=== PATIENT | female | born 1995 | race Caucasian/White ===

== ENCOUNTER 2018-12-18 06:25 | Emergency (ER) | payer MEDICAID, SELFPAY ==
[2018-12-18 06:27] VITALS: BP 118/65; PULSE 109; RESP 20; TEMP 39.2; O2SAT 97; BMI 31.0
[2018-12-18 07:28] LABS: Anion Gap 9 (5-15); BUN 7 mg/dL (7-18); BUN/Creat Ratio 7.8 RATIO (10-20); Calcium,Total 8.3 mg/dL (8.5-10.1); Chloride 104 mmol/L (98-107); Creatinine, Serum 0.89 mg/dL (0.55-1.02); EST Glomerular Filtration Rate 83 mL/min (>60); Est Glom Filt Rate - Afr Amer 100 mL/min (>60); Estimated Creatinine Clearance 84.89 ml/min; Glucose 99 mg/dL (74-106); Potassium 3.4 mmol/L (3.5-5.1); Sodium Level 137 mmol/L (136-145)
[2018-12-18] MEDS: 0.9% Normal Saline 1,000 ML 1000 ML IV (07:29)
[2018-12-18] MEDS: Acetaminophen 325 MG Tablet 650 MG PO (07:29)
[2018-12-18] MEDS: Ondansetron 4 MG/2 ML Vial IV (07:31)
[2018-12-18 07:33] LABS: Lactic Acid 0.9 mmol/L (0.4-2.0)
--- NOTE | 2018-12-18 07:39 | ED.DCSUM_ITS ---
- ER Visit Summary Date of Service: 12/18/18 Chief Complaint: Fever, chills, achy, cough and nausea and vomiting History of Present Illness: The patient is a 23 F who reports onset of illness was 3 weeks ago. At that time she had cough, congestion with fever and chills. She states after several days she got better. She states approximately 4 5 days ago she developed fever, chills with occasional sweats. She does report headache, discomfort with IV movement. Denies photophobia, neck pain or neck stiffness. Denies nasal congestion, rhinorrhea or postnasal drainage. She does report mild sore throat. Cough is productive. She is a smoker. She denies shortness of breath or dyspnea on exertion. She does report dry mouth, thirst, orthostatic symptoms and decreased urine output. She denies dysuria, frequency, urgency or hematuria. She has vomited several times. She denies hematemesis. Emesis is green yellow in color. She denies change in color or consistency of stool. She denies rash. She denies vertigo, anesthesia, paresthesia or motor weakness. She denies problems with bruising. She denies rash. She did not receive a flu shot. 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 Physical Examination: Vital signs noted and remarkable for heart rate of 109, temperature 102.6. She is not hypoxic. Head is atraumatic normocephalic. Pupils are equal round reactive. Extraocular muscles are intact. There is no photophobia. TMs are pearly white with landmarks noted. Nares patent with no drainage. Posterior pharynx without erythema or exudate. Uvula is midline. Tongue and buccal mucosa are dry. There is no dysphonia or dysphasia. Trachea is midline. There is no stridor with auscultation of the neck. Heart is rapid and regular without murmur, gallop or rub. S1 and S2 are normal. Lungs are clear to auscultation with good movement of air bilaterally. Abdomen is soft nontender. No palpable pulsatile mass. No abdominal bruit. There is no hepatosplenomegaly. Negative Johnston sign. There is no CVA tenderness. Patient appears pale. Patient is alert and oriented ?3. Motor is 5 over 5. Sensory is intact. DTRs are symmetric with no clonus or Babinski sign. Cranial 2 through 12 are intact. Cerebellar testing is normal. Test Results: Monitor reveals sinus tachycardia rate of 125. Patient appears ill. Two-view chest x-ray read by me as infiltrate left lower lobe. Contacted radiology since there is no official read. Dr. Cline agrees with my assessment/interpretation. Emergency Department Course and Treatment: Clinically patient appears dehydrated. She received 1 L of normal saline. Because she complains of myalgias arthralgias cough fever headache will obtain rapid influenza screen. Because patient's illness started 3 weeks ago has productive cough chest x-ray was obtained as well. Based on amount of vomiting reported basic metabolic panel was obtained to assess renal function and electrolytes. IV was established. She was treated with IV Zofran. She will be reevaluated. Treatment Plan: Patient received a dose of Tamiflu and doxycycline department. Patient informed me she cannot afford the retail cost of the medication. Case management was consulted. Case management was able to facilitate purchase of Tamiflu and doxycycline. Therefore, patient was discharged with Tamiflu and doxycycline. Disposition: Discharge to home with significant other in stable improved condition. Patient level 1 port severity therefore outpatient treatment is appropriate. Impression: 1. Left lower lobe pneumonia, community-acquired 2. Influenza A 3. Moderate dehydration 4. Sinus tachycardia documented on monitor This note was generated with [employer] dictation software. It may contain incorrect words, spelling, and punctuation that were not noted in review of the chart prior to signing ED Disposition - Plan for ED Patient: Disposition: Home or Assisted Living Instructions: ED Flu, ED Pneumonia Adult Prescriptions: Doxycycline Hyclate 100 mg PO BID #14 cap Oseltamivir Phosphate [Tamiflu] 75 mg PO BID #10 cap Referrals: Owen Rogers MD [Primary Care Provider] - 2 Days
[2018-12-18 07:44] VITALS: BP 107/67; PULSE 91; RESP 19
[2018-12-18 07:44] LABS: Absolute Neutrophil Count 2.1 X10^3/uL (2.0-7.7); Hematocrit 43.2 % (37-47); Hemoglobin 14.3 g/dl (12.0-15.0); Lymphocyte % 19.4 % (19-41); Mean Corp Hgb Conc 33.1 g/gl (32-36); Mean Corpuscular Volume 93.7 fL (81-99); Mean Platelet Vol. 9.2 fl (6.2-12.0); Monocyte# 0.43 X10^3/uL; Monocyte% 13.9 % (0-10); Neutrophil # 2.07 X10^3/uL (2.7-7.7); Neutrophil % 66.7 % (47-70); Platelet Count 193 K/mm3 (150-450); RBC Distribution Width CV 12.9 % (11.6-14.6); RBC Distribution Width SD 43.1 fl (35.1-43.9); Red Blood Count 4.61 M/mm3 (4.2-5.4); White Blood Count 3.1 K/mm3 (4.4-11.0)
[2018-12-18 07:45] LABS: Differential Indicated SCAN CRITERIA MET; POSITIVE COUNT NO; POSITIVE DIFFERENTIAL YES; POSITIVE MORPHOLOGY NO
--- NOTE | 2018-12-18 08:14 | ED.RN ---
LAB RESULTED POSITIVE FLU A, PHYSICIAN NOTIFIED
--- NOTE | 2018-12-18 08:15 | RAD_ITS ---
STUDY: X-RAY CHEST REASON FOR EXAM: Female, 23 years old. History of flu. TECHNIQUE: PA and lateral views of the chest. COMPARISON: None. FINDINGS: Mild increased markings in the posterior segment of the left lower lobe suggestive of early infiltrate. There is no demonstrated pleural abnormality. Normal size heart. Normal mediastinum and sammy. Normal visualized pulmonary arteries. Normal visualized aortic arch and descending thoracic aorta. Normal visualized thoracic spine. Normal visualized ribs, clavicles, and shoulders. There is no demonstrated abnormality of the visualized soft tissue structures of the upper abdomen. RAD/Chest PA and Lateral IMPRESSION: Focal infiltrate in the posterior medial segment of the left lower lobe. Electronically Signed: Ray Mena MD at 8:45 EST , Service support ,
[2018-12-18 08:40] VITALS: BP 97/68; PULSE 92; RESP 12; TEMP 37; O2SAT 96
[2018-12-18] MEDS: Oseltamivir Phosphate 75 MG Capsule PO (08:55)
[2018-12-18] MEDS: Doxycycline 100 MG CAPSULE PO (08:55)
[2018-12-18 08:57] VITALS: BP 114/74; PULSE 91; RESP 15; O2SAT 95
--- NOTE | 2018-12-18 09:20 | CM.ED ---
SOCIAL WORK NOTE THIS WORKER REQUESTED TO FOLLOW UP WITH PATIENT REGARDING SELF PAY STATUS AND PRESCRIPTION NEEDS. PATIENT WITH POSITIVE FLU A AND PNEUMONIA. MET WITH PATIENT AND PATIENT'S SIG OTHER, DOC REID [phone] AT BEDSIDE. PATIENT STATES LOST [place] MEDICAID INSURANCE ON 11/10/18 SHE NO LONGER QUALIFIED SHE IS OVER INCOME. PATIENT AND SIG OTHER PROVIDED WITH CONTACT INFORMATION FOR MEDICAID SHARED SERVICES, [employer] AND [employer] FOR ASSISTANCE WITH PRESCRIPTIONS. SIG OTHER TO ASSIST PATIENT IN MAKING PHONE CALLS. THIS WORKER TO FOLLOW UP. ESTRADA VEGA, CUSTOMER CARE TEAM COACH, SOUND CUTTER.
--- NOTE | 2018-12-18 10:25 | CM.ED ---
SOCIAL WORK NOTE MET WITH PATIENT AND SIG OTHER IN ROOM. PATIENT STATES HAS SPOKEN WITH ADOPTIVE MOTHER, RANDOLPH WHO RESIDES IN [place] AND SHE IS ABLE TO PAY FOR PRESCRIPTIONS OVER THE PHONE. CALL TO DINH IN THE [facility]. PER DINH, ABLE TO ACCEPT PAYMENT OVER THE PHONE. CALL TO PT'S MOTHER, RANDOLPH PER REQUEST. RANDOLPH IN AGREEMENT TO PAY FOR PRESCRIPTIONS OVER THE PHONE WITH CREDIT CARD. UPDATED DR. FREEMAN AND NURSING. PLAN: HOME WITH SIG OTHER WITH PRESCRIPTION ASSISTANCE THROUGH PT'S ADOPTIVE MOTHER. ESTRADA VEGA, CORPORATE RELATIONS DIRECTOR, TESTER ROCKET ENGINE.
[2018-12-18 11:07] VITALS: BP 110/74; PULSE 95; RESP 14; O2SAT 98
== END 2018-12-18 11:12 | disposition home or self-care (01) ==
PROVIDERS: Emergency Provider Emergency Medicine; Family Provider Family Medicine; PCP Family Medicine
DX: J10.00 Influenza due to other identified influenza virus with unspecified type of pneumonia (principal); E86.0 Dehydration; R00.0 Tachycardia, unspecified; E66.9 Obesity, unspecified; F17.200 Nicotine dependence, unspecified, uncomplicated
CPT/HCPCS: 71046; 80048; 83605; 85025; 87804; 96361; 96374; 99285; J7030; J2405

== ENCOUNTER 2019-05-09 13:26 | Emergency (ER) | payer SELFPAY ==
[2019-05-09 13:27] VITALS: BP 123/68; PULSE 118; RESP 16; TEMP 37; O2SAT 96; BMI 29.0
--- NOTE | 2019-05-09 14:42 | ED.VIS.FEGU ---
History of Present Illness Chief Complaint: Female C/O Informant: Patient Pain: - - Painful lesion clitoral gonzalez Onset: Today Context: Sudden Onset Timing: Continuous Quality: Burning Location: - - Clitoral gonzalez Current Severity: Mild Maximum Severity: Severe Worsened by: - - Touch Relieved by: - - Nothing Issue: Negative for: Vaginal bleeding, Passing clots, Passing tissue Context: Sudden Onset - Vaginal Discharge Quality: White Associated Symptoms: Dysuria. Negative for: Frequency, Urgency, Hematuria, Missed Period Test: - - Patient is a lesbian Sexually: Active, Multiple Partners, - - Patient practices oral sex and is a lesbian Control: No control Narrative: Patient is a 24-year-old female who states she broke up with her present girlfriend. They were apart for a month. She was with another person. She recently started seeing her old girlfriend. They recently had oral sex. She presents because of painful lesion that is located above the clitoris. No other lesions were noted by patient. Prior similar symptoms: No Recent Illness/Hospitalization: No - Past Medical History (1) No significant past medical history Status: Acute Past Medical History - Allergies and Home Meds Allergies/Adverse Reactions: Allergies lorazepam Allergy (Verified 05/09/19 13:27) Rash Primary Care Physician: Juan Ervin [Primary Care Provider] - Prior records reviewed: Yes Past Medical History: None Surgical History: no surgical history Lives: Spouse/ Significant Other Smoking Status: Unknown if ever smoked Drugs: None Review of Systems General: Denies: Chills, Fever, Malaise, Subjective, Sweats Eyes: Denies: Visual changes - bilaterally, Blurred Vision - bilaterally ENT: Denies: Bilateral ear pain, Rhinorrhea, Sore throat Cardiovascular: Denies: Chest pain, Palpitations, Heart racing Respiratory: Denies: Dyspnea, Cough, Dyspnea on exertion Gastrointestinal: Denies: Abdominal pain, Nausea, Vomiting Musculoskeletal: Denies: Myalgias, Arthralgias, Neck pain, Back pain, Swelling, Extremity Pain Skin: Reports: Rash Physical Exam Vital Signs/Narrative: Vital Signs Temp Pulse Resp BP Pulse Ox 05/09/19 13:27 98.6 F 118 H 16 123/68 H 96 Inital Vital Signs reviewed: Yes General: Well nourished, Well developed, Obese Head: Normocephalic, Atraumatic Eyes: Perrl, EOMI. Negative for: Pale conjunctiva, Scleral icterus ENT: Moist mucous membranes, No rhinorrhea Neck: Supple, Nontender, No lymphadenopathy, No JVD Cardiovascular: Regular rate, Regular rhythm, No murmurs, Normal S1, Normal S2 Respiratory: No distress, CTA bilaterally, Chest nontender Abdomen: Soft, Nontender, Nondistended, Normal bowel sounds : Speculum exam: No vaginal discharge. Negative for: Normal external genitalia, No vaginal lesions, Mild active bleeding, Moderate active bleeding, Severe active bleeding, Small clots, Large clots, Vaginal tissue present Back: Nontender, Normal Inspection Extremities: Nontender, No edema Skin: Normal color, Rash Neurological: Alert, Oriented x3, Cranial nerves II-XII grossly intact, Normal Strength, Normal Sensation Psychological: Tearful Diagnostic/Tx/Re-eval - Medical Decision/Diagnostic Studies Urine for GC and chlamydia were sent. Culture for HSV was obtained. There is a painful ulcerative lesion involving the clitoral gonzalez. This may represent primary genital herpes. She is unaware if her significant other recently had cold sores. I was informed the results will not be available until the middle of next week. Treatment needs to occur within 24 to 48 hours; therefore, will write for prescription for Famvir ED Disposition - Plan for ED Patient: Disposition: Home or Assisted Living Diagnosis: HSV (herpes simplex virus) dendritic keratitis Instructions: Herpes Genitalis, Hsv: Type Ii Prescriptions: Famciclovir 500 mg PO TID #21 tab Transmission Status: Pending to [employer] #30 Referrals: Juan Ervin [Primary Care Provider] - 1 Week if not improving Additional Instructions: Your prescription was electronically transmitted to [facility]
== END 2019-05-09 15:30 | disposition home or self-care (01) ==
PROVIDERS: Emergency Provider Emergency Medicine; Family Provider Family Medicine
DX: B00.52 Herpesviral keratitis (principal)
CPT/HCPCS: 87529; 99282

== ENCOUNTER 2019-06-13 13:37 | Emergency (ER) | payer SELFPAY ==
[2019-06-13 13:38] VITALS: BP 115/58; PULSE 97; RESP 16; TEMP 37.3; O2SAT 98; BMI 26.5
--- NOTE | 2019-06-13 14:12 | ED.VIS.GEN ---
History of Present Illness <Martell Arnold - Last Filed: 06/13/19 16:43> Informant: Patient Onset: Month(s) Current Severity: Moderate Maximum Severity: Moderate Narrative: Myke is a 24-year-old female who 4 months has had total body numbness, swelling, abdominal pain and nausea and vomiting. She is missed several days of work because of this. She cannot remember when her last menstrual cycle was but she states is always regular. She been under a lot of stress lately and she thinks she has an ulcer or MS. she complains of weight loss and anorexia. Denies fever chills or dysuria. She complains of decreased urine output and difficulty with voiding. She was seen at urgent care several months ago and she was told to go to the emergency department for further evaluation and that she might have organ failure. Prior similar symptoms: No Recent Illness/Hospitalization: No <FlortomasBev vazquez - Last Filed: 06/13/19 17:41> Chief Complaint: General Illness Past Medical History <Martell Arnold - Last Filed: 06/13/19 16:43> Surgical History: no surgical history Smoking Status: Unknown if ever smoked <Bev العراقي - Last Filed: 06/13/19 17:41> - Allergies and Home Meds Allergies/Adverse Reactions: Allergies lorazepam Allergy (Verified 06/13/19 14:35) Rash Primary Care Physician: Juan Ervin [Primary Care Provider] - Review of Systems General: Reports: Malaise. Denies: Chills, Fever Eyes: Denies: Visual changes - left, Blurred vision - left Cardiovascular: Denies: Chest pain, Palpitations Respiratory: Denies: Dyspnea, Cough Gastrointestinal: Reports: Abdominal pain, Nausea, Vomiting. Denies: Melena Genitourinary: Reports: - - Complains of low output. Denies: Dysuria, Hematuria, Frequency Musculoskeletal: Denies: Myalgias, Arthralgias, Neck pain, Back pain Neurological: Denies: Headache, Weakness, Parasthesia Psych: Reports: - - States she is under a lot of stress. Denies: Suicidal thoughts, Suicidal ideations <MalcomBev - Last Filed: 06/13/19 17:41> Physical Exam Vital Signs/Narrative: Vital Signs Temp Pulse Resp BP Pulse Ox 06/13/19 15:30 70 17 107/58 L 100 06/13/19 13:38 99.1 F 97 16 115/58 L 98 <ArnoldMartell - Last Filed: 06/13/19 16:43> Vital Signs/Narrative: Vital Signs Temp Pulse Resp BP Pulse Ox 06/13/19 13:38 99.1 F 97 16 115/58 L 98 Inital Vital Signs reviewed: Yes General: Well nourished, Well developed Eyes: Perrl, EOMI. Negative for: Pale conjunctiva ENT: Moist mucous membranes, No rhinorrhea Neck: Supple, Nontender, No lymphadenopathy Cardiovascular: Regular rate, Regular rhythm, No murmurs Respiratory: No distress, CTA bilaterally, Chest nontender Abdomen: Soft, Nontender, Nondistended Rectal: Deferred Back: Nontender, Normal Inspection Extremities: Nontender, No edema. Negative for: Tenderness, Edema, Calf Tenderness Skin: Normal color, No rash. Negative for: Pallor Neurological: Alert, Oriented x3 Psychological: Normal affect <Bev العراقي - Last Filed: 06/13/19 17:41> Diagnostic/Tx/Re-eval - Medical Decision Making Patient with multiple somatic complaints. Patient being seen and treated with our TOOL ROOM GEAR MACHINE OPERATOR His exam vital signs are stable and afebrile. No acute distress. Exam normal. HEENT exam normal. Neck nontender. Lungs clear to auscultation. Heart regular rhythm no murmur. Abdomen soft nontender. Patient is moving all 4 extremities. Neurovascular intact. Neurologically she is awake alert. Abdominal pain of uncertain etiology. <ClaytonMartell - Last Filed: 06/13/19 16:43> - Medical Decision Making She complains of right upper quadrant pain and laboratory test to evaluate her pancreas liver and gallbladder were unremarkable. White count was normal. She is not . She describes intermittent constipation or diarrhea. She may have irritable bowel syndrome. Her abdomen remains soft and nontender nondistended. She was instructed to follow-up with her PCP for further evaluation of her symptoms. She remained hemodynamically stable and nontoxic in appearance. She was discharged with a prescription for Bentyl and Zofran in stable condition. Impression NOS abdominal pain Possible IBS <Bev العراقي - Last Filed: 06/13/19 17:41> ED Disposition <Martell Arnold - Last Filed: 06/13/19 16:43> <MalcomBev - Last Filed: 06/13/19 17:41> - Plan for ED Patient: Disposition: Home or Assisted Living Diagnosis: IBS (irritable bowel syndrome) Prescriptions: Dicyclomine HCl [Bentyl] 20 mg PO TIDAC #20 cap Prescription Printed Referrals: Juan Ervin [Primary Care Provider] - Additional Instructions: Monitor your diet and avoid foods that aggravate your pain. He may require further evaluation of her symptoms. Follow with your primary care provider.
[2019-06-13 14:29] LABS: Absolute Lymphocyte Count 1.95 X10^3/uL (0.83-4.51); Absolute Neutrophil Count 3.6 X10^3/uL (2.0-7.7); Basophil# 0.05 X10^3/uL; Basophil% 0.8 % (0-1); Eosinophil# 0.05 X10^3/uL; Eosinophils% 0.8 % (0-5); Hematocrit 39.9 % (37-47); Hemoglobin 13.8 g/dL (12.0-15.0); Lymphocyte # 1.95 X10^3/ul (4.0); Lymphocyte % 32.3 % (19-41); Mean Corp Hgb Conc 34.6 g/dL (32-36); Mean Corpuscular Hgb 32.4 pg (27.0-32.0); Mean Corpuscular Volume 93.7 fL (81-99); Mean Platelet Vol. 8.6 fl (6.2-12.0); Monocyte# 0.39 X10^3/uL; Monocyte% 6.5 % (0-10); NRBC Flagged by Analyzer 0 % (0-5); Neutrophil # 3.58 X10^3/uL (2.7-7.7); Neutrophil % 59.3 % (47-70); Platelet Count 208 K/mm3 (150-450); RBC Distribution Width CV 12.3 % (11.6-14.6); RBC Distribution Width SD 42.5 fl (35.1-43.9); Red Blood Count 4.26 M/mm3 (4.2-5.4)
[2019-06-13 14:32] LABS: Internal QC Validated? YES +Cl - CLEAR BKGD; Pregnancy, Serum, hCG Quali. NEGATIVE Negative
[2019-06-13] MEDS: Ondansetron 4 MG/2 ML Vial IV (14:33)
[2019-06-13] MEDS: 0.9% Normal Saline 1,000 ML 1000 ML IV (14:33)
[2019-06-13 14:43] LABS: ALB/GLOB Ratio 1.2 RATIO (0.9-2.4); AST(SGOT) 10 U/L (15-37); Alanine Aminotransfer ALT/SGPT 15 U/L (13-56); Albumin, Serum 3.6 g/dL (3.2-5.0); Alkaline Phosphatase 48 U/L (45-117); Anion Gap 6 (5-15); BUN 12 mg/dL (7-18); BUN/Creat Ratio 13.1 RATIO (10-20); Calcium,Total 8.2 mg/dL (8.5-10.1); Chloride 111 mmol/L (98-107); Creatinine, Serum 0.91 mg/dL (0.55-1.02); EST Glomerular Filtration Rate 80 mL/min (>60); Est Glom Filt Rate - Afr Amer 97 mL/min (>60); Estimated Creatinine Clearance 82.32 ml/min; Globulin 3.1 g/dL (2.2-4.2); Glucose 76 mg/dL (74-106); Lipase 83 U/L (73-393); Potassium 3.8 mmol/L (3.5-5.1); Protein, Total 6.7 g/dL (6.4-8.2); Sodium Level 143 mmol/L (136-145)
[2019-06-13 15:30] VITALS: BP 107/58; PULSE 70; RESP 17; O2SAT 100
[2019-06-13 15:32] LABS: Mucous, Urine 0 SEEN /hpf (<or=2+); Red Blood Cells-Urine 0 SEEN /hpf (0-5); White Blood Cells 0 SEEN /hpf (0-5)
[2019-06-13 15:34] LABS: Color, Urine Yellow (Yellow); Glucose, Dipstick Normal (Normal); Ketone-Dipstick Negative (Negative); Leukocyte Esterase-Dipstick Negative /ul (Negative); Nitrite-Dipstick Negative (Negative); Occult Blood-Urine Negative /ul (Negative); Protein-Dipstick Negative (Negative); Urine Bilirubin Dipstick Negative (Negative); Urine Clarity Sl. Cloudy (Clear); Urine Urobilinogen Normal (Normal)
[2019-06-13 15:41] LABS: Bacteria RARE /hpf (None Seen); Squamous Epithelial Cells - UA 0-5 SEEN /hpf (5-10)
[2019-06-13 16:54] VITALS: PULSE 67; RESP 18; O2SAT 97
== END 2019-06-13 16:55 | disposition home or self-care (01) ==
PROVIDERS: Nurse Practitioner; Emergency Provider Emergency Medicine; Family Provider Family Medicine
DX: R10.11 Right upper quadrant pain (principal); R11.2 Nausea with vomiting, unspecified; R20.0 Anesthesia of skin
CPT/HCPCS: 80053; 81001; 83690; 84703; 85025; 96361; 96374; 99283; J7030; J2405

== ENCOUNTER 2019-10-12 12:20 | Emergency (ER) | payer SELFPAY ==
[2019-10-12] VITALS (10 sets, daily range): BP systolic 101–119; BP diastolic 73–76; PULSE 80–112; RESP 12–17; TEMP 36.2–37.1; O2SAT 94–100; BMI 25.0
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
--- NOTE | 2019-10-12 13:09 | CT_ITS ---
STUDY: CT BRAIN WITHOUT CONTRAST REASON FOR EXAM: Female, 24 years old. Mental health evaluation. Hallucinations. RADIATION DOSAGE (If Supplied By Facility): CTDIvol = ( 44.99 ) mGy, DLP = ( 661.13 ) mGycm TECHNIQUE: Transaxial CT imaging of the brain was performed without administration of intravenous contrast material. Individualized dose optimization techniques were used for this CT. COMPARISON: No relevant priors. FINDINGS: Normal soft tissue structures. Normal calvarium. Normal size ventricles and extra-axial spaces for the patient's age. Normal white matter tracts of the cerebral hemispheres. Normal basal ganglia and thalami. Normal brainstem. Normal cerebellum. There is no intracranial hemorrhage. There are no findings of an acute ischemic infarction. Normal visualized paranasal sinuses. Prominent soft tissues within the nasopharynx. CT/Brain/Head without Contrast IMPRESSION: Normal unenhanced CT scan of the brain. Electronically Signed: Ray Mena, at 13:38 EST , Service support ,
[2019-10-12 13:28] LABS: Absolute Lymphocyte Count 1.91 X10^3/uL (0.83-4.51); Absolute Neutrophil Count 8.4 X10^3/uL (2.0-7.7); Basophil# 0.04 X10^3/uL; Basophil% 0.4 % (0-1); Eosinophil# 0.04 X10^3/uL; Eosinophils% 0.4 % (0-5); Hematocrit 42.7 % (37-47); Hemoglobin 14.9 g/dL (12.0-15.0); Lymphocyte # 1.91 X10^3/ul (4.0); Lymphocyte % 17.4 % (19-41); Mean Corp Hgb Conc 34.9 g/dL (32-36); Mean Corpuscular Hgb 31.8 pg (27.0-32.0); Mean Corpuscular Volume 91.2 fL (81-99); Mean Platelet Vol. 8.8 fl (6.2-12.0); Monocyte# 0.62 X10^3/uL; Monocyte% 5.6 % (0-10); NRBC Flagged by Analyzer 0 % (0-5); Neutrophil # 8.35 X10^3/uL (2.7-7.7); Neutrophil % 75.9 % (47-70); Platelet Count 262 K/mm3 (150-450); RBC Distribution Width CV 12.2 % (11.6-14.6); RBC Distribution Width SD 40.5 fl (35.1-43.9); Red Blood Count 4.68 M/mm3 (4.2-5.4)
[2019-10-12 13:34] LABS: Internal QC Validated? YES +Cl - CLEAR BKGD; Pregnancy, Serum, hCG Quali. NEGATIVE Negative
[2019-10-12 13:41] LABS: Anion Gap 7 (5-15); BUN 11 mg/dL (7-18); BUN/Creat Ratio 11.3 RATIO (10-20); Calcium,Total 9.4 mg/dL (8.5-10.1); Chloride 108 mmol/L (98-107); Creatinine, Serum 0.97 mg/dL (0.55-1.02); EST Glomerular Filtration Rate 74 mL/min (>60); Est Glom Filt Rate - Afr Amer 90 mL/min (>60); Estimated Creatinine Clearance 80.47 ml/min; Glucose 110 mg/dL (74-106); Potassium 3.3 mmol/L (3.5-5.1); Sodium Level 139 mmol/L (136-145)
[2019-10-12 14:21] LABS: Amphetamine Urine VISTA POSITIVE (<1000 ng/mL); Barbiturate Urine VISTA NEGATIVE (< 200 ng/mL); Benzodiazepine Urine VISTA NEGATIVE (< 200 ng/mL); Cocaine Urine VISTA NEGATIVE (< 300 ng/mL); Ecstacy Urine VISTA NEGATIVE (< 500 ng/mL); Methadone Urine VISTA NEGATIVE (< 300 ng/mL); PCP Urine VISTA NEGATIVE (< 25 ng/mL); THC Urine VISTA POSITIVE (< 50 ng/mL); Vista UDS pH Range 6
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
--- NOTE | 2019-10-12 16:09 | EKG12_ITS ---
Test Reason : MENTALHEALTH Blood Pressure : / mmHG Vent. Rate : 091 BPM Atrial Rate : 091 BPM P-R Int : 164 ms QRS Dur : 086 ms QT Int : 364 ms P-R-T Axes : 074 066 055 degrees QTc Int : 447 ms Normal sinus rhythm with sinus arrhythmia Normal ECG Confirmed by SHARRI MALCOLM ([id number]), proposal editor MONICA SNOW ([id number]) on 10/18/2019 9:07:45 AM Referred By: MIGUEL Confirmed By:SHARRI MALCOLM
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
[2019-10-12 16:45] LABS: AST(SGOT) 13 U/L (15-37); Alanine Aminotransfer ALT/SGPT 11 U/L (13-56); Albumin, Serum 4.4 g/dL (3.2-5.0); Alkaline Phosphatase 57 U/L (45-117); Bilirubin, Direct 0.17 mg/dL (0.00-0.30); Globulin 3.3 g/dL (2.2-4.2); Protein, Total 7.7 g/dL (6.4-8.2)
--- NOTE | 2019-10-12 18:45 | ED.RN ---
PER KALYN FROM CRISIS, PT HAS BEEN REFERRED TO [facility] AND [facility]. BOTH FACILITIES ARE FULL AND CANNOT ACCEPT ANY PTS A THIS TIME. PT INFORMED. WILL CONTINUE TO MONITOR. SITTER REMAINS AT BEDSIDE.
[2019-10-12 20:06] LABS: CPK Total, Creatine Kinase 186 U/L (26-192)
[2019-10-12] MEDS: hydrOXYzine PAM 25 MG Capsule 50 MG PO (22:49)
[2019-10-13] VITALS (18 sets, daily range): BP systolic 101–128; BP diastolic 72–78; PULSE 68–113; RESP 14–16; TEMP 37; O2SAT 97–99
[2019-10-13] MEDS: Ziprasidone IM 20 MG/ML VIAL 10 MG IM (00:44)
--- NOTE | 2019-10-13 15:49 | NURSING ---
KALYN, CRISIS, CALLED. PATIENT IS ACCEPTED AND GETS THE NEXT BED.
--- NOTE | 2019-10-13 19:54 | ED.RN ---
[facility] TO RETURN CALL TO THIS RN TO GIVE NURSE TO NURSE REPORT.
== END 2019-10-13 20:25 ==
LOC: ED 13:16
PROVIDERS: Emergency Provider Emergency Medicine; Family Provider Family Medicine
DX: R45.851 Suicidal ideations (principal); F43.10 Post-traumatic stress disorder, unspecified; Z59.0 Homelessness
CPT/HCPCS: 70450; 80048; 80076; 80307; 80320; 82550; 84703; 85025; 93005; 96372; 99284; G0480; J3486

== ENCOUNTER 2020-02-15 10:01 | Emergency (ER) | payer SELFPAY ==
[2019-10-12 12:21] VITALS: BMI 25.0
[2020-02-15 10:02] VITALS: BP 140/71; PULSE 121; RESP 16; TEMP 36.2; O2SAT 99; BMI 26.6
--- NOTE | 2020-02-15 10:12 | ED.VISSUMM ---
- ER Visit Summary Date of Service: 02/15/20 Chief Complaint: Abdominal pain/cramping History of Present Illness: The patient is a 25 F who has abdominal pain and cramping. It started 2 days ago. She states that she has missed her period the last 2 months. She did have some spotting but did not have a full period like she expected. She is concerned about . She had a negative test at home. She has cramping in the lower part of her abdomen. It does not radiate. Nothing makes it better or worse. She does have nausea without vomiting. No diarrhea or constipation. She denies fevers. No history of abdominal surgeries. She took nothing for this at home. Physical Examination: Vital signs reviewed. HEENT exam unremarkable. Heart is regular rate and rhythm without murmurs. Lungs are clear to auscultation. Abdomen is soft and nontender. exam is deferred. Extremities reveal no edema. Skin exam normal. Neurologic exam normal. Test Results: Labs are unremarkable except for potassium of 3.4. hCG is negative Emergency Department Course and Treatment: Patient's is negative. This was her main concern regarding the cramping. I will give her some Bentyl to see if this will help with her cramping. She will need to call her doctor for follow-up Treatment Plan: [] Disposition: Discharge Impression: Abdominal cramping This note was generated with [employer] dictation software. It may contain incorrect words, spelling, and punctuation that were not noted in review of the chart prior to signing ED Disposition - Plan for ED Patient: Disposition: Home or Assisted Living Instructions: ED Abdominal Pain Unkn Cause Fem Prescriptions: Dicyclomine HCl [Bentyl] 20 mg PO TIDAC #20 cap Transmission Status: Pending to [facility] #30 Referrals: Juan Ervin [Primary Care Provider] -
[2020-02-15 10:23] LABS: Absolute Lymphocyte Count 2.61 X10^3/uL (0.83-4.51); Absolute Neutrophil Count 6.2 X10^3/uL (2.0-7.7); Basophil# 0.08 X10^3/uL; Basophil% 0.8 % (0-1); Eosinophil# 0.26 X10^3/uL; Eosinophils% 2.6 % (0-5); Hemoglobin 15.4 g/dL (12.0-15.0); Lymphocyte # 2.61 X10^3/ul (4.0); Lymphocyte % 26.4 % (19-41); Mean Corp Hgb Conc 33.5 g/dL (32-36); Mean Corpuscular Hgb 30.6 pg (27.0-32.0); Mean Corpuscular Volume 91.5 fL (81-99); Mean Platelet Vol. 8.6 fl (6.2-12.0); Monocyte# 0.64 X10^3/uL; Monocyte% 6.5 % (0-10); NRBC Flagged by Analyzer 0 % (0-5); Neutrophil # 6.22 X10^3/uL (2.7-7.7); Neutrophil % 63.1 % (47-70); Platelet Count 235 K/mm3 (150-450); RBC Distribution Width SD 43.5 fl (35.1-43.9); Red Blood Count 5.03 M/mm3 (4.2-5.4); White Blood Count 9.9 K/mm3 (4.4-11.0)
[2020-02-15 10:33] LABS: Mucous, Urine 0 SEEN /hpf (<or=2+); White Blood Cells 0 SEEN /hpf (0-5)
[2020-02-15 10:38] LABS: ALB/GLOB Ratio 1.2 RATIO (0.9-2.4); AST(SGOT) 13 U/L (15-37); Alanine Aminotransfer ALT/SGPT 13 U/L (13-56); Albumin, Serum 4.2 g/dL (3.2-5.0); Alkaline Phosphatase 65 U/L (45-117); Anion Gap 4 (5-15); BUN 9 mg/dL (7-18); BUN/Creat Ratio 9.9 RATIO (10-20); Chloride 107 mmol/L (98-107); Creatinine, Serum 0.91 mg/dL (0.55-1.02); EST Glomerular Filtration Rate 80 mL/min (>60); Est Glom Filt Rate - Afr Amer 97 mL/min (>60); Estimated Creatinine Clearance 81.61 ml/min; Globulin 3.5 g/dL (2.2-4.2); Glucose 103 mg/dL (74-106); Potassium 3.4 mmol/L (3.5-5.1); Protein, Total 7.7 g/dL (6.4-8.2); Sodium Level 139 mmol/L (136-145)
[2020-02-15 10:39] LABS: hCG Titer Quant., Serum < 1 mIU/mL (1-3)
[2020-02-15 10:39] LABS: Color, Urine Straw (Yellow); Glucose, Dipstick Normal (Normal); Ketone-Dipstick Negative (Negative); Leukocyte Esterase-Dipstick Negative /ul (Negative); Nitrite-Dipstick Negative (Negative); Occult Blood-Urine 25 /ul (Negative); Protein-Dipstick Negative (Negative); Urine Bilirubin Dipstick Negative (Negative); Urine Clarity Clear (Clear); Urine Urobilinogen Normal (Normal); Urine pH 6.5 (5.0 - 8.0)
[2020-02-15 10:49] LABS: Bacteria RARE /hpf (None Seen); Red Blood Cells-Urine 0-5 SEEN /hpf (0-5); Squamous Epithelial Cells - UA 0-5 SEEN /hpf (5-10)
== END 2020-02-15 11:14 | disposition home or self-care (01) ==
PROVIDERS: Emergency Provider Emergency Medicine
DX: R10.30 Lower abdominal pain, unspecified (principal); Z72.0 Tobacco use
CPT/HCPCS: 80053; 81001; 84702; 85025; 99283; A4216

== ENCOUNTER 2021-01-16 21:19 | Emergency (ER) | payer SELFPAY ==
[2021-01-16 21:20] VITALS: BP 107/82; PULSE 96; RESP 36; TEMP 36.3; O2SAT 100; BMI 27.2
--- NOTE | 2021-01-16 21:22 | ED.DCSUM_ITS ---
History of Present Illness Chief Complaint: Palpitations Informant: Patient Narrative: 25-year-old female presenting with pink slip from [employer]. An employee of the [employer] stated that she was hitting signs, making suicidal comments and acting crazy all day. She also tried to get someone to hit her. Another witness at the [employer] stated that she made suicidal comments as well today. She locked herself in the bathroom with razor blades. It was reported by [employer] AUGUSTINE that she also wanted to kill people and burn down the [employer]. She does express confusion and the need for help. She does not know any medical problems or her history. She does not know what medication she supposed to be on. Past Medical History - Allergies and Home Meds Allergies/Adverse Reactions: Allergies lorazepam Allergy (Verified 01/16/21 21:20) Rash Primary Care Physician: Juan Ervin [Primary Care Provider] - Past Medical History: - - PTSD, anxiety Surgical History: no surgical history Smoking Status: Current every day smoker Review of Systems General: Denies: Chills, Fever, Sweats Eyes: Denies: Visual changes - bilaterally, Diplopia ENT: Denies: Rhinorrhea, Sore throat Cardiovascular: Reports: Palpitations. Denies: Chest pain, Heart racing Respiratory: Denies: Dyspnea, Cough, Dyspnea on exertion Gastrointestinal: Denies: Abdominal pain, Nausea, Vomiting, Diarrhea, Melena, Hematochezia Musculoskeletal: Denies: Back pain, Extremity Pain Skin: Denies: Rash, Wounds Neurological: Denies: Headache, Weakness, Numbness Psych: Reports: Suicidal thoughts, Suicidal ideations, - Physical Exam Inital Vital Signs reviewed: Yes General: Well nourished, No Acute Distress Head: Normocephalic, Atraumatic Eyes: Perrl, EOMI ENT: Moist mucous membranes, Sinus tenderness Cardiovascular: Regular rate, Regular rhythm Respiratory: No distress, CTA bilaterally Abdomen: Soft, Nontender, Nondistended Back: Nontender, Normal Inspection Extremities: Nontender, No edema Skin: Normal color, No rash. Negative for: Cyanosis, Diaphoresis Neurological: Alert, Oriented x3, Cranial nerves II-XII grossly intact Psychological: Depressed. Negative for: Agitated Diagnostic/Tx/Re-eval Clinical Impression(s) from Imaging Studies Chest X-Ray 01/16/21 21:42 IMPRESSION: Normal. at 2154 Reported and signed by: Rodolfo Barton MD Electronically Signed: Rodolfo Barton MD at 21:52 EST Tel , Service support , Laboratory Data 01/16/21 01/16/21 01/16/21 21:25 21:25 21:25 WBC 10.3 RBC 4.89 Hgb 15.5 H Hct 44.6 MCV 91.2 MCH 31.7 MCHC 34.8 RDW Std Deviation 40.3 RDW Coeff of [place] 12.1 Plt Count 301 MPV 8.8 Immature Gran % (Auto) 0.400 Neut % (Auto) 62.6 Lymph % (Auto) 29.3 [place] % (Auto) 6.7 Eos % (Auto) 0.3 Baso % (Auto) 0.7 Absolute Neuts (auto) 6.5 Absolute Lymphs (auto) 3.02 Nucleated RBC % 0 Sodium 141 Potassium 3.4 L Chloride 108 H Carbon Dioxide 26.0 Anion Gap 7 BUN 7 Creatinine 0.80 Estim Creat Clear Calc 96.73 Est GFR (MDRD) Af Amer 111 Est GFR (MDRD) Non-Af 92 BUN/Creatinine Ratio 8.7 L Glucose 87 Calcium 9.2 Magnesium 1.9 Troponin I < 0.015 Serum , Qual NEGATIVE Urine Color Urine Clarity Urine pH Ur Specific [place] Urine Protein Urine Glucose (UA) Urine Ketones Urine Occult Blood Urine Nitrite Urine Bilirubin Urine Urobilinogen Ur Leukocyte Esterase Urine RBC Urine WBC Ur Squamous Epith Cells Urine Bacteria Urine Mucus Urine Opiates Screen Urine Methadone Screen Ur Barbiturates Screen Ur Phencyclidine Scrn Ur Amphetamines Screen U Methamphetamin-MDMA U Benzodiazepines Scrn Urine Cocaine Screen U Cannabinoids Screen Ur Drug Screen Comment Ethyl Alcohol 01/16/21 01/16/21 01/16/21 21:25 22:00 22:00 WBC RBC Hgb Hct MCV MCH MCHC RDW Std Deviation RDW Coeff of [place] Plt Count MPV Immature Gran % (Auto) Neut % (Auto) Lymph % (Auto) [place] % (Auto) Eos % (Auto) Baso % (Auto) Absolute Neuts (auto) Absolute Lymphs (auto) Nucleated RBC % Sodium Potassium Chloride Carbon Dioxide Anion Gap BUN Creatinine Estim Creat Clear Calc Est GFR (MDRD) Af Amer Est GFR (MDRD) Non-Af BUN/Creatinine Ratio Glucose Calcium Magnesium Troponin I Serum , Qual Urine Color Yellow Urine Clarity Clear Urine pH 6.0 Ur Specific [place] 1.015 Urine Protein 30 H Urine Glucose (UA) Normal Urine Ketones 50 H Urine Occult Blood 50 H Urine Nitrite Negative Urine Bilirubin Negative Urine Urobilinogen Normal Ur Leukocyte Esterase Negative Urine RBC 0-5 SEEN Urine WBC 0 SEEN Ur Squamous Epith Cells 0-5 SEEN Urine Bacteria RARE Urine Mucus 0 SEEN Urine Opiates Screen NEGATIVE Urine Methadone Screen NEGATIVE Ur Barbiturates Screen NEGATIVE Ur Phencyclidine Scrn NEGATIVE Ur Amphetamines Screen NEGATIVE U Methamphetamin-MDMA NEGATIVE U Benzodiazepines Scrn NEGATIVE Urine Cocaine Screen NEGATIVE U Cannabinoids Screen NEGATIVE Ur Drug Screen Comment Ethyl Alcohol < 3.0 - Medical Decision Making 25-year-old female presenting for suicidal and homicidal ideation reported by his employees of the [employer] as well as [employer] A[employer]. Patient does admit to needing help and states that she is having trouble concentrating. Her lab work-up is unremarkable with exception of a potassium of 3.4 which was replaced. Drug screen negative. EtOH negative. Chest x-ray shows no acute cardiopulmona ry process as interpreted by myself and radiologist agree. EKG is normal sinus rhythm without signs of ischemic changes or dysrhythmia as interpreted by myself. Patient is medically cleared for crisis at this time. Patient is currently talking to the crisis counselor. Patient will be signed out to incoming ED physician for follow-up. I feel it is likely the patient will need inpatient treatment given her suicidal ideation and violent threats. Impression: 1. Suicidal ideation 2. Homicidal ideation ED Disposition - Plan for ED Patient: Disposition: Psychiatric Hospital or Unit Referrals: Juan Ervin [Primary Care Provider] -
--- NOTE | 2021-01-16 21:22 | EKG12_ITS ---
Test Reason : PALPITATIONS Blood Pressure : / mmHG Vent. Rate : 084 BPM Atrial Rate : 084 BPM P-R Int : 176 ms QRS Dur : 088 ms QT Int : 366 ms P-R-T Axes : 069 046 041 degrees QTc Int : 432 ms Normal sinus rhythm Possible Left atrial enlargement Borderline ECG Confirmed by SMITH MURDOCK, SUSY ([id number]), video effects editor ASHA LIZARRAGA ([id number]) on 01/18/2021 11:19:11 AM Referred By: YUSRA Confirmed By:SUSY MTZ MD
--- NOTE | 2021-01-16 21:42 | RAD_ITS ---
HISTORY: chest pain EXAM: XR Chest 1 View: COMPARISON: December 18, 2018 FINDINGS: # of images incl. paperwork: 1 Lungs are clear. Heart is not enlarged. No acute osseous pathology perceived. Pulmonary vascularity is distinct. No effusions. RAD/Chest 1 View (Portable) IMPRESSION: Normal. at 2154 Reported and signed by: Rodolfo Barton MD Electronically Signed: Rodolfo Barton MD at 21:52 EST Tel , Service support ,
[2021-01-16 21:48] LABS: Absolute Lymphocyte Count 3.02 X10^3/uL (0.83-4.51); Absolute Neutrophil Count 6.5 X10^3/uL (2.0-7.7); Basophil# 0.07 X10^3/uL; Basophil% 0.7 % (0-1); Eosinophil# 0.03 X10^3/uL; Eosinophils% 0.3 % (0-5); Hematocrit 44.6 % (37-47); Hemoglobin 15.5 g/dL (12.0-15.0); Lymphocyte # 3.02 X10^3/ul (4.0); Lymphocyte % 29.3 % (19-41); Mean Corp Hgb Conc 34.8 g/dL (32-36); Mean Corpuscular Hgb 31.7 pg (27.0-32.0); Mean Corpuscular Volume 91.2 fL (81-99); Mean Platelet Vol. 8.8 fl (6.2-12.0); Monocyte# 0.69 X10^3/uL; Monocyte% 6.7 % (0-10); NRBC Flagged by Analyzer 0 % (0-5); Neutrophil # 6.45 X10^3/uL (2.7-7.7); Neutrophil % 62.6 % (47-70); Platelet Count 301 K/mm3 (150-450); RBC Distribution Width CV 12.1 % (11.6-14.6); RBC Distribution Width SD 40.3 fl (35.1-43.9); Red Blood Count 4.89 M/mm3 (4.2-5.4); White Blood Count 10.3 K/mm3 (4.4-11.0)
[2021-01-16 22:00] LABS: Alcohol, Blood (Medical)-Serum < 3.0 mg/dL
[2021-01-16 22:02] LABS: Internal QC Validated? YES +Cl - CLEAR BKGD; Pregnancy, Serum, hCG Quali. NEGATIVE Negative
[2021-01-16 22:04] LABS: Mucous, Urine 0 SEEN /hpf (<or=2+); White Blood Cells 0 SEEN /hpf (0-5)
[2021-01-16 22:07] LABS: Anion Gap 7 (5-15); BUN 7 mg/dL (7-18); BUN/Creat Ratio 8.7 RATIO (10-20); Calcium,Total 9.2 mg/dL (8.5-10.1); Chloride 108 mmol/L (98-107); EST Glomerular Filtration Rate 92 mL/min (>60); Est Glom Filt Rate - Afr Amer 111 mL/min (>60); Estimated Creatinine Clearance 96.73 ml/min; Glucose 87 mg/dL (74-106); Magnesium 1.9 mg/dL (1.6-2.6); Potassium 3.4 mmol/L (3.5-5.1); Sodium Level 141 mmol/L (136-145)
[2021-01-16 22:10] LABS: Color, Urine Yellow (Yellow); Glucose, Dipstick Normal (Normal); Ketone-Dipstick 50 mg/dl (Negative); Leukocyte Esterase-Dipstick Negative /ul (Negative); Nitrite-Dipstick Negative (Negative); Occult Blood-Urine 50 /ul (Negative); Protein-Dipstick 30 mg/dl (Negative); Specific Gravity, Urine 1.015 (1.002-1.030); Urine Bilirubin Dipstick Negative (Negative); Urine Clarity Clear (Clear); Urine Urobilinogen Normal (Normal)
[2021-01-16 22:17] LABS: Bacteria RARE /hpf (None Seen); Red Blood Cells-Urine 0-5 SEEN /hpf (0-5); Squamous Epithelial Cells - UA 0-5 SEEN /hpf (5-10)
[2021-01-16 22:20] LABS: Amphetamine Urine VISTA NEGATIVE (<1000 ng/mL); Barbiturate Urine VISTA NEGATIVE (< 200 ng/mL); Benzodiazepine Urine VISTA NEGATIVE (< 200 ng/mL); Cocaine Urine VISTA NEGATIVE (< 300 ng/mL); Ecstacy Urine VISTA NEGATIVE (< 500 ng/mL); Methadone Urine VISTA NEGATIVE (< 300 ng/mL); PCP Urine VISTA NEGATIVE (< 25 ng/mL); THC Urine VISTA NEGATIVE (< 50 ng/mL); Vista UDS pH Range 6
[2021-01-16] MEDS: Potassium Chloride Oral Soln 20 MEQ/15 ML UDC PO (22:42)
[2021-01-16 22:43] VITALS: PULSE 86; RESP 16
--- NOTE | 2021-01-16 23:08 | ED.RN ---
CALLED CRISIS TO ADVISE THIS PT IS ABLE TO BE SEEN
--- NOTE | 2021-01-16 23:26 | ED.RN ---
CRISIS ON PHONE WITH PT
[2021-01-16 23:29] VITALS: PULSE 91; RESP 18; O2SAT 96
[2021-01-17] VITALS (13 sets, daily range): BP systolic 100–150; BP diastolic 58–98; PULSE 15–89; RESP 14–18; TEMP 37.2; O2SAT 96–99
--- NOTE | 2021-01-17 00:46 | ED.RN ---
crisis talked with patient that are suggesting placement at this time. patient has no insurance there for will be referred to [facility]. They will call back with an update
[2021-01-17] MEDS: Ketorolac 30 MG/ML Syringe IV (00:53)
[2021-01-17 01:07] LABS: AST(SGOT) 8 U/L (15-37); Alanine Aminotransfer ALT/SGPT 13 U/L (13-56); Albumin, Serum 4.2 g/dL (3.2-5.0); Alkaline Phosphatase 55 U/L (45-117); Bilirubin, Direct 0.22 mg/dL (0.00-0.30); Globulin 3.5 g/dL (2.2-4.2); Protein, Total 7.7 g/dL (6.4-8.2)
--- NOTE | 2021-01-17 13:51 | NURSING ---
ACCEPTED AT [facility], NO BED YET
[2021-01-17] MEDS: Acetaminophen 500 MG Tablet 1000 MG PO (16:28)
--- NOTE | 2021-01-17 18:03 | NURSING ---
ACCEPTED AT [facility] DR SANTOS NURSE TO NURSE [phone] EXT [phone]
--- NOTE | 2021-01-17 18:15 | NURSING ---
CRISIS TO CALL FOR TRANSPORT
--- NOTE | 2021-01-17 18:22 | NURSING ---
CRISIS CALLED [facility], ETA IS 30 TO 45 MIN
== END 2021-01-17 18:48 ==
PROVIDERS: Emergency Medicine; Emergency Provider Student in an Organized Health Care Education/Training Program
DX: R45.851 Suicidal ideations (principal); R45.850 Homicidal ideations; F17.200 Nicotine dependence, unspecified, uncomplicated
CPT/HCPCS: 71045; 80048; 80076; 80307; 81001; 82077; 83735; 84484; 84703; 85025; 87426; 93005; 96374; 99285; A4216

== ENCOUNTER 2021-02-03 17:43 | Emergency (ER) | payer SELFPAY ==
[2021-02-03 17:44] VITALS: BP 147/89; PULSE 128; RESP 18; TEMP 36.1; O2SAT 98; BMI 27.4
--- NOTE | 2021-02-03 18:52 | CT_ITS ---
EXAMINATION : Head CT w/out contrast HISTORY : Altered mental status COMPARISON : None. TECHNIQUE : Multiple contiguous axial images were obtained from the skull base to the vertex without intravenous contrast. A radiation dose optimization technique was used for this scan. FINDINGS : The ventricles and sulci are normal in size. There is no evidence for acute intracranial hemorrhage, mass effect, or midline shift. There is no extra-axial fluid collection. There is normal galaviz-white differentiation, without CT evidence of acute ischemia or infarct. The skull base and calvarium are unremarkable. The orbits are unremarkable. The paranasal sinuses are clear. The mastoid air cells are well-aerated. The soft tissues are unremarkable. CT/Brain/Head without Contrast IMPRESSION: No acute intracranial abnormality. Electronically Signed: Tra Johnson MD at 19:25 EDT Tel , Service support ,
--- NOTE | 2021-02-03 18:52 | EKG12_ITS ---
Test Reason : SYNCOPE Blood Pressure : / mmHG Vent. Rate : 108 BPM Atrial Rate : 108 BPM P-R Int : 158 ms QRS Dur : 082 ms QT Int : 330 ms P-R-T Axes : 062 055 057 degrees QTc Int : 442 ms Sinus tachycardia Otherwise normal ECG Confirmed by ALYSON MURDOCK, JIMMY ([id number]), art editor ASHA LIZARRAGA ([id number]) on 02/06/2021 1:50:08 PM Referred By: THUY Confirmed By:JIMMY SHIELDS MD
[2021-02-03 19:00] VITALS: RESP 18
[2021-02-03 19:15] LABS: Bacteria 0 SEEN /hpf (None Seen); Mucous, Urine 0 SEEN /hpf (<or=2+); Red Blood Cells-Urine 0 SEEN /hpf (0-5); White Blood Cells 0 SEEN /hpf (0-5)
[2021-02-03 19:16] LABS: Absolute Lymphocyte Count 2.28 X10^3/uL (0.83-4.51); Absolute Neutrophil Count 6.2 X10^3/uL (2.0-7.7); Basophil# 0.06 X10^3/uL; Basophil% 0.7 % (0-1); Eosinophil# 0.05 X10^3/uL; Eosinophils% 0.5 % (0-5); Lymphocyte # 2.28 X10^3/ul (4.0); Lymphocyte % 24.7 % (19-41); Mean Corp Hgb Conc 33.3 g/dL (32-36); Mean Corpuscular Hgb 31.3 pg (27.0-32.0); Mean Corpuscular Volume 93.8 fL (81-99); Mean Platelet Vol. 8.7 fl (6.2-12.0); Monocyte% 6.5 % (0-10); NRBC Flagged by Analyzer 0 % (0-5); Neutrophil # 6.22 X10^3/uL (2.7-7.7); Neutrophil % 67.4 % (47-70); Platelet Count 295 K/mm3 (150-450); RBC Distribution Width CV 12.1 % (11.6-14.6); RBC Distribution Width SD 42.4 fl (35.1-43.9); White Blood Count 9.2 K/mm3 (4.4-11.0)
[2021-02-03 19:17] LABS: Color, Urine Straw (Yellow); Glucose, Dipstick Normal (Normal); Ketone-Dipstick Negative (Negative); Leukocyte Esterase-Dipstick Negative /ul (Negative); Nitrite-Dipstick Negative (Negative); Occult Blood-Urine 10 /ul (Negative); Protein-Dipstick Negative (Negative); Specific Gravity, Urine 1.005 (1.002-1.030); Urine Bilirubin Dipstick Negative (Negative); Urine Clarity Clear (Clear); Urine Urobilinogen Normal (Normal)
[2021-02-03 19:33] LABS: Amphetamine Urine VISTA NEGATIVE (<1000 ng/mL); Barbiturate Urine VISTA NEGATIVE (< 200 ng/mL); Benzodiazepine Urine VISTA NEGATIVE (< 200 ng/mL); Cocaine Urine VISTA NEGATIVE (< 300 ng/mL); Ecstacy Urine VISTA NEGATIVE (< 500 ng/mL); Methadone Urine VISTA NEGATIVE (< 300 ng/mL); PCP Urine VISTA NEGATIVE (< 25 ng/mL); THC Urine VISTA NEGATIVE (< 50 ng/mL); Vista UDS pH Range 6
[2021-02-03 19:35] LABS: ALB/GLOB Ratio 1.1 RATIO (0.9-2.4); AST(SGOT) 10 U/L (15-37); Alanine Aminotransfer ALT/SGPT 15 U/L (13-56); Alkaline Phosphatase 69 U/L (45-117); Anion Gap 7 (5-15); BUN 9 mg/dL (7-18); BUN/Creat Ratio 9.5 RATIO (10-20); Calcium,Total 8.8 mg/dL (8.5-10.1); Chloride 108 mmol/L (98-107); Creatinine, Serum 0.95 mg/dL (0.55-1.02); EST Glomerular Filtration Rate 76 mL/min (>60); Est Glom Filt Rate - Afr Amer 92 mL/min (>60); Estimated Creatinine Clearance 81.46 ml/min; Globulin 3.6 g/dL (2.2-4.2); Glucose 97 mg/dL (74-106); Potassium 3.9 mmol/L (3.5-5.1); Protein, Total 7.6 g/dL (6.4-8.2); Sodium Level 141 mmol/L (136-145)
[2021-02-03 19:49] LABS: Squamous Epithelial Cells - UA 0-5 SEEN /hpf (5-10)
[2021-02-03 20:00] VITALS: RESP 18
[2021-02-03 20:13] LABS: Internal QC Validated? YES +Cl - CLEAR BKGD; Pregnancy, Serum, hCG Quali. NEGATIVE Negative
--- NOTE | 2021-02-03 20:25 | ED.DCSUM_ITS ---
- ER Visit Summary Date of Service: 02/03/21 Chief Complaint: I do not feel right History of Present Illness: The patient is a 25 F who presents with feeling unwell that began today. Patient states she has been having some pain in her chest, neck, and back that began today. Patient describes the pain as dull and cramping. Patient states it is over the left lower rib and back area. Patient states nothing makes it worse. Patient states nothing makes it better. Patient states she feels like her energy is being drained out of her. Patient admits to subjective chills but denies any fevers. Patient admits to some nausea and vomiting. Patient denies any dysuria or hematuria. Patient also admits to headache and generalized weakness. Patient states she feels anxious because she does not know what is wrong with her. Patient denies any suicidal or homicidal ideations. Physical Examination: Vital signs are stable except for tachycardia of 128. Patient is afebrile. Patient is in no acute distress. Oral mucosa is pink and moist. Neck is supple. Trachea is midline. There is no JVD noted. Heart was regular rate and rhythm. Lungs are clear and equal bilaterally. Abdomen is soft. Bowel sounds are normal. There is no tenderness. There is no rebound or guarding noted. Skin is warm dry. Cranial nerves II through XII are intact. There are no focal motor or sensory deficits noted. Extremities are intact. There is no calf tenderness or edema. Patient does have a flat affect. Patient does have poor eye contact. Test Results: EKG was obtained. On my interpretation, it showed sinus tachycardia with a rate of 108. There are no acute ST or T wave changes. CBC and comprehensive metabolic profile were obtained and were within normal limits. Urinalysis was normal. Serum hCG was negative. Urine tox screen was negative. Serum alcohol level was negative. CT scan of the brain was obtained. There is no acute intracranial abnormality. This was interpreted by the radiologist and reviewed by myself. Emergency Department Course and Treatment: Patient was advised of her findings. Patient was instructed to follow-up with her primary care physician in 5 to 7 days. Patient was instructed drink plenty of fluids. Patient understood and was agreeable with the plan. All questions were answered. Disposition: Discharge home Impression: 1. Fatigue This note was generated with [employer] software. It may contain incorrect words, spelling, and punctuation that were not noted in review of the chart prior to signing ED Disposition - Plan for ED Patient: Disposition: Home or Assisted Living Diagnosis: Fatigue Instructions: ED Weakness (Uncertain Cause) Referrals: NOT,DEFINED [NON-STAFF] - 3-5 Days
[2021-02-03 21:00] VITALS: BP 128/87; PULSE 81; RESP 18; O2SAT 99
== END 2021-02-03 21:14 | disposition home or self-care (01) ==
PROVIDERS: Emergency Provider Emergency Medicine
DX: R53.83 Other fatigue (principal); R07.9 Chest pain, unspecified
CPT/HCPCS: 70450; 80053; 80307; 81001; 82077; 84703; 85025; 93005; 99282

== ENCOUNTER 2021-03-01 15:17 | Emergency (ER) | payer SELFPAY ==
[2021-03-01] VITALS (9 sets, daily range): BP systolic 112–115; BP diastolic 56–104; PULSE 91–98; RESP 14–16; TEMP 36.8; O2SAT 93–99; BMI 26.6
--- NOTE | 2021-03-01 15:28 | CT_ITS ---
STUDY: CT BRAIN WITHOUT CONTRAST REASON FOR EXAM: Female, 26 years old. Change in Mental Status RADIATION DOSAGE (If Supplied By Facility): CTDIvol = ( 44.99 ) mGy, DLP = ( 731.43 ) mGycm TECHNIQUE: Transaxial CT imaging of the brain was performed without administration of intravenous contrast material. Individualized dose optimization techniques were used for this CT. COMPARISON: 02/03/2021. FINDINGS: Normal soft tissue structures. Normal calvarium. Normal size ventricles and extra-axial spaces for the patient''s age. Normal white matter tracts of the cerebral hemispheres. Normal basal ganglia and thalami. Normal brainstem. Normal cerebellum. There is no intracranial hemorrhage. There are no findings of an acute ischemic infarction. Normal visualized paranasal sinuses. No significant change since prior exam CT/Brain/Head without Contrast IMPRESSION: Normal unenhanced CT scan of the brain. Electronically Signed: Glen Olea MD at 18:04 EDT , Service support ,
--- NOTE | 2021-03-01 16:12 | ED.RN ---
PT DENIES SI TO THIS RN. PT STATES THAT HER HEAD JUST ISNT RIGHT, PT STATES THAT SHE IS NOT SURE WHEN SHE LAST SLEPT. PT NOT COOPERATIVE AT THIS TIME WITH BLOOD DRAW.
--- NOTE | 2021-03-01 16:45 | CM.ED ---
Social Work Consult: Mental Health Referral source: Dr. Parker Chief Complaint: I am not well. Marital/Social history: Single Living Situation: Per chart review, history of being homeless. Patient list patient mother's address as mailing address. Patient did not answer questions this social sciences chair asked in regards to living situation. Support/Resources: Unclear, patient with nonsensical language when asked about active resources/supports. History: None. Education/Employment History: Unable to assess. Mental Health Treatment/History: Unable to assess. Triggers/Stressors: Unable to assess. Abuse Issues: Unable to assess. Substance Abuse History/use: States meth, too and does not appear as if patient is speaking to this social sciences chair. Risk to Self/Others: no never. Unable to assess risk to self further due to patient having difficulty participating in assessment. Patient shacks head no when asked about harm to self or others. Mental Status Exam: A&Ox3 Appearance/General Behavior: Disheveled. Unkept. Mood/Affect: Flat affect. Bizarre. Communication Pattern: Rambling. Incoherent speech at times. Thought Process: Auditory hallucinations. Flight of ideas. Judgement: Poor. Assessment: Met with patient in room. Introduced self and social sciences chair role. Difficult to complete assessment with patient as patient did not responds to majority of direct questions. Patient with nonsensical statements at times and would randomly states God and have you ever been brain washed. Patient states that bad people as controlling my mind. Patient states to not be doing well. This social sciences chair inquired if anything would help patient, patient states my sister beside me. Patient then states she was a very new born baby. Patient later states probably 20-21 now when this social sciences chair inquired as to how old patient sister is. Patient states I wish I could see her when this social sciences chair inquired how often patient gets to see sister. Patient denies suicidal thoughts or ever doing anything. Active support provided. Updated Dr. Parker. Patient noted to now have insurance. Recommending inpatient psychiatric placement for stabilization. This social sciences chair unable to complete/facilitate transfer as patient does not have insurance. Referral to crisis to be made ones patient is medically cleared for placement. Telephone call to crisis, Cindy. This social sciences chair updated Cindy on above information. Medical team updated on plan to contact crisis when patient is medically cleared. Gucci LEE, AUGUSTO
[2021-03-01 16:58] LABS: Absolute Lymphocyte Count 2.47 X10^3/uL (0.83-4.51); Basophil# 0.07 X10^3/uL; Basophil% 0.7 % (0-1); Hematocrit 46.2 % (37-47); Hemoglobin 15.7 g/dL (12.0-15.0); Lymphocyte # 2.47 X10^3/ul (0.83-4.51); Lymphocyte % 25.8 % (19-41); Mean Corpuscular Hgb 30.8 pg (27.0-32.0); Mean Corpuscular Volume 90.8 fL (81-99); Mean Platelet Vol. 8.9 fl (6.2-12.0); Monocyte# 0.85 X10^3/uL; Monocyte% 8.9 % (0-10); NRBC Flagged by Analyzer 0 % (0-5); Neutrophil # 6.04 X10^3/uL (2.7-7.7); Neutrophil % 63.3 % (47-70); Platelet Count 330 K/mm3 (150-450); RBC Distribution Width SD 39.8 fl (35.1-43.9); Red Blood Count 5.09 M/mm3 (4.2-5.4); White Blood Count 9.6 K/mm3 (4.4-11.0)
[2021-03-01 17:17] LABS: Alcohol, Blood (Medical)-Serum < 3.0 mg/dL
[2021-03-01 17:18] LABS: BUN 17 mg/dL (7-18); Creatinine, Serum 0.94 mg/dL (0.55-1.02); EST Glomerular Filtration Rate 76 mL/min (>60); Glucose 73 mg/dL (74-106)
[2021-03-01 17:19] LABS: Anion Gap 4 (5-15); Calcium,Total 9.4 mg/dL (8.5-10.1); Chloride 104 mmol/L (98-107); Est Glom Filt Rate - Afr Amer 92 mL/min (>60); Potassium 4.3 mmol/L (3.5-5.1); Sodium Level 138 mmol/L (136-145)
[2021-03-01] MEDS: Ziprasidone HCl 20 MG Capsule PO (17:20)
[2021-03-01 17:28] LABS: Internal QC Validated? YES +Cl - CLEAR BKGD; Pregnancy, Serum, hCG Quali. NEGATIVE Negative
--- NOTE | 2021-03-01 18:42 | ED.DCSUM_ITS ---
History of Present Illness Chief Complaint: Mental Health Informant: Patient Narrative: 26-year-old female presenting with confusion. She states she is blacking out. She does not remember much. She is difficult to get a history from because she keeps staring off. She denies any injuries recently. She did tell one of the nurse that she was off of her medication for schizophrenia. She denies suicidal or homicidal ideation. She states she has not been sleeping. She denies hallucinating. Past Medical History - Allergies and Home Meds Allergies/Adverse Reactions: Allergies lorazepam Allergy (Verified 03/01/21 15:22) Rash risperidone Allergy (Verified 03/01/21 15:22) Other Primary Care Physician: Care Physician,No Primary [Primary Care Provider] - Prior records reviewed: Yes Past Medical History: - - Unknown Surgical History: no surgical history Lives: - - Homeless Smoking Status: Former smoker Alcohol: None Drugs: None Review of Systems General: Denies: Chills, Fever, Sweats Eyes: Denies: Visual changes - bilaterally, Diplopia ENT: Denies: Rhinorrhea, Sore throat Cardiovascular: Denies: Chest pain, Palpitations Respiratory: Denies: Dyspnea, Cough, Dyspnea on exertion Gastrointestinal: Denies: Abdominal pain, Nausea, Vomiting, Diarrhea, Melena, Hematochezia Genitourinary: Denies: Dysuria, Hematuria, Frequency Musculoskeletal: Denies: Back pain, Extremity Pain Skin: Denies: Rash, Wounds Neurological: Denies: Headache, Weakness, Numbness Psych: Reports: Depression, Anxiety. Denies: Suicidal thoughts, Suicidal ideations Physical Exam Vital Signs/Narrative: Vital Signs Temp Pulse Resp BP Pulse Ox 03/01/21 17:00 14 03/01/21 16:17 16 03/01/21 15:19 98.3 F 98 14 115/104 H 99 Inital Vital Signs reviewed: Yes General: Well nourished, Well developed, No Acute Distress Head: Normocephalic, Atraumatic Eyes: Perrl, EOMI ENT: Moist mucous membranes, No rhinorrhea Neck: Supple, Nontender Cardiovascular: Regular rate, Regular rhythm, No murmurs Respiratory: No distress, CTA bilaterally, Chest nontender Abdomen: Soft, Nontender, Nondistended, Normal bowel sounds Extremities: Nontender, No edema Skin: Normal color, No rash Neurological: Alert, Cranial nerves II-XII grossly intact Psychological: Tearful, Agitated Diagnostic/Tx/Re-eval Clinical Impression(s) from Imaging Studies Brain CT 03/01/21 15:28 IMPRESSION: Normal unenhanced CT scan of the brain. Electronically Signed: Glen Olea MD at 18:04 EDT , Service support , Laboratory Data 03/01/21 03/01/21 03/01/21 16:45 16:45 16:45 WBC 9.6 RBC 5.09 Hgb 15.7 H Hct 46.2 MCV 90.8 MCH 30.8 MCHC 34.0 RDW Std Deviation 39.8 RDW Coeff of [place] 12.0 Plt Count 330 MPV 8.9 Immature Gran % (Auto) 0.300 Neut % (Auto) 63.3 Lymph % (Auto) 25.8 [place] % (Auto) 8.9 Eos % (Auto) 1.0 Baso % (Auto) 0.7 Absolute Neuts (auto) 6.0 Absolute Lymphs (auto) 2.47 Nucleated RBC % 0 Sodium 138 Potassium 4.3 Chloride 104 Carbon Dioxide 30.0 Anion Gap 4 L BUN 17 Creatinine 0.94 Estim Creat Clear Calc 84.90 Est GFR (MDRD) Af Amer 92 Est GFR (MDRD) Non-Af 76 BUN/Creatinine Ratio 18.0 Glucose 73 L Calcium 9.4 Serum , Qual Ethyl Alcohol < 3.0 03/01/21 16:45 WBC RBC Hgb Hct MCV MCH MCHC RDW Std Deviation RDW Coeff of [place] Plt Count MPV Immature Gran % (Auto) Neut % (Auto) Lymph % (Auto) [place] % (Auto) Eos % (Auto) Baso % (Auto) Absolute Neuts (auto) Absolute Lymphs (auto) Nucleated RBC % Sodium Potassium Chloride Carbon Dioxide Anion Gap BUN Creatinine Estim Creat Clear Calc Est GFR (MDRD) Af Amer Est GFR (MDRD) Non-Af BUN/Creatinine Ratio Glucose Calcium Serum , Qual NEGATIVE Ethyl Alcohol - Medical Decision Making 26-year-old female with altered mental status and questionable history of schizophrenia and is not on medication. She states she has been having blackouts in her memories. She denies suicidal homicidal ideation but does appear to be confused. She also states that she is not sleeping very much. It is difficult to get a history out of her because she does not speak very much. Patient was discussed with the outreach and education social worker who recommended that she would likely need to come to inpatient psychiatry patient will need crisis given that she has no insurance. Patient's lab work thus far is unremarkable. I am awaiting urine drug screen and UA. hCG is negative. Patient was getting agitated and I gave her a dose of Geodon and she has been resting comfortably. Impression: 1. Acute psychosis ED Disposition - Plan for ED Patient: Disposition: Psychiatric Hospital or Unit Referrals: Care Physician,No Primary [Primary Care Provider] -
--- NOTE | 2021-03-01 23:59 | ED.RN ---
Multiple attempts to get pt to urinate. Pt shaking head no repeatedly Refusing to talk to nurse.
[2021-03-02] VITALS (15 sets, daily range): BP systolic 91–127; BP diastolic 48–70; PULSE 66–87; RESP 14–16; TEMP 36.7; O2SAT 98–100
[2021-03-02 05:16] LABS: Mucous, Urine 0 SEEN /hpf (<or=2+)
[2021-03-02 05:19] LABS: Color, Urine Yellow (Yellow); Glucose, Dipstick Normal (Normal); Ketone-Dipstick 15 mg/dl (Negative); Leukocyte Esterase-Dipstick 500 /ul (Negative); Nitrite-Dipstick Negative (Negative); Occult Blood-Urine 25 /ul (Negative); Protein-Dipstick 15 mg/dl (Negative); Specific Gravity, Urine 1.025 (1.002-1.030); Urine Bilirubin Dipstick Negative (Negative); Urine Clarity Sl. Cloudy (Clear); Urine Urobilinogen 1 mg/dl (Normal)
[2021-03-02 05:26] LABS: Squamous Epithelial Cells - UA 5-10 SEEN /hpf (5-10); White Blood Cells 25-50 SEEN /hpf (0-5)
[2021-03-02 05:27] LABS: Red Blood Cells-Urine 0-5 SEEN /hpf (0-5); Transitional Epithelial - Ur 0-5 SEEN /hpf (0-5)
[2021-03-02 05:29] LABS: Amorphous Sediment 1+; Bacteria 3+ /hpf (None Seen)
[2021-03-02 05:31] LABS: Amphetamine Urine VISTA POSITIVE (<1000 ng/mL); Barbiturate Urine VISTA NEGATIVE (< 200 ng/mL); Benzodiazepine Urine VISTA NEGATIVE (< 200 ng/mL); Cocaine Urine VISTA NEGATIVE (< 300 ng/mL); Ecstacy Urine VISTA POSITIVE (< 500 ng/mL); Methadone Urine VISTA NEGATIVE (< 300 ng/mL); PCP Urine VISTA NEGATIVE (< 25 ng/mL); THC Urine VISTA NEGATIVE (< 50 ng/mL); Vista UDS pH Range 5
[2021-03-02] MEDS: Cephalexin 250 MG Capsule 500 MG PO (06:52)
--- NOTE | 2021-03-02 10:45 | CM.ED ---
SOCIAL WORK Per Jyoti with Crisis, patient pending at [facility] for single case agreement as patient is self-pay. Dory Thompson, CORPORATE BUYER, TRACK BROOM OPERATOR
--- NOTE | 2021-03-02 10:51 | ED.RN ---
Pt has been sleeping. Pt will wake up when talked to. PT denies needs at this time
--- NOTE | 2021-03-02 11:00 | CM.ED ---
SOCIAL WORK Copy of [place], updated vitals and nurse note faxed to Crisis per request for Nicolas Roe. Dory Thompson, CAVITY PUMP OPERATOR, DISPATCH CLERK
--- NOTE | 2021-03-02 11:42 | CM.ED ---
SOCIAL WORK Call from [place] with Crisis. Patient accepted at [facility] by Dr. Mckinney to the [facility] Unit. Nurse to call report to option 1. Crisis to set up transport and call this worker back with ETA. Dory Thompson, SOFTWARE TEST MANAGER, FLOODPLAIN MANAGER
--- NOTE | 2021-03-02 11:49 | NURSING ---
ACCEPTED AT [facility]
--- NOTE | 2021-03-02 12:25 | ED.RN ---
[facility] called for transport. ETA 60 minute. [place] dispatcher aware that [facility] going to cover payment for transport.
--- NOTE | 2021-03-02 13:40 | NURSING ---
1322 PHYSICANS CALLED. ISIDRA. SQUAD WILL BE COMING BACK FROM A RUN. THEY WILL FUEL . SHOULD BE HERE ABOUT 1400
== END 2021-03-02 14:35 ==
PROVIDERS: Emergency Provider Student in an Organized Health Care Education/Training Program
DX: R45.1 Restlessness and agitation (principal); F23 Brief psychotic disorder; N39.0 Urinary tract infection, site not specified; Z87.891 Personal history of nicotine dependence
CPT/HCPCS: 70450; 80048; 80307; 81001; 82077; 84703; 85025; 87426; 99281; 99285; A4216

== ENCOUNTER 2021-03-24 22:19 | Emergency (ER) | payer SELFPAY ==
[2021-03-01 15:19] VITALS: BMI 26.6
[2021-03-24 22:20] VITALS: BP 92/57; PULSE 83; RESP 15; TEMP 35.8; O2SAT 99; BMI 26.7
--- NOTE | 2021-03-24 23:34 | EX.ED.DYSGE1 ---
HPI History of Present Illness Chief Complaint: General Illness Informant: patient Onset/Context/Timing Onset: Days (3-4) Context: Gradual Onset Timing: Continuous Narrative Narrative: Patient states that she does not feel well, she feels like she is going to , and refuses to give any specific information, getting very frustrated when asked specific questions however she is able to answer review of systems. She has been feeling very fatigued, having myalgias, tingling all over, headache that is bifrontal and feels like a jolt, she has had a cough, occasional nausea, occasional sore throat. No dyspnea, denies abdominal pain, nausea, vomiting, diarrhea. Patient states she has no medical history and takes no prescriptions, then states that she cannot work because of all my problems however she then cannot tell me anything about any of them. She says that she is feeling confused and disoriented, and to stop asking her questions that she cannot answer. [facility] Medical History Irregular heart beat Home Medications metoclopramide HCl 10 mg PO Q6H PRN #20 tab 03/25/21 [Rx Last Taken Unknown] Allergy/AdvReac Type Severity Reaction Status Date / Time lorazepam Allergy Rash Verified 03/24/21 23:14 risperidone Allergy Other Verified 03/24/21 23:14 Social History Smoking Status: Current every day smoker ROS [facility] ED Constitutional Constitutional ED: Reports chills, malaise, weakness and other Details: In and out of consciousness ; Denies fever(s) Eyes Eyes: Reports change in vision bilateral (Blurry at times when headache has been); Denies diplopia ENT ENT ED: Reports sore throat; Denies rhinorrhea or sinus pain Cardiovascular Cardiovascular: Denies chest pain or palpitations Respiratory/Chest Respiratory/Chest: Reports cough; Denies chest tightness, dyspnea or sputum Gastrointestinal Gastrointestinal: Reports other Details: Blood in stool in small amounts, intermittently, for months or years ; Denies abdominal pain, diarrhea, nausea or vomiting Genitourinary Genitourinary ED: Denies dysuria or hematuria Musculoskeletal Musculoskeletal: Reports myalgias; Denies back pain or neck pain Integumentary Denies abscess or rash Neurologic Neurologic: Reports confusion and headache(s); Denies disequilibrium, lack of coordination, paresthesias or weakness Psychiatric Psychiatric: Denies anxiety or suicidal thoughts EXAM Physical Exam Const Vital Signs: 03/24/21 22:20 03/24/21 22:42 Temperature 96.4 F L Temperature Source Temporal Oral Pulse Rate 83 Respiratory Rate 15 Blood Pressure 92/57 L Blood Pressure Mean 68 Pulse Ox 99 Oxygen Delivery Method Room Air Positive well nourished and well developed General Appearance ED: well developed and NAD HEENT Reports TM's clear, moist mucous membranes, nasal mucous membranes and turbinates normal and oropharynx normal normocephalic and atraumatic Tympanic Membrane ED: Yes TM's clear Eyes PERRL and EOMs intact bilaterally Neck full ROM, no lymphadenopathy and supple General: Negative for tenderness Resp normal respiratory effort and clear to auscultation bilaterally Cardio regular rate, regular rhythm and no murmurs Rate: Negative for tachycardic GI non-distended GI Narrative: With very gentle palpation in the patient's suprapubic area to begin with, she immediately guards and grabs the examiner's hands away from her, and refuses to allow further examination saying that she is having pain there although she denied having any pain on ROS. Auscultation: normoactive bowel sounds Palpation: soft, tender and guarding Back/Spine no CVA tenderness General Back: other FROM Extremity normal to inspection General Extremety ED: Negative for edema, pulses abnormal or tenderness General Extremity: Negative for edema or pulses abnormal Neuro CN's II-XII intact bilaterally and no sensory deficits noted Neuro Narrative: Limited evaluation of orientation, patient refuses to answer questions and becomes frustrated Sensorium / Orientation: awake and alert Motor Exam: strength 5/5 throughout Skin no rashes or lesions noted and no wounds MDM MDM MDM Narrative Medical decision making narrative: As below work-up is negative, including influenza and Covid rapid swabs. She was treated with Toradol and Reglan. This really helped her feel better, but she was here around 1-2 in the morning and she slept the majority of the visit after receiving these medications. My suspicion is that she has a viral syndrome that gave her a migraine. Her vital signs have been stable and normal. She is reassured and discharged home, however we performed a Covid PCR send out prior to discharging her, given the possibility of a false negative rapid antigen test, and she is advised to quarantine/isolate until this test returns. Lab Data Labs: Laboratory Results - last 24 hr 03/24/21 03/24/21 03/24/21 23:55 23:55 23:55 WBC 6.4 RBC 4.47 Hgb 14.0 Hct 40.8 MCV 91.3 MCH 31.3 MCHC 34.3 RDW Std Deviation 40.0 RDW Coeff of [place] 11.9 Plt Count 268 MPV 9.0 Immature Gran % (Auto) 0.300 Neut % (Auto) 34.1 L Lymph % (Auto) 54.8 H [place] % (Auto) 8.3 Eos % (Auto) 1.9 Baso % (Auto) 0.6 Absolute Neuts (auto) 2.2 Absolute Lymphs (auto) 3.49 Nucleated RBC % 0 Sodium 141 Potassium 3.4 L Chloride 107 Carbon Dioxide 32.0 Anion Gap 2 L BUN 15 Creatinine 0.87 Estim Creat Clear Calc 88.18 Est GFR (MDRD) Af Amer 101 Est GFR (MDRD) Non-Af 83 BUN/Creatinine Ratio 17.2 Glucose 100 Calcium 8.7 Serum , Qual NEGATIVE Radiography Chest X-Ray - ED: 1 View, Read by ED Physician, No Acute Disease and No Infiltrates Diagnostic Testing: Radiology Impression Chest X-Ray 03/24/21 23:42 IMPRESSION: Normal x-ray examination of the chest. Electronically Signed: Sarmad Milan DO at 0:04 EDT Tel , Service support , Brain CT 03/25/21 23:31 IMPRESSION: Normal unenhanced CT scan of the brain. Electronically Signed: Sarmad Milan DO at 1:18 EDT Tel , Service support , Discharge Plan Triage Chief Complaint: General Illness ED Provider: Leonardo Lopes Dx/Rx/DC Orders Clinical Impression: Acute viral syndrome, Headache, migraine Instructions: Pending Outpatient COVID Test, ED, Migraine (Classical), ED Viral Syndrome (Adult) Prescriptions: New metoclopramide HCl [metoclopramide HCl] 10 MG tablet 10 mg PO Q6H PRN (Reason: nausea or headache) Qty: 20 RF: 0 Primary Care Provider: Care Physician,No Primary Referrals: Doctor,Your [STAFF PHYSICIAN] - 1 Week if not improving Disposition Disposition: Home, self care
--- NOTE | 2021-03-24 23:42 | RAD_ITS ---
STUDY: X-RAY CHEST REASON FOR EXAM: Female, 26 years old. cough TECHNIQUE: Single AP portable view of the chest. COMPARISON: 01/16/2021 FINDINGS: The lungs are clear and expanded. There is no demonstrated pleural abnormality. Normal size heart. Normal mediastinum and sammy. Normal visualized pulmonary arteries. Normal visualized aortic arch and descending thoracic aorta. Normal visualized thoracic spine. Normal visualized ribs, clavicles, and shoulders. There is no demonstrated abnormality of the visualized soft tissue structures of the upper abdomen. RAD/Chest 1 View (Portable) IMPRESSION: Normal x-ray examination of the chest. Electronically Signed: Sarmad Milan DO at 0:04 EDT Tel , Service support ,
[2021-03-24] MEDS: Ketorolac 30 MG/ML Syringe IV (23:56)
[2021-03-24] MEDS: Metoclopramide 10 MG/2 ML Vial 5 MG IV (23:56)
[2021-03-25] MEDS: 0.9% Normal Saline 1,000 ML 1000 ML IV
[2021-03-25 00:07] LABS: Absolute Lymphocyte Count 3.49 X10^3/uL (0.83-4.51); Absolute Neutrophil Count 2.2 X10^3/uL (2.0-7.7); Basophil# 0.04 X10^3/uL; Basophil% 0.6 % (0-1); Eosinophil# 0.12 X10^3/uL; Eosinophils% 1.9 % (0-5); Hematocrit 40.8 % (37-47); Lymphocyte # 3.49 X10^3/ul (0.83-4.51); Lymphocyte % 54.8 % (19-41); Mean Corp Hgb Conc 34.3 g/dL (32-36); Mean Corpuscular Hgb 31.3 pg (27.0-32.0); Mean Corpuscular Volume 91.3 fL (81-99); Monocyte# 0.53 X10^3/uL; Monocyte% 8.3 % (0-10); NRBC Flagged by Analyzer 0 % (0-5); Neutrophil # 2.17 X10^3/uL (2.7-7.7); Neutrophil % 34.1 % (47-70); Platelet Count 268 K/mm3 (150-450); RBC Distribution Width CV 11.9 % (11.6-14.6); Red Blood Count 4.47 M/mm3 (4.2-5.4); White Blood Count 6.4 K/mm3 (4.4-11.0)
[2021-03-25 00:23] LABS: Anion Gap 2 (5-15); BUN 15 mg/dL (7-18); BUN/Creat Ratio 17.2 RATIO (10-20); Calcium,Total 8.7 mg/dL (8.5-10.1); Chloride 107 mmol/L (98-107); Creatinine, Serum 0.87 mg/dL (0.55-1.02); EST Glomerular Filtration Rate 83 mL/min (>60); Est Glom Filt Rate - Afr Amer 101 mL/min (>60); Estimated Creatinine Clearance 88.18 ml/min; Glucose 100 mg/dL (74-106); Internal QC Validated? YES +Cl - CLEAR BKGD; Potassium 3.4 mmol/L (3.5-5.1); Pregnancy, Serum, hCG Quali. NEGATIVE Negative; Sodium Level 141 mmol/L (136-145)
[2021-03-25 02:42] VITALS: BP 92/49
--- NOTE | 2021-03-25 23:31 | CT_ITS ---
STUDY: CT BRAIN WITHOUT CONTRAST REASON FOR EXAM: Female, 26 years old. headache, altered mental status RADIATION DOSAGE (If Supplied By Facility): CTDIvol = ( 44.99 ) mGy, DLP = ( 745.49 ) mGycm TECHNIQUE: Transaxial CT imaging of the brain was performed without administration of intravenous contrast material. Individualized dose optimization techniques were used for this CT. COMPARISON: 03/01/2021 FINDINGS: Normal soft tissue structures. Normal calvarium. Normal size ventricles and extra-axial spaces for the patient''s age. Normal white matter tracts of the cerebral hemispheres. Normal basal ganglia and thalami. Normal brainstem. Normal cerebellum. There is no intracranial hemorrhage. There are no findings of an acute ischemic infarction. Normal visualized paranasal sinuses. CT/Brain/Head without Contrast IMPRESSION: Normal unenhanced CT scan of the brain. Electronically Signed: Sarmad Milan DO at 1:18 EDT Tel , Service support ,
== END 2021-03-25 03:07 | disposition home or self-care (01) ==
PROVIDERS: Emergency Provider Emergency Medicine
DX: B34.9 Viral infection, unspecified (principal); G43.909 Migraine, unspecified, not intractable, without status migrainosus; F17.200 Nicotine dependence, unspecified, uncomplicated
CPT/HCPCS: 70450; 71045; 80048; 84703; 85025; 87426; 87635; 87804; 96361; 96374; 96375; 99283; J7030; A4216; U0002; U0003

== ENCOUNTER 2021-05-20 22:20 | Emergency (ER) | payer SELFPAY ==
[2021-05-20 22:21] VITALS: BP 129/95; PULSE 103; RESP 16; TEMP 36.6; O2SAT 98; BMI 28.8
--- NOTE | 2021-05-20 22:34 | EDS_ITS ---
HPI History of Present Illness Chief Complaint: General Illness Narrative Narrative: Patient presents with cough, congestion, head pressure and sore throat for 2 to 3 days. No fever or chills no difficulty breathing. She has had intermittent epigastric pain but has no pain right now. She has no urinary symptoms she has no back pain. She has no chest pain. [facility] Medical History Irregular heart beat Home Medications guaifenesin [Mucinex] 600 mg PO BID #10 tab 05/20/21 [Rx Last Taken Unknown] naproxen 500 mg PO BID #14 tab 05/20/21 [Rx Last Taken Unknown] Allergy/AdvReac Type Severity Reaction Status Date / Time lorazepam Allergy Rash Verified 05/20/21 22:24 risperidone Allergy Other Verified 05/20/21 22:24 Social History Smoking Status: Current every day smoker tobacco type: cigarettes ROS ROS ED ROS Narrative Past medical history: Reviewed, primarily psychiatric disease Medications: Reviewed Social history: She is homeless Review of systems: All systems negative except as indicated General: No fever Eyes: No visual changes ENT: Upper airway congestion. Neck: No neck pain Cardiovascular: No chest pain Respiratory: No shortness of breath or cough Gastrointestinal: No nausea or vomiting. Some epigastric pain which is now resolved Genitourinary: No dysuria Musculoskeletal: Denies myalgias no difficulty with ambulation Skin: No rash Neurological: No memory loss, confusion or any focal weakness Psych: No recent behavioral changes EXAM Physical Exam Narrative Exam Narrative: Physical exam General: Well nourished, Well developed, No Acute Distress Head: Normocephalic, Atraumatic Eyes: Conjunctiva not pale ENT: Moist mucous membranes. There is upper airway congestion, rhinorrhea, bulging of both TMs, there is postnasal drip with a normal soft palate. Neck: Supple, Nontender, No lymphadenopathy Cardiovascular: Regular rate, Regular rhythm Respiratory: No distress, CTA bilaterally Abdomen: Soft, currently on palpating in the epigastrium and lateral abdomen and she has no abdominal pain. Back: Nontender, Normal Inspection. Negative for: CVA tenderness Extremities: Nontender, No edema Skin: Normal color, No rash Neurological: Alert, Normal Strength, Normal Sensation Psychological: Somewhat odd affect otherwise she is interacting normally. Const Vital Signs: 05/20/21 22:21 05/20/21 22:27 Temperature 97.8 F Temperature Source Temporal Pulse Rate 103 H Respiratory Rate 16 Respiratory Effort Normal Non-Labored Respiratory Pattern Normal Blood Pressure 129/95 H Blood Pressure Mean 106 Pulse Ox 98 Oxygen Delivery Method Room Air MDM MDM MDM Narrative Medical decision making narrative: Patient has upper airway congestion, she has sinusitis however its only been 3 days she does not meet criteria for antibiotics, she does not have a fever. She appears well. I will treat her symptomatically since this is likely viral. Discharge Plan Triage Chief Complaint: General Illness ED Provider: Emiliano Hayward Dx/Rx/DC Orders Clinical Impression: Acute viral syndrome Instructions: ED Viral Syndrome (Adult) Prescriptions: New guaifenesin [Mucinex] 600 mg tablet extended release 12hr 600 mg PO BID Qty: 10 RF: 0 naproxen 500 mg tablet 500 mg PO BID Qty: 14 RF: 0 Primary Care Provider: Care Physician,No Primary Referrals: Care Physician,No Primary [Primary Care Provider] - Disposition Disposition: Home, Self Care
[2021-05-20] MEDS: guaiFENesin 600 MG Tablet PO (22:54)
[2021-05-20] MEDS: Naproxen 500 MG Tablet PO (22:54)
[2021-05-20 23:04] VITALS: BP 129/95; PULSE 103; RESP 15; TEMP 36.6; O2SAT 98
== END 2021-05-20 23:05 | disposition home or self-care (01) ==
LOC: ED 22:53
PROVIDERS: Emergency Provider Emergency Medicine
DX: B34.9 Viral infection, unspecified (principal); F17.210 Nicotine dependence, cigarettes, uncomplicated; Z59.0 Homelessness
CPT/HCPCS: 99285

== ENCOUNTER 2021-05-21 14:07 | Emergency (ER) | payer SELFPAY ==
[2021-05-20 22:21] VITALS: BMI 28.8
[2021-05-21] VITALS (9 sets, daily range): BP systolic 100–132; BP diastolic 64–102; PULSE 71–104; RESP 14–18; TEMP 36.5–36.9; O2SAT 98–100; BMI 28.6
--- NOTE | 2021-05-21 14:38 | EDS_ITS ---
HPI <Dr. 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 Patient states that the government voices in her head that were telling her to hurt her self. Patient states she has had thoughts of overdosing on medications. Patient states she also sees things in addition to hearing the voices. Patient denies any fevers or chills. Patient denies any sore throat or rhinorrhea. Patient denies any chest pain or shortness of breath. Patient denies any other symptoms. PFSH <Dr. Ever Gabriel DO - Last Filed: 05/21/21 16:19> [facility] Medical History Irregular heart beat Home Medications NK 05/21/21 [History Last Taken Unknown] Allergy/AdvReac Type Severity Reaction Status Date / Time lorazepam Allergy Rash Verified 05/21/21 14:12 risperidone Allergy Other Verified 05/21/21 14:12 Social History Smoking Status: Current every day smoker tobacco type: cigarettes ROS <Dr. Ever Gabriel DO - Last Filed: 05/21/21 16:19> ROS ED Constitutional Constitutional ED: Denies chills or fever(s) Eyes Eyes: Denies blurry vision or change in vision ENT ENT ED: Denies rhinorrhea or sore throat Cardiovascular Cardiovascular: Denies chest pain or palpitations Respiratory/Chest Respiratory/Chest: Denies cough or dyspnea Gastrointestinal Gastrointestinal: Denies nausea or vomiting Genitourinary Genitourinary ED: Denies dysuria or hematuria Musculoskeletal Musculoskeletal: Denies back pain or neck pain Integumentary Denies abscess or rash Neurologic Neurologic: Denies headache(s) or weakness Psychiatric Psychiatric: Reports depression, suicidal ideation and suicidal thoughts Allergic/Immunologic Allergic/Immunologic ED: Denies mouth swelling or urticaria EXAM <Dr. Ever Gabriel, DO - Last Filed: 05/21/21 16:19> Physical Exam Const Vital Signs: 05/21/21 14:08 05/21/21 15:33 05/21/21 17:11 Temperature 97.7 F L 98.4 F Temperature Source Temporal Temporal Pulse Rate 104 H 100 Respiratory Rate 16 16 18 Blood Pressure 123/84 H 132/102 H Blood Pressure Mean 97 112 Pulse Ox 98 100 Oxygen Delivery Method Room Air Room Air 05/21/21 18:00 05/21/21 19:52 05/21/21 20:10 Temperature Temperature Source Pulse Rate 97 Respiratory Rate 16 14 16 Blood Pressure 114/73 Blood Pressure Mean 86 Pulse Ox 99 Oxygen Delivery Method Room Air 05/21/21 21:48 05/21/21 22:38 05/21/21 23:50 Temperature Temperature Source Pulse Rate 92 71 Respiratory Rate 16 18 18 Blood Pressure 118/79 100/64 Blood Pressure Mean 92 76 Pulse Ox 99 98 Oxygen Delivery Method Room Air Room Air 05/22/21 01:00 05/22/21 02:00 05/22/21 02:49 Temperature Temperature Source Pulse Rate Respiratory Rate 16 16 16 Blood Pressure Blood Pressure Mean Pulse Ox 96 Oxygen Delivery Method Room Air Positive well nourished and well developed General Appearance ED: well developed HEENT normocephalic and atraumatic Neck supple and no JVD Resp normal respiratory effort and clear to auscultation bilaterally Cardio no murmurs Rate: regular rate Rhythm: regular rhythm GI non-tender and non-distended Auscultation: normoactive bowel sounds Palpation: soft Extremity normal to inspection General Extremety ED: Negative for edema or tenderness General Extremity: Negative for edema Neuro oriented x3, CN's II-XII intact bilaterally and no sensory deficits noted Sensorium / Orientation: alert Motor Exam: strength 5/5 throughout Psych mental status grossly normal Appearance: grossly normal Attitude: paranoid Activity / Motor Behavior: fidgetting and disorganized Speech: minimal and soft Mood & Affect: depressed and flat affect Thought Process: illogical and loose associations Thought Content: suicidality and hallucination(s) Positive for auditory and visual Skin Rashes: no rashes <Dr. Darci Parker, DO - Last Filed: 05/22/21 00:19> Physical Exam Const Vital Signs: 05/21/21 14:08 05/21/21 15:33 05/21/21 17:11 Temperature 97.7 F L 98.4 F Temperature Source Temporal Temporal Pulse Rate 104 H 100 Respiratory Rate 16 16 18 Blood Pressure 123/84 H 132/102 H Blood Pressure Mean 97 112 Pulse Ox 98 100 Oxygen Delivery Method Room Air Room Air 05/21/21 18:00 05/21/21 19:52 05/21/21 20:10 Temperature Temperature Source Pulse Rate 97 Respiratory Rate 16 14 16 Blood Pressure 114/73 Blood Pressure Mean 86 Pulse Ox 99 Oxygen Delivery Method Room Air 05/21/21 21:48 05/21/21 22:38 05/21/21 23:50 Temperature Temperature Source Pulse Rate 92 71 Respiratory Rate 16 18 18 Blood Pressure 118/79 100/64 Blood Pressure Mean 92 76 Pulse Ox 99 98 Oxygen Delivery Method Room Air Room Air 05/22/21 01:00 05/22/21 02:00 05/22/21 02:49 Temperature Temperature Source Pulse Rate Respiratory Rate 16 16 16 Blood Pressure Blood Pressure Mean Pulse Ox 96 Oxygen Delivery Method Room Air <Dr. Kimo Anthony, DO - Last Filed: 05/22/21 07:17> Physical Exam Const Vital Signs: 05/21/21 14:08 05/21/21 15:33 05/21/21 17:11 Temperature 97.7 F L 98.4 F Temperature Source Temporal Temporal Pulse Rate 104 H 100 Respiratory Rate 16 16 18 Blood Pressure 123/84 H 132/102 H Blood Pressure Mean 97 112 Pulse Ox 98 100 Oxygen Delivery Method Room Air Room Air 05/21/21 18:00 05/21/21 19:52 05/21/21 20:10 Temperature Temperature Source Pulse Rate 97 Respiratory Rate 16 14 16 Blood Pressure 114/73 Blood Pressure Mean 86 Pulse Ox 99 Oxygen Delivery Method Room Air 05/21/21 21:48 05/21/21 22:38 05/21/21 23:50 Temperature Temperature Source Pulse Rate 92 71 Respiratory Rate 16 18 18 Blood Pressure 118/79 100/64 Blood Pressure Mean 92 76 Pulse Ox 99 98 Oxygen Delivery Method Room Air Room Air 05/22/21 01:00 05/22/21 02:00 05/22/21 02:49 Temperature Temperature Source Pulse Rate Respiratory Rate 16 16 16 Blood Pressure Blood Pressure Mean Pulse Ox 96 Oxygen Delivery Method Room Air MDM <Dr. Ever Gabriel, DO - Last Filed: 05/21/21 16:19> MDM MDM Narrative Medical decision making narrative: Police filled out a pink slip on the patient. CBC and comprehensive metabolic profile were obtained and were essentially within normal limits. Serum alcohol level was less than 3.0. Serum hCG was negative. Urine tox screen is negative. Patient will likely need to be placed in a psychiatric facility. Patient is medically cleared for crisis evaluation. Care of the patient was turned over to the oncoming physician. Lab Data Attestation: I reviewed the patient's lab results. Labs: Laboratory Results - last 24 hr 05/21/21 05/21/21 05/21/21 14:33 14:33 14:33 WBC 9.0 RBC 4.56 Hgb 14.2 Hct 41.1 MCV 90.1 MCH 31.1 MCHC 34.5 RDW Std Deviation 39.7 RDW Coeff of [place] 12.0 Plt Count 286 MPV 8.6 Immature Gran % (Auto) 0.400 Neut % (Auto) 69.7 Lymph % (Auto) 20.8 [place] % (Auto) 8.0 Eos % (Auto) 0.3 Baso % (Auto) 0.8 Absolute Neuts (auto) 6.3 Absolute Lymphs (auto) 1.88 Nucleated RBC % 0 Sodium 140 Potassium 3.4 L Chloride 107 Carbon Dioxide 25.0 Anion Gap 8 BUN 6 L Creatinine 0.86 Estim Creat Clear Calc 89.20 Est GFR (MDRD) Af Amer 102 Est GFR (MDRD) Non-Af 85 BUN/Creatinine Ratio 7.0 L Glucose 87 Calcium 8.9 Total Bilirubin 0.40 AST 12 L ALT 12 L Alkaline Phosphatase 68 Total Protein 7.5 Albumin 4.1 Globulin 3.4 Albumin/Globulin Ratio 1.2 Serum , Qual Urine Opiates Screen Urine Methadone Screen Ur Barbiturates Screen Ur Phencyclidine Scrn Ur Amphetamines Screen U Methamphetamin-MDMA U Benzodiazepines Scrn Urine Cocaine Screen U Cannabinoids Screen Ur Drug Screen Comment Ethyl Alcohol < 3.0 05/21/21 05/21/21 14:33 15:25 WBC RBC Hgb Hct MCV MCH MCHC RDW Std Deviation RDW Coeff of [place] Plt Count MPV Immature Gran % (Auto) Neut % (Auto) Lymph % (Auto) [place] % (Auto) Eos % (Auto) Baso % (Auto) Absolute Neuts (auto) Absolute Lymphs (auto) Nucleated RBC % Sodium Potassium Chloride Carbon Dioxide Anion Gap BUN Creatinine Estim Creat Clear Calc Est GFR (MDRD) Af Amer Est GFR (MDRD) Non-Af BUN/Creatinine Ratio Glucose Calcium Total Bilirubin AST ALT Alkaline Phosphatase Total Protein Albumin Globulin Albumin/Globulin Ratio Serum , Qual NEGATIVE Urine Opiates Screen NEGATIVE Urine Methadone Screen NEGATIVE Ur Barbiturates Screen NEGATIVE Ur Phencyclidine Scrn NEGATIVE Ur Amphetamines Screen NEGATIVE U Methamphetamin-MDMA NEGATIVE U Benzodiazepines Scrn NEGATIVE Urine Cocaine Screen NEGATIVE U Cannabinoids Screen NEGATIVE Ur Drug Screen Comment Ethyl Alcohol <Dr. Darci Parker, DO - Last Filed: 05/22/21 00:19> MDM MDM Narrative Medical decision making narrative: Patient has been evaluated by crisis. She has been medically stable. While here. He did request Tylenol. And ibuprofen at separate times for back pain and headache. This was provided. Patient will be signed out to incoming ED physician for ultimate follow-up and placement. Lab Data Attestation: I reviewed the patient's lab results. Labs: Laboratory Results - last 24 hr 05/21/21 05/21/21 05/21/21 14:33 14:33 14:33 WBC 9.0 RBC 4.56 Hgb 14.2 Hct 41.1 MCV 90.1 MCH 31.1 MCHC 34.5 RDW Std Deviation 39.7 RDW Coeff of [place] 12.0 Plt Count 286 MPV 8.6 Immature Gran % (Auto) 0.400 Neut % (Auto) 69.7 Lymph % (Auto) 20.8 [place] % (Auto) 8.0 Eos % (Auto) 0.3 Baso % (Auto) 0.8 Absolute Neuts (auto) 6.3 Absolute Lymphs (auto) 1.88 Nucleated RBC % 0 Sodium 140 Potassium 3.4 L Chloride 107 Carbon Dioxide 25.0 Anion Gap 8 BUN 6 L Creatinine 0.86 Estim Creat Clear Calc 89.20 Est GFR (MDRD) Af Amer 102 Est GFR (MDRD) Non-Af 85 BUN/Creatinine Ratio 7.0 L Glucose 87 Calcium 8.9 Total Bilirubin 0.40 AST 12 L ALT 12 L Alkaline Phosphatase 68 Total Protein 7.5 Albumin 4.1 Globulin 3.4 Albumin/Globulin Ratio 1.2 Serum , Qual Urine Opiates Screen Urine Methadone Screen Ur Barbiturates Screen Ur Phencyclidine Scrn Ur Amphetamines Screen U Methamphetamin-MDMA U Benzodiazepines Scrn Urine Cocaine Screen U Cannabinoids Screen Ur Drug Screen Comment Ethyl Alcohol < 3.0 05/21/21 05/21/21 14:33 15:25 WBC RBC Hgb Hct MCV MCH MCHC RDW Std Deviation RDW Coeff of [place] Plt Count MPV Immature Gran % (Auto) Neut % (Auto) Lymph % (Auto) [place] % (Auto) Eos % (Auto) Baso % (Auto) Absolute Neuts (auto) Absolute Lymphs (auto) Nucleated RBC % Sodium Potassium Chloride Carbon Dioxide Anion Gap BUN Creatinine Estim Creat Clear Calc Est GFR (MDRD) Af Amer Est GFR (MDRD) Non-Af BUN/Creatinine Ratio Glucose Calcium Total Bilirubin AST ALT Alkaline Phosphatase Total Protein Albumin Globulin Albumin/Globulin Ratio Serum , Qual NEGATIVE Urine Opiates Screen NEGATIVE Urine Methadone Screen NEGATIVE Ur Barbiturates Screen NEGATIVE Ur Phencyclidine Scrn NEGATIVE Ur Amphetamines Screen NEGATIVE U Methamphetamin-MDMA NEGATIVE U Benzodiazepines Scrn NEGATIVE Urine Cocaine Screen NEGATIVE U Cannabinoids Screen NEGATIVE Ur Drug Screen Comment Ethyl Alcohol <Dr. Kimo Anthony, DO - Last Filed: 05/22/21 07:17> [facility] Lab Data Labs: Laboratory Results - last 24 hr 05/21/21 05/21/21 05/21/21 14:33 14:33 14:33 WBC 9.0 RBC 4.56 Hgb 14.2 Hct 41.1 MCV 90.1 MCH 31.1 MCHC 34.5 RDW Std Deviation 39.7 RDW Coeff of [place] 12.0 Plt Count 286 MPV 8.6 Immature Gran % (Auto) 0.400 Neut % (Auto) 69.7 Lymph % (Auto) 20.8 [place] % (Auto) 8.0 Eos % (Auto) 0.3 Baso % (Auto) 0.8 Absolute Neuts (auto) 6.3 Absolute Lymphs (auto) 1.88 Nucleated RBC % 0 Sodium 140 Potassium 3.4 L Chloride 107 Carbon Dioxide 25.0 Anion Gap 8 BUN 6 L Creatinine 0.86 Estim Creat Clear Calc 89.20 Est GFR (MDRD) Af Amer 102 Est GFR (MDRD) Non-Af 85 BUN/Creatinine Ratio 7.0 L Glucose 87 Calcium 8.9 Total Bilirubin 0.40 AST 12 L ALT 12 L Alkaline Phosphatase 68 Total Protein 7.5 Albumin 4.1 Globulin 3.4 Albumin/Globulin Ratio 1.2 Serum , Qual Urine Opiates Screen Urine Methadone Screen Ur Barbiturates Screen Ur Phencyclidine Scrn Ur Amphetamines Screen U Methamphetamin-MDMA U Benzodiazepines Scrn Urine Cocaine Screen U Cannabinoids Screen Ur Drug Screen Comment Ethyl Alcohol < 3.0 05/21/21 05/21/21 14:33 15:25 WBC RBC Hgb Hct MCV MCH MCHC RDW Std Deviation RDW Coeff of [place] Plt Count MPV Immature Gran % (Auto) Neut % (Auto) Lymph % (Auto) [place] % (Auto) Eos % (Auto) Baso % (Auto) Absolute Neuts (auto) Absolute Lymphs (auto) Nucleated RBC % Sodium Potassium Chloride Carbon Dioxide Anion Gap BUN Creatinine Estim Creat Clear Calc Est GFR (MDRD) Af Amer Est GFR (MDRD) Non-Af BUN/Creatinine Ratio Glucose Calcium Total Bilirubin AST ALT Alkaline Phosphatase Total Protein Albumin Globulin Albumin/Globulin Ratio Serum , Qual NEGATIVE Urine Opiates Screen NEGATIVE Urine Methadone Screen NEGATIVE Ur Barbiturates Screen NEGATIVE Ur Phencyclidine Scrn NEGATIVE Ur Amphetamines Screen NEGATIVE U Methamphetamin-MDMA NEGATIVE U Benzodiazepines Scrn NEGATIVE Urine Cocaine Screen NEGATIVE U Cannabinoids Screen NEGATIVE Ur Drug Screen Comment Ethyl Alcohol Discharge Plan Triage Chief Complaint: Suicidal ED Provider: Kimo Anthony Dx/Rx/DC Orders Prescriptions: No Action NK RF: 0 Primary Care Provider: Care Physician,No Primary
[2021-05-21 14:43] LABS: Absolute Lymphocyte Count 1.88 X10^3/uL (0.83-4.51); Absolute Neutrophil Count 6.3 X10^3/uL (2.0-7.7); Basophil# 0.07 X10^3/uL; Basophil% 0.8 % (0-1); Eosinophil# 0.03 X10^3/uL; Eosinophils% 0.3 % (0-5); Hematocrit 41.1 % (37-47); Hemoglobin 14.2 g/dL (12.0-15.0); Lymphocyte # 1.88 X10^3/ul (0.83-4.51); Lymphocyte % 20.8 % (19-41); Mean Corp Hgb Conc 34.5 g/dL (32-36); Mean Corpuscular Hgb 31.1 pg (27.0-32.0); Mean Corpuscular Volume 90.1 fL (81-99); Mean Platelet Vol. 8.6 fl (6.2-12.0); Monocyte# 0.72 X10^3/uL; NRBC Flagged by Analyzer 0 % (0-5); Neutrophil # 6.29 X10^3/uL (2.7-7.7); Neutrophil % 69.7 % (47-70); Platelet Count 286 K/mm3 (150-450); RBC Distribution Width SD 39.7 fl (35.1-43.9); Red Blood Count 4.56 M/mm3 (4.2-5.4)
[2021-05-21 14:57] LABS: ALB/GLOB Ratio 1.2 RATIO (0.9-2.4); AST(SGOT) 12 U/L (15-37); Alanine Aminotransfer ALT/SGPT 12 U/L (13-56); Albumin, Serum 4.1 g/dL (3.2-5.0); Alkaline Phosphatase 68 U/L (45-117); Anion Gap 8 (5-15); BUN 6 mg/dL (7-18); Calcium,Total 8.9 mg/dL (8.5-10.1); Chloride 107 mmol/L (98-107); Creatinine, Serum 0.86 mg/dL (0.55-1.02); EST Glomerular Filtration Rate 85 mL/min (>60); Est Glom Filt Rate - Afr Amer 102 mL/min (>60); Globulin 3.4 g/dL (2.2-4.2); Glucose 87 mg/dL (74-106); Potassium 3.4 mmol/L (3.5-5.1); Protein, Total 7.5 g/dL (6.4-8.2); Sodium Level 140 mmol/L (136-145)
--- NOTE | 2021-05-21 15:02 | ED.RN ---
PT ASKING TO SPEAK TO AN OFFICER ABOUT DAD
[2021-05-21 15:22] LABS: Internal QC Validated? YES +Cl - CLEAR BKGD; Pregnancy, Serum, hCG Quali. NEGATIVE Negative
[2021-05-21 15:24] LABS: Alcohol, Blood (Medical)-Serum < 3.0 mg/dL
[2021-05-21 16:13] LABS: Amphetamine Urine VISTA NEGATIVE (<1000 ng/mL); Barbiturate Urine VISTA NEGATIVE (< 200 ng/mL); Benzodiazepine Urine VISTA NEGATIVE (< 200 ng/mL); Cocaine Urine VISTA NEGATIVE (< 300 ng/mL); Ecstacy Urine VISTA NEGATIVE (< 500 ng/mL); Methadone Urine VISTA NEGATIVE (< 300 ng/mL); PCP Urine VISTA NEGATIVE (< 25 ng/mL); THC Urine VISTA NEGATIVE (< 50 ng/mL); Vista UDS pH Range 6
[2021-05-21] MEDS: Acetaminophen 500 MG Tablet 1000 MG PO (17:15)
[2021-05-21] MEDS: Ibuprofen 600 MG Tablet PO (20:39)
--- NOTE | 2021-05-21 21:29 | ED.RN ---
APPROX 2100, PT PUSHED CHAIR OUT OF THE WAY IN ROOM, AND SMASHED HER PHONE ONTO THE FLOOR. PT PHONE SCREEN CRACKED. PT RESTING IN BED WITH HER EYES CLOSED. PT ASKS THIS RN TO STOMP ON HER PHONE. THIS RN INFORMED THE PT THAT SHE WOULD NOT STEP ON PHONE, BUT THAT THE PT HAD CRACKED HER PHONE SCREEN AND BENT HER PHONE, PHONE WAS PLACED INTO PT BELONGINGS BAG. PT RETURNS TO RESTING IN BED WITH EYES CLOSED.
[2021-05-22 01:00] VITALS: RESP 16; O2SAT 96
--- NOTE | 2021-05-22 01:47 | ED.RN ---
[facility]
[2021-05-22 02:00] VITALS: RESP 16
[2021-05-22 02:49] VITALS: RESP 16
[2021-05-22 08:28] VITALS: BP 95/67; PULSE 64; RESP 16; TEMP 36.9; O2SAT 100
== END 2021-05-22 11:23 ==
PROVIDERS: Emergency Medicine; Emergency Provider Emergency Medicine
DX: R45.851 Suicidal ideations (principal); F17.210 Nicotine dependence, cigarettes, uncomplicated
CPT/HCPCS: 36415; 80053; 80307; 82077; 84703; 85025; 87426; 99285

== ENCOUNTER 2021-06-13 00:19 | Emergency (ER) | payer SELFPAY ==
[2021-05-21 14:08] VITALS: BMI 28.6
[2021-06-13] VITALS (10 sets, daily range): BP systolic 89–109; BP diastolic 35–74; PULSE 57–81; RESP 15–20; TEMP 36.7; O2SAT 96–100; BMI 25.2
--- NOTE | 2021-06-13 01:05 | EX.ED.DYSGE1 ---
HPI History of Present Illness Chief Complaint: Mental Health Informant: patient and EMS Narrative Narrative: Patient is a 26-year-old female that was brought in by EMS as she was found laying in the street. Patient refusing to answer any questions for EMS or staff. She does fall asleep but wakes back up immediately upon stimulation. She does not tell me why she is here in the emergency department. She does get angry whenever I wake her up to ask more questions. Reviewing her past medical history she was in the emergency department last month for suicidal ideation. She has told staff that she has a history of schizophrenia before in the past. At one point she did tell me she needs to listen to [place]. PFSH PFS Medical History Irregular heart beat Home Medications NK 05/21/21 [History Last Taken Unknown] Allergy/AdvReac Type Severity Reaction Status Date / Time lorazepam Allergy Rash Verified 06/13/21 01:36 risperidone Allergy Other Verified 06/13/21 01:36 Social History Smoking Status: Current every day smoker tobacco type: cigarettes ROS ROS ED Review of Systems ROS Unobtainable: other Details: Refusing to speak and answer questions EXAM Physical Exam Const Vital Signs: 06/13/21 00:21 06/13/21 04:03 06/13/21 06:01 Temperature 98.1 F Temperature Source Temporal Pulse Rate 79 60 Respiratory Rate 20 H 16 18 Blood Pressure 106/35 L Blood Pressure Mean 58 Pulse Ox 96 100 Oxygen Delivery Method Room Air Room Air 06/13/21 07:00 06/13/21 08:00 06/13/21 11:21 Temperature Temperature Source Pulse Rate 76 Respiratory Rate 15 16 16 Blood Pressure 101/60 Blood Pressure Mean 73 Pulse Ox 97 Oxygen Delivery Method Room Air 06/13/21 13:45 06/13/21 14:55 06/13/21 19:29 Temperature Temperature Source Pulse Rate 57 L 81 Respiratory Rate 16 16 16 Blood Pressure 89/48 L 109/71 Blood Pressure Mean 61 83 Pulse Ox 100 99 Oxygen Delivery Method Room Air Room Air 06/13/21 19:31 Temperature Temperature Source Pulse Rate 81 Respiratory Rate 16 Blood Pressure 109/74 Blood Pressure Mean 85 Pulse Ox 99 Oxygen Delivery Method Positive well nourished and well developed Constitutional Narrative: Patient wake up and get angry whenever she is stimulated. She states that I cannot touch her. She does answer some simple questions but immediately closes her eyes and not answer any other questions. General Appearance ED: well developed and NAD HEENT Negative for trauma Eyes PERRL and EOMs intact bilaterally Neck supple Resp normal respiratory effort Cardio regular rate and regular rhythm GI non-distended Extremity Extremity Narrative: Moves all 4 extremities equally. Neuro Sensorium / Orientation: alert Motor Exam: strength 5/5 throughout Skin no rashes or lesions noted MDM MDM MDM Narrative Medical decision making narrative: Patient presents the ED after being found in the street. Upon arrival her vital signs show her to be borderline hypotensive. She is not tachycardic with this. She is in no acute distress. She is alert and will answer questions but then closes her eyes and refused to answer questions. She does have a history of psychiatric disorders including suicidal ideations. Will check basic lab work at this time. Per EMS report patient is homeless. Patient being verbally abusive to staff. She is cursing at people. She did call the nurses Tom and kaila they kept asking her questions. Because patient did not have any complaints at this time I did put her up for discharge. [facility]. Whenever the nurses brought in her discharge paperwork she is now stating she is suicidal and wants to hurt herself. We did have crisis evaluate the patient. They state that she was recently admitted to a psychiatric facility 2 weeks ago. Patient could potentially just be malingering but with her history of they are being cautious as she could hurt herself out of spite. Crisis did evaluate the patient and now they are planning on acute psychiatric hospital stay for her. She has remained stable throughout ED stay. Talk screen was positive for amphetamines and cannabinoids Lab Data Labs: Laboratory Results - last 24 hr 06/13/21 06/13/21 06/13/21 01:20 01:20 01:20 WBC 7.9 RBC 4.24 Hgb 13.2 Hct 40.6 MCV 95.8 MCH 31.1 MCHC 32.5 RDW Std Deviation 43.3 RDW Coeff of [place] 12.4 Plt Count 180 MPV 9.6 Immature Gran % (Auto) 0.300 Neut % (Auto) 50.1 Lymph % (Auto) 39.5 [place] % (Auto) 8.2 Eos % (Auto) 1.3 Baso % (Auto) 0.6 Absolute Neuts (auto) 4.0 Absolute Lymphs (auto) 3.12 Nucleated RBC % 0 Sodium 138 Potassium 3.5 Chloride 110 H Carbon Dioxide 21.0 Anion Gap 7 BUN 10 Creatinine 0.76 Estim Creat Clear Calc 113.16 Est GFR (MDRD) Af Amer 118 Est GFR (MDRD) Non-Af 98 BUN/Creatinine Ratio 13.2 Glucose 78 Calcium 8.7 Serum , Qual Urine Color Urine Clarity Urine pH Ur Specific [place] Urine Protein Urine Glucose (UA) Urine Ketones Urine Occult Blood Urine Nitrite Urine Bilirubin Urine Urobilinogen Ur Leukocyte Esterase Urine RBC Urine WBC Ur Squamous Epith Cells Amorphous Sediment Urine Bacteria Urine Mucus Urine Opiates Screen Urine Methadone Screen Ur Barbiturates Screen Ur Phencyclidine Scrn Ur Amphetamines Screen U Methamphetamin-MDMA U Benzodiazepines Scrn Urine Cocaine Screen U Cannabinoids Screen Ur Drug Screen Comment Ethyl Alcohol < 3.0 06/13/21 06/13/21 06/13/21 01:20 16:20 16:20 WBC RBC Hgb Hct MCV MCH MCHC RDW Std Deviation RDW Coeff of [place] Plt Count MPV Immature Gran % (Auto) Neut % (Auto) Lymph % (Auto) [place] % (Auto) Eos % (Auto) Baso % (Auto) Absolute Neuts (auto) Absolute Lymphs (auto) Nucleated RBC % Sodium Potassium Chloride Carbon Dioxide Anion Gap BUN Creatinine Estim Creat Clear Calc Est GFR (MDRD) Af Amer Est GFR (MDRD) Non-Af BUN/Creatinine Ratio Glucose Calcium Serum , Qual NEGATIVE Urine Color Yellow Urine Clarity Sl. Cloudy Urine pH 6.0 Ur Specific [place] 1.025 Urine Protein 15 H Urine Glucose (UA) Normal Urine Ketones 50 H Urine Occult Blood 10 H Urine Nitrite Negative Urine Bilirubin Negative Urine Urobilinogen Normal Ur Leukocyte Esterase 100 H Urine RBC 0-5 SEEN Urine WBC 5-10 SEEN Ur Squamous Epith Cells 50-100 SEEN Amorphous Sediment 3+ URATE Urine Bacteria 0 SEEN Urine Mucus 0 SEEN Urine Opiates Screen NEGATIVE Urine Methadone Screen NEGATIVE Ur Barbiturates Screen NEGATIVE Ur Phencyclidine Scrn NEGATIVE Ur Amphetamines Screen POSITIVE H U Methamphetamin-MDMA NEGATIVE U Benzodiazepines Scrn NEGATIVE Urine Cocaine Screen NEGATIVE U Cannabinoids Screen POSITIVE H Ur Drug Screen Comment Ethyl Alcohol Discharge Plan Triage Chief Complaint: Mental Health Other Complaint: Abd Pain ED Provider: Js Zaidi Dx/Rx/DC Orders Clinical Impression: Homeless, Suicidal risk Prescriptions: No Action NK RF: 0 Primary Care Provider: Care Physician,No Primary Referrals: Care Physician,No Primary [Primary Care Provider] - Disposition Disposition: Psychiatric Hospital or Unit Discharge Location: [facility] Discharge Date/Time: 06/13/21 19:40
[2021-06-13 01:31] LABS: Absolute Lymphocyte Count 3.12 X10^3/uL (0.83-4.51); Basophil# 0.05 X10^3/uL; Basophil% 0.6 % (0-1); Eosinophils% 1.3 % (0-5); Hematocrit 40.6 % (37-47); Hemoglobin 13.2 g/dL (12.0-15.0); Lymphocyte # 3.12 X10^3/ul (0.83-4.51); Lymphocyte % 39.5 % (19-41); Mean Corp Hgb Conc 32.5 g/dL (32-36); Mean Corpuscular Hgb 31.1 pg (27.0-32.0); Mean Corpuscular Volume 95.8 fL (81-99); Mean Platelet Vol. 9.6 fl (6.2-12.0); Monocyte# 0.65 X10^3/uL; Monocyte% 8.2 % (0-10); NRBC Flagged by Analyzer 0 % (0-5); Neutrophil # 3.95 X10^3/uL (2.7-7.7); Neutrophil % 50.1 % (47-70); POSITIVE COUNT YES; Platelet Count 180 K/mm3 (150-450); RBC Distribution Width CV 12.4 % (11.6-14.6); RBC Distribution Width SD 43.3 fl (35.1-43.9); Red Blood Count 4.24 M/mm3 (4.2-5.4); White Blood Count 7.9 K/mm3 (4.4-11.0)
--- NOTE | 2021-06-13 01:32 | ED.RN ---
made md aware that the pt does not want to be bothered and is restistant to care. pt wants to sleep and saids,quit it,im fine,leave me alone.' made him aware that this nurse was only able to get a limited amount of blood specimen.aware unable to get urine. okay with this.
[2021-06-13 01:33] LABS: Differential Indicated SCAN CRITERIA MET
[2021-06-13 01:41] LABS: Alcohol, Blood (Medical)-Serum < 3.0 mg/dL
[2021-06-13 01:42] LABS: Anion Gap 7 (5-15); BUN 10 mg/dL (7-18); BUN/Creat Ratio 13.2 RATIO (10-20); Calcium,Total 8.7 mg/dL (8.5-10.1); Chloride 110 mmol/L (98-107); Creatinine, Serum 0.76 mg/dL (0.55-1.02); EST Glomerular Filtration Rate 98 mL/min (>60); Est Glom Filt Rate - Afr Amer 118 mL/min (>60); Estimated Creatinine Clearance 113.16 ml/min; Glucose 78 mg/dL (74-106); Potassium 3.5 mmol/L (3.5-5.1); Sodium Level 138 mmol/L (136-145)
[2021-06-13 01:44] LABS: Internal QC Validated? YES +Cl - CLEAR BKGD; Pregnancy, Serum, hCG Quali. NEGATIVE Negative
--- NOTE | 2021-06-13 02:32 | ED.RN ---
pt was yelling and screaming at staff when asked to leave because pt was discharged. pt then stated I'm suicidal pt was asked to get a urine specimen and then remove all clothing and apply gown, pt just continued to yell & scream and cuss at the staff.
--- NOTE | 2021-06-13 02:41 | ED.RN ---
patient had to awoken by smelling salts. Patient refusing to answer questions for nursing staff. Patient awoke to smelling salts would only answer certain questions when she wanted to. Patient claims she was sent up by the [employer] for a place to sleep. Patient could give the doctor or nursing staff a answer on anything that was wrong with her. Patient was discharged at this time since patient could not give a medical reason to be here and was being argumentative towards the nursing staff.Patient was given discharge paper and advised she has been discharged and could go home. After 10 minutes nursing staff went back into room and patient remains in the same position and refusing to leave at this time. Charge nurse went in to speak with patient at this time and advised her that she has been discharged and she needs to leave. At this time patient claims she needs a mental health hospital. when asked why she needs a mental health hospital she states she has mental issues. Patient asked if she was SI. She claims yes. Asked about a plan and she states any way you want me to be. Patient can not give a direct plan. Patient states she has been trying to tell this the whole time. Patient very argumentative with staff and not wanting to follow directions. Dr. Zaidi made aware at this time. Mental health order set started and patient removed of all clothing and belongings at this time. Patient pending urine sample for mental health eval.
--- NOTE | 2021-06-13 03:08 | ED.RN ---
PAGED CRISIS TO SEE THIS PT DIRECTED BY PIOTR WALLACE IS PUBLIC HEALTH STAFF NURSE
--- NOTE | 2021-06-13 03:15 | ED.RN ---
crisis made aware of patient. they will be in to see patient
--- NOTE | 2021-06-13 09:18 | NURSING ---
CALLED CRISIS, TALKED TO [facility]. THEY ARE WORKING ON PATIENT TRANSFER.
[2021-06-13] MEDS: Ibuprofen 600 MG Tablet PO (13:50)
[2021-06-13 16:44] LABS: Amphetamine Urine VISTA POSITIVE (<1000 ng/mL); Barbiturate Urine VISTA NEGATIVE (< 200 ng/mL); Benzodiazepine Urine VISTA NEGATIVE (< 200 ng/mL); Cocaine Urine VISTA NEGATIVE (< 300 ng/mL); Ecstacy Urine VISTA NEGATIVE (< 500 ng/mL); Methadone Urine VISTA NEGATIVE (< 300 ng/mL); PCP Urine VISTA NEGATIVE (< 25 ng/mL); THC Urine VISTA POSITIVE (< 50 ng/mL); Vista UDS pH Range 6
[2021-06-13 18:17] LABS: Bacteria 0 SEEN /hpf (None Seen); Mucous, Urine 0 SEEN /hpf (<or=2+)
[2021-06-13 18:19] LABS: Color, Urine Yellow (Yellow); Glucose, Dipstick Normal (Normal); Ketone-Dipstick 50 mg/dl (Negative); Leukocyte Esterase-Dipstick 100 /ul (Negative); Nitrite-Dipstick Negative (Negative); Occult Blood-Urine 10 /ul (Negative); Protein-Dipstick 15 mg/dl (Negative); Specific Gravity, Urine 1.025 (1.002-1.030); Urine Bilirubin Dipstick Negative (Negative); Urine Clarity Sl. Cloudy (Clear); Urine Urobilinogen Normal (Normal)
[2021-06-13 18:35] LABS: Amorphous Sediment 3+ URATE; Red Blood Cells-Urine 0-5 SEEN /hpf (0-5); Squamous Epithelial Cells - UA 50-100 SEEN /hpf (5-10); White Blood Cells 5-10 SEEN /hpf (0-5)
--- NOTE | 2021-06-13 19:10 | CM.ED ---
JANICE Note RN advised that patient wanted to speak to her. SW met with patient. Patient said that she wanted to know what was occurring. JANICE advised that counseling center is looking for placement. Patient said like a mental hospital and SW indicated that it would be inpatient psych. Patient asked where she was going and this law writer explained that at this time it was not confirmed yet. Patient asked when she was going and this law writer again stated that was unknown at this time. JANICE called [facility] and advised this law writer was sending tox screen to [facility] for patient. JANICE faxed tox screen result to [facility]. Atul, ED desk, advised that patient was accepted at [facility] per [facility]. Accepting Dr. was Dr. Chu and patient was accepted in the [place] unit. Phone RN to RN [phone]. Atul will arrange transport. Plan: [facility] Jamzin LIANG
--- NOTE | 2021-06-13 19:39 | ED.RN ---
PT REQUESTED SOMETHING FOR PAIN. PT OFFERED TORADOL. PT NOW REFUSING.
== END 2021-06-13 19:40 ==
PROVIDERS: Student in an Organized Health Care Education/Training Program; Emergency Provider Emergency Medicine
DX: R45.851 Suicidal ideations (principal); Z59.0 Homelessness; F17.210 Nicotine dependence, cigarettes, uncomplicated
CPT/HCPCS: 80048; 80307; 81001; 82077; 84703; 85025; 99285; A4216

== ENCOUNTER 2022-03-16 09:38 | Outpatient (REF) | payer SELFPAY ==
[2022-03-16 09:44] VITALS: BP 134/89; PULSE 114; RESP 16; TEMP 36.8; O2SAT 97; BMI 28.0
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
== END 2022-03-16 11:20 | disposition home or self-care (01) ==
LOC: ED 09:38
PROVIDERS: Visit Provider Student in an Organized Health Care Education/Training Program
DX: F60.3 Borderline personality disorder (principal); F11.99 Opioid use, unspecified with unspecified opioid-induced disorder; F41.9 Anxiety disorder, unspecified; F17.210 Nicotine dependence, cigarettes, uncomplicated; Z79.899 Other long term (current) drug therapy

== ENCOUNTER 2022-09-30 12:33 | Outpatient (REF) | payer SELFPAY ==
[2022-09-30 12:35] VITALS: BP 112/70; PULSE 101; RESP 16; TEMP 36.8; O2SAT 98; BMI 25.4
--- NOTE | 2022-09-30 12:56 | EDS_ITS ---
HPI History of Present Illness Chief Complaint: Unresponsive Informant: patient and EMS Narrative Narrative: Brought in by EMS from intermediate for concerning overdose. Patient inmate for 2 days. Reported obtain substance for which she thinks she snorted. She does not recall anything. She is status post 3 doses of Narcan. Currently states she does not feel well. Denies nausea or vomiting. Denies abdominal pain. She denies any history of substance use. Prior similar symptoms: No PFSH PFSH Medical History Depression Irregular heart beat Home Medications buspirone 10 mg tablet 10 mg PO BID 03/16/22 [History Last Taken Unknown] fluoxetine 20 mg capsule 20 mg PO DAILY 03/16/22 [History Last Taken Unknown] Allergy/AdvReac Type Severity Reaction Status Date / Time lorazepam Allergy Rash Verified 09/30/22 12:38 risperidone Allergy Other Verified 09/30/22 12:38 Social History Smoking Status: Current every day smoker tobacco type: cigarettes ROS ROS ED Constitutional Constitutional ED: Denies chills, fever(s) or sweats Eyes Eyes: Denies change in vision ENT ENT ED: Denies dysphagia or sore throat Cardiovascular Cardiovascular: Denies chest pain, leg edema, palpitations or racing heartbeat Respiratory/Chest Respiratory/Chest: Denies cough, dyspnea or dyspnea on exertion Gastrointestinal Gastrointestinal: Denies abdominal pain, diarrhea, nausea or vomiting Genitourinary Genitourinary ED: Denies dysuria, hematuria or urinary frequency Musculoskeletal Musculoskeletal: Denies back pain, extremity pain or neck pain Integumentary Denies rash or wounds Neurologic Neurologic: Denies headache(s), paresthesias or weakness EXAM Physical Exam Const Vital Signs: 09/30/22 12:35 09/30/22 14:17 Temperature 98.3 F Temperature Source Temporal Pulse Rate 101 H 82 Respiratory Rate 16 16 Blood Pressure 112/70 106/72 Blood Pressure Mean 84 83 Pulse Ox 98 97 Oxygen Delivery Method Room Air Room Air Positive well nourished and well developed General Appearance ED: well developed and NAD HEENT Reports moist mucous membranes normocephalic and atraumatic Eyes PERRL, EOMs intact bilaterally and conjunctivae normal Eyes Narrative: No current pinpoint pupils. General Eye ED: Yes normal appearance of both eyes Neck no lymphadenopathy and supple General: Negative for tenderness Chest Wall Chest: Negative for tenderness Resp normal respiratory effort and normal air movement Effort and Inspection: symmetric chest movement; Negative for respiratory distress Cardio regular rate, regular rhythm and no murmurs Peripheral Pulses: pulses 2+ throughout GI normal to inspection, nondistended, normoactive bowel sounds and non-tender Palpation: Negative for guarding or rebound tenderness present Back/Spine no CVA tenderness and no thoracic nor lumbar tenderness Extremity normal to inspection General Extremety ED: Negative for edema or tenderness General Extremity: Negative for edema Neuro oriented x3, CN's II-XII intact bilaterally and no sensory deficits noted Sensorium / Orientation: awake and alert Skin no rashes or lesions noted and no wounds MDM MDM MDM Narrative Medical decision making narrative: Patient with overdose likely opioid secondary to response to Narcan. In addition other inmates are being evaluated and 1 has confirmed likely fentanyl. She has no focal deficits. She will be observed. Patient observed remained stable. 1 emesis in the ED. She given Zofran. She tolerated oral intake. Discharged in police custody. Discharge Plan Admission Attending Provider: Addy Blake Primary Care Provider: Care Physician,Latia Primary Instructions Patient Instructions: ED Overdose, Opiate Discharge Orders/Prescriptions Prescriptions: No Action buspirone 10 mg Tablet 10 mg PO BID fluoxetine 20 mg Capsule 20 mg PO DAILY Referrals / Follow Up: Care Physician,Latia Primary [Primary Care Provider] - Disposition Disposition (needs filled in before D/C Order can be placed): Home, Self Care
[2022-09-30] MEDS: Ondansetron ODT 4 MG Tablet PO (14:12)
[2022-09-30 14:17] VITALS: BP 106/72; PULSE 82; RESP 16; O2SAT 97
== END 2022-09-30 14:44 ==
LOC: ED 12:33
PROVIDERS: Visit Provider Emergency Medicine
DX: T40.601A Poisoning by unspecified narcotics, accidental (unintentional), initial encounter (principal); F17.210 Nicotine dependence, cigarettes, uncomplicated

== ENCOUNTER 2022-12-27 12:51 | Outpatient (REF) | payer SELFPAY ==
[2022-12-27 12:52] VITALS: BP 99/65; PULSE 90; RESP 16; TEMP 36.6; O2SAT 97; BMI 28.3
[2022-12-27 13:40] LABS: Anion Gap 6 (5-15); BUN 9 mg/dL (7-18); BUN/Creat Ratio 10.7 RATIO (10-20); Calcium,Total 8.7 mg/dL (8.5-10.1); Chloride 109 mmol/L (98-107); Creatinine, Serum 0.84 mg/dL (0.55-1.02); EST Glomerular Filtration Rate 86 mL/min (>60); Est Glom Filt Rate - Afr Amer 104 mL/min (>60); Estimated Creatinine Clearance 90.52 ml/min; Glucose 134 mg/dL (74-106); Potassium 3.6 mmol/L (3.5-5.1); Sodium Level 141 mmol/L (136-145)
[2022-12-27 13:42] LABS: Internal QC Validated? YES +Cl - CLEAR BKGD
[2022-12-27 13:43] LABS: Alcohol, Blood (Medical)-Serum < 3.0 mg/dL; Pregnancy, Serum, hCG Quali. NEGATIVE Negative
[2022-12-27 13:48] LABS: Amphetamine Urine NEGATIVE (<1000 ng/mL); Barbiturate Urine NEGATIVE (< 200 ng/mL); Benzodiazepine Urine NEGATIVE (< 200 ng/mL); Cocaine Urine NEGATIVE (< 300 ng/mL); Ecstacy Urine NEGATIVE (< 500 ng/mL); Methadone Urine NEGATIVE (< 300 ng/mL); Opiates Urine NEGATIVE (< 300 ng/mL); PCP Urine NEGATIVE (< 25 ng/mL); THC Urine NEGATIVE (< 50 ng/mL); Vista UDS pH Range 6
[2022-12-27 14:05] LABS: Absolute Lymphocyte Count 2.21 X10^3/uL (0.83-4.51); Absolute Neutrophil Count 3.5 X10^3/uL (2.0-7.7); Basophil# 0.06 X10^3/uL; Eosinophil# 0.05 X10^3/uL; Eosinophils% 0.8 % (0-5); Hematocrit 40.6 % (37-47); Hemoglobin 13.8 g/dL (12.0-15.0); Lymphocyte # 2.21 X10^3/ul (0.83-4.51); Lymphocyte % 35.3 % (19-41); Mean Corpuscular Hgb 31.7 pg (27.0-32.0); Mean Corpuscular Volume 93.3 fL (81-99); Mean Platelet Vol. 9.6 fl (6.2-12.0); Monocyte# 0.41 X10^3/uL; Monocyte% 6.5 % (0-10); NRBC Flagged by Analyzer 0 % (0-5); Neutrophil # 3.52 X10^3/uL (2.7-7.7); Neutrophil % 56.2 % (47-70); Platelet Count 247 K/mm3 (150-450); RBC Distribution Width CV 12.3 % (11.6-14.6); RBC Distribution Width SD 42.7 fl (35.1-43.9); Red Blood Count 4.35 M/mm3 (4.2-5.4); White Blood Count 6.3 K/mm3 (4.4-11.0)
--- NOTE | 2022-12-27 14:08 | EDS_ITS ---
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 Currently she is being held at the [facility]. She was brought up by the Maintenance Trainer's department to be medically cleared. She has already been evaluated by crisis and is awaiting psychiatric hospital transfer. Patient denies being suicidal. Prior similar symptoms: Yes Recent Illness/Hospitalization: No PFSH PFSH Medical History Depression Irregular heart beat Home Medications buspirone 10 mg tablet 10 mg PO BID 03/16/22 [History Last Taken Unknown] fluoxetine 20 mg capsule 20 mg PO DAILY 03/16/22 [History Last Taken Unknown] Allergy/AdvReac Type Severity Reaction Status Date / Time lorazepam Allergy Rash Verified 12/27/22 12:54 risperidone Allergy Other Verified 12/27/22 12:54 Social History Smoking Status: Current every day smoker tobacco type: cigarettes ROS ROS ED ROS Narrative Denies recent illness. Review of Systems ROS Unobtainable: Denies due to encephalopathy Constitutional Constitutional ED: Denies fever(s) Eyes Eyes: Denies blurry vision ENT ENT ED: Denies ear pain Cardiovascular Cardiovascular: Denies chest pain Gastrointestinal Gastrointestinal: Denies abdominal pain Musculoskeletal Musculoskeletal: Denies arthralgias Integumentary Denies abscess Neurologic Neurologic: Denies paresthesias Psychiatric Psychiatric: Denies anxiety, suicidal ideation or suicidal thoughts Endocrine Endocrinology: Denies polydipsia Hematologic/Lymphatic Hematologic/Lymphatic: Denies easy bleeding Allergic/Immunologic Allergic/Immunologic ED: Denies mouth swelling or tongue swelling EXAM Physical Exam Narrative Exam Narrative: Well-appearing 27-year-old female. Vital signs are stable and afebrile. She does not look septic or toxic. No smell of alcohol any signs of toxidrome. She is accompanied by Maintenance Trainer's department. I am evaluating her in triage room 2. HEENT exam unremarkable. Neck nontender. No signs of trauma. No lymphadenopathy. Lungs clear to auscultation bilaterally. Heart regular rhythm no murmur. Abdomen soft nontender. Moving all 4 extremities. She is handcu ffed. Neurologically she is awake and alert with no focal motor deficits. Back nontender. Benign exam. Const Vital Signs: 12/27/22 12:52 Temperature 98 F Temperature Source Temporal Pulse Rate 90 Respiratory Rate 16 Blood Pressure 99/65 Blood Pressure Mean 76 Pulse Ox 97 Oxygen Delivery Method Room Air Positive well nourished and well developed; Negative for obese, cachectic, contractures or unkempt General Appearance ED: well developed and NAD; Negative for unkempt, cachectic, contractures or pallor Nutritional Appearance: Negative for cachectic or obese HEENT Reports moist mucous membranes normocephalic and atraumatic; Negative for trauma or tenderness Eyes PERRL and EOMs intact bilaterally General Eye ED: Negative for pale conjunctiva, scleral icterus or other Neck no lymphadenopathy, supple and no JVD General: Negative for tenderness Resp normal respiratory effort and clear to auscultation bilaterally Effort and Inspection: Negative for retractions Auscultation: Negative for rales, rhonchi or wheezes Cardio S1 normal heart sound, S2 normal heart sound and no murmurs Palpation: Negative for other Rate: regular rate Rhythm: regular rhythm GI non-tender, non-distended and no masses Inspection: Negative for abdominal distention Auscultation: normoactive bowel sounds Palpation: soft; Negative for tender, guarding or hepatomegaly Bladder / Kidney Exam: No other Back/Spine no CVA tenderness General Back: Negative for CVA tenderness Cervical Spine: Negative for cervical spine tenderness Thoracic Spine / Upper Back: Negative for thoracic spinal tenderness Lumbar Spine / Lower Back: Negative for lumbar spinal tenderness Coccyx: Negative for other Extremity normal to inspection General Extremety ED: Negative for edema or tenderness General Extremity: Negative for edema Neuro oriented x3 and CN's II-XII intact bilaterally Sensorium / Orientation: alert, oriented to person, oriented to place and oriented to time; Negative for orientation impaired, confused, lethargic or stuporous Motor Exam: strength 5/5 throughout Psych mental status grossly normal, thought process normal, cooperative, affect normal, speech normal, activity/motor behavior normal and denies suicidal ideation Appearance: grossly normal; Negative for unkempt Attitude: calm, engaged, No paranoid, No withdrawn, No bizarre, No uncooperative, No evasive, No guarded, No belligerent, No agitated and No aggressive Activity / Motor Behavior: appropriate eye contact Speech: normal speech Mood & Affect: euthymic mood Thought Process: normal thought process Thought Content: normal thought content Attention / Concentration: attention grossly intact Memory / Cognition: memory grossly intact Insight: insight good Judgement: judgement good Skin General Skin Exam: Negative for jaundice or pallor Lesions: no lesions Rashes: no rashes Trauma: Negative for abrasion Wounds: Negative for amputation MDM MDM MDM Narrative Medical decision making narrative: Patient with underlying psychiatric illness[place] [facility] Going to be placed. She is medically cleared. She has already been evaluated by crisis. Lab Data Attestation: I reviewed the patient's lab results. Lab results narrative: Chemistries unremarkable. Serum test negative. Alcohol negative. Tox screen negative. CBC pending. Labs: Laboratory Results - last 24 hr 12/27/22 12/27/22 12/27/22 13:10 13:10 13:10 WBC Cancelled Corrected WBC Cancelled RBC Cancelled Hgb Cancelled Hct Cancelled MCV Cancelled MCH Cancelled MCHC Cancelled RDW Std Deviation Cancelled RDW Coeff of Charlotte Cancelled Plt Count Cancelled MPV Cancelled Immature Gran % (Auto) Cancelled Neut % (Auto) Cancelled Lymph % (Auto) Cancelled Clayton % (Auto) Cancelled Eos % (Auto) Cancelled Baso % (Auto) Cancelled Absolute Neuts (auto) Cancelled Absolute Lymphs (auto) Cancelled Total Counted Cancelled Neutrophils % (Manual) Cancelled Band Neutrophils % Cancelled Lymphocytes % (Manual) Cancelled Monocytes % (Manual) Cancelled Eosinophils % (Manual) Cancelled Basophils % (Manual) Cancelled Metamyelocytes % Cancelled Myelocytes % Cancelled Promyelocytes % Cancelled Blast Cells % Cancelled Plasma Cell % (Manual) Cancelled Other Cells % Cancelled Nucleated RBC % Cancelled Nucleated RBCs/100 WBC Cancelled Differential Comment Cancelled Diff Path Review Cancelled Hypersegmented Neuts Cancelled Atypical Lymphocytes Cancelled Reactive Lymphocytes Cancelled Smudge Cells Cancelled Toxic Granulation Cancelled Toxic Vacuolation Cancelled Dohle Bodies Cancelled Carlos Rods Cancelled Platelet Estimate Cancelled Plt Morphology Comment Cancelled RBC Morphology Cancelled Polychromasia Cancelled Hypochromasia Cancelled Poikilocytosis Cancelled Basophilic Stippling Cancelled Anisocytosis Cancelled Microcytosis Cancelled Macrocytosis Cancelled Spherocytes Cancelled Sickle Cells Cancelled Target Cells Cancelled Tear Drop Cells Cancelled Ovalocytes Cancelled Stomatocytes Cancelled [place] Bodies Cancelled Kristie Cells Cancelled Bite Cells Cancelled Crenated Cell Cancelled Acanthocytes (Spur) Cancelled Rouleaux Cancelled Schistocytes Cancelled Sodium 141 Potassium 3.6 Chloride 109 H Carbon Dioxide 26.0 Anion Gap 6 BUN 9 Creatinine 0.84 Estim Creat Clear Calc 90.52 Est GFR (MDRD) Af Amer 104 Est GFR (MDRD) Non-Af 86 BUN/Creatinine Ratio 10.7 Glucose 134 H Calcium 8.7 Serum , Qual Urine Opiates Screen Urine Methadone Screen Ur Barbiturates Screen Ur Phencyclidine Scrn Ur Amphetamines Screen MDMA (Ecstasy) Screen U Benzodiazepines Scrn Urine Cocaine Screen U Cannabinoids Screen Ur Drug Screen Comment Ethyl Alcohol < 3.0 12/27/22 12/27/22 12/27/22 13:10 13:20 14:00 WBC 6.3 Corrected WBC RBC 4.35 Hgb 13.8 Hct 40.6 MCV 93.3 MCH 31.7 MCHC 34.0 RDW Std Deviation 42.7 RDW Coeff of [place] 12.3 Plt Count 247 MPV 9.6 Immature Gran % (Auto) 0.200 Neut % (Auto) 56.2 Lymph % (Auto) 35.3 Clayton % (Auto) 6.5 Eos % (Auto) 0.8 Baso % (Auto) 1.0 Absolute Neuts (auto) 3.5 Absolute Lymphs (auto) 2.21 Total Counted Neutrophils % (Manual) Band Neutrophils % Lymphocytes % (Manual) Monocytes % (Manual) Eosinophils % (Manual) Basophils % (Manual) Metamyelocytes % Myelocytes % Promyelocytes % Blast Cells % Plasma Cell % (Manual) Other Cells % Nucleated RBC % 0 Nucleated RBCs/100 WBC Differential Comment Diff Path Review Hypersegmented Neuts Atypical Lymphocytes Reactive Lymphocytes Smudge Cells Toxic Granulation Toxic Vacuolation Dohle Bodies Carlos Rods Platelet Estimate Plt Morphology Comment RBC Morphology Polychromasia Hypochromasia Poikilocytosis Basophilic Stippling Anisocytosis Microcytosis Macrocytosis Spherocytes Sickle Cells Target Cells Tear Drop Cells Ovalocytes Stomatocytes [place] Bodies Kristie Cells Bite Cells Crenated Cell Acanthocytes (Spur) Rouleaux Schistocytes Sodium Potassium Chloride Carbon Dioxide Anion Gap BUN Creatinine Estim Creat Clear Calc Est GFR (MDRD) Af Amer Est GFR (MDRD) Non-Af BUN/Creatinine Ratio Glucose Calcium Serum , Qual NEGATIVE Urine Opiates Screen NEGATIVE Urine Methadone Screen NEGATIVE Ur Barbiturates Screen NEGATIVE Ur Phencyclidine Scrn NEGATIVE Ur Amphetamines Screen NEGATIVE MDMA (Ecstasy) Screen NEGATIVE U Benzodiazepines Scrn NEGATIVE Urine Cocaine Screen NEGATIVE U Cannabinoids Screen NEGATIVE Ur Drug Screen Comment Ethyl Alcohol Discharge Plan Triage Chief Complaint: Mental Health ED Provider: Martell Arnold Dx/Rx/DC Orders Clinical Impression: Psychiatric illness, Medical clearance for psychiatric admission Prescriptions: No Action buspirone 10 mg Tablet 10 mg PO BID fluoxetine 20 mg Capsule 20 mg PO DAILY Primary Care Provider: Care Physician,No Primary Referrals: Care Physician,No Primary [Primary Care Provider] - Disposition Disposition: Home, Self Care
== END 2022-12-27 15:56 | disposition home or self-care (01) ==
LOC: ED 12:51
PROVIDERS: Visit Provider Emergency Medicine
DX: F17.210 Nicotine dependence, cigarettes, uncomplicated (principal); Z04.6 Encounter for general psychiatric examination, requested by authority
CPT/HCPCS: 36415; 80048; 80307; 82077; 84703; 85025; 87811; 93005; 99285

== ENCOUNTER 2023-09-22 17:28 | Outpatient (REF) | payer SELFPAY ==
[2023-09-22 17:29] VITALS: BP 110/80; PULSE 131; RESP 16; TEMP 37; O2SAT 99; BMI 23.3
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
--- NOTE | 2023-09-22 18:00 | RAD_ITS ---
INDICATION: glass foreign body EXAMINATION/TECHNIQUE: X-RAY - RIGHT XR Foot 3 VIEWS COMPARISON: FINDINGS: SOFT TISSUES: No soft tissue swelling or gas. No radiopaque foreign body. BONES/JOINTS: No acute fracture or subluxation.. Normal alignment. Preservation of the joint space.. No sclerotic or destructive changes observed. RAD/Foot min 3 Views IMPRESSION: Negative. Electronically Signed: Amos Nichols DO at 18:22 EST ,
== END 2023-09-22 18:39 | disposition home or self-care (01) ==
LOC: ED 17:28
PROVIDERS: Visit Provider Emergency Medicine
DX: S90.811A Abrasion, right foot, initial encounter (principal); W18.02XA Striking against glass with subsequent fall, initial encounter; Y92.148 Other place in prison as the place of occurrence of the external cause; F32.A Depression, unspecified; Z79.899 Other long term (current) drug therapy; F17.210 Nicotine dependence, cigarettes, uncomplicated
CPT/HCPCS: 73630; 99284

== ENCOUNTER 2024-06-12 17:59 | Emergency (ER) | payer MEDICAID, SELFPAY ==
[2024-06-12 17:59] VITALS: BP 121/74; PULSE 108; RESP 18; TEMP 36.6; O2SAT 98; BMI 26.9
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
--- NOTE | 2024-06-12 18:18 | ED.RN ---
I WENT INTO THE PATIENT ROOM TO COMPLETE MY INITIAL ASSESSMENT. THE PATIENT WAS VERY HESITANT TO PROVIDE INFORMATION DESPITE BEING ASKED QUESTIONS LISTED IN THE GI ASSESSMENT. TO GATHER MORE INFORMATION, I ASKED THE PATIENT IF THEY COULD PROVIDE ME WITH CHANGES THAT THEY HAD NOTICED. AT THE POINT, THE PATIENT RESPONDED W/ I AM JUST BLEEDING FROM MY RECTUM.. I INFORMED THE PATIENT THAT I UNDERSTAND THE QUESTIONS ARE PERSONAL, BUT IT IS TO PROVIDE THE BEST AND MOST APPROPRIATE CARE POSSIBLE. DOCTOR RITCHIE KNOCKED ON THE PATIENT DOOR AND ENTERED THE ROOM AT THIS TIME WHILE INTRODUCING HIMSELF. HE BEGAN HIS ASSESSMENT. THE PATIENT PROVIDED NO ADDITIONAL INFORMATION AND STATED I THINK I AM JUST GOING TO LEAVE. HE INFORMED THE PATIENT OF RISKS RELATED TO LEAVING AND THAT THE PATIENT MAY RETURN AT ANY POINT. AT THIS TIME THE PATIENT JUMPED OUT OF THE BED AND REMOVED HER HOSPITAL GOWN. THE PATIENT WAS NO LONGER TALKING TO STAFF MEMBERS. WE LEFT THE ROOM AND PROVIDED PRIVACY FOR THE PATIENT. WHEN THE PATIENT EXITED THE ROOM THEY DID NOT TALK W/ STAFF DESPITE MEMBERS TRYING TO IDENTIFY BARRIERS TO TREATMENT.
== END 2024-06-12 18:18 | disposition left against medical advice (07) ==
LOC: ED 18:36
PROVIDERS: Emergency Provider Emergency Medicine; Visit Provider Emergency Medicine
DX: K92.2 Gastrointestinal hemorrhage, unspecified (principal); F60.3 Borderline personality disorder; F17.210 Nicotine dependence, cigarettes, uncomplicated; F32.9 Major depressive disorder, single episode, unspecified
CPT/HCPCS: 99282

== ENCOUNTER 2024-06-13 15:00 | Emergency (ER) | payer MEDICAID, SELFPAY ==
[2024-06-13 15:00] VITALS: BP 99/79; PULSE 110; RESP 20; TEMP 36.4; O2SAT 98; BMI 26.6
[2024-06-13 16:00] VITALS: BP 113/69; PULSE 91; RESP 16; O2SAT 98
--- NOTE | 2024-06-13 16:32 | EX.ED.DYSGE1 ---
HPI History of Present Illness Chief Complaint: GI Bleed Informant: patient and family Narrative Narrative: Patient is a 29-year-old female with depression. She states over the last few days she has been having difficulty having a bowel movement and when she does so she notices that there is brown stool but there is mixed in bright red blood in the toilet water and on the toilet paper. She denies any history of bleeding disorder or blood thinner use but secondary to the blood has concerned and therefore comes in for evaluation [facility] Medical History Depression Irregular heart beat Home Medications ?Medication ?Instructions ?Recorded ?Last Taken ?Type buspirone 10 mg tablet 10 mg PO BID 03/16/22 Unknown History fluoxetine 20 mg capsule 20 mg PO DAILY 03/16/22 Unknown History docusate sodium 100 mg capsule 100 mg PO BID #60 caps 06/13/24 Unknown Rx (Colace) polyethylene glycol 3350 17 17 g PO DAILY #510 grams 06/13/24 Unknown Rx gram/dose oral powder (Miralax) Allergy/AdvReac Type Severity Reaction Status Date / Time lorazepam Allergy Rash Verified 06/12/24 18:00 risperidone Allergy Other Verified 06/12/24 18:00 Social History Smoking Status: Current every day smoker tobacco type: cigarettes ROS ROS ED Constitutional Constitutional ED: Denies chills or fever(s) ENT ENT ED: Denies sore throat Cardiovascular Cardiovascular: Denies chest pain Respiratory/Chest Respiratory/Chest: Denies cough or dyspnea Gastrointestinal Gastrointestinal: Reports constipation and other Details: Positive rectal bleeding ; Denies abdominal pain, diarrhea, nausea or vomiting Genitourinary Genitourinary ED: Denies dysuria or hematuria Musculoskeletal Musculoskeletal: Denies myalgias Integumentary Denies rash Neurologic Neurologic: Denies headache(s) Hematologic/Lymphatic Hematologic/Lymphatic: Denies easy bleeding or easy bruising EXAM Physical Exam Const Vital Signs: 06/13/24 15:00 Temperature 97.5 F L Temperature Source Temporal Pulse Rate 110 H Respiratory Rate 20 H Blood Pressure 99/79 Blood Pressure Mean 85 Pulse Ox 98 Oxygen Delivery Method Room Air Positive well nourished and well developed General Appearance ED: well developed; Negative for pallor HEENT Reports moist mucous membranes Eyes PERRL and EOMs intact bilaterally General Eye ED: Negative for pale conjunctiva or scleral icterus Neck supple Resp normal respiratory effort and clear to auscultation bilaterally Cardio regular rate and regular rhythm GI non-tender and non-distended GI Narrative: Abdomen is soft nontender nondistended with hypoactive bowel sounds no voluntary guarding or rigidity or pulsatile mass Auscultation: hypoactive bowel sounds Palpation: soft Narrative: Rectal exam shows a small anal fissure at the 6 o'clock position without active bleeding. No external hemorrhoids are noted. Rectal tone is normal stool is brown in color. No internal masses palpated Extremity normal to inspection Neuro oriented x3, CN's II-XII intact bilaterally and no sensory deficits noted Sensorium / Orientation: alert Motor Exam: strength 5/5 throughout Psych Psych Narrative: Patient has a nervous/anxious affect Skin no rashes or lesions noted and no wounds General Skin Exam: Negative for jaundice or pallor MDM MDM MDM Narrative Medical decision making narrative: Patient arrived to the ER with stable vitals and a soft nonsurgical abdomen. She reported constipation and bright red blood mixed in with normal colored stool. Differential diagnosis is for external hemorrhoid versus internal hemorrhoid versus diverticular bleeding versus anal fissure. The exam showed a anal fissure which does correlate with her history of constipation and straining to have a bowel movement. As her vitals are stable her abdomen soft and nonsurgical and stool nonmelanotic I do not feel there is need for a workup as her physical exam does not suggest any type of infection or acute blood loss anemia. Patient will be given symptomatic care for the anal fissure and can follow-up on an outpatient basis by this time there is no need for laboratory studies or CT scan and she is otherwise safe for discharge History & Record Review Discussion w/independent historian: Patient Discharge Plan Triage Chief Complaint: GI Bleed ED Provider: Josafat Porras Dx/Rx/DC Orders Clinical Impression: Acute anal fissure, Depression Instructions: ED Understanding Anal Fissures Prescriptions: New polyethylene glycol 3350 [Miralax] 17 gram/dose powder 17 g PO DAILY Qty: 510 2RF docusate sodium [Colace] 100 mg capsule 100 mg PO BID Qty: 60 1RF No Action buspirone 10 mg Tablet 10 mg PO BID fluoxetine 20 mg Capsule 20 mg PO DAILY Primary Care Provider: Juan Ervin Referrals: Juan Ervin MD [Primary Care Provider] - Activity Restrictions/Additional Instructions: Your workup today shows a small anal fissure. Take the MiraLAX and Colace as directed to prevent constipation and straining and this will allow the anal fissure to heal on its own over the next few weeks. If you have any further concerns or worsening symptoms please return to the hospital for repeat evaluation Print Language: Montserratian Disposition Disposition: Home, Self Care Discharge Date/Time: 06/13/24 17:05
[2024-06-13 17:00] VITALS: BP 113/69; PULSE 91; RESP 16; TEMP 36.6; O2SAT 98
== END 2024-06-13 17:05 | disposition home or self-care (01) ==
PROVIDERS: Emergency Provider Emergency Medicine; PCP Family Medicine; Visit Provider Emergency Medicine
DX: K60.0 Acute anal fissure (principal); K59.00 Constipation, unspecified; F32.A Depression, unspecified; F17.210 Nicotine dependence, cigarettes, uncomplicated; Z79.899 Other long term (current) drug therapy
CPT/HCPCS: 99282

== ENCOUNTER 2024-06-29 13:02 | Emergency (ER) | payer MEDICAID, SELFPAY ==
[2024-06-29 13:03] VITALS: BP 116/84; PULSE 109; RESP 16; TEMP 36.2; TEMP 37.2; O2SAT 98; BMI 25.8
[2024-06-29 14:02] VITALS: BP 106/64; PULSE 94; RESP 16; O2SAT 98
--- NOTE | 2024-06-29 14:30 | EX.ED.VIS.PS ---
HPI HPI - Psych History of Present Illness Chief Complaint: Suicidal Detail of Chief Complaint: Depressed and suicidal Informant: patient Onset/Context/Timing Onset: Days Context: Gradual Onset Timing: Continuous Current Severity: Mild Maximum Severity: Mild Relieved by: Not forthcoming with any specific plan Associated Symptoms Associated Symptoms - Psych: Positive for Depressed and Suicidal Thoughts Specific plan (suicidal thought): Not forthcoming with any specific plan. Narrative Narrative: 29-year-old female history of mental illness. She has had admissions this year. Believes that she is an implanted chip. It is making her depressed and making her have suicidal thoughts. She has no specific plan. She has had issues like this before. She is not very forthcoming with information at this time. Prior similar symptoms: Yes Recent Illness/Hospitalization: Yes [facility] Medical History Depression Irregular heart beat Home Medications ?Medication ?Instructions ?Recorded ?Last Taken ?Type buspirone 10 mg tablet 10 mg PO BID 03/16/22 Unknown History fluoxetine 20 mg capsule 20 mg PO DAILY 03/16/22 Unknown History docusate sodium 100 mg capsule 100 mg PO BID #60 caps 06/13/24 Unknown Rx (Colace) polyethylene glycol 3350 17 17 g PO DAILY #510 grams 06/13/24 Unknown Rx gram/dose oral powder (Miralax) Allergy/AdvReac Type Severity Reaction Status Date / Time lorazepam Allergy Rash Verified 06/29/24 13:09 risperidone Allergy Other Verified 06/29/24 13:09 Social History Smoking Status: Current every day smoker tobacco type: cigarettes ROS ROS ED ROS Narrative Denies recent illness. Constitutional Constitutional ED: Denies chills or fever(s) Eyes Eyes: Denies blurry vision ENT ENT ED: Denies ear pain Cardiovascular Cardiovascular: Denies chest pain Respiratory/Chest Respiratory/Chest: Denies cough Gastrointestinal Gastrointestinal: Denies abdominal pain Genitourinary Genitourinary ED: Denies dysuria Musculoskeletal Musculoskeletal: Denies arthralgias Integumentary Denies abscess Neurologic Neurologic: Denies headache(s) Psychiatric Psychiatric: Reports anxiety and depression Endocrine Endocrinology: Denies polydipsia Hematologic/Lymphatic Hematologic/Lymphatic: Denies easy bleeding Allergic/Immunologic Allergic/Immunologic ED: Denies mouth swelling EXAM Physical Exam Narrative Exam Narrative: 20-year-old female vital signs are stable afebrile. She does not look septic toxic no distress. HEENT exam pupils round react light extra motions are intact. She does have a black eye with bruising around her left eye. Dentition intact. Scalp nontender. Neck nontender. Lungs clear. Heart regular rhythm. Abdomen soft nontender. Moving all 4 extremities. Nontender no deformity. No track meng. Neurologically she is awake alert. Answering questions and following commands. Again she is not very forthcoming with information. I asked her how she got the black eye and she did not want to talk about it. Const Vital Signs: 06/29/24 13:03 06/29/24 13:03 06/29/24 14:02 Temperature 98.9 F 97.2 F L Temperature Source Temporal Temporal Pulse Rate 109 H 109 H 94 Respiratory Rate 16 16 16 Blood Pressure 116/84 H 116/84 H 106/64 Blood Pressure Mean 94 94 78 Pulse Ox 98 98 98 Oxygen Delivery Method Room Air Room Air Room Air 06/29/24 15:00 Temperature Temperature Source Pulse Rate 72 Respiratory Rate 16 Blood Pressure 108/70 Blood Pressure Mean 82 Pulse Ox Oxygen Delivery Method Positive well nourished and well developed; Negative for obese, cachectic, contractures or unkempt General Appearance ED: well developed and NAD; Negative for unkempt, cachectic, contractures or pallor Nutritional Appearance: Negative for cachectic or obese HEENT Reports moist mucous membranes HEENT Narrative: Left inferior bruising. normocephalic and trauma Eyes PERRL and EOMs intact bilaterally General Eye ED: Negative for pale conjunctiva or scleral icterus Neck no lymphadenopathy, supple and no JVD General: Negative for tenderness Resp normal respiratory effort and clear to auscultation bilaterally Effort and Inspection: Negative for retractions Auscultation: Negative for rales, rhonchi or wheezes Cardio S1 normal heart sound, S2 normal heart sound and no murmurs Palpation: Negative for other Rate: regular rate Rhythm: regular rhythm GI non-tender, non-distended and no masses Inspection: Negative for abdominal distention Auscultation: normoactive bowel sounds Palpation: soft; Negative for tender or guarding Back/Spine no CVA tenderness General Back: Negative for CVA tenderness Cervical Spine: Negative for cervical spine tenderness Thoracic Spine / Upper Back: Negative for thoracic spinal tenderness Lumbar Spine / Lower Back: Negative for lumbar spinal tenderness Coccyx: Negative for other Extremity normal to inspection General Extremety ED: Negative for edema, tenderness or other findings General Extremity: Negative for edema or other findings Neuro oriented x3 and CN's II-XII intact bilaterally Sensorium / Orientation: alert, oriented to person, oriented to place and oriented to time; Negative for orientation impaired or confused Motor Exam: strength 5/5 throughout Psych mental status grossly normal, thought process normal, cooperative, speech normal, activity/motor behavior normal, denies hallucinations and denies homicidal ideation; Negative for affect normal or denies suicidal ideation Psych Narrative: Depressed. Limited eye contact. Not forthcoming with information. Appearance: grossly normal; Negative for unkempt Attitude: calm, withdrawn, No belligerent, No agitated and No aggressive Activity / Motor Behavior: avoids eye contact; Negative for appropriate eye contact Speech: normal speech Mood & Affect: depressed Thought Process: normal thought process Thought Content: suicidality Attention / Concentration: attention grossly intact Memory / Cognition: memory grossly intact Skin General Skin Exam: Negative for jaundice or pallor Lesions: no lesions Rashes: no rashes Trauma: Negative for abrasion MDM MDM MDM Narrative Medical decision making narrative: 29-year-old female history of mental health issues with admissions reportedly this year. Is depressed and suicidal. She is not forthcoming with information. To be a crisis evaluation. Medically she is cleared. Exam is benign. Repeat exam unchanged patient resting calmly at 4:10 PM awaiting crisis Evaluation. Lab Data Attestation: I reviewed the patient's lab results. Lab results narrative: CBC normal. White count of 9. H&H 14 and 43. Platelets 254. Electrolytes show gap 7. Normal BUN and creatinine. Glucose 86. Serum test negative. UA was contaminated. There were white cells but also 5-10 epithelial cells. 3+ bacteria no nitrates that will not be treated. Urine tox screen was positive for cannabis otherwise negative. Alcohol was negative. Labs: Laboratory Results - last 24 hr 06/29/24 06/29/24 14:14 14:34 WBC 9.3 RBC 4.77 Hgb 14.9 Hct 43.9 MCV 92.0 MCH 31.2 MCHC 33.9 RDW Std Deviation 41.1 RDW Coeff of [place] 12.1 Plt Count 254 MPV 9.1 Immature Gran % (Auto) 0.200 Neut % (Auto) 66.7 Lymph % (Auto) 27.5 [place] % (Auto) 4.9 Eos % (Auto) 0.2 Baso % (Auto) 0.5 Absolute Neuts (auto) 6.2 Absolute Lymphs (auto) 2.56 Nucleated RBC % 0 Sodium 138 Potassium 3.5 Chloride 106 Carbon Dioxide 25.0 Anion Gap 7 BUN 12 Creatinine 0.90 Estim Creat Clear Calc 94.07 Est GFR (MDRD) Af Amer 95 Est GFR (MDRD) Non-Af 78 BUN/Creatinine Ratio 13.3 Glucose 86 Calcium 9.0 Serum , Qual NEGATIVE Urine Color Yellow Urine Clarity Clear Urine pH 6.0 Ur Specific [place] 1.025 Urine Protein 15 H Urine Glucose (UA) Normal Urine Ketones 150 A* Urine Occult Blood 25 H Urine Nitrite Negative Urine Bilirubin 1 H Urine Urobilinogen Normal Ur Leukocyte Esterase 25 H Urine RBC 10-25 SEEN Urine WBC 25-50 SEEN Ur Squamous Epith Cells 5-10 SEEN Urine Bacteria 3+ Urine Mucus 4+ Urine Opiates Screen NEGATIVE Urine Methadone Screen NEGATIVE Ur Barbiturates Screen NEGATIVE Ur Phencyclidine Scrn NEGATIVE Ur Amphetamines Screen NEGATIVE MDMA (Ecstasy) Screen NEGATIVE U Benzodiazepines Scrn NEGATIVE Urine Cocaine Screen NEGATIVE U Cannabinoids Screen POSITIVE H Ur Drug Screen Comment Ethyl Alcohol < 3.0 Discharge Plan Triage Chief Complaint: Suicidal ED Provider: Martell Arnold Dx/Rx/DC Orders Clinical Impression: Depression, Suicidal ideation Prescriptions: No Action buspirone 10 mg Tablet 10 mg PO BID fluoxetine 20 mg Capsule 20 mg PO DAILY polyethylene glycol 3350 [Miralax] 17 gram/dose powder 17 g PO DAILY Qty: 510 2RF docusate sodium [Colace] 100 mg capsule 100 mg PO BID Qty: 60 1RF Primary Care Provider: Juan Ervin Referrals: Juan Ervin MD [Primary Care Provider] - Print Language: Uzbek
[2024-06-29 14:42] LABS: Absolute Lymphocyte Count 2.56 X10^3/uL (0.83-4.51); Absolute Neutrophil Count 6.2 X10^3/uL (2.0-7.7); Basophil# 0.05 X10^3/uL; Basophil% 0.5 % (0-1); Eosinophil# 0.02 X10^3/uL; Eosinophils% 0.2 % (0-5); Hematocrit 43.9 % (37-47); Hemoglobin 14.9 g/dL (12.0-15.0); Lymphocyte # 2.56 X10^3/ul (0.83-4.51); Lymphocyte % 27.5 % (19-41); Mean Corp Hgb Conc 33.9 g/dL (32-36); Mean Corpuscular Hgb 31.2 pg (27.0-32.0); Mean Platelet Vol. 9.1 fl (6.2-12.0); Monocyte# 0.46 X10^3/uL; Monocyte% 4.9 % (0-10); NRBC Flagged by Analyzer 0 % (0-5); Neutrophil # 6.21 X10^3/uL (2.7-7.7); Neutrophil % 66.7 % (47-70); Platelet Count 254 K/mm3 (150-450); RBC Distribution Width CV 12.1 % (11.6-14.6); RBC Distribution Width SD 41.1 fl (35.1-43.9); Red Blood Count 4.77 M/mm3 (4.2-5.4); White Blood Count 9.3 K/mm3 (4.4-11.0)
[2024-06-29 14:47] LABS: Color, Urine Yellow (Yellow); Glucose, Dipstick Normal (Normal); Leukocyte Esterase-Dipstick 25 /ul (Negative); Nitrite-Dipstick Negative (Negative); Occult Blood-Urine 25 /ul (Negative); Protein-Dipstick 15 mg/dl (Negative); Specific Gravity, Urine 1.025 (1.002-1.030); Urine Clarity Clear (Clear); Urine Urobilinogen Normal (Normal)
[2024-06-29 14:49] LABS: Urine Bilirubin Dipstick 1 mg/dL (Negative)
[2024-06-29 14:50] LABS: Ketone-Dipstick 150 mg/dl (Negative)
[2024-06-29 14:53] LABS: Amphetamine Urine VISTA NEGATIVE (<1000 ng/mL); Barbiturate Urine VISTA NEGATIVE (< 200 ng/mL); Benzodiazepine Urine VISTA NEGATIVE (< 200 ng/mL); Cocaine Urine VISTA NEGATIVE (< 300 ng/mL); Ecstacy Urine VISTA NEGATIVE (< 500 ng/mL); Methadone Urine VISTA NEGATIVE (< 300 ng/mL); PCP Urine VISTA NEGATIVE (< 25 ng/mL); THC Urine VISTA POSITIVE (< 50 ng/mL); Vista UDS pH Range 5
[2024-06-29 14:56] LABS: Mucous, Urine 4+ /hpf (<or=2+)
[2024-06-29 14:57] LABS: Alcohol, Blood (Medical)-Serum < 3.0 mg/dL; Internal QC Validated? YES +Cl - CLEAR BKGD; Pregnancy, Serum, hCG Quali. NEGATIVE Negative
[2024-06-29 14:57] LABS: Bacteria 3+ /hpf (None Seen); Red Blood Cells-Urine 10-25 SEEN /hpf (0-5); Squamous Epithelial Cells - UA 5-10 SEEN /hpf (5-10); White Blood Cells 25-50 SEEN /hpf (0-5)
[2024-06-29 14:58] LABS: Anion Gap 7 (5-15); BUN 12 mg/dL (7-18); BUN/Creat Ratio 13.3 RATIO (10-20); Chloride 106 mmol/L (98-107); EST Glomerular Filtration Rate 78 mL/min (>60); Est Glom Filt Rate - Afr Amer 95 mL/min (>60); Estimated Creatinine Clearance 94.07 ml/min; Glucose 86 mg/dL (74-106); Potassium 3.5 mmol/L (3.5-5.1); Sodium Level 138 mmol/L (136-145)
[2024-06-29 15:00] VITALS: BP 108/70; PULSE 72; RESP 16
--- NOTE | 2024-06-29 19:53 | ED.RN ---
This RN attempted to call report to [facility], no answer. Will attempt later on.
[2024-06-29 20:19] VITALS: BP 93/70; PULSE 74; RESP 18; O2SAT 99
--- NOTE | 2024-06-29 20:23 | NURSING ---
This RN attempted to call report, person who answered the phone stated the nurse was in the middle of passing meds, that they would call back at a later time. ED phone number given for call back.
--- NOTE | 2024-06-29 21:26 | ED.RN ---
Report given to CATRACHO Chaves at [facility]
[2024-06-30] VITALS: BP 96/65; PULSE 91; RESP 16; O2SAT 97
[2024-06-30 04:00] VITALS: BP 104/50; PULSE 68; RESP 18; TEMP 36.7; O2SAT 100
== END 2024-06-30 08:49 ==
PROVIDERS: Emergency Provider Emergency Medicine; PCP Family Medicine; Visit Provider Emergency Medicine
DX: R45.851 Suicidal ideations (principal); F32.A Depression, unspecified; F17.210 Nicotine dependence, cigarettes, uncomplicated; Z79.899 Other long term (current) drug therapy
CPT/HCPCS: 80048; 80307; 81001; 82077; 84703; 85025; 99284; A4216

== ENCOUNTER 2024-09-09 21:03 | Inpatient (IN) | payer MEDICAID, SELFPAY ==
[2024-09-09 21:05] VITALS: BP 114/80; PULSE 114; RESP 18; TEMP 36.5; O2SAT 98; BMI 23.6
[2024-09-09 22:03] VITALS: PULSE 89; RESP 16; O2SAT 96
--- NOTE | 2024-09-09 22:09 | EKG12_ITS ---
Test Reason : Blood Pressure : */* mmHG Vent. Rate : 103 BPM Atrial Rate : 103 BPM P-R Int : 152 ms QRS Dur : 80 ms QT Int : 346 ms P-R-T Axes : 64 39 38 degrees QTcB Int : 453 ms Sinus tachycardia Low voltage QRS Borderline ECG Confirmed by ALYSON MURDOCK, JIMMY ([id number]), digital editor ASHA LIZARRAGA ([id number]) on 09/11/2024 8:19:32 AM Referred By: LAURIE Confirmed By: JIMMY SHIELDS MD
--- NOTE | 2024-09-09 22:09 | ED.RN ---
This RN attempted to complete required allen and mental health assessment, however, the patient states you're a fucking cunt, you don't know how to do your fucking job, you're in middle school or some shit, I want a new nurse, it's illegal to be asking me all this stupid shit. This RN calmly explained the situation and the process to the patient and the patient got agitated and refused to answer any questions. This RN bagged up her clothes and went to leave the room and the patient states, Yeah go smell my underwear you fucking bitch ass, it's fucking illegal to make me wear these uncomfortable gowns. Assessment done to the best of my ability. notified.
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
[2024-09-09 23:03] VITALS: BP 102/66; PULSE 89; RESP 16; O2SAT 96
--- NOTE | 2024-09-09 23:07 | ED.RN ---
This RN attempted to draw blood work on the patient, the patient stated you're needles are dirty, I don't understand why you are trying to poke me with dirty needles when you aren't even cleaning my hands up when they need to be cleaned. This RN explained the reasoning behind why we needed blood work and labs before trying to clean up her hands and this RN explained that the needle was brand new and this RN opened the package right in front of the patient so that she could see that it was clean. The patient requested for CATRACHO Dillon to draw her blood stating you're too young, I don't want you putting your dirty needles in me.
[2024-09-09 23:16] LABS: Absolute Lymphocyte Count 2.65 X10^3/uL (0.83-4.51); Absolute Neutrophil Count 4.6 X10^3/uL (2.0-7.7); Basophil# 0.05 X10^3/uL; Basophil% 0.6 % (0-1); Eosinophil# 0.17 X10^3/uL; Eosinophils% 2.1 % (0-5); Hematocrit 35.8 % (37-47); Hemoglobin 12.6 g/dL (12.0-15.0); Lymphocyte # 2.65 X10^3/ul (0.83-4.51); Lymphocyte % 32.5 % (19-41); Mean Corp Hgb Conc 35.2 g/dL (32-36); Mean Corpuscular Hgb 31.7 pg (27.0-32.0); Mean Corpuscular Volume 90.2 fL (81-99); Mean Platelet Vol. 9.6 fl (6.2-12.0); Monocyte# 0.66 X10^3/uL; Monocyte% 8.1 % (0-10); NRBC Flagged by Analyzer 0 % (0-5); Neutrophil # 4.61 X10^3/uL (2.7-7.7); Neutrophil % 56.5 % (47-70); Platelet Count 206 K/mm3 (150-450); RBC Distribution Width SD 39.7 fl (35.1-43.9); Red Blood Count 3.97 M/mm3 (4.2-5.4); White Blood Count 8.2 K/mm3 (4.4-11.0)
[2024-09-09 23:25] LABS: Internal QC Validated? YES +Cl - CLEAR BKGD; Pregnancy, Serum, hCG Quali. NEGATIVE Negative
[2024-09-09 23:27] LABS: Alcohol, Blood (Medical)-Serum < 3.0 mg/dL
[2024-09-09 23:52] LABS: Anion Gap 5 (5-15); BUN 11 mg/dL (7-18); BUN/Creat Ratio 12.2 RATIO (10-20); CPK Total, Creatine Kinase 5768 U/L (26-192); Calcium,Total 8.8 mg/dL (8.5-10.1); Chloride 110 mmol/L (98-107); EST Glomerular Filtration Rate 78 mL/min (>60); Est Glom Filt Rate - Afr Amer 95 mL/min (>60); Estimated Creatinine Clearance 86.34 ml/min; Glucose 100 mg/dL (74-106); Potassium 3.6 mmol/L (3.5-5.1); Sodium Level 142 mmol/L (136-145)
[2024-09-10] VITALS (17 sets, daily range): BP systolic 84–136; BP diastolic 45–83; PULSE 62–103; RESP 14–20; TEMP 36.6–37.2; O2SAT 93–100; BMI 24.5
--- NOTE | 2024-09-10 00:03 | ED.RN ---
This RN attempted to clean the patient's hands with a chlorhexidine soak per MD orders, but the patient refused stating that the water won't do anything because it's dirty and I don't know how you expect it to be clean if the water is dirty. This RN explained to the patient that the importance of cleaning her hands and how this would help her pain. The patient denied the soak and denied tylenol, stating your tylenol won't do anything for this. MD notified.
[2024-09-10 00:11] LABS: Amphetamine Urine VISTA NEGATIVE (<1000 ng/mL); Barbiturate Urine VISTA NEGATIVE (< 200 ng/mL); Benzodiazepine Urine VISTA NEGATIVE (< 200 ng/mL); Cocaine Urine VISTA NEGATIVE (< 300 ng/mL); Ecstacy Urine VISTA NEGATIVE (< 500 ng/mL); Methadone Urine VISTA NEGATIVE (< 300 ng/mL); PCP Urine VISTA NEGATIVE (< 25 ng/mL); THC Urine VISTA POSITIVE (< 50 ng/mL); Vista UDS pH Range 5
[2024-09-10] MEDS: 0.9% Normal Saline (1000mL) 1,000 ML 999 ML IV ×4 (00:51→06:21)
[2024-09-10 02:38] LABS: CPK Total, Creatine Kinase 4615 U/L (26-192)
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
[2024-09-10] MEDS: Ketamine HCl 500 MG/5 ML Vial 30 MG IV (03:43)
[2024-09-10] MEDS: Ziprasidone IM 20 MG/ML VIAL IM (04:01)
[2024-09-10] MEDS: DiphenhydrAMINE 50 MG/ML Syringe IV (04:48)
[2024-09-10] MEDS: Haloperidol Lactate 5 MG/ML Vial IV (04:48)
[2024-09-10 06:07] LABS: CPK Total, Creatine Kinase 4605 U/L (26-192)
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
--- NOTE | 2024-09-10 07:34 | NURSING ---
DR LARON VILLAFUERTE
--- NOTE | 2024-09-10 07:35 | NURSING ---
MED SURG KITTOE RHABDOMYLYSIS, PSYCHOSIS
--- NOTE | 2024-09-10 09:53 | ED.RN ---
CLARIFIED WITH DR. MAZARIEGOS, CPK SERIES ENTERED FLOOR ORDERS, NO NEED TO DRAW CPK LEVEL AT THIS TIME.
[2024-09-10] MEDS: 0.9% Normal Saline (1000mL) 1,000 ML 150 ML IV ×2 (12:57→19:17)
--- NOTE | 2024-09-10 15:19 | NURSING ---
Pt was screaming for help that her Rt hand was painful but would not alborate. Pt was able to calm down. Pt assisted to bathroom b/c I have to pee. Back in bed and pt asking for food and drinks. No diet order so Dr. Varela texted and aware, diet ordered.
[2024-09-11] MEDS: 0.9% Normal Saline (1000mL) 1,000 ML 150 ML IV ×3 (01:12→15:16)
--- NOTE | 2024-09-11 01:18 | NURSING ---
pt refused both her physical assessment and vitals at this time. we have been making sure she is getting her IV fluids and performing safety checks hourly.
[2024-09-11 03:50] VITALS: BP 97/66; PULSE 80; RESP 16; TEMP 37.1; O2SAT 98
[2024-09-11] MEDS: 0.9% Saline Lock 10 ML Syringe IV (04:23)
[2024-09-11 06:56] LABS: Anion Gap 5 (5-15); BUN 7 mg/dL (7-18); BUN/Creat Ratio 10.9 RATIO (10-20); CPK Total, Creatine Kinase 2087 U/L (26-192); Calcium,Total 8.2 mg/dL (8.5-10.1); Chloride 114 mmol/L (98-107); Creatinine, Serum 0.64 mg/dL (0.55-1.02); EST Glomerular Filtration Rate 116 mL/min (>60); Est Glom Filt Rate - Afr Amer 141 mL/min (>60); Estimated Creatinine Clearance 121.42 ml/min; Glucose 99 mg/dL (74-106); Potassium 3.8 mmol/L (3.5-5.1); Sodium Level 141 mmol/L (136-145)
--- NOTE | 2024-09-11 07:20 | PCM.PN.HOSP ---
Reason for Visit Reason for Visit: Diagnoses Rhabdomyolysis (09/10/24) Subjective Subjective Patient CPK levels down to 2086. Patient much more coherent this a.m. Objective Data Objective Data Vital Signs: Vital Signs Temp Pulse Resp BP Pulse Ox O2 Del Method 98.7 F 80 16 97/66 98 Room Air 09/11/24 03:50 09/11/24 03:50 09/11/24 03:50 09/11/24 03:50 09/11/24 03:50 09/11/24 03:56 Oxygen Delivery Method Room Air Weight: 68.946 kg Body Mass Index (BMI) 24.5 Intake & Output: Intake and Output for Last 24 Hours 09/09/24 09/10/24 09/11/24 23:59 23:59 23:59 Intake Total 4616.3 / 4616.3 1237.5 / 1237.5 Balance 4616.3 / 4616.3 1237.5 / 1237.5 Lab / Micro Data 09/09/24 23:07 09/11/24 05:15 Labs: Laboratory Results - last 24 hr 09/11/24 05:15: Sodium 141, Potassium 3.8, Chloride 114 H, Carbon Dioxide 22.0, Anion Gap 5, BUN 7, Creatinine 0.64, Estim Creat Clear Calc 121.42, Est GFR (MDRD) Af Amer 141, Est GFR (MDRD) Non-Af 116, BUN/Creatinine Ratio 10.9, Glucose 99, Calcium 8.2 L, Total Creatine Kinase 2087 H Rhythm Strip Rhythm Strip: Sinus Tach Rate: 103 Ectopy: None Physical Exam Narrative GENERAL: Cooperative HEENT: Atraumatic; normocephalic EYES; Anicteric, Normal Conjunctiva NECK; supple, normal thyroid, RESPIRATORY: Diminished to auscultation CARDIOVASCULAR: Regular S1 S2, GI: soft, normoactive bowel sounds, : No Renal angle tenderness; EXTREMITIES: No edema, no clubbing, MUSCULOSKELETAL: no muscle wasting NEURO: Awake; no lateralizing signs. SKIN: Bruises on upper and lower extremities PSYCH; avoids eye contact Assessment & Plan Assessment/Plan (1) Rhabdomyolysis: PLAN: Plan 29-year-old female admitted for evaluation of hallucinations found to have elevated CPK levels consistent with acute rhabdo admitted to regular nursing floor for further management 1. Acute psychosis ? Patient to be evaluated for placement in a psych facility pending medical stabilization ? 09/11/2024; patient is medically stabilized to be evaluated for possible placement in a psych facility 2. Acute rhabdomyolysis ? Patient started on hydration with subsequent monitoring with serial CPK levels ordered -09/11/2024; CPK levels down to 2086 3. DVT prophylaxis ? Low risk no indication for chemoprophylaxis Time spent in the patient's overall evaluation,decision-making process, review of diagnostic data, adjustment of management, discussion with other providers, nursing nursing and ancillary staff involved in patient's care documentation, 35 Minutes Charges/Coding Visit Charges Inpatient E&M: 64575 Subs Hosp L2
--- NOTE | 2024-09-11 08:46 | CASEMGMT ---
Social Work- SW received notification from physician that pt is medically stable. SW faxed documentation to crisis. SW updated charge nurse. JANICE called [facility] to confirm receipt of fax. FUENTES Manning
[2024-09-11 10:22] VITALS: BP 105/66; PULSE 72; RESP 16; TEMP 37.2; O2SAT 100
--- NOTE | 2024-09-11 14:40 | PCM.DC.SUM ---
Providers Date of Admission: 09/10/24 Date of Discharge: 09/11/24 Primary Care Physician: Latia Primary Care Phys Reason For Visit: ACUTE RHABDOMYOLYSIS Diagnosis Discharge Diagnosis (1) Rhabdomyolysis: Status: Acute Code(s): M62.82 - Rhabdomyolysis Plan 29-year-old female admitted for evaluation of hallucinations found to have elevated CPK levels consistent with acute rhabdo admitted to regular nursing floor for further management 1. Acute psychosis ? Patient to be evaluated for placement in a psych facility pending medical stabilization ? 09/11/2024; patient is medically stabilized to be evaluated for possible placement in a psych facility. Patient was accepted for transfer at [facility] for psychological evaluation 2. Acute rhabdomyolysis ? Patient started on hydration with subsequent monitoring with serial CPK levels ordered -09/11/2024; CPK levels down to 2086 3. DVT prophylaxis ? Low risk no indication for chemoprophylaxis Time spent in the patient's overall evaluation,decision-making process, review of diagnostic data, adjustment of management, discussion with other providers, nursing nursing and ancillary staff involved in patient's care documentation, 35 Minutes Medications at Discharge Home Medications buspirone 10 mg tablet 10 mg PO BID 03/16/22 fluoxetine 20 mg capsule 20 mg PO DAILY 03/16/22 docusate sodium 100 mg capsule (Colace) 100 mg PO BID #60 caps 06/13/24 polyethylene glycol 3350 17 gram/dose oral powder (Miralax) 17 g PO DAILY #510 grams 06/13/24 Physical Exam Narrative GENERAL: Cooperative HEENT: Atraumatic; normocephalic EYES; Anicteric, Normal Conjunctiva NECK; supple, normal thyroid, RESPIRATORY: Diminished to auscultation CARDIOVASCULAR: Regular S1 S2, GI: soft, normoactive bowel sounds, : No Renal angle tenderness; EXTREMITIES: No edema, no clubbing, MUSCULOSKELETAL: no muscle wasting NEURO: Awake; no lateralizing signs. SKIN: Bruises on upper and lower extremities PSYCH; avoids eye contact Weight / BMI Weight Weight: 68.946 kg Body Mass Index (BMI) 24.5 ABG / Lab / Microbiology Data 09/09/24 23:07 09/11/24 05:15 Laboratory: Laboratory Results - last 24 hr 09/11/24 05:15: Sodium 141, Potassium 3.8, Chloride 114 H, Carbon Dioxide 22.0, Anion Gap 5, BUN 7, Creatinine 0.64, Estim Creat Clear Calc 121.42, Est GFR (MDRD) Af Amer 141, Est GFR (MDRD) Non-Af 116, BUN/Creatinine Ratio 10.9, Glucose 99, Calcium 8.2 L, Total Creatine Kinase 2087 H D/C Instructions Discharge Diet: No restrictions Discharge Activity: Return to Normal Activity Call your doctor if you observe: Fever of 101 or Higher, Shortness of breath, Fainting spells and Chest pain Meaningful Use Info Meaningful Use Meaningful Use Diagnoses (Choose all that apply): None applicable Ischemic Stroke Statin Dosing Therapy Reference: STATIN DOSE THERAPY REFERENCE: * Patients > 75 years receive moderate or high dose statin therapy. * Patients 75 years or YOUNGER should receive HIGH intensity statin dose unless contraindicated. You will be required to document reason for non-treatment if statin daily dose does not meet guidelines. HIGH DOSE STATIN THERAPY DAILY Atorvastatin > than or = to 40 mg Rosuvastatin > than or = to 20 mg Amlodipine + Atorvastatin > than or = to 2.5/40 mg Ezetimibe + Simvastatin 10/80 mg Simvastatin 80mg Discharge Plan Admission Admit Date/Time: 09/10/24 07:20 Attending Provider: Liam Varela Primary Care Provider: Care Physician,Latia Primary Discharge Orders/Prescriptions Prescriptions: Continued buspirone 10 mg Tablet 10 mg PO BID fluoxetine 20 mg Capsule 20 mg PO DAILY polyethylene glycol 3350 [Miralax] 17 gram/dose powder 17 g PO DAILY Qty: 510 2RF docusate sodium [Colace] 100 mg capsule 100 mg PO BID Qty: 60 1RF Referrals / Follow Up: Care Physician,No Primary [Primary Care Provider] - Disposition Disposition (needs filled in before D/C Order can be placed): Psychiatric Hospital or Unit Charges/Coding Visit Charges Inpatient E&M: 80022 Disch Hosp >30min
--- NOTE | 2024-09-11 14:58 | PCA ---
patient accepted to [facility] for [facility], ITU 1, accepting physician Dr. Gant, physicians ambulance called and arranged pick out hand ETA 8pm. pink sheet faxed to [phone]
[2024-09-11 15:17] VITALS: BP 91/59; PULSE 101; RESP 16; TEMP 37.2; O2SAT 98
--- NOTE | 2024-09-11 15:44 | CASEMGMT ---
Social Work- Pt has accepting facility and will d/c to [facility]. FUENTES Manning
--- NOTE | 2024-09-11 18:30 | NURSING ---
Pt did not want her IV to run anymore. Can I take a break from my IV for a bit. Pt is to be picked up at [address] [place] [address] to go to [facility] but did not remind pt of this. This pt took her vital signs and asked her if she was dizzy or lightheaded pt stated, I am not answering that question. Pt wanted to eat her dinner but was afraid that someone messed with it pt told that no one messed with it and pt then started to eat. This RN asked after she started to eat if she was hearing things or seeing things and pt refused to answer.
[2024-09-11 18:38] VITALS: BP 107/68; PULSE 76; RESP 17; O2SAT 98
--- NOTE | 2024-09-11 18:39 | NURSING ---
When this RN took last set of vital signs, pt allowed this RN to take Spo2 and BP but would not allow her temp to be taken.
[2024-09-11 21:49] VITALS: RESP 16
--- NOTE | 2024-09-11 22:23 | NURSING ---
[facility] unable to [facility] pt until 7am, nursing supv aware, attempted to call [facility] but no answer
--- NOTE | 2024-09-11 23:52 | NURSING ---
counseling center called and are aware of transport time change
--- NOTE | 2024-09-11 23:54 | NURSING ---
dedra @ [facility] aware of new transport time of 7am
--- NOTE | 2024-09-12 05:30 | NURSING ---
lab reports pt refused am draw
[2024-09-12 10:45] VITALS: BP 91/50; PULSE 80; RESP 16; TEMP 37.1; O2SAT 96
--- NOTE | 2024-09-12 10:49 | NURSING ---
Pt continues to refuse all care at this time. Set up for shower and took several. Transport here and pt is assisted to cot and belongings given. Updated report called to [facility] and pt has left facility.
== END 2024-09-12 10:44 | DRG 750 ==
LOC: ED 09-10 07:26 → MS3 09-10 12:20
PROVIDERS: Emergency Medicine; Admitting Provider Internal Medicine; Emergency Provider Emergency Medicine; Visit Provider Internal Medicine
DX: F23 Brief psychotic disorder (principal); M62.82 Rhabdomyolysis; F17.210 Nicotine dependence, cigarettes, uncomplicated
CPT/HCPCS: 36415; 80048; 80307; 82077; 82550; 84703; 85025; 93005; 97802; 99284; J7030; A4216

== ENCOUNTER 2024-12-09 07:24 | Emergency (ER) | payer MEDICAID, SELFPAY ==
[2024-12-09] VITALS (13 sets, daily range): BP systolic 88–120; BP diastolic 58–84; PULSE 71–140; RESP 13–23; TEMP 36.3–36.4; O2SAT 94–100; BMI 23.6
--- NOTE | 2024-12-09 07:37 | EKG12_ITS ---
Test Reason : Blood Pressure : */* mmHG Vent. Rate : 128 BPM Atrial Rate : 128 BPM P-R Int : 160 ms QRS Dur : 76 ms QT Int : 288 ms P-R-T Axes : 69 69 40 degrees QTcB Int : 420 ms Sinus tachycardia Otherwise normal ECG Confirmed by JAYY MURDOCK, RUSSELL ([id number]), business editor ISAAC BLSA ([id number]) on 12/10/2024 1:21:09 PM Referred By: Confirmed By: RUSSELL HOPE MD
--- NOTE | 2024-12-09 07:55 | EX.ED.VIS.PS ---
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 Onset/Context/Timing Onset: - (Unknown) Context: Since age of 18 per patient Conflict: - (Nothing that she admits to) Timing: Continuous (Hallucinations predominantly auditory) Current Severity: Moderate Maximum Severity: Severe Relieved by: Nothing Associated Symptoms Associated Symptoms - Psych: Positive for Change in Eating, Change in sleeping, Increased activity, Agitated, Paranoia and Auditory Hallucinations; Negative for Depressed, Decreased Interest, Guilt, Decreased Concentration, Hopelessness, Suicidal Thoughts, Easily distracted, Grandiosity, Flight of Ideas, Pressured Speech, Angry, Hostile, Threatening or Confusion Specific plan (suicidal thought): Not applicable Narrative Narrative: Patient is a 29-year-old woman with history of schizophrenia. She does not believe she has schizophrenia. She has not been compliant with her medication. She presently is homeless. [facility] has been involved with her for several hours prior to presentation. Patient was pink slipped to [facility] because of her paranoia, concerned for ability to care for herself and made the statement I just want to . She states she does not believe she has schizophrenia. She believes her something else going on. Prior similar symptoms: Yes Recent Illness/Hospitalization: Yes [facility] Medical History Rhabdomyolysis Depression Irregular heart beat Home Medications ?Medication ?Instructions ?Recorded ?Last Taken ?Type buspirone 10 mg tablet 10 mg PO BID 03/16/22 Unknown History fluoxetine 20 mg capsule 20 mg PO DAILY 03/16/22 Unknown History docusate sodium 100 mg capsule 100 mg PO BID #60 caps 06/13/24 Unknown Rx (Colace) polyethylene glycol 3350 17 17 g PO DAILY #510 grams 06/13/24 Unknown Rx gram/dose oral powder (Miralax) Allergy/AdvReac Type Severity Reaction Status Date / Time lorazepam Allergy Rash Verified 09/09/24 21:04 risperidone Allergy Other Verified 09/09/24 21:04 Social History Smoking Status: Current every day smoker tobacco type: cigarettes Homelessness:: Unsheltered ROS ROS ED Review of Systems ROS Unobtainable: due to mental condition Constitutional Constitutional ED: Denies chills, fever(s), subjective, sweats or weight loss Eyes Eyes: Denies blurry vision or change in vision ENT ENT ED: Denies ear pain, rhinorrhea or sore throat Cardiovascular Cardiovascular: Denies chest pain or palpitations Respiratory/Chest Respiratory/Chest: Denies cough, dyspnea, dyspnea on exertion or sputum Gastrointestinal Gastrointestinal: Denies abdominal pain, diarrhea, nausea or vomiting Genitourinary Genitourinary ED: Denies dysuria, hematuria or urinary frequency Musculoskeletal Musculoskeletal: Denies arthralgias or myalgias Integumentary Denies rash Neurologic Neurologic: Denies headache(s) or paresthesias Psychiatric Psychiatric: Reports anxiety and other Details: Per HPI narrative ; Denies suicidal ideation or suicidal thoughts Hematologic/Lymphatic Hematologic/Lymphatic: Denies easy bleeding or easy bruising EXAM Physical Exam Const Vital Signs: 12/09/24 07:24 12/09/24 08:47 12/09/24 09:12 Temperature 97.5 F L 97.5 F L Temperature Source Temporal Oral Pulse Rate 140 H 116 H 104 H Respiratory Rate 22 H 20 H 16 Blood Pressure 120/84 H 112/78 105/70 Blood Pressure Mean 96 89 81 Pulse Ox 100 98 98 Oxygen Delivery Method Room Air Room Air Room Air 12/09/24 10:17 12/09/24 11:30 12/09/24 12:00 Temperature 97.4 F L Temperature Source Oral Pulse Rate 103 H 97 Respiratory Rate 16 17 Blood Pressure 97/65 94/61 93/61 Blood Pressure Mean 75 72 71 Pulse Ox 98 98 Oxygen Delivery Method Room Air Room Air 12/09/24 13:00 Temperature Temperature Source Pulse Rate 97 Respiratory Rate 23 H Blood Pressure 88/60 L Blood Pressure Mean 70 Pulse Ox 94 Oxygen Delivery Method Positive well developed and unkempt; Negative for obese General Appearance ED: unkempt and well developed; Negative for NAD Nutritional Appearance: Negative for obese HEENT Reports moist mucous membranes normocephalic Eyes PERRL and EOMs intact bilaterally General Eye ED: Negative for pale conjunctiva or scleral icterus Neck no lymphadenopathy, supple and no JVD Resp normal respiratory effort and clear to auscultation bilaterally Cardio S1 normal heart sound, S2 normal heart sound and no murmurs Rate: regular rate Rhythm: regular rhythm GI non-tender and non-distended Auscultation: normoactive bowel sounds Palpation: soft Back/Spine no CVA tenderness Extremity Negative for normal to inspection Extremity Narrative: Patient has evidence of loss Knipp digits. Neuro CN's II-XII intact bilaterally, no sensory deficits noted and deep tendon reflexes 2+ bilaterally Jason Coma Scale: document GCS findings Spontaneous Obeys Commands Oriented 15 Sensorium / Orientation: alert Psych denies homicidal ideation and denies suicidal ideation; Negative for mental status grossly normal, thought process normal, cooperative, affect normal, speech normal, activity/motor behavior normal or denies hallucinations Psych Narrative: Patient is paranoid. She believes this is not due to schizophrenia. She does not believe the diagnosis of schizophrenia. She does admit she is homeless. Appearance: unkempt, disheveled and bizarre; Negative for grossly normal, appropriate or well kempt Attitude: No engaged, paranoid, bizarre, evasive, guarded, No belligerent, No agitated, No aggressive and No hostile Activity / Motor Behavior: psychomotor agitation, fidgetting, disorganized and restless Speech: No normal speech, minimal and pressured Mood & Affect: apathetic and constricted affect Thought Process: disorganized and illogical Thought Content: No suicidality, No homicidality, No phobia(s) and No delusion(s) Insight: poor Judgement: poor Skin Skin Narrative: P.o. nipple fingers with discoloration MDM MDM MDM Narrative Medical decision making narrative: Patient presents with exacerbation of her paranoid schizophrenia. This is worse to the fact that she is not compliant with her meds because she does not not believe she has schizophrenia. She is presently homeless. 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 After they were able to talk with her and determined that she needs help she was pink slipped and brought to the emergency department. Presently patient is in denial. History & Record Review Additional record(s) reviewed:: Prior outpatient record, Prior ED visit and Prior labs Lab Data Attestation: I reviewed the patient's lab results. Lab results narrative: CBC is unremarkable. There is slight increase in neutrophil count which is nonspecific. Basic metabolic panel is normal. test is negative. Alcohol is not detected. CPK is normal. This was obtained because of prior history of rhabdomyolysis. Labs: Laboratory Results - last 24 hr 12/09/24 08:47 WBC 9.7 RBC 4.46 Hgb 14.1 Hct 40.7 MCV 91.3 MCH 31.6 MCHC 34.6 RDW Std Deviation 41.8 RDW Coeff of [place] 12.7 Plt Count 253 MPV 9.1 Immature Gran % (Auto) 0.400 Neut % (Auto) 79.6 H Lymph % (Auto) 16.0 L [place] % (Auto) 3.6 Eos % (Auto) 0.0 Baso % (Auto) 0.4 Absolute Neuts (auto) 7.7 Absolute Lymphs (auto) 1.55 Nucleated RBC % 0 Sodium 139 Potassium 4.2 Chloride 110 H Carbon Dioxide 21.0 Anion Gap 8 BUN 16 Creatinine 0.95 Estim Creat Clear Calc 81.80 Est GFR (MDRD) Af Amer 89 Est GFR (MDRD) Non-Af 73 BUN/Creatinine Ratio 16.8 Glucose 96 Calcium 9.3 Total Creatine Kinase 60 Serum , Qual NEGATIVE Ethyl Alcohol < 3.0 EKG Initial EKG: Attestation: I personally reviewed and interpreted this EKG as follows: Interpretation: Sinus Tachycardia (Rate of 128 otherwise normal. MO interval is 160 ms. History 76 ms per QT duration 498 ms. [place] is normal.) Management Discussion w/another healthcare provider: [facility] and Behavioral health Treatment and Re-Evaluation Narrative: Mental health was made aware of patient and is presently seeing her. ([id number].) Patient was accepted by Dr. Meraz at [facility]. Discharge Plan Triage Chief Complaint: Mental Health ED Provider: Miguelangel Kwong Dx/Rx/DC Orders Clinical Impression: Paranoid type schizophrenia, chronic state with acute exacerbation, Medical clearance for psychiatric admission, Homeless, Noncompliance with medication regimen, [place] Prescriptions: No Action buspirone 10 mg Tablet 10 mg PO BID fluoxetine 20 mg Capsule 20 mg PO DAILY polyethylene glycol 3350 [Miralax] 17 gram/dose powder 17 g PO DAILY Qty: 510 2RF docusate sodium [Colace] 100 mg capsule 100 mg PO BID Qty: 60 1RF Primary Care Provider: Care Physician,No Primary Referrals: Care Physician,No Primary [Primary Care Provider] - Print Language: Qatari Disposition Disposition: Psychiatric Hospital or Unit Discharge Location: [facility]
[2024-12-09 09:11] LABS: Alcohol, Blood (Medical)-Serum < 3.0 mg/dL; Internal QC Validated? YES +Cl - CLEAR BKGD; Pregnancy, Serum, hCG Quali. NEGATIVE Negative
[2024-12-09 09:12] LABS: Absolute Lymphocyte Count 1.55 X10^3/uL (0.83-4.51); Absolute Neutrophil Count 7.7 X10^3/uL (2.0-7.7); Basophil# 0.04 X10^3/uL; Basophil% 0.4 % (0-1); Hematocrit 40.7 % (37-47); Hemoglobin 14.1 g/dL (12.0-15.0); Lymphocyte # 1.55 X10^3/ul (0.83-4.51); Mean Corp Hgb Conc 34.6 g/dL (32-36); Mean Corpuscular Hgb 31.6 pg (27.0-32.0); Mean Corpuscular Volume 91.3 fL (81-99); Mean Platelet Vol. 9.1 fl (6.2-12.0); Monocyte# 0.35 X10^3/uL; Monocyte% 3.6 % (0-10); NRBC Flagged by Analyzer 0 % (0-5); Neutrophil # 7.73 X10^3/uL (2.7-7.7); Neutrophil % 79.6 % (47-70); Platelet Count 253 K/mm3 (150-450); RBC Distribution Width CV 12.7 % (11.6-14.6); RBC Distribution Width SD 41.8 fl (35.1-43.9); Red Blood Count 4.46 M/mm3 (4.2-5.4); White Blood Count 9.7 K/mm3 (4.4-11.0)
[2024-12-09 09:33] LABS: Anion Gap 8 (5-15); BUN 16 mg/dL (7-18); BUN/Creat Ratio 16.8 RATIO (10-20); CPK Total, Creatine Kinase 60 U/L (26-192); Calcium,Total 9.3 mg/dL (8.5-10.1); Chloride 110 mmol/L (98-107); Creatinine, Serum 0.95 mg/dL (0.55-1.02); EST Glomerular Filtration Rate 73 mL/min (>60); Est Glom Filt Rate - Afr Amer 89 mL/min (>60); Glucose 96 mg/dL (74-106); Potassium 4.2 mmol/L (3.5-5.1); Sodium Level 139 mmol/L (136-145)
--- NOTE | 2024-12-09 09:47 | NURSING ---
CRISIS WAS CALLED FOR MHC EVAL AND MEDICAL CLEARANCE FAXED OVER
--- NOTE | 2024-12-09 09:58 | CM.ED ---
Addendum entered and electronically signed by Mili Jessica 12/09/24 19:33: Social Work Spoke with [facility] and learned that patient active with AOT program until the beginning of December and will be sending an order to detain patient for inpatient psychiatric treatment. For continuity of care of patient, updated the court that patient is going to [facility]. Order to detain patient for inpatient hospitalization received from the court. Provided copy of court order to JESUS Franklin, who will place on patient's chart and update [facility]. -KARLENE Escalante Original Note: Social Work Collaboration with Cindy, Director of Crisis at [facility] regarding completion of crisis evaluation. Confirmed with Cindy that patient is discharged from the [facility] program through the [facility], so hospital social work is able to assess. For continuity of care fo patient, Crisis does request notice of discharge disposition, so that TCC can follow patient at next destination and attempt to engage in discharge planning/posth hospitalization needs. Patient has historically been difficult to engage in treatment, or to find patient in the community. TCC is looking at guardianship for patient, though this is not yet established. Patient is assigned to Dr. Matthews, and last case management has been with Herberth Farrar via [facility]. Plan: Hospital SW to assess for need for inpatient mental health services. -GARTH Escalante
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
--- NOTE | 2024-12-09 11:48 | CM.ED ---
Social Work SW confirmed that [facility] has female beds available. Referral sent. Plan: Inpatient psychiatric hospitalization pending acceptance. Angela Hernadez MSW, STRATEGIC PLANNING SPECIALIST
--- NOTE | 2024-12-09 13:38 | CM.ED ---
Social Work [facility] accepted patient. Will be going to [address] Meraz, N2N is [phone] Option 3. TCC called, spoke with Bonnie, to inform patient was accepted. No further needs identified at this time. Plan: Inpatient hospitalization at [facility]. Angela Hernadez, JESUS, ELECTROFORMER
--- NOTE | 2024-12-09 19:44 | CM.ED ---
Social Work SW received a judgement entry from Psychiatric Probate court. A copy of entry was placed in patients medical record and a copy was sent with patients information to [facility]. [facility] was called and intake was notified of judgement entry. Bonnie, from [facility], was notified of patients acceptance at [facility]. Angela Hernadez, PHYSICIAN'S AIDE, CARRY ALL DRIVER
[2024-12-09 20:02] LABS: Amphetamine Urine NEGATIVE (<1000 ng/mL); Barbiturate Urine VISTA NEGATIVE (< 200 ng/mL); Benzodiazepine Urine VISTA NEGATIVE (< 200 ng/mL); Cocaine Urine VISTA NEGATIVE (< 300 ng/mL); Ecstacy Urine VISTA NEGATIVE (< 500 ng/mL); Methadone Urine VISTA NEGATIVE (< 300 ng/mL); PCP Urine VISTA NEGATIVE (< 25 ng/mL); THC Urine VISTA POSITIVE (< 50 ng/mL); Vista UDS pH Range 4
== END 2024-12-09 23:29 ==
PROVIDERS: Emergency Provider Emergency Medicine; Visit Provider Emergency Medicine
DX: F20.0 Paranoid schizophrenia (principal); F17.210 Nicotine dependence, cigarettes, uncomplicated; Z91.148 Patient's other noncompliance with medication regimen for other reason; Z59.00 Homelessness unspecified
CPT/HCPCS: 80048; 80307; 82077; 82550; 84703; 85025; 93005; 99283; A4216

== ENCOUNTER → 2025-01-26 | Outpatient (CLI) | payer MEDICAID, SELFPAY ==
[2025-01-26 13:07] LABS: Absolute Lymphocyte Count 3.08 X10^3/uL (0.83-4.51); Absolute Neutrophil Count 5.5 X10^3/uL (2.0-7.7); Basophil# 0.04 X10^3/uL; Basophil% 0.4 % (0-1); Eosinophil# 0.05 X10^3/uL; Eosinophils% 0.5 % (0-5); Hematocrit 42.9 % (37-47); Hemoglobin 14.6 g/dL (12.0-15.0); Lymphocyte # 3.08 X10^3/ul (0.83-4.51); Lymphocyte % 32.8 % (19-41); Mean Corpuscular Hgb 31.5 pg (27.0-32.0); Mean Corpuscular Volume 92.5 fL (81-99); Mean Platelet Vol. 8.6 fl (6.2-12.0); Monocyte% 7.5 % (0-10); NRBC Flagged by Analyzer 0 % (0-5); Neutrophil # 5.47 X10^3/uL (2.7-7.7); Neutrophil % 58.4 % (47-70); Platelet Count 361 K/mm3 (150-450); RBC Distribution Width SD 44.2 fl (35.1-43.9); Red Blood Count 4.64 M/mm3 (4.2-5.4); White Blood Count 9.4 K/mm3 (4.4-11.0)
[2025-01-26 13:34] LABS: ALB/GLOB Ratio 1.4 RATIO (0.9-2.4); AST(SGOT) 18 U/L (<=31); Alanine Aminotransfer ALT/SGPT 6 U/L (<=34); Albumin, Serum 4.4 g/dL (3.5-5.0); Alkaline Phosphatase 56 U/L (35-104); Amphetamine Urine PRESUMTIVE POSITIVE (<1000 ng/mL); Anion Gap 12 (5-15); BUN 9 mg/dL (4-19); BUN/Creat Ratio 9.4 RATIO (10-20); Barbiturate Urine NEGATIVE (< 200 ng/mL); Benzodiazepine Urine NEGATIVE (< 200 ng/mL); Buprenorphine Urine NEGATIVE (< 200 ng/mL); Calcium,Total 9.3 mg/dL (7.6-11.0); Carbon Dioxide 22.2 mmol/L (21.0-32.0); Chloride 103 mmol/L (98-108); Cocaine Urine NEGATIVE (< 300 ng/mL); EST Glomerular Filtration Rate 78 (>60); Fentanyl, Urine NEGATIVE; Globulin 3.1 g/dL (2.2-4.2); Glucose 108 mg/dL (70-99); Methadone Urine NEGATIVE (< 300 ng/mL); Opiates Urine NEGATIVE (< 300 ng/mL); Oxycodone, Urine NEGATIVE (< 100 ng/mL); PCP Urine NEGATIVE (< 25 ng/mL); Potassium 3.2 mmol/L (3.3-5.1); Protein, Total 7.6 g/dL (5.9-8.4); Sodium Level 137 mmol/L (133-145); THC Urine PREUMTIVE POSITIVE (< 50 ng/mL)
== END | disposition home or self-care (01) ==
LOC: VSLAB 12:37
PROVIDERS: PCP Family Medicine
DX: R82.5 Elevated urine levels of drugs, medicaments and biological substances (principal); Z13.6 Encounter for screening for cardiovascular disorders; Z76.89 Persons encountering health services in other specified circumstances
CPT/HCPCS: 36415; 80053; 80307; 84443; 85025

== ENCOUNTER 2025-02-07 20:32 | Emergency (ER) | payer MEDICAID, SELFPAY ==
[2025-02-07 20:33] VITALS: BP 107/71; PULSE 100; RESP 16; TEMP 35.7; O2SAT 97
[2025-02-07 20:37] VITALS: BMI 24.1
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
[2025-02-07 21:05] LABS: Absolute Lymphocyte Count 2.98 X10^3/uL (0.83-4.51); Basophil# 0.05 X10^3/uL; Basophil% 0.6 % (0-1); Eosinophil# 0.09 X10^3/uL; Eosinophils% 1.1 % (0-5); Hematocrit 40.4 % (37-47); Lymphocyte # 2.98 X10^3/ul (0.83-4.51); Lymphocyte % 38.1 % (19-41); Mean Corp Hgb Conc 34.7 g/dL (32-36); Mean Corpuscular Hgb 31.7 pg (27.0-32.0); Mean Corpuscular Volume 91.4 fL (81-99); Mean Platelet Vol. 8.7 fl (6.2-12.0); Monocyte# 0.67 X10^3/uL; Monocyte% 8.6 % (0-10); NRBC Flagged by Analyzer 0 % (0-5); Neutrophil # 4.03 X10^3/uL (2.7-7.7); Neutrophil % 51.5 % (47-70); Platelet Count 279 K/mm3 (150-450); RBC Distribution Width CV 12.7 % (11.6-14.6); RBC Distribution Width SD 42.5 fl (35.1-43.9); Red Blood Count 4.42 M/mm3 (4.2-5.4); White Blood Count 7.8 K/mm3 (4.4-11.0)
[2025-02-07 21:31] LABS: Anion Gap 11 (5-15); BUN 9 mg/dL (4-19); BUN/Creat Ratio 10.5 RATIO (10-20); Calcium,Total 9.3 mg/dL (7.6-11.0); Carbon Dioxide 25.1 mmol/L (21.0-32.0); Chloride 102 mmol/L (98-108); Creatinine, Serum 0.83 mg/dL (0.70-1.20); EST Glomerular Filtration Rate 98 (>60); Glucose 63 mg/dL (70-99); Sodium Level 138 mmol/L (133-145)
[2025-02-07 21:36] LABS: Internal QC Validated? YES +Cl - CLEAR BKGD; Pregnancy, Serum, hCG Quali. NEGATIVE Negative
[2025-02-07 21:44] LABS: Amphetamine Urine NEGATIVE (<1000 ng/mL); Barbiturate Urine NEGATIVE (< 200 ng/mL); Benzodiazepine Urine NEGATIVE (< 200 ng/mL); Buprenorphine Urine NEGATIVE (< 200 ng/mL); Cocaine Urine NEGATIVE (< 300 ng/mL); Fentanyl, Urine NEGATIVE; Methadone Urine NEGATIVE (< 300 ng/mL); Opiates Urine NEGATIVE (< 300 ng/mL); Oxycodone, Urine NEGATIVE (< 100 ng/mL); PCP Urine NEGATIVE (< 25 ng/mL); THC Urine PRESUMPTIVE POSITIVE (< 50 ng/mL)
[2025-02-07 22:01] LABS: Alcohol, Blood (Medical)-Serum < 10.1 mg/dL (<=10.0)
[2025-02-07 23:00] VITALS: RESP 18
[2025-02-08 02:10] VITALS: BP 106/70; PULSE 16
[2025-02-08 04:44] VITALS: BP 106/70; PULSE 90; RESP 18; TEMP 36.1; O2SAT 97
[2025-02-08] MEDS: busPIRone 15 MG TABLET PO (06:18)
[2025-02-08 06:20] VITALS: BP 106/77; PULSE 94; RESP 18; O2SAT 97
--- NOTE | 2025-02-10 14:50 | CM.ED ---
Social Work Patients mother came to ER today asking where her daughter was placed. Mother stated that today was her daughters birthday, that she has a card with $50.00 in it, that she wanted to take her shopping and buy her cake and ice cream. Mother stated she wanted to drive to whatever hospital patient was in. SW explained to mother that patient was placed by the TCC, phone number to [facility] given to mother to call for an update. Patients mother accepting of number, stated she would call and thanked SW for her time. No further needs identified at this time. Angela Hernadez, JOB COST ESTIMATOR, EXTRACTING MACHINE OPERATOR
== END 2025-02-08 09:00 ==
PROVIDERS: Emergency Provider Emergency Medicine; PCP Family Medicine; Visit Provider Emergency Medicine
DX: R45.851 Suicidal ideations (principal); F29 Unspecified psychosis not due to a substance or known physiological condition; F32.A Depression, unspecified; F17.210 Nicotine dependence, cigarettes, uncomplicated; Z79.899 Other long term (current) drug therapy
CPT/HCPCS: 36415; 80048; 80307; 82077; 84703; 85025; 99284

== ENCOUNTER → 2025-08-19 | Outpatient (CLI) | payer MEDICAID, SELFPAY ==
[2025-08-19 12:23] LABS: Hematocrit 45.2 % (37-47); Hemoglobin 14.8 g/dL (12.0-15.0); Immature Granulocytes Count 0.040 X10^3/uL (0.0-0.0); Mean Corp Hgb Conc 32.7 g/dL (32-36); Mean Corpuscular Volume 95.8 fL (81-99); Mean Platelet Vol. 9.7 fl (6.2-12.0); NRBC Flagged by Analyzer 0 % (0-5); Platelet Count 367 K/mm3 (150-450); RBC Distribution Width CV 13.0 % (11.6-14.6); RBC Distribution Width SD 45.9 fl (35.1-43.9); Red Blood Count 4.72 M/mm3 (4.2-5.4); White Blood Count 6.3 K/mm3 (4.4-11.0)
[2025-08-19 13:01] LABS: Microalbumin,Random Urine < 12.0 mg/L (<20 mg/L)
[2025-08-19 14:08] LABS: Albumin, Serum 4.0 g/dL (3.5-5.0); Chloride 102 mmol/L (98-108); Ferritin 56 ng/mL (22-378); Iron 148 ug/dL (50-170); Potassium 4.1 mmol/L (3.3-5.1); Vitamin B12 277 pg/mL (180-914); Vitamin D,25 Hydroxy 29.3 ng/mL (30-100)
[2025-08-19 14:27] LABS: AST(SGOT) 44 U/L (<=31); Alanine Aminotransfer ALT/SGPT 54 U/L (<=34); Alkaline Phosphatase 153 U/L (35-104); Anion Gap 10 (5-15); BUN 13 mg/dL (4-19); BUN/Creat Ratio 15.4 RATIO (10-20); Calcium,Total 9.5 mg/dL (7.6-11.0); Carbon Dioxide 25.3 mmol/L (21.0-32.0); Cholesterol 262 mg/dL (<=200); Globulin 3.5 g/dL (2.2-4.2); Glucose 140 mg/dL (70-99); Low Density Lipoprotein Calc. 199 mg/dL; Triglycerides 141 mg/dL; Very Low Density Lipoprotein 28 mg/dL (5-40); cholesterol:hdl ratio screen 7.55
== END | disposition home or self-care (01) ==
PROVIDERS: PCP Family Medicine; Visit Provider Family Medicine
DX: F19.21 Other psychoactive substance dependence, in remission (principal); E11.9 Type 2 diabetes mellitus without complications; I10 Essential (primary) hypertension; E78.2 Mixed hyperlipidemia; D69.6 Thrombocytopenia, unspecified
CPT/HCPCS: 36415; 80053; 80061; 82043; 82306; 82607; 82728; 83036; 83540; 84443; 85025

== ENCOUNTER → 2025-08-30 | Outpatient (CLI) | payer MEDICAID, SELFPAY ==
[2025-08-31 09:15] LABS: Barbiturate Urine NEGATIVE (< 200 ng/mL); Benzodiazepine Urine NEGATIVE (< 200 ng/mL); PCP Urine NEGATIVE (< 25 ng/mL); THC Urine PRESUMPTIVE POSITIVE (< 50 ng/mL)
== END | disposition home or self-care (01) ==
PROVIDERS: PCP Family Medicine
DX: F19.21 Other psychoactive substance dependence, in remission (principal); N39.0 Urinary tract infection, site not specified
CPT/HCPCS: 80307; 87086; 87088

== ENCOUNTER 2025-09-02 17:52 | Inpatient (IN) | payer MEDICAID, SELFPAY ==
[2025-09-02 17:54] VITALS: BP 100/83; PULSE 77; RESP 22; TEMP 36.4; O2SAT 100; BMI 30.2
--- NOTE | 2025-09-02 18:10 | US_ITS ---
PROCEDURE: US/Gallbladder
[2025-09-02] MEDS: 0.9% Normal Saline (1000mL) 1,000 ML 999 ML IV (18:16)
--- NOTE | 2025-09-02 18:16 | ED.VIS.GI ---
HPI HPI - GI History of Present Illness Chief Complaint: Abd Pain Narrative Narrative: 30-year-old female past medical history of what she calls mental health problems presents with abdominal pain diffusely and in the right upper quadrant with nausea and vomiting over the last 24 hours. She states she has vomited 4 or 5 times without hematemesis. No diarrhea. She had subjective fever but no chills. She states that her urine has been dark for quite some time as well. No exacerbating or relieving factors. [facility] History (Updated 09/02/25 @ 21:[address] Liam Hay, ) Rhabdomyolysis Depression Irregular heart beat Home Medications ?Medication ?Instructions ?Recorded ?Last Taken ?Type atomoxetine 40 mg capsule 40 mg PO DAILY 02/07/25 Unknown History aripiprazole 30 mg tablet 30 mg PO DAILY 09/02/25 Unknown History atomoxetine 80 mg capsule 80 mg PO DAILY 09/02/25 Unknown History buspirone 10 mg tablet 10 mg PO TID 09/02/25 Unknown History divalproex 250 mg tablet,delayed 250 mg PO BID 09/02/25 Unknown History release Allergy/AdvReac Type Severity Reaction Status Date / Time lorazepam Allergy Rash Verified 09/02/25 17:53 risperidone Allergy Other Verified 09/02/25 17:53 Social History Smoking Status: Current every day smoker tobacco type: cigarettes ROS ROS ED ROS Narrative Review of systems positive for nausea and vomiting, no hematemesis, positive abdominal pain, right upper quadrant abdominal pain as well. No exacerbating or alleviating factors. Dark urine for weeks. States he was being treated for UTI and finished antibiotics as well. EXAM Physical Exam Narrative Exam Narrative: Afebrile. Vital signs noted. Nontoxic-appearing. Cardiovascular semination regular rate and rhythm. Lungs are clear to auscultation bilaterally. Abdomen is soft and mild tenderness in right upper quadrant to diffusely with positive bowel sounds. No guarding or rebound. Const Vital Signs: 09/02/25 17:54 09/02/25 19:53 09/02/25 21:26 Temperature 97.6 F L Temperature Source Temporal Pulse Rate 77 60 68 Respiratory Rate 22 H 15 15 Blood Pressure 100/83 H 105/61 97/62 Blood Pressure Mean 88 75 73 Pulse Ox 100 100 98 Oxygen Delivery Method Room Air Room Air Room Air MDM MDM MDM Narrative Medical decision making narrative: Differential diagnosis includes but not limited to Cliff renal syndrome versus pancreatitis versus acute cholecystitis versus colitis versus obstruction. History and physical does not support obstruction and she has not had any previous abdominal surgery. Initially patient given Zofran and Bentyl for pain. In her problem list, she does have history of opiate overdose. I reviewed her laboratory work and she has slight leukocytosis of 11.2 with hemoglobin 14.0, hematocrit 41.4, platelet count normal at 348. CMP shows sodium normal at 137 with potassium 4.0, BUN normal at 10 and creatinine 0.82. Glucose slightly elevated at 116 but she has normal anion gap of 12. LFTs are elevated with AST of 77 and ALT of 109 with an alk phos of 340. Total bilirubin elevated at 5.32. Lipase is greater than 3000 consistent with pancreatitis. Serum is negative. Urinalysis obtained and reviewed, while she is positive for nitrites, there is 0-5 WBCs. I feel this is probably a contaminated specimen with 10-25 squamous epithelial cells. I reviewed the radiology report of the ultrasound which is consistent with acute cholecystitis. Common bile duct dilated greater than 11 mm I also reviewed the radiology report of the CT of the abdomen pelvis which also states that there is acute cholecystitis with gallbladder wall thickening and pericholecystic inflammation. After a dose morphine and and repeated Zofran, repeat examination of the patient shows her pain under better control. She is resting comfortably on the cot. I discussed the patient with Dr. Huber with general surgery who agrees with Zosyn being started. However, should the patient need ERCP/MRCP this is to be done by gastroenterology. Although gastroenterology is not on-call today, Dr. Mancia is on-call for no doc tomorrow meaning he should be available to perform ERCP. This was rediscussed with Dr. Huber over backline who agrees with admission and can see the patient regarding her gallbladder. Patient will be discussed with the hospitalist, Dr. Padilla for admission for gallstone pancreatitis and acute cholecystitis. Disposition is admitted in stable condition. History & Record Review Discussion w/independent historian: Patient Additional record(s) reviewed:: Prior ED visit Lab Data Attestation: I reviewed the patient's lab results. Labs: Laboratory Results - last 24 hr 09/02/25 09/02/25 18:10 20:10 WBC 11.2 H RBC 4.51 Hgb 14.0 Hct 41.4 MCV 91.8 MCH 31.0 MCHC 33.8 RDW Std Deviation 43.1 RDW Coeff of [place] 12.8 Plt Count 348 MPV 9.3 Immature Gran % (Auto) 0.700 Neut % (Auto) 69.5 Lymph % (Auto) 19.3 [place] % (Auto) 9.0 Eos % (Auto) 0.8 Baso % (Auto) 0.7 Absolute Neuts (auto) 7.8 H Absolute Lymphs (auto) 2.17 Nucleated RBC % 0 Sodium 137 Potassium 4.0 Chloride 99 Carbon Dioxide 25.5 Anion Gap 12 BUN 10 Creatinine 0.82 Estim Creat Clear Calc 110.19 Est GFR (MDRD) Non-Af 99 BUN/Creatinine Ratio 12.7 Glucose 116 H Calcium 9.7 Total Bilirubin 5.32 H AST 77 H ALT 109 H Alkaline Phosphatase 340 H Total Protein 7.8 Albumin 4.0 Globulin 3.8 Albumin/Globulin Ratio 1.1 Lipase > 3000 H Serum , Qual NEGATIVE Urine Color Stephani Urine Clarity Sl. Cloudy Urine pH 8.0 Ur Specific [place] 1.015 Urine Protein 30 H Urine Glucose (UA) Normal Urine Ketones 5 H Urine Occult Blood 25 H Urine Nitrite Positive H Urine Bilirubin 6 H Urine Urobilinogen 8 H Ur Leukocyte Esterase 25 H Urine RBC 0-5 SEEN Urine WBC 0-5 SEEN Ur Squamous Epith Cells 10-25 SEEN Urine Bacteria 3+ Urine Mucus 0 SEEN Radiography Diagnostic Testing: Clinical Impression(s) from Imaging Studies Gallbladder Ultrasound 09/02/25 18:10 IMPRESSION: 1. Cholelithiasis WITH signs of acute cholecystitis. 2. Dilated common bile duct, without an obstructing lesion seen. A stone in the distal CBD is not excluded. 3. Enlarged hyperechoic liver, suggesting hepatic steatosis, although other diffuse liver diseases can have this appearance. Reading Location: [id number] Abdomen/Pelvis CT 09/02/25 18:58 IMPRESSION: Findings consistent with acute cholecystitis with secondary biliary obstruction. Gallbladder wall thickening and pericholecystic inflammation with intrahepatic and extrahepatic ductal dilation. Common bile duct measures up to 11 mm. No radiopaque gallstones visualized on CT. Recommend correlation with liver function tests and further evaluation with ultrasound or MRCP to assess for possible non-calcified choledocholithiasis. Reading Location: [id number] Management Discussion w/another healthcare provider: Hospitalist (Dr. Padilla) and Nutrition Tech (Dr. Huber, general surgery) Discharge Plan Dx/Rx/DC Orders Clinical Impression: Acute cholecystitis, Gallstone pancreatitis, Nausea and vomiting Disposition Disposition: Acute Care Hospital [facility]
[2025-09-02 18:20] LABS: Hematocrit 41.4 % (37-47); Hemoglobin 14.0 g/dL (12.0-15.0); Immature Granulocytes Count 0.080 X10^3/uL (0.0-0.0); Mean Corp Hgb Conc 33.8 g/dL (32-36); Mean Corpuscular Volume 91.8 fL (81-99); Mean Platelet Vol. 9.3 fl (6.2-12.0); NRBC Flagged by Analyzer 0 % (0-5); Platelet Count 348 K/mm3 (150-450); RBC Distribution Width CV 12.8 % (11.6-14.6); RBC Distribution Width SD 43.1 fl (35.1-43.9); Red Blood Count 4.51 M/mm3 (4.2-5.4); White Blood Count 11.2 K/mm3 (4.4-11.0)
[2025-09-02 18:43] LABS: Internal QC Validated? YES +Cl - CLEAR BKGD; Pregnancy, Serum, hCG Quali. NEGATIVE Negative; Record Kit Lot#, Serum Preg. 0000980607
--- NOTE | 2025-09-02 18:58 | CT_ITS ---
PROCEDURE: CT/Abdomen/Pelvis W IV Cont ONLY
[2025-09-02 19:08] LABS: AST(SGOT) 77 U/L (<=31); Alanine Aminotransfer ALT/SGPT 109 U/L (<=34); Albumin, Serum 4.0 g/dL (3.5-5.0); Alkaline Phosphatase 340 U/L (35-104); Anion Gap 12 (5-15); BUN 10 mg/dL (4-19); BUN/Creat Ratio 12.7 RATIO (10-20); Calcium,Total 9.7 mg/dL (7.6-11.0); Carbon Dioxide 25.5 mmol/L (21.0-32.0); Chloride 99 mmol/L (98-108); Estimated Creatinine Clearance 110.19 ml/min (50-250); Globulin 3.8 g/dL (2.2-4.2); Glucose 116 mg/dL (70-99); Lipase > 3000 U/L (13-75); Potassium 4.0 mmol/L (3.3-5.1)
[2025-09-02 19:53] VITALS: BP 105/61; PULSE 60; RESP 15; O2SAT 100
[2025-09-02 20:19] LABS: Mucous, Urine 0 SEEN /hpf (<or=2+)
[2025-09-02 20:27] LABS: Color, Urine Amber (Yellow); Glucose, Dipstick Normal (Normal); Ketone-Dipstick 5 mg/dl (Negative); Leukocyte Esterase-Dipstick 25 /ul (Negative); Nitrite-Dipstick Positive (Negative); Occult Blood-Urine 25 /ul (Negative); Protein-Dipstick 30 mg/dl (Negative); Specific Gravity, Urine 1.015 (1.002-1.030)
[2025-09-02] MEDS: Piperacil/Tazobactam 3.375 GM in 0.9% Normal Saline (50mL MB+) 50 ML IV (20:35)
[2025-09-02 20:40] LABS: Urine Bilirubin Dipstick 6 mg/dL (Negative)
[2025-09-02 20:44] LABS: Red Blood Cells-Urine 0-5 SEEN /hpf (0-5); Squamous Epithelial Cells - UA 10-25 SEEN /hpf (5-10)
--- NOTE | 2025-09-02 21:03 | PCM.HP.STD ---
[facility] - General General Date of Admission: 09/02/25 Date of Service: 09/02/25 Chief Complaint: Abdominal Pain with Nausea and Vomiting. HPI Narrative BRADEN FLORENCE, is a 30 F with a past medical history of obesity (class I); with BMI of 30.2 this admission, chronic tobacco abuse, history of rhabdomyolysis, history of opiate overdose, depression with history of SI and violent behavior; on buspirone, trazodone and atomoxetine who presents to [facility] ER complaining of abdominal pain with nausea and vomiting. Ms. Florence reports her symptoms began approximately one day prior to admission with the abrupt-onset of abdominal pain that was severe and diffuse but gradually began to localize around the RUQ. She then developed nausea and bilious emesis x 4-5 episodes but she denies hematemesis and dark stools. She also admits to subjective fever but she denies chills with arc cutter plasma arc stools and dark urine. In the ER she was noted to have Leukocytosis of 11.2K present on admission with a highly elevated Lipase of >3K U/L consistent with Acute (Gallstone) Pancreatitis with Hyperbilirubinemia; with total bilirubin of 5.32 mg/dL and Transaminitis; with AST of 77 U/L, ALT of 109 U/L and Alkaline Phosphatase of 340 U/L with a corresponding CT scan of the abdomen and pelvis that revealed findings consistent with Acute Cholecystitis with Secondary Biliary Obstruction plus gallbladder wall thickening and pericholecystic inflammation with intrahepatic and extrahepatic ductal dilatation with CBD ~11 mm and no radiopaque gallstones visualized on CT with GB ultrasound that showed cholelithiasis with signs of Acute Cholecystitis in addition to CBD dilatation without an obstructing lesion appreciated, but a stone in the distal CBD not excluded plus enlarged hyperechoic liver suggesting hepatic steatosis. The ER physician then spoke to the general surgeon on-call who recommended admission to the hospitalist service with formal GI consultation pending in the AM for ERCP with help appreciated in advance. She was then admitted to the general medical floor for ongoing care for a stay that is expected to extend beyond 2 midnights. [facility] Medical History (Updated 09/03/25 @ 02:[address] Liam Hay, DO) Rhabdomyolysis Depression Irregular heart beat Home Medications ?Medication ?Instructions ?Recorded ?Last Taken ?Type aripiprazole 30 mg tablet 30 mg PO DAILY mental health 09/02/25 09/02/25 History atomoxetine 80 mg capsule 80 mg PO DAILY ADHD 09/02/25 09/02/25 History buspirone 10 mg tablet 10 mg PO TID anxiety/depression 09/02/25 09/02/25 History divalproex 250 mg tablet,delayed 250 mg PO BID mood stabilizer 09/02/25 09/02/25 History release miconazole nitrate 2 % topical 1 spray topical BID athlete's foot 09/03/25 09/02/25 History spray (Lotrimin AF) Allergy/AdvReac Type Severity Reaction Status Date / Time lorazepam Allergy Rash Verified 09/02/25 17:53 risperidone Allergy Other Verified 09/02/25 17:53 Social History Smoking Status: Light Smoker (<10/day) ROS ROS Narrative Review of Systems: Constitutional: Patient admits to subjective fever and chills. Eyes: Patient denies changes in vision or discharge from eyes. ENT: Patient denies runny nose, sore throat or ear pain. Resp: Patient denies SOB or cough. CV: Patient denies chest pain, palpitations, heart racing of LE edema. GI: Patient admits to abdominal pain radiating into RUQ with nausea, vomiting and bilious emesis as per HPI. : Patient denies dysuria or hematuria. MSK: Patient denies arthralgias or myalgias. Skin: Patient admits to jaundice but denies rash. Psych: Patient has chronic depression but she denies SI or HI. Neuro: Patient denies headache, paresthesias or focal neurologic deficits. Allergy: Patient denies lip swelling, tongue swelling or urticaria. Hematology: Patient denies easy bleeding or easy bruisability. Endocrinology: Patient denies polyuria, polydipsia, polyphagia or heat/cold intolerance. 14 point ROS otherwise negative except for positives noted above. Vital Signs Vital Signs Vital Signs: 09/02/25 17:54 09/02/25 19:53 Temperature 97.6 F L Temperature Source Temporal Pulse Rate 77 60 Respiratory Rate 22 H 15 Blood Pressure 100/83 H 105/61 Blood Pressure Mean 88 75 Pulse Ox 100 100 Oxygen Delivery Method Room Air Room Air Weight Weight: 187 lb 6.287 oz Body Mass Index (BMI) 30.2 Physical Exam Const alert and oriented x3 Constitutional Narrative: Obese with acutely ill appearance. General Appearance: cooperative HEENT normocephalic, head/scalp atraumatic and hearing grossly normal bilaterally HEENT Narrative: Mucous membranes dry. Eyes PERRL and EOMs intact bilaterally Eyes Narrative: Scleral icterus noted. Neck no lymphadenopathy, supple and no JVD Resp normal respiratory effort, no retractions, no use of accessory muscles and clear to auscultation bilaterally Cardio regular rate and regular rhythm GI soft to palpation and non-distended GI Narrative: RUQ TTP with normoactive bowel sounds. No guarding or rebound. Extremity normal to inspection, full ROM and no clubbing, cyanosis or edema Skin Skin Narrative: Patient has evidence of mild jaundice. Neuro oriented x3, CN's II-XII intact bilaterally, moves all extremities and no focal motor deficits Sensorium / Orientation: awake, alert, oriented to person, oriented to place and oriented to time Speech: speech normal Psych Mood & Affect: depressed Results Medical Records Data Attestation: I reviewed the patient's medical records Lab / Micro Data Attestation: I reviewed the patient's lab results. 09/03/25 04:35 09/03/25 04:35 Labs: Laboratory Results - last 24 hr 09/02/25 18:10: WBC 11.2 H, RBC 4.51, Hgb 14.0, Hct 41.4, MCV 91.8, MCH 31.0, MCHC 33.8, RDW Std Deviation 43.1, RDW Coeff of [place] 12.8, Plt Count 348, MPV 9.3, Immature Gran % (Auto) 0.700, Neut % (Auto) 69.5, Lymph % (Auto) 19.3, [place] % (Auto) 9.0, Eos % (Auto) 0.8, Baso % (Auto) 0.7, Absolute Neuts (auto) 7.8 H, Absolute Lymphs (auto) 2.17, Nucleated RBC % 0, Sodium 137, Potassium 4.0, Chloride 99, Carbon Dioxide 25.5, Anion Gap 12, BUN 10, Creatinine 0.82, Estim Creat Clear Calc 110.19, Est GFR (MDRD) Non-Af 99, BUN/Creatinine Ratio 12.7, Glucose 116 H, Calcium 9.7, Total Bilirubin 5.32 H, AST 77 H, ALT 109 H, Alkaline Phosphatase 340 H, Total Protein 7.8, Albumin 4.0, Globulin 3.8, Albumin/Globulin Ratio 1.1, Lipase > 3000 H, Serum , Qual NEGATIVE 09/02/25 20:10: Urine Color Stephani, Urine Clarity Sl. Cloudy, Urine pH 8.0, Ur Specific [place] 1.015, Urine Protein 30 H, Urine Glucose (UA) Normal, Urine Ketones 5 H, Urine Occult Blood 25 H, Urine Nitrite Positive H, Urine Bilirubin 6 H, Urine Urobilinogen 8 H, Ur Leukocyte Esterase 25 H, Urine RBC 0-5 SEEN, Urine WBC 0-5 SEEN, Ur Squamous Epith Cells 10-25 SEEN, Urine Bacteria 3+, Urine Mucus 0 SEEN Imaging Radiology Impression Gallbladder Ultrasound 09/02/25 18:10 IMPRESSION: 1. Cholelithiasis WITH signs of acute cholecystitis. 2. Dilated common bile duct, without an obstructing lesion seen. A stone in the distal CBD is not excluded. 3. Enlarged hyperechoic liver, suggesting hepatic steatosis, although other diffuse liver diseases can have this appearance. Reading Location: [facility] Abdomen/Pelvis CT 09/02/25 18:58 IMPRESSION: Findings consistent with acute cholecystitis with secondary biliary obstruction. Gallbladder wall thickening and pericholecystic inflammation with intrahepatic and extrahepatic ductal dilation. Common bile duct measures up to 11 mm. No radiopaque gallstones visualized on CT. Recommend correlation with liver function tests and further evaluation with ultrasound or MRCP to assess for possible non-calcified choledocholithiasis. Reading Location: [address] Assessment & Plan Assessment/Plan (1) Gallstone pancreatitis: (2) Acute cholecystitis: (3) Hyperbilirubinemia: (4) Transaminitis: (5) Leukocytosis: QUALIFIERS: Leukocytosis type: unspecified Qualified Code(s): D72.829 - Elevated white blood cell count, unspecified (6) Nausea and vomiting: QUALIFIERS: Vomiting type: bilious vomiting Qualified Code(s): R11.14 - Bilious vomiting (7) Abdominal pain: QUALIFIERS: Abdominal location: right upper quadrant Qualified Code(s): R10.11 - Right upper quadrant pain (8) Depression: QUALIFIERS: Depression Type: unspecified Qualified Code(s): F32.A - Depression, unspecified (9) Obesity (BMI 30.0-34.9): (10) Tobacco abuse: PLAN: Plan 1. Leukocytosis of 11.2K present on admission with a highly elevated Lipase of >3K U/L consistent with Acute (Gallstone) Pancreatitis with Hyperbilirubinemia; with total bilirubin of 5.32 mg/dL and Transaminitis; with AST of 77 U/L, ALT of 109 U/L and Alkaline Phosphatase of 340 U/L with a corresponding CT scan of the abdomen and pelvis that revealed findings consistent with Acute Cholecystitis with Secondary Biliary Obstruction plus gallbladder wall thickening and pericholecystic inflammation with intrahepatic and extrahepatic ductal dilatation with CBD ~11 mm and no radiopaque gallstones visualized on CT with GB ultrasound that showed cholelithiasis with signs of Acute Cholecystitis in addition to CBD dilatation without an obstructing lesion appreciated, but a stone in the distal CBD not excluded plus enlarged hyperechoic liver suggesting hepatic steatosis - Admit to general medical floor. Keep strict NPO. Continue empiric IV piperacillin-tazobactam begun in the ER. Give pantoprazole 40 mg IV daily. Give ondansetron IV prn for nausea and vomiting. Give promethazine IM prn for breakthrough nausea. Give ketorolac IV prn for [id number] (level 1-5/10) pain or fever. Give morphine IV prn for severe (level 6-10/10) pain. General surgery input in appreciated. Finally, we will consult gastroenterology to see this patient on-rounds in the AM for further recommendations with help appreciated in advance. 2. Abdominal Pain, Nausea and Vomiting with bilious emesis due to #1 - We will follow treatment plan outlined in #1. 3. Depression with history of SI and violent behavior; on buspirone, trazodone and atomoxetine complicating #1 & #2 - Hold oral medications. Give hydroxyzine IM prn for breakthrough symptoms. 4. Obesity (class I); with BMI of 30.2 this admission adding to the burden of disease outlined from #1 - #3 - Weight loss will be recommended. Check TSH. This complicates her case and may hamper recovery. 5. Chronic tobacco abuse adding to pathology outlined from #1 - #4 - Tobacco Cessation will be strongly encouraged with Nicotine patch offered to control cravings. 6. History of rhabdomyolysis - Noted. 7. History of opiate overdose - Noted. 8. DVT/GI prophylaxis - SCD's only with impeding ERCP and possible cholecystectomy. Give pantoprazole 40 mg IV daily as outlined in #1. Total time: Approximately (but not less than) 75 minutes. Charges/Coding Visit Charges Inpatient E&M: 11859 Init Hosp L3
[2025-09-02 21:26] VITALS: BP 97/62; PULSE 68; RESP 15; O2SAT 98
--- NOTE | 2025-09-02 21:29 | EX.PCM.CON.S ---
Assessment & Plan Assessment/Plan (1) Gallstone pancreatitis: PLAN: Patient is a 30-year-old female presenting with acute symptoms of abdominal pain and associated nausea and vomiting. She additionally describes some associated darkened urine and acholic stools. Workup is indeed confirmatory diagnoses of acute gallstone pancreatitis and acute cholecystitis. Underlying choledocholithiasis suspected. Patient pending admission for evaluation by gastroenterology for possible ERCP with stone clearance. In the interim recommend n.p.o., aggressive IV fluid resuscitation, IV antibiotics (given ductal obstruction), and trending of biochemistries. Surgery will continue to follow with serial abdominal exams and plan for same admission cholecystectomy once ductal obstruction is relieved and pancreatitis is improved. Tentatively anticipate procedure 09/06/2025. Fareed Huber MD General Surgery Endocrine Surgery Pager: [facility] [address] [place] [address], [facility], [address] [place] [id number] Office: [phone] (2) Acute cholecystitis: HPI Consult Data Date of Consult: 09/02/25 HPI Narrative Reason for Consultation: Gallstone pancreatitis HPI Narrative: BRADEN CANCHOLA, is a 30 F who presents to [facility] with complaints of acute onset nausea, vomiting, and abdominal pain. She states she was woken out of sleep last evening with vomiting and developed epigastric abdominal pain shortly thereafter. She notes that she had similar illness a couple weeks ago. 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 Patient's ED workup was notable for biochemistries that reflect transaminitis and hyperbilirubinemia. Patient mild leukocytosis at 11.2. Ultrasound imaging of the gallbladder showed mild gallbladder wall thickening at 3.5 mm, cholelithiasis, and dilated common bile duct at 11.7 mm. Additionally, stereotyper apprentice noted positive sonographic Johnston sign. There was no evidence of pericholecystic fluid. CT abdomen pelvis was performed reflexively which confirmed findings of acute cholecystitis apparently secondary to biliary ductal obstruction. Radiology recommended further ductal evaluation to rule out choledocholithiasis. [facility] Medical History Rhabdomyolysis Depression Irregular heart beat Home Medications ?Medication ?Instructions ?Recorded ?Last Taken ?Type atomoxetine 40 mg capsule 40 mg PO DAILY 02/07/25 Unknown History aripiprazole 30 mg tablet 30 mg PO DAILY 09/02/25 Unknown History atomoxetine 80 mg capsule 80 mg PO DAILY 09/02/25 Unknown History buspirone 10 mg tablet 10 mg PO TID 09/02/25 Unknown History divalproex 250 mg tablet,delayed 250 mg PO BID 09/02/25 Unknown History release Allergy/AdvReac Type Severity Reaction Status Date / Time lorazepam Allergy Rash Verified 09/02/25 17:53 risperidone Allergy Other Verified 09/02/25 17:53 Social History Smoking Status: Current every day smoker tobacco type: cigarettes Physical Exam Const alert Constitutional Narrative: Anxious/agitated General Appearance: cooperative Resp normal respiratory effort GI GI Narrative: Overweight, no scars, no visible herniation, nondistended, soft, tender to palpation in the right upper quadrant and epigastrium. Technically negative Johnston sign. Skin Skin Narrative: Jaundice Lab / Micro Data 09/02/25 18:10 09/02/25 18:10 Labs: Laboratory Results - last 24 hr 09/02/25 18:10: WBC 11.2 H, RBC 4.51, Hgb 14.0, Hct 41.4, MCV 91.8, MCH 31.0, MCHC 33.8, RDW Std Deviation 43.1, RDW Coeff of [place] 12.8, Plt Count 348, MPV 9.3, Immature Gran % (Auto) 0.700, Neut % (Auto) 69.5, Lymph % (Auto) 19.3, [place] % (Auto) 9.0, Eos % (Auto) 0.8, Baso % (Auto) 0.7, Absolute Neuts (auto) 7.8 H, Absolute Lymphs (auto) 2.17, Nucleated RBC % 0, Sodium 137, Potassium 4.0, Chloride 99, Carbon Dioxide 25.5, Anion Gap 12, BUN 10, Creatinine 0.82, Estim Creat Clear Calc 110.19, Est GFR (MDRD) Non-Af 99, BUN/Creatinine Ratio 12.7, Glucose 116 H, Calcium 9.7, Total Bilirubin 5.32 H, AST 77 H, ALT 109 H, Alkaline Phosphatase 340 H, Total Protein 7.8, Albumin 4.0, Globulin 3.8, Albumin/Globulin Ratio 1.1, Lipase > 3000 H, Serum , Qual NEGATIVE 09/02/25 20:10: Urine Color Stephani, Urine Clarity Sl. Cloudy, Urine pH 8.0, Ur Specific [place] 1.015, Urine Protein 30 H, Urine Glucose (UA) Normal, Urine Ketones 5 H, Urine Occult Blood 25 H, Urine Nitrite Positive H, Urine Bilirubin 6 H, Urine Urobilinogen 8 H, Ur Leukocyte Esterase 25 H, Urine RBC 0-5 SEEN, Urine WBC 0-5 SEEN, Ur Squamous Epith Cells 10-25 SEEN, Urine Bacteria 3+, Urine Mucus 0 SEEN Imaging Radiology Impression Gallbladder Ultrasound 09/02/25 18:10 IMPRESSION: 1. Cholelithiasis WITH signs of acute cholecystitis. 2. Dilated common bile duct, without an obstructing lesion seen. A stone in the distal CBD is not excluded. 3. Enlarged hyperechoic liver, suggesting hepatic steatosis, although other diffuse liver diseases can have this appearance. Reading Location: [id number] Abdomen/Pelvis CT 09/02/25 18:58 IMPRESSION: Findings consistent with acute cholecystitis with secondary biliary obstruction. Gallbladder wall thickening and pericholecystic inflammation with intrahepatic and extrahepatic ductal dilation. Common bile duct measures up to 11 mm. No radiopaque gallstones visualized on CT. Recommend correlation with liver function tests and further evaluation with ultrasound or MRCP to assess for possible non-calcified choledocholithiasis. Reading Location: [id number] Charges/Coding Visit Charges Inpatient E&M: 20679 Init Hosp L2
--- NOTE | 2025-09-02 21:44 | CASEMGMT ---
Care Management Face to Face with patient for initial transition planning/care coordination assessment in the ED.? This movie writer introduced self and role at [facility]. Patient alert and oriented. Patient willing to participate in assessment and is able to answer all questions appropriately.? Care providers, pharmacy, and demographics verified. Admitting Diagnosis: Acute cholecystitis Other diagnosis history: ?rhabdomyolysis PCP: ?[facility] Specialists: ?None Preferred Pharmacy: [facility] Insurance: ?[facility] Community plan Prescription Benefit: ?Yes Living Will/HPOA: ?none LNOK: mother Living Arrangements: ?patient living at [facility] Transportation: ?patient rides her bike DME: ?none HHC: ?none SNF/Rehab: none Community Resources: none Behavioral Health History: ?paranoid schizophrenia, depression , anxiety.? Patient reports being compliant with her medications at this time. Patient goals: Patients discharge plans uncertain at this time. Disposition Plan: admission to acute; RN CM/SW to follow for discharge planning needs that may arise. Angela Hernadez, RN CIRCULATING, EGG SEPARATOR
--- NOTE | 2025-09-02 21:47 | CM.ED ---
Social Work SW met with patient to complete initial face to face assessment. During assessment, patient asked SW to contact her mom Ruth Ann Florence, , to let her know that she was admitted. SW did contact mom, updated on admission and answered questions as able. No further needs at this time. Angela Hernadez, DRAFTER MARINE, CHORE TENDER
[2025-09-02 22:34] VITALS: BP 105/61; PULSE 65; RESP 17; TEMP 37; O2SAT 100
[2025-09-02 23:35] VITALS: BP 113/62; PULSE 58; RESP 20; TEMP 36.4; O2SAT 99
[2025-09-02] MEDS: 0.9% Normal Saline (1000mL) 1,000 ML 150 ML IV (23:57)
[2025-09-02] MEDS: 0.9% Saline Lock 10 ML Syringe IV (23:57)
[2025-09-03] VITALS (12 sets, daily range): BP systolic 90–119; BP diastolic 55–72; PULSE 64–81; RESP 14–18; TEMP 36.7–37.4; O2SAT 96–99; BMI 30.1
[2025-09-03] MEDS: Pantoprazole Sodium 40 MG in 0.9% Normal Saline (100mL MB+) 100 ML 330 MG IV ×2 (00:17→22:45)
[2025-09-03] MEDS: Clotrimazole 1 APPLIC Tube TOPICAL ×3 (00:46→18:06)
--- NOTE | 2025-09-03 00:53 | EKG12_ITS ---
Test Reason : PRE OP
[2025-09-03 01:12] LABS: LDH 158 U/L (84-246); Magnesium 1.9 mg/dL (1.5-2.2)
[2025-09-03] MEDS: 0.9% Saline Lock 10 ML Syringe IV ×5 (04:12→23:33)
[2025-09-03 05:06] LABS: Hematocrit 36.5 % (37-47); Hemoglobin 12.4 g/dL (12.0-15.0); Immature Granulocytes Count 0.060 X10^3/uL (0.0-0.0); Mean Corp Hgb Conc 34.0 g/dL (32-36); Mean Corpuscular Volume 92.2 fL (81-99); Mean Platelet Vol. 9.4 fl (6.2-12.0); NRBC Flagged by Analyzer 0 % (0-5); Platelet Count 278 K/mm3 (150-450); RBC Distribution Width CV 12.8 % (11.6-14.6); RBC Distribution Width SD 44.0 fl (35.1-43.9); Red Blood Count 3.96 M/mm3 (4.2-5.4); White Blood Count 10.6 K/mm3 (4.4-11.0)
[2025-09-03 05:36] LABS: AST(SGOT) 68 U/L (<=31); Alanine Aminotransfer ALT/SGPT 89 U/L (<=34); Albumin, Serum 3.4 g/dL (3.5-5.0); Alkaline Phosphatase 306 U/L (35-104); Anion Gap 10 (5-15); BUN 10 mg/dL (4-19); BUN/Creat Ratio 13.3 RATIO (10-20); Calcium,Total 8.6 mg/dL (7.6-11.0); Carbon Dioxide 23.9 mmol/L (21.0-32.0); Chloride 102 mmol/L (98-108); Estimated Creatinine Clearance 116.01 ml/min (50-250); Globulin 2.9 g/dL (2.2-4.2); Glucose 110 mg/dL (70-99); Potassium 3.4 mmol/L (3.3-5.1)
[2025-09-03] MEDS: Piperacil/Tazobactam 3.375 GM in 0.9% Normal Saline (50mL MB+) 50 ML IV ×3 (06:20→23:34)
--- NOTE | 2025-09-03 07:23 | PCM.PN.SRG ---
Subjective Subjective Patient seen and examined during AM rounds. She reports that she is feeling somewhat better than overnight. She confirms that she had some time to sleep. She complains of some hunger. She is awaiting discussion with gastroenterology for further plans. Objective Data Objective Data Vital Signs: Vital Signs Temp Pulse Resp BP Pulse Ox O2 Del Method 98.1 F 64 18 104/63 99 Room Air 09/03/25 03:23 09/03/25 03:23 09/03/25 03:23 09/03/25 03:23 09/03/25 03:23 09/03/25 03:23 Oxygen Delivery Method Room Air Weight: 180 lb 12.465 oz Body Mass Index (BMI) 30.1 Intake & Output: Intake and Output for Last 24 Hours 09/01/25 09/02/25 09/03/25 23:59 23:59 23:59 Intake Total 1050 / 1050 587.5 / 587.5 Balance 1050 / 1050 587.5 / 587.5 Lab / Micro Data 09/03/25 04:35 09/03/25 04:35 Labs: Laboratory Results - last 24 hr 09/02/25 18:10: WBC 11.2 H, RBC 4.51, Hgb 14.0, Hct 41.4, MCV 91.8, MCH 31.0, MCHC 33.8, RDW Std Deviation 43.1, RDW Coeff of [place] 12.8, Plt Count 348, MPV 9.3, Immature Gran % (Auto) 0.700, Neut % (Auto) 69.5, Lymph % (Auto) 19.3, [place] % (Auto) 9.0, Eos % (Auto) 0.8, Baso % (Auto) 0.7, Absolute Neuts (auto) 7.8 H, Absolute Lymphs (auto) 2.17, Nucleated RBC % 0, Sodium 137, Potassium 4.0, Chloride 99, Carbon Dioxide 25.5, Anion Gap 12, BUN 10, Creatinine 0.82, Estim Creat Clear Calc 110.19, Est GFR (MDRD) Non-Af 99, BUN/Creatinine Ratio 12.7, Glucose 116 H, Calcium 9.7, Magnesium 1.9, Total Bilirubin 5.32 H, AST 77 H, ALT 109 H, Alkaline Phosphatase 340 H, Lactate Dehydrogenase 158, Total Protein 7.8, Albumin 4.0, Globulin 3.8, Albumin/Globulin Ratio 1.1, Lipase > 3000 H, TSH 1.130, Serum , Qual NEGATIVE 09/02/25 20:10: Urine Color Stephani, Urine Clarity Sl. Cloudy, Urine pH 8.0, Ur Specific [place] 1.015, Urine Protein 30 H, Urine Glucose (UA) Normal, Urine Ketones 5 H, Urine Occult Blood 25 H, Urine Nitrite Positive H, Urine Bilirubin 6 H, Urine Urobilinogen 8 H, Ur Leukocyte Esterase 25 H, Urine RBC 0-5 SEEN, Urine WBC 0-5 SEEN, Ur Squamous Epith Cells 10-25 SEEN, Urine Bacteria 3+, Urine Mucus 0 SEEN 09/03/25 04:35: WBC 10.6, RBC 3.96 L, Hgb 12.4, Hct 36.5 L, MCV 92.2, MCH 31.3, MCHC 34.0, RDW Std Deviation 44.0 H, RDW Coeff of [place] 12.8, Plt Count 278, MPV 9.4, Immature Gran % (Auto) 0.600, Neut % (Auto) 71.4 H, Lymph % (Auto) 17.5 L, [place] % (Auto) 9.2, Eos % (Auto) 0.9, Baso % (Auto) 0.4, Absolute Neuts (auto) 7.6, Absolute Lymphs (auto) 1.86, Nucleated RBC % 0, Sodium 136, Potassium 3.4, Chloride 102, Carbon Dioxide 23.9, Anion Gap 10, BUN 10, Creatinine 0.75, Estim Creat Clear Calc 116.01, Est GFR (MDRD) Non-Af 110, BUN/Creatinine Ratio 13.3, Glucose 110 H, Calcium 8.6, Phosphorus 3.1, Total Bilirubin 5.20 H, AST 68 H, ALT 89 H, Alkaline Phosphatase 306 H, Total Protein 6.3, Albumin 3.4 L, Globulin 2.9, Albumin/Globulin Ratio 1.1 Radiography Diagnostic Testing: Radiology Impression Gallbladder Ultrasound 09/02/25 18:10 IMPRESSION: 1. Cholelithiasis WITH signs of acute cholecystitis. 2. Dilated common bile duct, without an obstructing lesion seen. A stone in the distal CBD is not excluded. 3. Enlarged hyperechoic liver, suggesting hepatic steatosis, although other diffuse liver diseases can have this appearance. Reading Location: [facility] Abdomen/Pelvis CT 09/02/25 18:58 IMPRESSION: Findings consistent with acute cholecystitis with secondary biliary obstruction. Gallbladder wall thickening and pericholecystic inflammation with intrahepatic and extrahepatic ductal dilation. Common bile duct measures up to 11 mm. No radiopaque gallstones visualized on CT. Recommend correlation with liver function tests and further evaluation with ultrasound or MRCP to assess for possible non-calcified choledocholithiasis. Reading Location: [address] Physical Exam Const oriented x3 and no apparent distress Constitutional Narrative: Persistent jaundice Resp normal respiratory effort GI GI Narrative: Persistent right upper quadrant tenderness without Johnston sign. Assessment & Plan Assessment/Plan (1) Gallstone pancreatitis: PLAN: Patient is a 30-year-old female presenting with acute symptoms of abdominal pain and associated nausea and vomiting. She additionally describes some associated darkened urine and acholic stools. Workup is indeed confirmatory diagnoses of acute gallstone pancreatitis and acute cholecystitis. Underlying choledocholithiasis suspected. Patient pending admission for evaluation by gastroenterology for possible ERCP with stone clearance. In the interim recommend n.p.o., aggressive IV fluid resuscitation, IV antibiotics (given ductal obstruction), and trending of biochemistries. Surgery will continue to follow with serial abdominal exams and plan for same admission cholecystectomy once ductal obstruction is relieved and pancreatitis is improved. Tentatively anticipate procedure 09/06/2025. Patient is hospital day 2 for admission for gallstone pancreatitis with probable underlying choledocholithiasis and cholecystitis. She is symptomatically improved. There is modest improvement in her laboratories but largely they are simply stable. She is awaiting ERCP with GI later today. Pending the results of the procedure she may return to a diet for the weekend and will be monitored for her abdominal symptoms with serial abdominal exams. Still planning for laparoscopic cholecystectomy with cholangiography 09/06/2025. Patient will need to be n.p.o. past midnight the night prior. Please obtain necessary consent. Dr. Perez will be rounding in my absence this weekend. Fareed Huber MD General Surgery Endocrine Surgery Pager: [facility] [address] [place] [address], [facility], [address] [place] [address] Office: [phone] (2) Acute cholecystitis: Charges/Coding Visit Charges Inpatient E&M: 32963 Subs Hosp L2
--- NOTE | 2025-09-03 07:50 | PN.HOSP_ITS ---
Reason for Visit
--- NOTE | 2025-09-03 07:50 | PCM.PN.HOSP ---
Reason for Visit Chief Complaint: Abdominal Pain with Nausea and Vomiting. Subjective Subjective Still with abdominal pain but overall better. Objective Data Objective Data Vital Signs: Vital Signs Temp Pulse Resp BP Pulse Ox O2 Del Method 36.7 C 64 18 104/63 96 Room Air 09/03/25 03:23 09/03/25 03:23 09/03/25 03:23 09/03/25 03:23 09/03/25 07:30 09/03/25 07:30 Oxygen Delivery Method Room Air Weight: 82 kg Body Mass Index (BMI) 30.1 Intake & Output: Intake and Output for Last 24 Hours 09/01/25 09/02/25 09/03/25 23:59 23:59 23:59 Intake Total 1050 / 1050 587.5 / 587.5 Balance 1050 / 1050 587.5 / 587.5 Lab / Micro Data 09/03/25 04:35 09/03/25 04:35 Labs: Laboratory Results - last 24 hr 09/02/25 18:10: WBC 11.2 H, RBC 4.51, Hgb 14.0, Hct 41.4, MCV 91.8, MCH 31.0, MCHC 33.8, RDW Std Deviation 43.1, RDW Coeff of [place] 12.8, Plt Count 348, MPV 9.3, Immature Gran % (Auto) 0.700, Neut % (Auto) 69.5, Lymph % (Auto) 19.3, [place] % (Auto) 9.0, Eos % (Auto) 0.8, Baso % (Auto) 0.7, Absolute Neuts (auto) 7.8 H, Absolute Lymphs (auto) 2.17, Nucleated RBC % 0, Sodium 137, Potassium 4.0, Chloride 99, Carbon Dioxide 25.5, Anion Gap 12, BUN 10, Creatinine 0.82, Estim Creat Clear Calc 110.19, Est GFR (MDRD) Non-Af 99, BUN/Creatinine Ratio 12.7, Glucose 116 H, Calcium 9.7, Magnesium 1.9, Total Bilirubin 5.32 H, AST 77 H, ALT 109 H, Alkaline Phosphatase 340 H, Lactate Dehydrogenase 158, Total Protein 7.8, Albumin 4.0, Globulin 3.8, Albumin/Globulin Ratio 1.1, Lipase > 3000 H, TSH 1.130, Serum , Qual NEGATIVE 09/02/25 20:10: Urine Color Stephani, Urine Clarity Sl. Cloudy, Urine pH 8.0, Ur Specific [place] 1.015, Urine Protein 30 H, Urine Glucose (UA) Normal, Urine Ketones 5 H, Urine Occult Blood 25 H, Urine Nitrite Positive H, Urine Bilirubin 6 H, Urine Urobilinogen 8 H, Ur Leukocyte Esterase 25 H, Urine RBC 0-5 SEEN, Urine WBC 0-5 SEEN, Ur Squamous Epith Cells 10-25 SEEN, Urine Bacteria 3+, Urine Mucus 0 SEEN 09/03/25 04:35: WBC 10.6, RBC 3.96 L, Hgb 12.4, Hct 36.5 L, MCV 92.2, MCH 31.3, MCHC 34.0, RDW Std Deviation 44.0 H, RDW Coeff of [place] 12.8, Plt Count 278, MPV 9.4, Immature Gran % (Auto) 0.600, Neut % (Auto) 71.4 H, Lymph % (Auto) 17.5 L, [place] % (Auto) 9.2, Eos % (Auto) 0.9, Baso % (Auto) 0.4, Absolute Neuts (auto) 7.6, Absolute Lymphs (auto) 1.86, Nucleated RBC % 0, Sodium 136, Potassium 3.4, Chloride 102, Carbon Dioxide 23.9, Anion Gap 10, BUN 10, Creatinine 0.75, Estim Creat Clear Calc 116.01, Est GFR (MDRD) Non-Af 110, BUN/Creatinine Ratio 13.3, Glucose 110 H, Calcium 8.6, Phosphorus 3.1, Total Bilirubin 5.20 H, AST 68 H, ALT 89 H, Alkaline Phosphatase 306 H, Total Protein 6.3, Albumin 3.4 L, Globulin 2.9, Albumin/Globulin Ratio 1.1 Radiography Diagnostic Testing: Radiology Impression Gallbladder Ultrasound 09/02/25 18:10 IMPRESSION: 1. Cholelithiasis WITH signs of acute cholecystitis. 2. Dilated common bile duct, without an obstructing lesion seen. A stone in the distal CBD is not excluded. 3. Enlarged hyperechoic liver, suggesting hepatic steatosis, although other diffuse liver diseases can have this appearance. Reading Location: [id number] Abdomen/Pelvis CT 09/02/25 18:58 IMPRESSION: Findings consistent with acute cholecystitis with secondary biliary obstruction. Gallbladder wall thickening and pericholecystic inflammation with intrahepatic and extrahepatic ductal dilation. Common bile duct measures up to 11 mm. No radiopaque gallstones visualized on CT. Recommend correlation with liver function tests and further evaluation with ultrasound or MRCP to assess for possible non-calcified choledocholithiasis. Reading Location: [address] Physical Exam Const alert and no apparent distress HEENT head/scalp atraumatic and moist oral mucous membranes Resp normal respiratory effort, no retractions, no use of accessory muscles and clear to auscultation bilaterally Cardio regular rate, regular rhythm, S1 normal heart sound and S2 normal heart sound GI normal to inspection, nondistended, normoactive bowel sounds, soft to palpation, non-tender and non-distended Extremity normal to inspection and full ROM Neuro Sensorium / Orientation: awake and alert Assessment & Plan Assessment/Plan (1) Gallstone pancreatitis: (2) Acute cholecystitis: (3) Hyperbilirubinemia: (4) Transaminitis: (5) Leukocytosis: QUALIFIERS: Leukocytosis type: unspecified Qualified Code(s): D72.829 - Elevated white blood cell count, unspecified (6) Nausea and vomiting: QUALIFIERS: Vomiting type: bilious vomiting Qualified Code(s): R11.14 - Bilious vomiting (7) Abdominal pain: QUALIFIERS: Abdominal location: right upper quadrant Qualified Code(s): R10.11 - Right upper quadrant pain (8) Depression: QUALIFIERS: Depression Type: unspecified Qualified Code(s): F32.A - Depression, unspecified (9) Obesity (BMI 30.0-34.9): (10) Tobacco abuse: PLAN: Plan Acute Choledocholithiasis/cholecystitis/gallstone pancreatitis/transaminitis abx w pip/tazo NPO Gi for ERCP Consult General surgery send plan for laparoscopic cholecystectomy on the pain control. antiemetics. Chronic conditions: Depression with history of SI and violent behavior; on buspirone, trazodone and atomoxetine. Home meds on hold given current NPO status. Give hydroxyzine IM prn for breakthrough symptoms. Obesity (class I); with BMI of 30.2 Chronic tobacco Nicotine patch offered to control cravings. DVT/GI prophylaxis - SCD's only with impeding ERCP and possible cholecystectomy. Give pantoprazole 40 mg IV daily as outlined in #1. Charges/Coding Visit Charges Inpatient E&M: 99022 Subs Hosp L2
[2025-09-03] MEDS: 0.9% Normal Saline (1000mL) 1,000 ML 150 ML IV ×2 (08:08→16:46)
--- NOTE | 2025-09-03 12:58 | CASEMGMT ---
Social Work SW met with pt and completed social determinant of health screening. Pt states she has been living at [facility] for the past year. Pt plans to return there at time of dc. With pt permission, phone call to [facility] and updated that pt states she will likely remain in the hospital for the weekend but plans to return to [facility]. [facility] states they will hold pt's bed until pt is ready to return. Pt will likely need transportation arranged at time of discharge. Resources provided on transportation and food pantries/served meals. SW inquired about listing an emergency contact on pt's demographic sheet and pt gave permission for her mother Ruth Ann Florence to be listed. SW updated demographics. FUENTES Gutierrez
[2025-09-03] MEDS: 0.9% Normal Saline (1000mL) 1,000 ML 15 ML IV (13:42)
--- NOTE | 2025-09-03 13:50 | PCM.PRE.AN2 ---
ASA Classification* ASA Classification ASA Classification: 2 Assessment & Plan Anesthesia* Anesthesia Assessment Anesthesia Assessment: Discussed sedation and/or anesthesia options, risks, benefits, and alternatives with patient/parents/legal guardian/POA. Questions invited. The patient/parents/legal guardian/POA seems to understand and agrees to proceed with anesthesia plan. Reviewed the physical assessment, medical history, allergy history and patient home medications list prior to surgery/procedure/anesthetic and documented any changes. Performed airway and anesthesia risk assessments. Anesthesia Type Anesthesia Type: General History Source History Obtained from:: Patient and Chart Anesthesia Focused Assessment* Temperature: 98.4 F Pulse Rate: 67 Blood Pressure: 110/72 Respiratory Rate: 16 Pulse Ox: 98 Oxygen Delivery Method: Room Air Airway Assessment Mouth opens: >3 cm Mallampati Score: I Teeth Condition: Intact Neck Range of motion (ROM): Full ROM Labs Anesthesia Preop lab: CBC WBC, (4.4-11.0) 10.6 K/mm3 Today, 04:35 RBC, (4.2-5.4) 3.96 M/mm3 L Today, 04:35 Hgb, (12.0-15.0) 12.4 g/dL Today, 04:35 Hct, (37-47) 36.5 % L Today, 04:35 Plt Count, (150-450) 278 K/mm3 Today, 04:35 CHEMISTRY Potassium, (3.3-5.1) 3.4 mmol/L Today, 04:35 Sodium, (133-145) 136 mmol/L Today, 04:35 Magnesium, (1.5-2.2) 1.9 mg/dL 09/02/25, 18:10 Phosphorus, (2.7-4.5) 3.1 mg/dL Today, 04:35 BUN, (4-19) 10 mg/dL Today, 04:35 Creatinine, (0.70-1.20) 0.75 mg/dL Today, 04:35 Glucose, (70-99) 110 mg/dL H Today, 04:35 TSH, (0.300-4.200) 1.130 uIU/mL 09/02/25, 18:10 COAG HCG, Quant, (1-3) < 1 mIU/mL 02/15/20, 10:10 Pre-Assessment Diagnosis/Proposed Procedure Planned Operative Procedure(s): Endoscopic retrograde cholangiopancreatography with possible biopsy and possible sphincterotomy with stone removal. 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 When Was Last Pacemaker Check QUESTION #4 FULL TEXT: You/Your Family Experience fever (hyperthermia) with Anesthesia Last Oral Intake Last Oral intake: Last Oral Intake NPO since 00:00 09/03/25 12:05 Meds taken in AM with sips of No 09/03/25 12:05 water? Meds patient instructed to take am of surgery PONV PONV - spindle repairer: PONV - spindle repairer Female HX of Motion Sickness HX of N/V After Surgery Non-Smoker Duration of Surgery greater than 60 minutes Number of Risk Factors PONV Score Height & Weight Height & Weight: Anesthesia: Height & Weight Height 5 ft 4.96 in 09/03/25 12:35 Weight: 82 kg 09/03/25 12:35 Body Mass Index (BMI) 30.1 09/03/25 12:05 Respiratory Assessment Respiratory Assessment - spindle repairer: Respiratory Tract Infection Hx - spindle repairer Hx Respiratory Tract Infection No 09/03/25 00:47 STOP Sleep Apnea STOP Sleep Apnea - spindle repairer: STOP Sleep Apnea - spindle repairer Hx Hypertension No 09/02/25 23:23 Hx Sleep Apnea No 09/02/25 23:23 CPAP BIPAP Do you snore loudly (louder Yes 09/02/25 23:23 than talking or can be heard Do you often feel tired/ Yes 09/02/25 23:23 fatigued/ sleepy during daytime? Has anyone observed you stop Yes 09/02/25 23:23 breathing during sleep? STOP Results Positive 09/02/25 23:23 QUESTION #5 FULL TEXT : Do you snore loudly (louder than talking or can be heard through closed doors)? Tobacco Use History Tobacco Use History - spindle repairer: Tobacco Use History - spindle repairer Tobacco Use Cigarettes 03/24/21 23:14 Smoking Status Light Smoker (<10/day) 09/03/25 07:31 Hx Tobacco Use Yes 09/02/25 23:23 Years Smoking 13 09/02/25 23:23 Packs Smoked per Day 0.15 09/02/25 23:23 Smoking Cessation Date was within the last 15 years Hx Smoking Cessation Date Hx Smoking Cessation No 09/02/25 23:23 Counseling Hematologic Medial History Hematologic Hx - spindle repairer: Hematologic Medical Hx - director distribution Hx of Blood Transfusion No 09/02/25 23:23 Hx of Transfusion in last 3 No 09/02/25 23:23 Months Date of Last Transfusion (if within last 3 months) Ever experience any problems No 09/02/25 23:23 with transfusion(s)? Specify any problems Hx of Preganancy in last 3 No 09/02/25 23:23 Months Nurse Filling Out Transfusion EVIZZO 09/02/25 23:23 & Questions: Date: 09/02/25 09/02/25 23:23 Time: 23:41 09/02/25 23:23 Patient unable to answer at this time (ie. confused, unrespo /Reproduction History /Reproductive History - spindle repairer: /Reproductive Hx- spindle repairer Hx Now No 09/03/25 00:47 Gestational Age (in weeks): EDC: Hx Hx Para Hx Section SAB No 09/03/25 00:47 Active Medications Active Medications: Current Medications Generic Name Dose Route Start Last Admin Trade Name Freq PRN Reason Stop Dose Admin Clotrimazole 1 applic 09/03/25 00:36 09/03/25 08:09 Clotrimazole 1 Applic Tube TOPICAL 1 applic BID PRN PRN Administration PRURITIS Protocol Hydroxyzine HCl 50 mg 09/02/25 23:41 Hydroxyzine 50 Mg/Ml Vial IM Q12H PRN PRN AGITATION Sodium Chloride 1,000 mls @ 150 mls/hr 09/02/25 21:50 09/03/25 08:08 IV 09/03/25 17:49 150 mls/hr .[id number] HIPOLITO Administration Sodium Chloride 250 mls @ 15 mls/hr 09/02/25 23:24 IV .[id number] PRN Saline Flush Sodium Chloride 250 mls @ 15 mls/hr 09/02/25 23:24 IV .[id number] PRN Additional IVPB Infusion Pantoprazole Sodium 40 mg/ 100 mls @ 330 mls/hr 09/02/25 23:41 09/03/25 00:38 Sodium Chloride IV Infused 2200 HIPOLITO Infusion Piperacillin Sod/Tazobactam 50 mls @ 12.5 mls/hr 09/03/25 06:00 09/03/25 06:20 Sod 3.375 gm/ Sodium Chloride IV 12.5 mls/hr Q8 HIPOLITO Administration Sodium Chloride 1,000 mls @ 15 mls/hr 09/03/25 13:35 09/03/25 13:42 IV 15 mls/hr .Q48H HIPOLITO Administration Ketorolac Tromethamine 15 mg 09/02/25 23:41 09/03/25 00:11 Ketorolac 15 Mg/Ml Vial IV 09/07/25 23:42 15 mg Q8H PRN PRN Administration Pain 1-5/10 or Fever Morphine Sulfate 4 mg 09/02/25 23:41 09/03/25 04:12 Morphine 4 Mg/Ml Syringe IV 4 mg Q4H PRN PRN Administration Pain Score 6-10 Nicotine 14 mg 09/02/25 23:41 09/03/25 08:20 Nicotine (Pbkc) 14 Mg Patch TD Not Given DAILY HIPOLITO Ondansetron HCl 4 mg 09/02/25 23:41 Ondansetron 4 Mg/2 Ml Vial IV Q4H PRN PRN NAUSEA/VOMITING Promethazine HCl 12.5 mg 09/02/25 23:41 Promethazine 25 Mg/Ml Syringe IM Q4H PRN PRN BREAKTHROUGH NAUSEA Sodium Chloride 10 - 40 ml 09/02/25 23:24 09/03/25 04:12 0.9% Saline Lock 10 Ml Syringe IV 10 ml UD PRN Administration SALINE FLUSH PFSH Medical History Rhabdomyolysis Depression Irregular heart beat Home Medications ?Medication ?Instructions ?Recorded ?Last Taken ?Type aripiprazole 30 mg tablet 30 mg PO DAILY mental health 09/02/25 09/02/25 History atomoxetine 80 mg capsule 80 mg PO DAILY ADHD 09/02/25 09/02/25 History buspirone 10 mg tablet 10 mg PO TID anxiety/depression 09/02/25 09/02/25 History divalproex 250 mg tablet,delayed 250 mg PO BID mood stabilizer 09/02/25 09/02/25 History release miconazole nitrate 2 % topical 1 spray topical BID athlete's foot 09/03/25 09/02/25 History spray (Lotrimin AF) Allergy/AdvReac Type Severity Reaction Status Date / Time lorazepam Allergy Rash Verified 09/03/25 13:28 risperidone Allergy Other Verified 09/03/25 13:28 no surgical history Social History Smoking Status: Light Smoker (<10/day) Homelessness:: Sheltered Review of Systems (Anesthesia) ROS Narrative System reviewed and no additional complaints, except as documented.
--- NOTE | 2025-09-03 14:21 | EX.PCM.CON.G ---
HPI Consult Data Date of Consult: 09/03/25 HPI Narrative Reason for Consultation: Acute choledocholithiasis and acute cholecystitis along with pancreatitis HPI Narrative: BRADEN CANCHOLA, is a 30-year-old female presenting with acute abdominal pain, nausea, vomiting, and fever, likely due to?acute cholecystitis complicated by a secondary biliary obstruction and gallstone pancreatitis.?Her symptoms began with diffuse abdominal pain that localized to the right upper quadrant (RUQ), followed by nausea, bilious vomiting, and subjective fever.?Laboratory results show leukocytosis, a highly elevated lipase (>3K U/L), elevated total bilirubin (5.32 mg/dL), elevated transaminases (AST 77 U/L, ALT 109 U/L), and elevated alkaline phosphatase (340 U/L).?Imaging confirmed acute cholecystitis with gallbladder wall thickening, pericholecystic inflammation, a dilated common bile duct (CBD) of 11 mm, and dilated intrahepatic and extrahepatic ducts, consistent with a secondary biliary obstruction.? Labs: WBC: 11.2K (leukocytosis). Lipase: >3K U/L (highly elevated). Total Bilirubin: 5.32 mg/dL (hyperbilirubinemia). AST: 77 U/L (elevated). ALT: 109 U/L (elevated). Alkaline Phosphatase: 340 U/L (elevated). Imaging: CT Abdomen/Pelvis:?Findings consistent with acute cholecystitis, gallbladder wall thickening, pericholecystic inflammation, and secondary biliary obstruction with intrahepatic and extrahepatic ductal dilatation (CBD ~11 mm). GB Ultrasound:?Cholelithiasis (gallstones), signs of acute cholecystitis, and CBD dilatation [facility] Medical History Rhabdomyolysis Depression Irregular heart beat Home Medications ?Medication ?Instructions ?Recorded ?Last Taken ?Type aripiprazole 30 mg tablet 30 mg PO DAILY mental health 09/02/25 09/02/25 History atomoxetine 80 mg capsule 80 mg PO DAILY ADHD 09/02/25 09/02/25 History buspirone 10 mg tablet 10 mg PO TID anxiety/depression 09/02/25 09/02/25 History divalproex 250 mg tablet,delayed 250 mg PO BID mood stabilizer 09/02/25 09/02/25 History release miconazole nitrate 2 % topical 1 spray topical BID athlete's foot 09/03/25 09/02/25 History spray (Lotrimin AF) Allergy/AdvReac Type Severity Reaction Status Date / Time lorazepam Allergy Rash Verified 09/03/25 13:28 risperidone Allergy Other Verified 09/03/25 13:28 Surgical History no surgical history Social History Smoking Status: Light Smoker (<10/day) Homelessness:: Sheltered ROS ROS Narrative Review of Systems: Constitutional: Patient admits to subjective fever and chills. Eyes: Patient denies changes in vision or discharge from eyes. ENT: Patient denies runny nose, sore throat or ear pain. Resp: Patient denies SOB or cough. CV: Patient denies chest pain, palpitations, heart racing of LE edema. GI: Patient admits to abdominal pain radiating into RUQ with nausea, vomiting and bilious emesis as per HPI. : Patient denies dysuria or hematuria. MSK: Patient denies arthralgias or myalgias. Skin: Patient admits to jaundice but denies rash. Psych: Patient has chronic depression but she denies SI or HI. Neuro: Patient denies headache, paresthesias or focal neurologic deficits. Allergy: Patient denies lip swelling, tongue swelling or urticaria. Hematology: Patient denies easy bleeding or easy bruisability. Endocrinology: Patient denies polyuria, polydipsia, polyphagia or heat/cold intolerance. 14 point ROS otherwise negative except for positives noted above. Physical Exam Const alert and oriented x3 General Appearance: cooperative HEENT normocephalic, head/scalp atraumatic and hearing grossly normal bilaterally Eyes PERRL and EOMs intact bilaterally Eyes Narrative: Scleral icterus noted. Neck no lymphadenopathy, supple and no JVD Resp normal respiratory effort, no retractions, no use of accessory muscles and clear to auscultation bilaterally Cardio regular rate and regular rhythm GI soft to palpation and non-distended GI Narrative: RUQ TTP with normoactive bowel sounds. No guarding or rebound. Extremity normal to inspection, full ROM and no clubbing, cyanosis or edema Skin Skin Narrative: Patient has evidence of mild jaundice. Neuro oriented x3, CN's II-XII intact bilaterally, moves all extremities and no focal motor deficits Sensorium / Orientation: awake, alert, oriented to person, oriented to place and oriented to time Speech: speech normal Psych Mood & Affect: depressed Lab / Micro Data 09/03/25 04:35 09/03/25 04:35 Labs: Laboratory Results - last 24 hr 09/02/25 18:10: WBC 11.2 H, RBC 4.51, Hgb 14.0, Hct 41.4, MCV 91.8, MCH 31.0, MCHC 33.8, RDW Std Deviation 43.1, RDW Coeff of [place] 12.8, Plt Count 348, MPV 9.3, Immature Gran % (Auto) 0.700, Neut % (Auto) 69.5, Lymph % (Auto) 19.3, [place] % (Auto) 9.0, Eos % (Auto) 0.8, Baso % (Auto) 0.7, Absolute Neuts (auto) 7.8 H, Absolute Lymphs (auto) 2.17, Nucleated RBC % 0, Sodium 137, Potassium 4.0, Chloride 99, Carbon Dioxide 25.5, Anion Gap 12, BUN 10, Creatinine 0.82, Estim Creat Clear Calc 110.19, Est GFR (MDRD) Non-Af 99, BUN/Creatinine Ratio 12.7, Glucose 116 H, Calcium 9.7, Magnesium 1.9, Total Bilirubin 5.32 H, AST 77 H, ALT 109 H, Alkaline Phosphatase 340 H, Lactate Dehydrogenase 158, Total Protein 7.8, Albumin 4.0, Globulin 3.8, Albumin/Globulin Ratio 1.1, Lipase > 3000 H, TSH 1.130, Serum , Qual NEGATIVE 09/02/25 20:10: Urine Color Stephani, Urine Clarity Sl. Cloudy, Urine pH 8.0, Ur Specific [place] 1.015, Urine Protein 30 H, Urine Glucose (UA) Normal, Urine Ketones 5 H, Urine Occult Blood 25 H, Urine Nitrite Positive H, Urine Bilirubin 6 H, Urine Urobilinogen 8 H, Ur Leukocyte Esterase 25 H, Urine RBC 0-5 SEEN, Urine WBC 0-5 SEEN, Ur Squamous Epith Cells 10-25 SEEN, Urine Bacteria 3+, Urine Mucus 0 SEEN 09/03/25 04:35: WBC 10.6, RBC 3.96 L, Hgb 12.4, Hct 36.5 L, MCV 92.2, MCH 31.3, MCHC 34.0, RDW Std Deviation 44.0 H, RDW Coeff of [place] 12.8, Plt Count 278, MPV 9.4, Immature Gran % (Auto) 0.600, Neut % (Auto) 71.4 H, Lymph % (Auto) 17.5 L, [place] % (Auto) 9.2, Eos % (Auto) 0.9, Baso % (Auto) 0.4, Absolute Neuts (auto) 7.6, Absolute Lymphs (auto) 1.86, Nucleated RBC % 0, Sodium 136, Potassium 3.4, Chloride 102, Carbon Dioxide 23.9, Anion Gap 10, BUN 10, Creatinine 0.75, Estim Creat Clear Calc 116.01, Est GFR (MDRD) Non-Af 110, BUN/Creatinine Ratio 13.3, Glucose 110 H, Calcium 8.6, Phosphorus 3.1, Total Bilirubin 5.20 H, AST 68 H, ALT 89 H, Alkaline Phosphatase 306 H, Total Protein 6.3, Albumin 3.4 L, Globulin 2.9, Albumin/Globulin Ratio 1.1 Imaging Radiology Impression Gallbladder Ultrasound 09/02/25 18:10 IMPRESSION: 1. Cholelithiasis WITH signs of acute cholecystitis. 2. Dilated common bile duct, without an obstructing lesion seen. A stone in the distal CBD is not excluded. 3. Enlarged hyperechoic liver, suggesting hepatic steatosis, although other diffuse liver diseases can have this appearance. Reading Location: [facility] Abdomen/Pelvis CT 09/02/25 18:58 IMPRESSION: Findings consistent with acute cholecystitis with secondary biliary obstruction. Gallbladder wall thickening and pericholecystic inflammation with intrahepatic and extrahepatic ductal dilation. Common bile duct measures up to 11 mm. No radiopaque gallstones visualized on CT. Recommend correlation with liver function tests and further evaluation with ultrasound or MRCP to assess for possible non-calcified choledocholithiasis. Reading Location: [address] Assessment & Plan Assessment/Plan (1) Transaminitis: (2) Hyperbilirubinemia: (3) Leukocytosis: QUALIFIERS: Leukocytosis type: unspecified Qualified Code(s): D72.829 - Elevated white blood cell count, unspecified (4) Abdominal pain: QUALIFIERS: Abdominal location: right upper quadrant Qualified Code(s): R10.11 - Right upper quadrant pain (5) Nausea and vomiting: QUALIFIERS: Vomiting type: bilious vomiting Qualified Code(s): R11.14 - Bilious vomiting (6) Gallstone pancreatitis: (7) Acute cholecystitis: PLAN: Assessment Primary Diagnosis:?Acute Cholecystitis with Secondary Biliary Obstruction Secondary Diagnosis:?Acute Gallstone Pancreatitis Differential Diagnoses:?Other causes of acute abdominal pain should be considered, such as hepatitis, peptic ulcer disease, or appendicitis, though the imaging and lab findings strongly support the primary diagnoses Plan Admit:?For management of acute cholecystitis, biliary obstruction, and pancreatitis. Supportive Care:?IV fluids, pain control, and antiemetics. NPO:?Maintain nil per os (nothing by mouth) status. Further Management: General Surgery is consulted for cholecystectomy after stabilization. She will undergo ERCP. She was explained alternatives, risk and benefit including not withstanding bleeding, infection, sepsis, perforation, need for emergent urgent . She will have an ASA of 3. Charges/Coding Visit Charges Inpatient E&M: 07636 Init Hosp L3
--- NOTE | 2025-09-03 15:00 | RAD_ITS ---
PROCEDURE: RAD/ERCP Biliary Only
--- NOTE | 2025-09-03 15:27 | POSTOP.ANE_ITS ---
Anesthesia: Postop Eval I
--- NOTE | 2025-09-03 15:27 | PCM.POST.ANE ---
Anesthesia: Postop Eval I Current Vital Signs Temperature: 98.7 F Pulse Rate: 81 Blood Pressure: 101/60 Respiratory Rate: 18 Pulse Ox: 97 Assessment Airway patent: Yes Spontaneous unlabored respirations: Yes nausea: No Vomiting: No Anesthesia Complication: No Fluid Hydration Crystalloid volume administer (ml): 300 Total IV fluid infused: 300 Progress Note Anesthesia document: Postop Eval 1 completed: Yes
--- NOTE | 2025-09-03 15:30 | OP.ERCP_ITS ---
Patient Name: Jazzy Florence
--- NOTE | 2025-09-03 19:30 | POSTOPAN2_ITS ---
Anesthesia Postop Eval I Sum
--- NOTE | 2025-09-03 19:30 | PCM.POSTANE2 ---
Anesthesia Postop Eval I Sum Postop Eval Completion status Anesthesia document: Postop Eval 1 completed: Yes Anesthesia Postop Eval I Summary Anesthesia Postop Eval I Summary: Anesthesia Postop Eval I: Assessment Summary Airway patent Yes 09/03/25 15:27 RAKING MACHINE OPERATOR.CSIR Spontaneous unlabored Yes 09/03/25 15:27 RAKING MACHINE OPERATOR.CSIR respirations Mental status nausea No 09/03/25 15:27 RAKING MACHINE OPERATOR.CSIR Vomiting No 09/03/25 15:27 RAKING MACHINE OPERATOR.CSIR Anesthesia Postop Eval I: Fluid Summary Crystalloid volume administer 300 09/03/25 15:27 RAKING MACHINE OPERATOR.CSIR (ml) Colloids volume administered ( ml) Blood Product volume administered (ml) Total IV fluid infused 300 09/03/25 15:27 RAKING MACHINE OPERATOR.CSIR Anesthesia Postop Eval I: Summary Notes Anesthesia Complication No 09/03/25 15:27 RAKING MACHINE OPERATOR.CSIR Anesthesia Complication Comment: Post-operative progress note Anesthesia: Postop Eval II Evaluation Mental status: Awake and Calm Pain Level: 1 nausea: No Vomiting: No Complications Anesthesia Complication: No
--- NOTE | 2025-09-03 20:35 | NURSING ---
Pt mother Ruth Ann came to visit. Pt started to scream at her and yelling You killed my grandmother.Pt screaming. Code violent called. Mother Ruth Ann asked to leave. Dr atwood ordered haldol.
[2025-09-04 02:35] VITALS: BP 106/59; PULSE 84; RESP 16; TEMP 36.8; O2SAT 100
[2025-09-04] MEDS: 0.9% Saline Lock 10 ML Syringe IV ×3 (02:38→14:26)
[2025-09-04] MEDS: Nicotine (PBKC) 14 MG Patch TD (02:39)
[2025-09-04] MEDS: Piperacil/Tazobactam 3.375 GM in 0.9% Normal Saline (50mL MB+) 50 ML IV ×3 (05:46→22:02)
[2025-09-04 05:49] LABS: Hematocrit 35.1 % (37-47); Hemoglobin 12.0 g/dL (12.0-15.0); Immature Granulocytes Count 0.080 X10^3/uL (0.0-0.0); Mean Corp Hgb Conc 34.2 g/dL (32-36); Mean Corpuscular Volume 90.7 fL (81-99); Mean Platelet Vol. 9.3 fl (6.2-12.0); NRBC Flagged by Analyzer 0 % (0-5); Platelet Count 269 K/mm3 (150-450); RBC Distribution Width CV 12.9 % (11.6-14.6); RBC Distribution Width SD 42.6 fl (35.1-43.9); Red Blood Count 3.87 M/mm3 (4.2-5.4); White Blood Count 11.5 K/mm3 (4.4-11.0)
[2025-09-04 06:00] VITALS: BMI 31.6
[2025-09-04 06:29] LABS: AST(SGOT) 48 U/L (<=31); Alanine Aminotransfer ALT/SGPT 68 U/L (<=34); Albumin, Serum 3.2 g/dL (3.5-5.0); Alkaline Phosphatase 304 U/L (35-104); Anion Gap 10 (5-15); BUN 8 mg/dL (4-19); BUN/Creat Ratio 10.0 RATIO (10-20); Calcium,Total 8.9 mg/dL (7.6-11.0); Carbon Dioxide 22.5 mmol/L (21.0-32.0); Chloride 106 mmol/L (98-108); Estimated Creatinine Clearance 111.91 ml/min (50-250); Globulin 2.9 g/dL (2.2-4.2); Glucose 132 mg/dL (70-99); Potassium 3.5 mmol/L (3.3-5.1)
[2025-09-04 07:11] VITALS: O2SAT 95
--- NOTE | 2025-09-04 08:06 | PN.HOSP_ITS ---
Reason for Visit
--- NOTE | 2025-09-04 08:06 | PCM.PN.HOSP ---
Reason for Visit Chief Complaint: Abdominal Pain with Nausea and Vomiting. Subjective Subjective Feeling better but still having some abdominal pain. Objective Data Objective Data Vital Signs: Vital Signs Temp Pulse Resp BP Pulse Ox O2 Del Method 36.8 C 84 16 106/59 L 100 Room Air 09/04/25 02:35 09/04/25 02:35 09/04/25 02:35 09/04/25 02:35 09/04/25 02:35 09/04/25 02:35 Oxygen Delivery Method Room Air Weight: 86 kg Body Mass Index (BMI) 31.6 Intake & Output: Intake and Output for Last 24 Hours 09/02/25 09/03/25 09/04/25 23:59 23:59 23:59 Intake Total 1050 / 1050 3890.0 / 3890.0 Balance 1050 / 1050 3890.0 / 3890.0 Lab / Micro Data 09/04/25 05:38 09/04/25 05:38 Labs: Laboratory Results - last 24 hr 09/04/25 05:38: WBC 11.5 H, RBC 3.87 L, Hgb 12.0, Hct 35.1 L, MCV 90.7, MCH 31.0, MCHC 34.2, RDW Std Deviation 42.6, RDW Coeff of [place] 12.9, Plt Count 269, MPV 9.3, Immature Gran % (Auto) 0.700, Neut % (Auto) 70.1 H, Lymph % (Auto) 20.3, [place] % (Auto) 8.3, Eos % (Auto) 0.3, Baso % (Auto) 0.3, Absolute Neuts (auto) 8.1 H, Absolute Lymphs (auto) 2.34, Nucleated RBC % 0, Sodium 138, Potassium 3.5, Chloride 106, Carbon Dioxide 22.5, Anion Gap 10, BUN 8, Creatinine 0.78, Estim Creat Clear Calc 111.91, Est GFR (MDRD) Non-Af 105, BUN/Creatinine Ratio 10.0, Glucose 132 H, Calcium 8.9, Phosphorus 2.2 L, Total Bilirubin 3.78 H, AST 48 H, ALT 68 H, Alkaline Phosphatase 304 H, Total Protein 6.1, Albumin 3.2 L, Globulin 2.9, Albumin/Globulin Ratio 1.1 Radiography Diagnostic Testing: Radiology Impression ERCP X-Ray 09/03/25 15:00 IMPRESSION: Multiple filling defects within the gallbladder, cystic duct, and common bile duct, likely representing stones. Some of these filling defects could represent air bubbles. Reading Location: [id number] Social Homelessness:: Sheltered Physical Exam Const alert and no apparent distress HEENT head/scalp atraumatic and moist oral mucous membranes Resp normal respiratory effort, no retractions, no use of accessory muscles and clear to auscultation bilaterally Cardio regular rate, regular rhythm, S1 normal heart sound and S2 normal heart sound GI normal to inspection, nondistended, normoactive bowel sounds and soft to palpation GI Narrative: Slight tenderness right upper quadrant. Assessment & Plan Assessment/Plan (1) Gallstone pancreatitis: (2) Acute cholecystitis: (3) Hyperbilirubinemia: (4) Transaminitis: (5) Leukocytosis: QUALIFIERS: Leukocytosis type: unspecified Qualified Code(s): D72.829 - Elevated white blood cell count, unspecified (6) Nausea and vomiting: QUALIFIERS: Vomiting type: bilious vomiting Qualified Code(s): R11.14 - Bilious vomiting (7) Abdominal pain: QUALIFIERS: Abdominal location: right upper quadrant Qualified Code(s): R10.11 - Right upper quadrant pain (8) Depression: QUALIFIERS: Depression Type: unspecified Qualified Code(s): F32.A - Depression, unspecified (9) Obesity (BMI 30.0-34.9): (10) Tobacco abuse: PLAN: Plan Acute Choledocholithiasis/cholecystitis/gallstone pancreatitis/transaminitis Clinically improved status post ERCP. abx w pip/tazo regular diet ERCP performed on 09/04. Choledocholithiasis noted. Sphincterotomy and balloon extraction performed. General surgery following and plan for laparoscopic cholecystectomy on the continue pain control. antiemetics. Chronic conditions: Depression with history of SI and violent behavior; on buspirone, trazodone and atomoxetine. Home meds on hold given current NPO status. Give hydroxyzine IM prn for breakthrough symptoms. Obesity (class I); with BMI of 30.2 Chronic tobacco Nicotine patch offered to control cravings. DVT/GI prophylaxis - SCD's only with impeding ERCP and possible cholecystectomy. Give pantoprazole 40 mg IV daily as outlined in #1. Charges/Coding Visit Charges Inpatient E&M: 41787 Subs Hosp L2
[2025-09-04 08:39] VITALS: BP 104/50; PULSE 68; RESP 16; TEMP 36.6; O2SAT 98
--- NOTE | 2025-09-04 10:34 | NURSING ---
pt cooperative. upon entering room to give pt benadryl, pt puts something under her covers, inquired as to what pt had, pt states its a wand, do you want to see it? pt then pulls out a brown irregular wooden looking device that is about thigh length and looks similar to a wand. pt shares where she got it from. pt tv is on with [place] in which pt states she is watching. Notified HRO Neel of above.
--- NOTE | 2025-09-04 13:34 | PCM.PN.SRG ---
Subjective Subjective Patient seen and evaluated on rounds. Patient still having abdominal discomfort/pain, but this is improving since ERCP performed yesterday. Obstructing stone was able to be evacuated. Bilirubin still elevated but decreasing Objective Data Objective Data Vital Signs: Vital Signs Temp Pulse Resp BP Pulse Ox O2 Del Method 97.8 F 68 16 104/50 L 98 Room Air 09/04/25 08:39 09/04/25 08:39 09/04/25 08:39 09/04/25 08:39 09/04/25 08:39 09/04/25 08:39 Oxygen Delivery Method Room Air Weight: 189 lb 9.561 oz Body Mass Index (BMI) 31.6 Intake & Output: Intake and Output for Last 24 Hours 09/02/25 09/03/25 09/04/25 23:59 23:59 23:59 Intake Total 1050 / 1050 3890.0 / 3890.0 100.00 / 100.00 Balance 1050 / 1050 3890.0 / 3890.0 100.00 / 100.00 Lab / Micro Data 09/04/25 05:38 09/04/25 05:38 Labs: Laboratory Results - last 24 hr 09/04/25 05:38: WBC 11.5 H, RBC 3.87 L, Hgb 12.0, Hct 35.1 L, MCV 90.7, MCH 31.0, MCHC 34.2, RDW Std Deviation 42.6, RDW Coeff of [place] 12.9, Plt Count 269, MPV 9.3, Immature Gran % (Auto) 0.700, Neut % (Auto) 70.1 H, Lymph % (Auto) 20.3, [place] % (Auto) 8.3, Eos % (Auto) 0.3, Baso % (Auto) 0.3, Absolute Neuts (auto) 8.1 H, Absolute Lymphs (auto) 2.34, Nucleated RBC % 0, Sodium 138, Potassium 3.5, Chloride 106, Carbon Dioxide 22.5, Anion Gap 10, BUN 8, Creatinine 0.78, Estim Creat Clear Calc 111.91, Est GFR (MDRD) Non-Af 105, BUN/Creatinine Ratio 10.0, Glucose 132 H, Calcium 8.9, Phosphorus 2.2 L, Total Bilirubin 3.78 H, AST 48 H, ALT 68 H, Alkaline Phosphatase 304 H, Total Protein 6.1, Albumin 3.2 L, Globulin 2.9, Albumin/Globulin Ratio 1.1 Radiography Diagnostic Testing: Radiology Impression ERCP X-Ray 09/03/25 15:00 IMPRESSION: Multiple filling defects within the gallbladder, cystic duct, and common bile duct, likely representing stones. Some of these filling defects could represent air bubbles. Reading Location: [id number] Social Homelessness:: Sheltered Physical Exam Narrative She is alert and oriented x 3. No acute distress. She requested that I not examine her abdomen today secondary to discomfort. Assessment & Plan Assessment/Plan (1) Hyperbilirubinemia: (2) Gallstone pancreatitis: PLAN: Plan The patient is a 30-year-old female admitted with gallstone pancreatitis/choledocholithiasis/acute cholecystitis ERCP was performed yesterday to evacuate the obstructing common bile duct stone. LFTs decreasing appropriately. Amylase lipase not checked today Recommend continued decompression and anticipate cholecystectomy on Saturday with Dr. Huber.. Charges/Coding Visit Charges Inpatient E&M: 49095 Subs Hosp L3
[2025-09-04 14:16] VITALS: BP 111/63; PULSE 72; RESP 16; TEMP 36.6; O2SAT 98
[2025-09-04] MEDS: Clotrimazole 1 APPLIC Tube TOPICAL (16:09)
--- NOTE | 2025-09-04 20:56 | PCM.PN.BLA ---
Progress Note 30-year-old female presenting status-post Endoscopic Retrograde Cholangiopancreatography (ERCP) yesterday for choledocholithiasis and gallstone pancreatitis. Chief Complaint (CC):?Post-procedure abdominal pain. History of Present Illness (HPI):?Patient states pain was a 10 out of 10 prior to ERCP and is currently a 5 out of 10. Reports pain is dull and located in the right upper quadrant. It is improved but still present. Diet:?Tolerating a regular diet. Associated Symptoms:?Denies fever, chills, excessive nausea, vomiting, or bloody stools. Reports a mild, resolving sore throat, which is expected after the procedure. Physical Exam Const alert and no apparent distress HEENT head/scalp atraumatic and moist oral mucous membranes Resp normal respiratory effort, no retractions, no use of accessory muscles and clear to auscultation bilaterally Cardio regular rate, regular rhythm, S1 normal heart sound and S2 normal heart sound GI normal to inspection, nondistended, normoactive bowel sounds and soft to palpation GI Narrative: Slight tenderness right upper quadrant. Assessment & Plan Assessment/Plan (1) Transaminitis: (2) Hyperbilirubinemia: (3) Nausea and vomiting: QUALIFIERS: Vomiting type: bilious vomiting Qualified Code(s): R11.14 - Bilious vomiting (4) Gallstone pancreatitis: (5) Choledocholithiasis: PLAN: 30-year-old woman with a history of gallstone pancreatitis and choledocholithiasis, status post-ERCP with stone extraction yesterday. The patient is recovering well, with significant improvement in her abdominal pain since the procedure. Pain is consistent with post-ERCP inflammation of the pancreas, which is a common complication. The improving LFTs indicate that the biliary obstruction has been successfully resolved by the ERCP. She is progressing clinically with tolerance of oral intake and decreasing pain, suggesting that the pancreatitis is also resolving. Plan Pain Management:?Continue with current pain regimen. Encourage regular pain medication to stay ahead of the pain. Diet:?Advance diet as tolerated. Encourage adequate fluid intake. Monitoring:?Monitor for worsening abdominal pain, fever, nausea, or vomiting. Educate the patient on warning signs and symptoms of potential complications, such as a worsening pancreatitis, cholangitis, or perforation. Next Steps: She is scheduled for cholecystectomy on 09/06/2025. This is the definitive treatment for gallstone pancreatitis. Visit Charges Inpatient E&M: 85117 [facility] Hosp L3
[2025-09-04 21:09] VITALS: BP 103/52; PULSE 63; RESP 16; TEMP 36.9; O2SAT 99
[2025-09-04] MEDS: Pantoprazole Sodium 40 MG in 0.9% Normal Saline (100mL MB+) 100 ML 330 MG IV (21:21)
[2025-09-05 01:42] VITALS: BP 103/64; PULSE 58; RESP 16; TEMP 36.7; O2SAT 100
[2025-09-05] MEDS: Clotrimazole 1 APPLIC Tube TOPICAL (01:46)
[2025-09-05 05:50] VITALS: BMI 31.7
[2025-09-05] MEDS: 0.9% Normal Saline (250mL Bag) 250 ML 15 ML IV (06:53)
[2025-09-05] MEDS: Piperacil/Tazobactam 3.375 GM in 0.9% Normal Saline (50mL MB+) 50 ML IV ×3 (06:53→22:21)
--- NOTE | 2025-09-05 07:56 | PN.HOSP_ITS ---
Reason for Visit
--- NOTE | 2025-09-05 07:56 | PCM.PN.HOSP ---
Reason for Visit Chief Complaint: Abdominal Pain with Nausea and Vomiting. Subjective Subjective Has been declining her psych meds. Accusing aide of lying. Objective Data Objective Data Vital Signs: Vital Signs Temp Pulse Resp BP Pulse Ox O2 Del Method 36.7 C 58 L 16 103/64 100 Room Air 09/05/25 01:42 09/05/25 01:42 09/05/25 01:42 09/05/25 01:42 09/05/25 01:42 09/05/25 01:42 Oxygen Delivery Method Room Air Weight: 86.5 kg Body Mass Index (BMI) 31.7 Intake & Output: Intake and Output for Last 24 Hours 09/03/25 09/04/25 09/05/25 23:59 23:59 23:59 Intake Total 3890.0 / 3890.0 1114.50 / 1114.50 50 / 50 Balance 3890.0 / 3890.0 1114.50 / 1114.50 50 / 50 Lab / Micro Data 09/04/25 05:38 09/04/25 05:38 Social Homelessness:: Sheltered Physical Exam Const alert and no apparent distress Constitutional Narrative: seemed bothered by my presence, state that she was eating and dropped her tray on her bedside table when I was speaking with her. flat affect. minimal eye contact. HEENT head/scalp atraumatic and moist oral mucous membranes Resp normal respiratory effort, no retractions, no use of accessory muscles and clear to auscultation bilaterally Cardio regular rate, regular rhythm, S1 normal heart sound and S2 normal heart sound Neuro Sensorium / Orientation: awake Assessment & Plan Assessment/Plan (1) Gallstone pancreatitis: (2) Acute cholecystitis: (3) Hyperbilirubinemia: (4) Transaminitis: PLAN: Plan Acute Choledocholithiasis/cholecystitis/gallstone pancreatitis/transaminitis Clinically improved status post ERCP. abx w pip/tazo regular diet ERCP performed on 09/04. Choledocholithiasis noted. Sphincterotomy and balloon extraction performed. General surgery following and plan for laparoscopic cholecystectomy on the continue pain control (added oxycodone PRN now currently taking oral). antiemetics. Depression with history of SI and violent behavior; on buspirone, trazodone and atomoxetine. Home meds on hold given current NPO status. Give hydroxyzine IM prn for breakthrough symptoms. Currently, declining her psychiatric medications. Becoming angry at an aide and accusing the aide of lying. I discussed the patient's RN and lithopone charger. Given her history of violent behavior, declining her medications, increasing agitation; we all agreed that it would be best to remove the sharps box from her room and no further metal utensils (I also recommended against plastic utensils given that they could be snap and be more readily used as a sharp weapon). If condition continues to escalate, we may need to consdier crisis evaluation. Thus far, deescalation tactics are being implemented. Chronic medical conditions: Obesity (class I); with BMI of 30.2 Chronic tobacco Nicotine patch offered to control cravings. DVT/GI prophylaxis - SCD's only with impeding ERCP and possible cholecystectomy. Give pantoprazole 40 mg IV daily as outlined in #1. Charges/Coding Visit Charges Inpatient E&M: 34475 Subs Hosp L2
[2025-09-05 08:37] VITALS: BP 104/62; PULSE 70; RESP 16; TEMP 36.7; O2SAT 98
--- NOTE | 2025-09-05 10:02 | NURSING ---
pt argumentative with said nurse. second meal tray ordered for pt as pt states she feels my food is poisoned. Dr. Vasquez aware and in to see pt. Security/HRO on unit.
--- NOTE | 2025-09-05 10:08 | NURSING ---
new breakfast tray taken into room. pt makes eye contact and gives nurse thumbs up , pt laying in bed with headphones in.
--- NOTE | 2025-09-05 11:45 | PCM.PN.SRG ---
Subjective Subjective Patient seen and evaluated on rounds this morning. She has no new issues or complaints. Still complaining of abdominal discomfort but this seems to be improving Objective Data Objective Data Vital Signs: Vital Signs Temp Pulse Resp BP Pulse Ox O2 Del Method 98.0 F 70 16 104/62 98 Room Air 09/05/25 08:37 09/05/25 08:37 09/05/25 08:37 09/05/25 08:37 09/05/25 08:37 09/05/25 08:37 Oxygen Delivery Method Room Air Weight: 190 lb 11.198 oz Body Mass Index (BMI) 31.7 Intake & Output: Intake and Output for Last 24 Hours 09/03/25 09/04/25 09/05/25 23:59 23:59 23:59 Intake Total 3890.0 / 3890.0 1114.50 / 1114.50 100 / 100 Balance 3890.0 / 3890.0 1114.50 / 1114.50 100 / 100 Lab / Micro Data 09/04/25 05:38 09/04/25 05:38 Social Homelessness:: Sheltered Physical Exam Const oriented x3 and no apparent distress Assessment & Plan Assessment/Plan (1) Gallstone pancreatitis: PLAN: Plan The patient is a 30-year-old female admitted with gallstone pancreatitis/choledocholithiasis/acute cholecystitis ERCP was performed to evacuate the obstructing common bile duct stone. LFTs decreasing appropriately. Amylase lipase not checked today Recommend continued decompression and anticipate cholecystectomy on Saturday with Dr. Huber. NPO after midnight tonight Charges/Coding Visit Charges Inpatient E&M: 37263 Subs Hosp L3
[2025-09-05] MEDS: 0.9% Saline Lock 10 ML Syringe IV ×2 (12:23→14:26)
[2025-09-05 14:32] VITALS: BP 109/79; PULSE 70; RESP 17; TEMP 36.7; O2SAT 97
[2025-09-05 19:48] VITALS: BP 99/51; PULSE 53; RESP 16; TEMP 36.8; O2SAT 98
[2025-09-05] MEDS: Pantoprazole Sodium 40 MG in 0.9% Normal Saline (100mL MB+) 100 ML 330 MG IV (20:02)
[2025-09-06] VITALS (14 sets, daily range): BP systolic 95–135; BP diastolic 41–90; PULSE 59–100; RESP 16–20; TEMP 36.3–37.3; O2SAT 94–100; BMI 31.3; BMI 31.7
[2025-09-06] MEDS: 0.9% Saline Lock 10 ML Syringe IV (05:34)
[2025-09-06] MEDS: Piperacil/Tazobactam 3.375 GM in 0.9% Normal Saline (50mL MB+) 50 ML IV ×3 (05:35→22:52)
[2025-09-06] MEDS: Nicotine (PBKC) 14 MG Patch TD (08:15)
[2025-09-06 08:17] LABS: Hematocrit 39.6 % (37-47); Hemoglobin 13.4 g/dL (12.0-15.0); Immature Granulocytes Count 0.100 X10^3/uL (0.0-0.0); Mean Corp Hgb Conc 33.8 g/dL (32-36); Mean Corpuscular Volume 91.2 fL (81-99); Mean Platelet Vol. 9.3 fl (6.2-12.0); NRBC Flagged by Analyzer 0 % (0-5); Platelet Count 322 K/mm3 (150-450); RBC Distribution Width CV 12.7 % (11.6-14.6); RBC Distribution Width SD 42.7 fl (35.1-43.9); Red Blood Count 4.34 M/mm3 (4.2-5.4); White Blood Count 9.5 K/mm3 (4.4-11.0)
[2025-09-06 08:35] LABS: Anion Gap 11 (5-15); BUN 13 mg/dL (4-19); BUN/Creat Ratio 15.7 RATIO (10-20); Calcium,Total 9.1 mg/dL (7.6-11.0); Carbon Dioxide 22.9 mmol/L (21.0-32.0); Chloride 103 mmol/L (98-108); Estimated Creatinine Clearance 104.73 ml/min (50-250); Glucose 106 mg/dL (70-99); Potassium 4.4 mmol/L (3.3-5.1)
--- NOTE | 2025-09-06 09:29 | PN.HOSP_ITS ---
Reason for Visit
--- NOTE | 2025-09-06 09:29 | PCM.PN.HOSP ---
Reason for Visit Chief Complaint: Abdominal Pain with Nausea and Vomiting. Subjective Subjective Patient is a 30-year-old lady who presented with right upper quadrant abdominal pain and assessment of acute Choledocholithiasis/cholecystitis/gallstone pancreatitis/transaminitis admitted to regular nursing floor for further management Objective Data Objective Data Vital Signs: Vital Signs Temp Pulse Resp BP Pulse Ox O2 Del Method 98.0 F 61 16 99/65 98 Room Air 09/06/25 06:50 09/06/25 06:50 09/06/25 06:50 09/06/25 06:50 09/06/25 06:50 09/06/25 08:19 Oxygen Delivery Method Room Air Weight: 85.3 kg Body Mass Index (BMI) 31.3 Intake & Output: Intake and Output for Last 24 Hours 09/04/25 09/05/25 09/06/25 23:59 23:59 23:59 Intake Total 1114.50 / 1114.50 601.5 / 601.5 192.5 / 192.5 Output Total Balance 1114.50 / 1114.50 576.5 / 576.5 192.5 / 192.5 Lab / Micro Data 09/06/25 07:56 09/06/25 07:56 Labs: Laboratory Results - last 24 hr 09/06/25 07:56: WBC 9.5, RBC 4.34, Hgb 13.4, Hct 39.6, MCV 91.2, MCH 30.9, MCHC 33.8, RDW Std Deviation 42.7, RDW Coeff of [place] 12.7, Plt Count 322, MPV 9.3, Immature Gran % (Auto) 1.100 H, Neut % (Auto) 61.6, Lymph % (Auto) 26.6, Payne % (Auto) 7.2, Eos % (Auto) 2.6, Baso % (Auto) 0.9, Absolute Neuts (auto) 5.9, Absolute Lymphs (auto) 2.53, Nucleated RBC % 0, Sodium 137, Potassium 4.4, Chloride 103, Carbon Dioxide 22.9, Anion Gap 11, BUN 13, Creatinine 0.83, Estim Creat Clear Calc 104.73, Est GFR (MDRD) Non-Af 97, BUN/Creatinine Ratio 15.7, Glucose 106 H, Calcium 9.1 Social Homelessness:: Sheltered Physical Exam Narrative GENERAL: cooperative HEENT: Atraumatic; normocephalic EYES; Anicteric, Normal Conjunctiva NECK; supple, normal thyroid, RESPIRATORY: Diminished to auscultation CARDIOVASCULAR: Regular S1 S2, GI: Right upper quadrant tenderness : No Renal angle tenderness; EXTREMITIES: No edema, no clubbing, MUSCULOSKELETAL: no muscle wasting NEURO: Awake; no lateralizing signs. SKIN: No Rash PSYCH; Flat affect Assessment & Plan Assessment/Plan (1) Gallstone pancreatitis: (2) Acute cholecystitis: (3) Hyperbilirubinemia: (4) Transaminitis: PLAN: Plan Patient is a 30-year-old lady who presented with right upper quadrant abdominal pain and assessment of acute Choledocholithiasis/cholecystitis/gallstone pancreatitis/transaminitis admitted to regular nursing floor for further management 1. Choledocholithiasis with cholecystitis ? Patient underwent ERCP on 09/04. Choledocholithiasis noted. Sphincterotomy and balloon extraction performed. . Patient remains on broad-spectrum antibiotic therapy consult placed to general surgery plan is for patient to undergo laparoscopic cholecystectomy on 09/06/2025 2. Depression with history of suicidal ideation violent behavior ? Patient was cooperative this a.m. at the time of my assessment 3. Tobacco dependence ? Counseled on cessation, offered nicotine patch for tobacco cravings 4. Class I obesity with BMI of 31.1 ? Weight loss advised 5. DVT prophylaxis ? Low risk to encourage daily ablation Time spent in the patient's overall evaluation,decision-making process, review of diagnostic data, adjustment of management, discussion with other providers, nursing nursing and ancillary staff involved in patient's care documentation, 36 Minutes Charges/Coding Visit Charges Inpatient E&M: 01866 Subs Hosp L2
--- NOTE | 2025-09-06 13:45 | RAD_ITS ---
PROCEDURE: RAD/Cholangiogram/ O R,Initial
[2025-09-06] MEDS: 0.9% Normal Saline (1000mL) 1,000 ML 15 ML IV ×2 (14:03→19:45)
--- NOTE | 2025-09-06 14:13 | PCM.PRE.AN2 ---
ASA Classification* ASA Classification ASA Classification: 2 Assessment & Plan Anesthesia* Anesthesia Assessment Anesthesia Assessment: Discussed sedation and/or anesthesia options, risks, benefits, and alternatives with patient/parents/legal guardian/POA. Questions invited. The patient/parents/legal guardian/POA seems to understand and agrees to proceed with anesthesia plan. Reviewed the physical assessment, medical history, allergy history and patient home medications list prior to surgery/procedure/anesthetic and documented any changes. Performed airway and anesthesia risk assessments. Anesthesia Type Anesthesia Type: General History Source History Obtained from:: Patient and Chart Anesthesia Focused Assessment* Temperature: 97.9 F Pulse Rate: 62 Blood Pressure: 97/57 Respiratory Rate: 16 Pulse Ox: 98 Oxygen Delivery Method: Room Air Airway Assessment Mouth opens: >3 cm Mallampati Score: I Teeth Condition: Intact Neck Range of motion (ROM): Full ROM Labs Anesthesia Preop lab: CBC WBC, (4.4-11.0) 9.5 K/mm3 Today, 07:56 RBC, (4.2-5.4) 4.34 M/mm3 Today, 07:56 Hgb, (12.0-15.0) 13.4 g/dL Today, 07:56 Hct, (37-47) 39.6 % Today, 07:56 Plt Count, (150-450) 322 K/mm3 Today, 07:56 CHEMISTRY Potassium, (3.3-5.1) 4.4 mmol/L Today, 07:56 Sodium, (133-145) 137 mmol/L Today, 07:56 Magnesium, (1.5-2.2) 1.9 mg/dL 09/02/25, 18:10 Phosphorus, (2.7-4.5) 2.2 mg/dL L 09/04/25, 05:38 BUN, (4-19) 13 mg/dL Today, 07:56 Creatinine, (0.70-1.20) 0.83 mg/dL Today, 07:56 Glucose, (70-99) 106 mg/dL H Today, 07:56 TSH, (0.300-4.200) 1.130 uIU/mL 09/02/25, 18:10 COAG HCG, Quant, (1-3) < 1 mIU/mL 02/15/20, 10:10 Pre-Assessment Diagnosis/Proposed Procedure Planned Operative Procedure(s): Laparoscopic cholecystectomy with intraoperative cholangiograms. Anesthesia History Anesthesia History - corrugator: Anesthesia History - corrugator Hx Hospitalization No 03/01/21 15:25 Any Problems With Anesthesia No 09/03/25 00:47 Cholinesterase deficiency No 09/03/25 00:47 You/Your Family Experience No 09/03/25 00:47 fever (hyperthermia) with Relationship Recent Exposure to Contagious No 09/03/25 00:47 Disease Does patient have nerve No 09/03/25 00:47 stimulator Patient instructed to have device shut off --Does patient have Pacemaker No 09/06/25 13:43 or ICD? When Was Last Pacemaker Check QUESTION #4 FULL TEXT: You/Your Family Experience fever (hyperthermia) with Anesthesia Last Oral Intake Last Oral intake: Last Oral Intake NPO since 00:15 09/06/25 13:43 Meds taken in AM with sips of No 09/06/25 13:43 water? Meds patient instructed to take am of surgery PONV PONV - corrugator: PONV - corrugator Female HX of Motion Sickness HX of N/V After Surgery Non-Smoker Duration of Surgery greater than 60 minutes Number of Risk Factors PONV Score Height & Weight Height & Weight: Anesthesia: Height & Weight Height 5 ft 5 in 09/06/25 13:43 Weight: 86.581 kg 09/06/25 13:43 Body Mass Index (BMI) 31.7 09/06/25 13:43 Respiratory Assessment Respiratory Assessment - corrugator: Respiratory Tract Infection Hx - corrugator Hx Respiratory Tract Infection No 09/03/25 00:47 STOP Sleep Apnea STOP Sleep Apnea - corrugator: STOP Sleep Apnea - corrugator Hx Hypertension No 09/02/25 23:23 Hx Sleep Apnea No 09/02/25 23:23 CPAP BIPAP Do you snore loudly (louder Yes 09/02/25 23:23 than talking or can be heard Do you often feel tired/ Yes 09/02/25 23:23 fatigued/ sleepy during daytime? Has anyone observed you stop Yes 09/02/25 23:23 breathing during sleep? STOP Results Positive 09/02/25 23:23 QUESTION #5 FULL TEXT : Do you snore loudly (louder than talking or can be heard through closed doors)? Tobacco Use History Tobacco Use History - corrugator: Tobacco Use History - corrugator Tobacco Use Cigarettes 03/24/21 23:14 Smoking Status Light Smoker (<10/day) 09/03/25 07:31 Hx Tobacco Use Yes 09/02/25 23:23 Years Smoking 13 09/02/25 23:23 Packs Smoked per Day 0.15 09/02/25 23:23 Smoking Cessation Date was within the last 15 years Hx Smoking Cessation Date Hx Smoking Cessation No 09/02/25 23:23 Counseling Hematologic Medial History Hematologic Hx - corrugator: Hematologic Medical Hx - report clerk Hx of Blood Transfusion No 09/02/25 23:23 Hx of Transfusion in last 3 No 09/02/25 23:23 Months Date of Last Transfusion (if within last 3 months) Ever experience any problems No 09/02/25 23:23 with transfusion(s)? Specify any problems Hx of Preganancy in last 3 No 09/02/25 23:23 Months Nurse Filling Out Transfusion EVIZZO 09/02/25 23:23 & Questions: Date: 09/02/25 09/02/25 23:23 Time: 23:41 09/02/25 23:23 Patient unable to answer at this time (ie. confused, unrespo /Reproduction History /Reproductive History - corrugator: /Reproductive Hx- corrugator Hx Now No 09/03/25 00:47 Gestational Age (in weeks): EDC: Hx Hx Para Hx Section SAB No 09/03/25 00:47 Active Medications Active Medications: Current Medications Generic Name Dose Route Start Last Admin Trade Name Freq PRN Reason Stop Dose Admin Aripiprazole 30 mg 09/04/25 10:00 09/06/25 07:38 Aripiprazole 10 Mg Tablet PO Not Given DAILY HIPOLITO Atomoxetine HCl 80 mg 09/04/25 10:00 09/06/25 07:38 Atomoxetine Hcl 80 Mg Capsule PO Not Given DAILY HIPOLITO Buspirone HCl 10 mg 09/03/25 22:00 09/06/25 13:32 Buspirone 5 Mg Tablet PO Not Given TID HIPOLITO Clotrimazole 1 applic 09/03/25 00:36 09/05/25 01:46 Clotrimazole 1 Applic Tube TOPICAL 1 applic BID PRN PRN Administration PRURITIS Protocol Diphenhydramine HCl 25 mg 09/04/25 09:55 09/05/25 12:23 Diphenhydramine 25 Mg Capsule PO 25 mg Q6H PRN PRN Administration ITCHING Haloperidol Lactate 2 mg 09/03/25 20:45 Haloperidol Lactate 5 Mg/Ml Vial IM PRN PRN AGITATION Protocol Hydroxyzine HCl 50 mg 09/02/25 23:41 Hydroxyzine 50 Mg/Ml Vial IM Q12H PRN PRN AGITATION Sodium Chloride 250 mls @ 15 mls/hr 09/02/25 23:24 09/06/25 06:31 IV Infused .[id number] PRN Infusion Saline Flush Sodium Chloride 250 mls @ 15 mls/hr 09/02/25 23:24 IV .[id number] PRN Additional IVPB Infusion Pantoprazole Sodium 40 mg/ 100 mls @ 330 mls/hr 09/02/25 23:41 09/05/25 21:00 Sodium Chloride IV Infused 2200 HIPOLITO Infusion Piperacillin Sod/Tazobactam 50 mls @ 12.5 mls/hr 09/03/25 06:00 09/06/25 14:02 Sod 3.375 gm/ Sodium Chloride IV 12.5 mls/hr Q8 HIPOLITO Administration Sodium Chloride 1,000 mls @ 15 mls/hr 09/03/25 13:35 09/06/25 14:03 IV 15 mls/hr .Q48H HIPOLITO Administration Sodium Chloride 1,000 mls @ 15 mls/hr 09/06/25 13:55 IV .Q48H HIPOLITO Ketorolac Tromethamine 15 mg 09/02/25 23:41 09/06/25 08:13 Ketorolac 15 Mg/Ml Vial IV 09/07/25 23:42 15 mg Q8H PRN PRN Administration Pain 1-5/10 or Fever Morphine Sulfate 4 mg 09/02/25 23:41 09/06/25 12:13 Morphine 4 Mg/Ml Syringe IV 4 mg Q4H PRN PRN Administration Pain Score 6-10 Nicotine 14 mg 09/02/25 23:41 09/06/25 08:15 Nicotine (Pbkc) 14 Mg Patch TD 14 mg DAILY HIPOLITO Administration Ondansetron HCl 4 mg 09/02/25 23:41 09/05/25 14:25 Ondansetron 4 Mg/2 Ml Vial IV 4 mg Q4H PRN PRN Administration NAUSEA/VOMITING Oxycodone HCl 5 mg 09/04/25 16:14 09/05/25 22:19 Oxycodone 5 Mg Tablet PO 5 mg Q4H PRN PRN Administration Pain Score 4-10 Promethazine HCl 12.5 mg 09/02/25 23:41 Promethazine 25 Mg/Ml Syringe IM Q4H PRN PRN BREAKTHROUGH NAUSEA Quetiapine Fumarate 50 mg 09/03/25 22:00 09/06/25 04:50 Quetiapine 25 Mg Tablet PO Not Given QHS HIPOLITO Protocol Sodium Chloride 10 - 40 ml 09/02/25 23:24 09/06/25 05:34 0.9% Saline Lock 10 Ml Syringe IV 20 ml UD PRN Administration SALINE FLUSH PFSH Medical History Rhabdomyolysis Depression Irregular heart beat Home Medications ?Medication ?Instructions ?Recorded ?Last Taken ?Type aripiprazole 30 mg tablet 30 mg PO DAILY mental health 09/02/25 09/02/25 History atomoxetine 80 mg capsule 80 mg PO DAILY ADHD 09/02/25 09/02/25 History buspirone 10 mg tablet 10 mg PO TID anxiety/depression 09/02/25 09/02/25 History divalproex 250 mg tablet,delayed 250 mg PO BID mood stabilizer 09/02/25 09/02/25 History release miconazole nitrate 2 % topical 1 spray topical BID athlete's foot 09/03/25 09/02/25 History spray (Lotrimin AF) Allergy/AdvReac Type Severity Reaction Status Date / Time lorazepam Allergy Rash Verified 09/03/25 13:28 risperidone Allergy Other Verified 09/03/25 13:28 Surgical History (Updated 09/06/25 @ 14:[address] Justyn Michelle MD) S/P ERCP Surgical History no surgical history Social History Smoking Status: Light Smoker (<10/day) Homelessness:: Sheltered Review of Systems (Anesthesia) ROS Narrative System reviewed and no additional complaints, except as documented.
--- NOTE | 2025-09-06 14:45 | GALL_PTH ---
PATIENT: BRADEN CANCHOLA LOC: MS3 U#:[id number] AGE/SX: 30/F ROOM: [facility] RE09/02/[address]: Dr. Liam Varela MD : 1995 BED: 1 DIS: 09/07/2025 SPEC #: [id number] RECD: 09/07/25 08:54 STATUS: KAY REQ #: [id number] VAIBHAV: 09/06/25 14:[address]: Fareed Huber DEPT: SURGICAL PATHOLOGY RECD BY: Mick John ENTERED: 09/07/25 11:31 SP TYPE: GALLBLADDE STACY DR: DO Dr. Liam Michaud MD Dr. Eric Jopperi, DO Dr. Prakash Chand, MD Dr. Rahsaan Friend, MD Thania Novak Dr[address] STENOCAPTIONER-C Nathalie Guallpa NP-C VIOLETA Rushing MD Tissues: A - Gallbladder, NOS Procedures: Surgery Specimen Level III HEADER OPERATION: Laparoscopic, cholecystectomy with IOC PRE-OP DIAGNOSIS: Gallstone pancreatitis, acute cholecystitis, hyperbilirubinemia, transaminitis, leukocytosis, nausea / vomiting, abdominal pain TISSUE SUBMITTED: A- Gallbladder MICROSCOPIC DIAGNOSIS A. Gallbladder, laparoscopic cholecystectomy: - Acute on chronic cholecystitis, cholelithiasis. MICROSCOPIC DESCRIPTION Slides are reviewed. GROSS DESCRIPTION A. Received in formalin labeled with the patient's name and date of . Designated as gallbladder is a 6.8 x 3.0 x 2.0 cm intact, firm, pink-red gallbladder with attached cystic duct (inked black, shaved) that is grossly obstructed by a cholelith. A lymph node is not present. Opening reveals minimal yellow, inspissated bile and numerous yellow-red to brown, multifaceted choleliths, ranging 0.1 cm to 0.8 cm. The mucosa is puentes-red granular, trabeculated and diffusely eroded with a maximum wall thickness of 0.7 cm. Cholesterolosis is not present. Insurance Claims Clerk sections are submitted in 1 cassette. [place] 09/07/2025PT:[id number]
--- NOTE | 2025-09-06 14:51 | PCM.PN.BLA ---
Progress Note Patient seen and evaluated during a.m. rounds. She reports that her abdominal pain is somewhat better. She is quite drowsy given that she just woke up. Procedure details were reviewed. She offers no further questions. Procedure consent to be collected. Plan to proceed to the OR later today for laparoscopic cholecystectomy and possible intraoperative cholangiography.
[2025-09-06] MEDS: Midazolam 2 MG/2 ML Syringe IV (15:23)
[2025-09-06] MEDS: Piperacil/Tazobactam 3.375 GM/50 ML ML IV (15:23)
[2025-09-06] MEDS: Lidocaine 1% (5 ml sdv) 5 ML Vial IV (15:23)
[2025-09-06] MEDS: fentaNYL 100 MCG/2 ML Ampul 200 MCG IV (16:33)
--- NOTE | 2025-09-06 17:20 | PCM.PN.BLA ---
Progress Note The patient is a 30-year-old female presenting status-post (s/p) ERCP for choledocholithiasis and gallstone pancreatitis. She is scheduled for a cholecystectomy today. Patient reports feeling very sleepy today. Abdominal pain is rated at 3/10. She denies any new or worsening abdominal pain, nausea, vomiting, fever, or chills. Physical Exam Narrative GENERAL: cooperative HEENT: Atraumatic; normocephalic EYES; Anicteric, Normal Conjunctiva NECK; supple, normal thyroid, RESPIRATORY: Diminished to auscultation CARDIOVASCULAR: Regular S1 S2, GI: Right upper quadrant tenderness : No Renal angle tenderness; EXTREMITIES: No edema, no clubbing, MUSCULOSKELETAL: no muscle wasting NEURO: Awake; no lateralizing signs. SKIN: No Rash PSYCH; Flat affect Assessment & Plan Assessment/Plan (1) Choledocholithiasis: (2) Transaminitis: (3) Hyperbilirubinemia: PLAN: The patient's presentation suggests a satisfactory post-ERCP recovery, with her symptoms likely related to cholecystitis and the ongoing surgical plan. Post-ERCP sedation:?The reported sleepiness is a common and expected side effect pain medication. Given the patient is easily arousable and has a low pain score, this is likely related to the residual effects of sedation. Post-ERCP mild abdominal discomfort:?The 3/10 abdominal pain is a typical, self-limited symptom following ERCP, and her low rating and lack of other symptoms suggest no severe post-procedure complications like severe post-ERCP pancreatitis (PEP), which usually presents with more significant pain. Choledocholithiasis / Gallstone Pancreatitis s/p ERCP:?The patient has been effectively treated for the acute obstruction and pancreatitis with the ERCP. The low-grade pain indicates the inflammatory process is resolving, and she is ready for the definitive cholecystectomy, which is the standard next step to prevent recurrence. P: Continue with the planned laparoscopic cholecystectomy today, as the patient is clinically stable with expected post-ERCP symptoms. Pre-operative care:?Monitor the patient's sleepiness, and reassess her pain level. Surgical plan:?Proceed with the laparoscopic cholecystectomy as planned. Post-operative care:?Continue to monitor for complications. Manage pain with appropriate analgesics. Visit Charges Inpatient E&M: 29528 Init Hosp L3
[2025-09-06] MEDS: Bupiv/Epi 0.25% 30 ML Vial (18:30)
--- NOTE | 2025-09-06 18:50 | PCM.OPRPT ---
Procedures Digestive 40xxx-49xxx: [id number] Laparo cholecystectomy/graph Operative Report (Standard) Operative Information Date of Procedure: 09/06/25 Pre-Operative Diagnosis: 1. Acute cholecystitis 2. Choledocholithiasis with gallstone pancreatitis status post ERCP with common bile duct stenting Post-Operative Diagnosis: 1. Severe acute on chronic cholecystitis 2. 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 [employer] Press Operator: David Lewis Tasks completed by preschool teacher assistant: Opening & closing Type of Anesthesia: General/Supplemental RN Documented Start/Stop Times: Operation Date: 09/06/25 14:45 Case Time Into Pre-Op 09/06/25 13:40 Anesthesia Start 09/06/25 15:23 Into Room 09/06/25 15:23 Procedure Start 09/06/25 15:53 Procedure End 09/06/25 19:01 Anesthesia End 09/06/25 19:11 Out of Room 09/06/25 19:11 Into Recovery 09/06/25 19:13 Out of Recovery 09/06/25 20:10 Procedure Start Time: 15:53 Procedure Stop Time: 19:01 Select all DRAINS/GRAFTS/IMPLANTS that apply: None Estimated Blood Loss: 100 Specimen collected: Yes Description of specimen(s) removed: Gallbladder Description of surgery: After proper identification in the preoperative holding area the patient was brought to the operating room where she was positioned supine on the operating room table. Preoperatively SCDs were connected and antibiotics were administered. General anesthesia was then induced and anesthesia placed an orogastric tube. Patient's abdomen was prepped and draped in usual sterile fashion. A formal timeout was conducted to confirm both patient and the procedure. Procedure was begun with a supraumbilical incision which was extended deeply down to the level of the fascia. The fascia was elevated and incised, as well as the peritoneum. A finger sweep was performed to ensure there were no underlying adhesions and a 12 mm balloon trocar was inserted. Pneumoperitoneum was established at 15 mmHg. Three additional trocars (all 5 mm) were placed in the epigastrium and in the right upper quadrant. Inspection of the peritoneum revealed no inadvertent injury to the viscera below. The gallbladder was visualized with evidence of significant acute on chronic inflammation with a thickened wall, whitish appearance, and attachments to the underlying omentum. The gallbladder was so chronically inflamed and full of gallstones that the fundus could not be easily grasped even with trial of numerous graspers. I was able to obtain a slight tangential bite and the gallbladder was carefully elevated cephalad. Then, using careful dissection the peritoneum was opened and the structures of the hepatocystic triangle were delineated. There were a number of small branches from a dominant anterior cystic artery to the gallbladder, the border of the gallbladder, and the cystic duct. The cystic duct was quite challenging to isolate given the presence of these branches as well as the thick rind generally encasing the entirety of the gallbladder. The small vessels were taken in turn after first placing small titanium clip on the stay side and using electrocautery on the specimen side to control risk for bleeding. The cystic duct was also notably significantly dilated. Once the critical view of safety was obtained, the cystic duct was palpated with a grasper to try to dislodge stones distally into the gallbladder and out of the duct. I then used a Metzger clamp to occlude the duct and cholangiocatheter which was fed into the proximal segment of the cystic duct. Under fluoroscopy a cholangiogram was obtained showing a slightly foreshortened cystic duct flowing into a common bile duct containing a common bile duct stent and evidence of numerous proximal filling defects (that were nonocclusive) before entering the duodenum. There was also retrograde flow through the common hepatic duct into the right and left hepatic ducts. Satisfied with this result, the cholangiocatheter was withdrawn and the gallbladder was taken down in a dome-down approach as I had determined I would require an Endoloop to appropriately ligate patient's dilated cystic duct. The main trunk of the cystic artery had been controlled with titanium clips previously. The gallbladder was then removed from the gallbladder fossa with the use of electrocautery before 2X 0 PDS Endoloops were used to ligate the cystic duct. Laparoscopic allyson were used to divide the duct and the gallbladder until it could be placed in an Endo Catch bag. Selective electrocautery was used to obtain hemostasis in the gallbladder fossa. Morison's pouch was irrigated and the effluent was suctioned free of the peritoneum. Hemostasis was again confirmed. Pneumoperitoneum was evacuated and the gallbladder was removed from the supraumbilical port site after the fascial opening was sharply enlarged with scissors to accommodate passage of the specimen. This fascial opening of the 12 mm port site was closed with #1Vicryl in a [id number] fashion. A total of 30 mL of anesthetic was injected at the port sites for postoperative pain control. The skin of each port site was then closed in subcuticular fashion using 4-0 Monocryl. Steri-Strips and bandages were applied as dressings. Patient tolerated the procedure well without any apparent complications. On emergence from their anesthetic the patient was taken to PACU for ongoing recovery. Surgical Findings: ? Numerous anastomotic branches between the main cystic artery and the base of the gallbladder as well as the cystic duct ? Severe acute on chronic cholecystitis with thickened gallbladder rind requiring dome down approach and use of 0 Endoloop (PDS) ? 4 L of irrigation Complications Complications: No Admit VTE Documentation VTE Mechan Device Prophylaxis: SCD's
[2025-09-06] MEDS: dexMEDEtomidine 200 MCG/2 ML ML 80 MCG IV (18:53)
--- NOTE | 2025-09-06 19:22 | POSTOP.ANE_ITS ---
Anesthesia: Postop Eval I
--- NOTE | 2025-09-06 19:22 | PCM.POST.ANE ---
Anesthesia: Postop Eval I Current Vital Signs Temperature: 99.2 F Pulse Rate: 74 Blood Pressure: 98/52 Respiratory Rate: 16 Pulse Ox: 100 Oxygen Delivery Method: Room Air Assessment Airway patent: Yes Spontaneous unlabored respirations: Yes Mental status: Awake and Calm nausea: Yes Vomiting: No Anesthesia Complication: No Fluid Hydration Crystalloid volume administer (ml): 1,800 Total IV fluid infused: 1,800 Progress Note Anesthesia document: Postop Eval 1 completed: Yes
[2025-09-06] MEDS: Pantoprazole Sodium 40 MG in 0.9% Normal Saline (100mL MB+) 100 ML 330 MG IV (20:48)
--- NOTE | 2025-09-06 21:10 | ANES.CONFIRM ---
Anesthesia: Confirm Documents Multiple Procedures on Account (2) Confirmed Documents: Yes
--- NOTE | 2025-09-06 21:12 | POSTOPAN2_ITS ---
Anesthesia Postop Eval I Sum
--- NOTE | 2025-09-06 21:12 | PCM.POSTANE2 ---
Anesthesia Postop Eval I Sum Postop Eval Completion status Anesthesia document: Postop Eval 1 completed: Yes Anesthesia Postop Eval I Summary Anesthesia Postop Eval I Summary: Anesthesia Postop Eval I: Assessment Summary Airway patent Yes 09/06/25 19:25 Spontaneous unlabored Yes 09/06/25 19:25 respirations Mental status Awake,Calm 09/06/25 19:25 nausea Yes 09/06/25 19:25 Vomiting No 09/06/25 19:25 Anesthesia Postop Eval I: Fluid Summary Crystalloid volume administer 1,800 09/06/25 19:25 (ml) Colloids volume administered ( ml) Blood Product volume administered (ml) Total IV fluid infused 1,800 09/06/25 19:25 Anesthesia Postop Eval I: Summary Notes Anesthesia Complication No 09/06/25 19:25 Anesthesia Complication Comment: Post-operative progress note Anesthesia: Postop Eval II Evaluation Mental status: Awake and Calm Pain Level: 2 nausea: No Vomiting: No Complications Anesthesia Complication: No
[2025-09-07 00:19] VITALS: BP 128/74; PULSE 78; RESP 16; TEMP 36.6; O2SAT 98
[2025-09-07] MEDS: Nicotine (PBKC) 14 MG Patch TD (03:03)
[2025-09-07 04:19] VITALS: BP 106/56; PULSE 69; RESP 16; TEMP 36.6; O2SAT 98
[2025-09-07] MEDS: Piperacil/Tazobactam 3.375 GM in 0.9% Normal Saline (50mL MB+) 50 ML IV (05:02)
[2025-09-07 06:00] VITALS: BMI 31.6
--- NOTE | 2025-09-07 07:24 | PN.HOSP_ITS ---
Reason for Visit
--- NOTE | 2025-09-07 07:24 | PCM.PN.HOSP ---
Reason for Visit Chief Complaint: Abdominal Pain with Nausea and Vomiting. Subjective Subjective patient underwent laparoscopic cholecystectomy with intraoperative cholangiography on 09/06/2025 on account of Choledocholithiasis with gallstone pancreatitis status post ERCP with common bile duct stenting Objective Data Objective Data Vital Signs: Vital Signs Temp Pulse Resp BP Pulse Ox O2 Del Method 97.8 F 69 16 106/56 L 98 Room Air 09/07/25 04:19 09/07/25 04:19 09/07/25 04:19 09/07/25 04:19 09/07/25 04:19 09/07/25 04:19 Oxygen Delivery Method Room Air Weight: 86.137 kg Body Mass Index (BMI) 31.6 Intake & Output: Intake and Output for Last 24 Hours 09/05/25 09/06/25 09/07/25 23:59 23:59 23:59 Intake Total 601.5 / 601.5 2392.5 / 2392.5 50 / 50 Output Total 20 / 20 Balance 576.5 / 576.5 2372.5 / 2372.5 50 / 50 Lab / Micro Data 09/07/25 08:23 09/07/25 08:23 Labs: Laboratory Results - last 24 hr 09/06/25 07:56: WBC 9.5, RBC 4.34, Hgb 13.4, Hct 39.6, MCV 91.2, MCH 30.9, MCHC 33.8, RDW Std Deviation 42.7, RDW Coeff of [place] 12.7, Plt Count 322, MPV 9.3, Immature Gran % (Auto) 1.100 H, Neut % (Auto) 61.6, Lymph % (Auto) 26.6, [place] % (Auto) 7.2, Eos % (Auto) 2.6, Baso % (Auto) 0.9, Absolute Neuts (auto) 5.9, Absolute Lymphs (auto) 2.53, Nucleated RBC % 0, Sodium 137, Potassium 4.4, Chloride 103, Carbon Dioxide 22.9, Anion Gap 11, BUN 13, Creatinine 0.83, Estim Creat Clear Calc 104.73, Est GFR (MDRD) Non-Af 97, BUN/Creatinine Ratio 15.7, Glucose 106 H, Calcium 9.1 Radiography Diagnostic Testing: Radiology Impression Cholangiogram 09/06/25 13:45 IMPRESSION: As above. Reading Location: [facility] Social Homelessness:: Shelter Physical Exam Narrative GENERAL: cooperative HEENT: Atraumatic; normocephalic EYES; Anicteric, Normal Conjunctiva NECK; supple, normal thyroid, RESPIRATORY: Diminished to auscultation CARDIOVASCULAR: Regular S1 S2, GI: Right upper quadrant tenderness : No Renal angle tenderness; EXTREMITIES: No edema, no clubbing, MUSCULOSKELETAL: no muscle wasting NEURO: Awake; no lateralizing signs. SKIN: No Rash PSYCH; Flat affect Assessment & Plan Assessment/Plan (1) Gallstone pancreatitis: (2) Acute cholecystitis: (3) Hyperbilirubinemia: (4) Transaminitis: PLAN: Plan Patient is a 30-year-old lady who presented with right upper quadrant abdominal pain and assessment of acute Choledocholithiasis/cholecystitis/gallstone pancreatitis/transaminitis admitted to regular nursing floor for further management 1. Choledocholithiasis with cholecystitis ? Patient underwent ERCP on 09/04. Choledocholithiasis noted. Sphincterotomy and balloon extraction performed. . Patient remains on broad-spectrum antibiotic therapy consult placed to general surgery plan is for patient to undergo laparoscopic cholecystectomy on 09/06/2025 ?09/07/2025; patient underwent laparoscopic cholecystectomy with intraoperative cholangiography on 09/06/2025 on account of Choledocholithiasis with gallstone pancreatitis status post ERCP with common bile duct stenting 2. Depression with history of suicidal ideation violent behavior ? Patient was cooperative this a.m. at the time of my assessment 3. Tobacco dependence ? Counseled on cessation, offered nicotine patch for tobacco cravings 4. Class I obesity with BMI of 31.1 ? Weight loss advised 5. DVT prophylaxis ? Low risk to encourage daily ablation Time spent in the patient's overall evaluation,decision-making process, review of diagnostic data, adjustment of management, discussion with other providers, nursing nursing and ancillary staff involved in patient's care documentation, 36 Minutes Charges/Coding Visit Charges Inpatient E&M: 66183 Subs Hosp L2
--- NOTE | 2025-09-07 08:10 | PCM.DC ---
Documented by User: Dr. Fareed Huber MD 09/07/25 08:11 Discharge Instructions DC O2, CPAP, BIPAP needs Home O2 Discharge instructions: No Dressing / Incision Discharge Activity: May Not Drive (No driving while using narcotic pain medication) and May Shower (Postoperative day 1) May shower in (days): 1 Ice area for (Minutes): 20 Lifting Restrictions: No lifting greater than 15 pounds for 2 weeks after surgery Dressing / Incision Call your doctor if your incision/area has: Continuous Slow Oozing, Increased Pain/ Swelling, Increased Redness, Foul Smelling Discharge and Swelling at the incision site Call your doctor if you observe: Fever of 101 or Higher Remove Dressing in: 1 day (Please leave Steri-Strips intact until they fall off spontaneously or are taken off at your follow-up visit) Cleanse incision/area with: Soap & Water Follow Up Care Please Follow Up With: Fareed Huber MD When: 10days postop Test Results: Test results from this visit will be discussed in further detail at your follow-up appointment, if applicable. Discharge Plan Admission Admit Date/Time: 09/02/25 21:45 Attending Provider: Liam Varela Primary Care Provider: Ever Toribio Consulting Providers: Liam Hay; Gagan Perez; Ian Zavala; Pepe Mancia; Thania Lambert; Nathalie Guallpa; Tatianna Osorio; Ever Vasquez Discharge Orders/Prescriptions Prescriptions: Continued buspirone 10 mg tablet 10 mg PO TID aripiprazole 30 mg tablet 30 mg PO DAILY atomoxetine 80 mg capsule 80 mg PO DAILY divalproex 250 mg tablet,delayed release (DR/EC) 250 mg PO BID Lotrimin AF 2 % aerosol,spray 1 spray topical BID Other Ambulatory Orders: Comprehensive Metabolic Profil (Routine) Timeframe: 20250916 Facility: [facility] - Location: Laboratory Ordered By: Akua MCDANIEL Referrals / Follow Up: Akua Calixto PA-C [Med Staff - Adv Practice Prof, Surgery] - 09/16/25 10:00 am Ever Toribio MD [Primary Care Provider, [facility]] - Within 2 Weeks Disposition Disposition (needs filled in before D/C Order can be placed): Home, Self Care Documented by User: Akua MCDANIEL PA-C 09/07/25 10:11 Discharge Instructions Follow Up Care Please Follow Up With: Akua Calixto PA-C When: Post-op appointment scheduled for 09/16/25 at 10:00AM. Please call [phone], option #2, if any questions or concerns. Discharge Plan Admission Admit Date/Time: 09/02/25 21:45 Attending Provider: Liam Varela Primary Care Provider: Ever Toribio Consulting Providers: Liam Hay; Gagan Perez; Ian Zavala; Pepe Mancia; Thania Lambert; Nathalie Guallpa; Tatianna Osorio; Ever Vasquez Discharge Orders/Prescriptions Prescriptions: Continued buspirone 10 mg tablet 10 mg PO TID aripiprazole 30 mg tablet 30 mg PO DAILY atomoxetine 80 mg capsule 80 mg PO DAILY divalproex 250 mg tablet,delayed release (DR/EC) 250 mg PO BID Lotrimin AF 2 % aerosol,spray 1 spray topical BID Other Ambulatory Orders: Comprehensive Metabolic Profil (Routine) Timeframe: 20250916 Facility: [facility] - Location: Laboratory Ordered By: Akua MCDANIEL Referrals / Follow Up: Akua Calixto PA-C [Med Staff - Adv Practice Prof, Surgery] - 09/16/25 10:00 am Ever Toribio MD [Primary Care Provider, Family Practice] - Within 2 Weeks Disposition Disposition (needs filled in before D/C Order can be placed): Home, Self Care
[2025-09-07 08:34] LABS: Hematocrit 37.4 % (37-47); Hemoglobin 12.8 g/dL (12.0-15.0); Immature Granulocytes Count 0.090 X10^3/uL (0.0-0.0); Mean Corp Hgb Conc 34.2 g/dL (32-36); Mean Corpuscular Volume 91.4 fL (81-99); Mean Platelet Vol. 9.1 fl (6.2-12.0); NRBC Flagged by Analyzer 0 % (0-5); Platelet Count 329 K/mm3 (150-450); RBC Distribution Width CV 12.6 % (11.6-14.6); RBC Distribution Width SD 41.9 fl (35.1-43.9); Red Blood Count 4.09 M/mm3 (4.2-5.4); White Blood Count 14.9 K/mm3 (4.4-11.0)
[2025-09-07 08:41] VITALS: BP 100/58; PULSE 90; RESP 16; TEMP 36.9; O2SAT 98
--- NOTE | 2025-09-07 08:57 | PCM.PN.SRG ---
Subjective Subjective Patient evaluated resting comfortably in bed. She notes feeling overall improved. Per nursing, patient had a rough night. Patient denies any nausea, vomiting. She is feeling hungry this morning. She notes minimal amount of abdominal soreness. Objective Data Objective Data Vital Signs: Vital Signs Temp Pulse Resp BP Pulse Ox O2 Del Method 98.5 F 90 16 100/58 L 98 Room Air 09/07/25 08:41 09/07/25 08:41 09/07/25 08:41 09/07/25 08:41 09/07/25 08:41 09/07/25 08:41 Oxygen Delivery Method Room Air Weight: 189 lb 14.4 oz Body Mass Index (BMI) 31.6 Intake & Output: Intake and Output for Last 24 Hours 09/05/25 09/06/25 09/07/25 23:59 23:59 23:59 Intake Total 601.5 / 601.5 2392.5 / 2392.5 50 / 50 Output Total 20 / 20 Balance 576.5 / 576.5 2372.5 / 2372.5 50 / 50 Lab / Micro Data 09/07/25 08:23 09/07/25 08:23 Labs: Laboratory Results - last 24 hr 09/07/25 08:23: WBC 14.9 H, RBC 4.09 L, Hgb 12.8, Hct 37.4, MCV 91.4, MCH 31.3, MCHC 34.2, RDW Std Deviation 41.9, RDW Coeff of [place] 12.6, Plt Count 329, MPV 9.1, Immature Gran % (Auto) 0.600, Neut % (Auto) 75.6 H, Lymph % (Auto) 17.4 L, [place] % (Auto) 6.0, Eos % (Auto) 0.1, Baso % (Auto) 0.3, Absolute Neuts (auto) 11.3 H, Absolute Lymphs (auto) 2.60, Nucleated RBC % 0 Radiography Diagnostic Testing: Radiology Impression Cholangiogram 09/06/25 13:45 IMPRESSION: As above. Reading Location: [facility] Social Homelessness:: Sheltered Physical Exam GI GI Narrative: Abdomen- soft, minimal tenderness at the incision sites. Incisions c/d/i. No erythema or infection noted. Assessment & Plan Assessment/Plan (1) Choledocholithiasis: PLAN: I am following this patient in conjunction with Dr. Huber. He has independently evaluated this patient. Labs reviewed. Elevated WBC expected secondary to significant amount of dissection that took place yesterday during the procedure. Liver enzymes stable Patient s/p ERCP with stone removal and stent placement on 09/03 and s/p lap angeline with IOC 09/06 Recommend 10 day follow-up with our office as an outpatient and obtain repeat CMP at that time Increase diet to regular Ready for discharge from surgery standpoint Discussed with patient the signs of jaundice as she is aware she still has small non-obstructing stones within the common bile duct. Charges/Coding Visit Charges Inpatient E&M: 32789 Subs Hosp L1 (post-op; no charge)
[2025-09-07 09:09] LABS: AST(SGOT) 89 U/L (<=31); Alanine Aminotransfer ALT/SGPT 82 U/L (<=34); Albumin, Serum 3.4 g/dL (3.5-5.0); Alkaline Phosphatase 227 U/L (35-104); Anion Gap 10 (5-15); BUN 10 mg/dL (4-19); BUN/Creat Ratio 12.2 RATIO (10-20); Bilirubin, Direct 2.75 mg/dL (0.00-0.30); Calcium,Total 8.9 mg/dL (7.6-11.0); Carbon Dioxide 22.6 mmol/L (21.0-32.0); Chloride 104 mmol/L (98-108); Estimated Creatinine Clearance 114.30 ml/min (50-250); Globulin 2.9 g/dL (2.2-4.2); Glucose 100 mg/dL (70-99); Magnesium 1.8 mg/dL (1.5-2.2); Potassium 4.1 mmol/L (3.3-5.1)
--- NOTE | 2025-09-07 09:16 | PCM.DC.SUM ---
Providers Date of Admission: 09/02/25 Date of Discharge: 09/07/25 Primary Care Physician: Ever Toribio MD Consultations 09/02/25 23:41 Consult: Gastroenterology Routine Consulting Provider: [facility] Reason for Consult: Acute Gallstone Pancreatitis. EMERGENT Consult: No Notified: Yes Date Notified: 09/03/25 Time Notified: 08:22 Method of Notification: Text 09/03/25 07:59 Consult: General Surgery Routine Consulting Provider: Gagan Perez Reason for Consult: cholecystitis. gallstone pancreatitis EMERGENT Consult: No Notified: Yes Date Notified: 09/03/25 Time Notified: 07:59 Method of Notification: Text Reason For Visit: ACUTE GALLSTONE PANCREATITIS WITH ABD PAIN N/V Diagnosis Discharge Diagnosis (1) Gallstone pancreatitis: Status: Acute Code(s): K85.10 - Biliary acute pancreatitis without necrosis or infection (2) Acute cholecystitis: Status: Acute Code(s): K81.0 - Acute cholecystitis (3) Hyperbilirubinemia: Status: Acute Code(s): E80.6 - Other disorders of bilirubin metabolism (4) Transaminitis: Status: Acute Code(s): R74.01 - Elevation of levels of liver transaminase levels Plan Patient is a 30-year-old lady who presented with right upper quadrant abdominal pain and assessment of acute Choledocholithiasis/cholecystitis/gallstone pancreatitis/transaminitis admitted to regular nursing floor for further management 1. Choledocholithiasis with cholecystitis ? Patient underwent ERCP on 09/04. Choledocholithiasis noted. Sphincterotomy and balloon extraction performed. . Patient remains on broad-spectrum antibiotic therapy consult placed to general surgery plan is for patient to undergo laparoscopic cholecystectomy on 09/06/2025 ?09/07/2025; patient underwent laparoscopic cholecystectomy with intraoperative cholangiography on 09/06/2025 on account of Choledocholithiasis with gallstone pancreatitis status post ERCP with common bile duct stenting 2. Depression with history of suicidal ideation violent behavior ? Patient was cooperative this a.m. at the time of my assessment 3. Tobacco dependence ? Counseled on cessation, offered nicotine patch for tobacco cravings 4. Class I obesity with BMI of 31.1 ? Weight loss advised 5. DVT prophylaxis ? Low risk to encourage daily ablation Time spent in the patient's overall evaluation,decision-making process, review of diagnostic data, adjustment of management, discussion with other providers, nursing nursing and ancillary staff involved in patient's care documentation, 36 Minutes Medications at Discharge Home Medications aripiprazole 30 mg tablet 30 mg PO DAILY mental health 09/02/25 atomoxetine 80 mg capsule 80 mg PO DAILY ADHD 09/02/25 buspirone 10 mg tablet 10 mg PO TID anxiety/depression 09/02/25 divalproex 250 mg tablet,delayed release 250 mg PO BID mood stabilizer 09/02/25 miconazole nitrate 2 % topical spray (Lotrimin AF) 1 spray topical BID athlete's foot 09/03/25 Physical Exam Narrative GENERAL: cooperative HEENT: Atraumatic; normocephalic EYES; Anicteric, Normal Conjunctiva NECK; supple, normal thyroid, RESPIRATORY: Diminished to auscultation CARDIOVASCULAR: Regular S1 S2, GI: Right upper quadrant tenderness : No Renal angle tenderness; EXTREMITIES: No edema, no clubbing, MUSCULOSKELETAL: no muscle wasting NEURO: Awake; no lateralizing signs. SKIN: No Rash PSYCH; Flat affect Medical Records Data Homelessness:: Sheltered Weight / BMI Weight Weight: 86.137 kg Body Mass Index (BMI) 31.6 ABG / Lab / Microbiology Data 09/07/25 08:23 09/07/25 08:23 Laboratory: Laboratory Results - last 24 hr 09/07/25 08:23: WBC 14.9 H, RBC 4.09 L, Hgb 12.8, Hct 37.4, MCV 91.4, MCH 31.3, MCHC 34.2, RDW Std Deviation 41.9, RDW Coeff of [place] 12.6, Plt Count 329, MPV 9.1, Immature Gran % (Auto) 0.600, Neut % (Auto) 75.6 H, Lymph % (Auto) 17.4 L, [place] % (Auto) 6.0, Eos % (Auto) 0.1, Baso % (Auto) 0.3, Absolute Neuts (auto) 11.3 H, Absolute Lymphs (auto) 2.60, Nucleated RBC % 0, Sodium 136, Potassium 4.1, Chloride 104, Carbon Dioxide 22.6, Anion Gap 10, BUN 10, Creatinine 0.78, Estim Creat Clear Calc 114.30, Est GFR (MDRD) Non-Af 104, BUN/Creatinine Ratio 12.2, Glucose 100 H, Calcium 8.9, Phosphorus 2.4 L, Magnesium 1.8, Total Bilirubin 3.72 H, Direct Bilirubin 2.75 H, AST 89 H, ALT 82 H, Alkaline Phosphatase 227 H, Total Protein 6.3, Albumin 3.4 L, Globulin 2.9 Radiography Diagnostic Testing: Radiology Impression Cholangiogram 09/06/25 13:45 IMPRESSION: As above. Reading Location: [id number] D/C Instructions May shower in (days): 1 Ice area for (Minutes): 20 Call your doctor if your incision/area has: Continuous Slow Oozing, Increased Pain/ Swelling, Increased Redness, Foul Smelling Discharge and Swelling at the incision site Call your doctor if you observe: Fever of 101 or Higher Cleanse incision/area with: Soap & Water DC O2, CPAP, BIPAP Needs Home O2 Discharge instructions: No Please Follow Up With: Akua Calixto PA-C When: Post-op appointment scheduled for 09/16/25 at 10:00AM. Please call [phone], option #2, if any questions or concerns. Meaningful Use Info Meaningful Use Meaningful Use Diagnoses (Choose all that apply): None applicable Discharge Plan Admission Admit Date/Time: 09/02/25 21:45 Attending Provider: Liam Varela Primary Care Provider: Ever Toribio Consulting Providers: Liam Hay; Gagan Perez; Ian Zavala; Pepe Mancia; Thania Lambert; Nathalie Guallpa; Tatianna Osorio; Ever Vasquez Discharge Orders/Prescriptions Prescriptions: Continued buspirone 10 mg tablet 10 mg PO TID aripiprazole 30 mg tablet 30 mg PO DAILY atomoxetine 80 mg capsule 80 mg PO DAILY divalproex 250 mg tablet,delayed release (DR/EC) 250 mg PO BID Lotrimin AF 2 % aerosol,spray 1 spray topical BID Referrals / Follow Up: Akua Calixto PA-C [Med Staff - [facility] Prof, Surgery] - 09/16/25 10:00 am Ever Toribio MD [Primary Care Provider, [facility]] - Within 2 Weeks Disposition Disposition (needs filled in before D/C Order can be placed): Home, Self Care Charges/Coding Visit Charges Inpatient E&M: 60725 Disch Hosp >30min
--- NOTE | 2025-09-07 10:13 | CASEMGMT ---
Social Work- SW met with pt to discuss discharge plans. Pt reports that she does need transportation back to [place]. Pt would like hospital van if they have availability. SW called [facility] transport; they are full and unable to transport. Pt reports that she will walk. SW provided [facility] contact; pt declined to utilize. Pt reports she receives psychiatric services from [facility] and has a rn case manager through them. FUENTES Manning
--- NOTE | 2025-09-07 10:33 | PHA.DC_ITS ---
Pharmacy DC Med Rec Counseling
--- NOTE | 2025-09-07 10:33 | PHA.DC.MC.R ---
Pharmacy [facility] Counseling Pharmacy Service has performed discharge medication reconciliation and counseling for this patient. The patient's discharge medication list was reviewed for discrepancies and discrepancies were resolved. The patient was counseled on the following discharge medications and changes in medications for homegoing were reviewed. The Reason for Use, instructions for use, and potential side effects were reviewed for all new medications. The patient's questions regarding all of their medications were answered. 1. Oxycodone 5 mg PO Q6H PRN pain The patient was able to verbally demonstrate an understanding of their discharge medications. Medications at Discharge Home Medications aripiprazole 30 mg tablet 30 mg PO DAILY mental health 09/02/25 atomoxetine 80 mg capsule 80 mg PO DAILY ADHD 09/02/25 buspirone 10 mg tablet 10 mg PO TID anxiety/depression 09/02/25 divalproex 250 mg tablet,delayed release 250 mg PO BID mood stabilizer 09/02/25 miconazole nitrate 2 % topical spray (Lotrimin AF) 1 spray topical BID athlete's foot 09/03/25 oxycodone 5 mg tablet 5 mg PO Q6H PRN pain 2 days #6 tabs 09/07/25
== END 2025-09-07 11:55 | disposition home or self-care (01) | DRG 263 ==
LOC: ED 20:44 → MS3 22:27
PROVIDERS: Internal Medicine Gastroenterology; Surgery; Admitting Provider Internal Medicine; Emergency Provider Emergency Medicine; PCP Family Medicine; Visit Provider Internal Medicine
PROC: 0FC98ZZ Extirpation of Matter from Common Bile Duct, Via Natural or Artificial Opening Endoscopic (ICD-10-PCS; CPT 43260; principal; 2025-09-03 13:40)
PROC: 0FT44ZZ Resection of Gallbladder, Percutaneous Endoscopic Approach (ICD-10-PCS; CPT 47610; principal; 2025-09-06 14:25)
DX: K80.43 Calculus of bile duct with acute cholecystitis with obstruction (principal); K85.10 Biliary acute pancreatitis without necrosis or infection; F32.A Depression, unspecified; E66.811 Obesity, class 1; K83.8 Other specified diseases of biliary tract; D72.829 Elevated white blood cell count, unspecified; F17.200 Nicotine dependence, unspecified, uncomplicated; Z79.899 Other long term (current) drug therapy; R74.01 Elevation of levels of liver transaminase levels; Z68.31 Body mass index [BMI] 31.0-31.9, adult; Z59.00 Homelessness unspecified
CPT/HCPCS: 36415; 74177; 74300; 74328; 76000; 76705; 80048; 80053; 80076; 80307; 81001; 83615; 83690; 83735; 84100; 84443; 84703; 85025; 87086; 87088; 88304; 93005; 99285; 99406; C2625; Q9967; A4216; J2405

== ENCOUNTER 2025-09-18 15:38 | Emergency (ER) | payer MEDICAID, SELFPAY ==
[2025-09-18 15:39] VITALS: BP 106/48; PULSE 82; RESP 16; TEMP 35.8; O2SAT 100; BMI 32.1
--- OUTSIDE RECORDS SUMMARY | 2025-09-18 15:51 | XMS RPT_ITS | CCD ---
Author Organization [facility] Care Team Providers Care Model Maker Firearms Name Role Phone Juan Oliva MD Primary Care Provider Unavailable Primary Care Provider Unavailabl NELLY Verde~[id number] Attending Unavailable NO, PHYSICIAN Primary Care Unavailable DIALSMARY JANE Attending Unavailable DIALSMARY JANE Attending Unavailable NO, PHYSICIAN Primary Care Unavailable Juan Oliva MD Primary Care Provider JOSAFAT URIBE Attending Unavailable JOSAFAT URIBE Admitting Unavailable CONSULT, GENERAL MEDICINE Consulting UnavaJOSAFAT Oglesby Referring Unavailable BARB ZACARIAS Attending Unavailable MAYTE NEVES Attending Unavailable MAYTE NEVES Admitting Unavailable CONSULT, ED PSYCHIATRY TEAM Consulting Unav ailable MOE VERDUGO Admitting Unavailable CONSULT, ED PSYCHIATRY TEAM Consulting Unav ailable JOSAFAT URIBE Attending Unavailable Unavailable Primary Care Provider Unavailabl e JUS CHENEYCA Admitting Unavailable TRACEE CHENEY Attending Unavailable TRACEE CHENEY Consulting Unavailable Juan Oliva MD Primary Care Provider NIKOLE BUTT Attending Unavailable JUAN OLIVA Primary Care Unavailable JUAN OLIVA Primary Care Unavailable Care Physician, No Primary Primary Care Provider Unavailable Varghese MURDOCK, Dr. Means Attending Provider Dr. Miguelangel Kwong MD Emergency Provider Dr. Ever Toribio MD Primary Care Provider Zak DIGITAL MEDIA PRODUCER-CVikas Attending Provider Dr. Addy Blake DO Emergency Provider [phone] LORRAINE CHESTER Attending Unavailable LORRAINE CHESTER Referring Unavailable Care Physician, No Primary Primary Care Unava ilable Miguelangel Kwong Attending Unavailable Valarie Liu Admitting Unavailable Valarie Liu Referring Unavailable Pepe Mancia Attending Unavailable Toribio VSC, Ever Primary Care Unavailable Valarie Liu Consulting Unavailable Gagan Perez Consulting Unavailable Ian Zavala Consulting Unavailable Pepe Mancia Consulting Unavailable Thania Lambert Consulting Unavailable Nathalie Guallpa Consulting Unavailable Tatianna Osorio Consulting Unavailable Jopperi, Ever Consulting Unavailable Ever Vasquez Attending Unavailable Akua Simmons Attending Unavailable Valarie Varela Consulting Unavailable Moe Huber Attending Unavailable Toribio VSC, Ever Primary Care Unavailable Toribio VSC, Ever Primary Care Unavailable Beam VSVikas Comer Attending Unavailable Osmany VSCKateryna Attending Unavailable Toribio VSC, Ever Primary Care Unavailable Toribio VSC, Ever Primary Care Unavailable Beam VSCVikas Attending Unavailable Moe Huber Attending Unavailable Toribio VSC, Ever Primary Care Unavailable Valarie Liu Admitting Unavailable Valarie Liu Consulting Unavailable Valarie Varela Attending Unavailable Gagan Perez Consulting Unavailable Ian Zavala Consulting Unavailable Pepe Mancia Consulting Unavailable Thania Lambert Consulting Unavailable Nathalie Guallpa Consulting Unavailable Tatianna Osorio Consulting Unavailable Jopperi, Ever Consulting Unavailable Toribio VSC, Ever Primary Care Unavailable Addy Blake Attending Unavailable Toribio VSC, Ever Referring Unavailable Toribio VSC, Ever Primary Care Unavailable Akua Simmons Attending Unavailable Gagan Perez Attending Unavailable Valarie Varela Attending Unavailable Valarie Liu Attending Unavailable Allergies Allergy Classification Reported Allergen(s) Allergy Type Date of Onset Reaction(s) Facility (11 sources) LORazepam; Translations: [LORAZEPAM] Drug Allergy 03-29-2016 [facility] (4 sources) risperiDONE Drug Allergy 03-16-2022 Other [facility] (1 source) LORazepam Drug Allergy 09-03-2025 [facility] (1 source) risperiDONE Drug Allergy 09-03-2025 [facility] Medications Current Medications Medication Drug Class(es) Dates Sig (Normalized) Sig (Original) atomoxetine 40 mg oral capsule (1 source) Norepinephrine Reuptake Inhibitor Start: 02-07-2025 take 1 capsule by mouth once daily Atomoxetine 40 mg capsule Active 40 mg PO DAILY February 07, 2025 12:00am busPIRone hydrochloride 15 mg oral tablet (5 sources) Start: 02-07-2025 take 1 tablet by mouth three times daily Buspirone 15 mg tablet Active 15 mg PO THREE TIMES A DAY February 07, 2025 12:00am Start: 03-16-2022 End: 02-07-2025 take 1 tablet by mouth twice daily Buspirone 10 mg Tablet Discontinued 10 mg PO TWICE A DAY March 16, 2022 12:00am February 07, 2025 9:55pm cholecalciferol 0.125 mg oral tablet (2 sources) Vitamin D Start: 07-16-2024 take 1 tablet by mouth once daily cholecalciferol (VITAMIN D3) 125 mcg (5,000 unit) tab tablet Indications: Vitamin D deficiency Take 1 Tablet by mouth once daily 90 Tablet 3 07/16/2024 Active Start: 07-16-2024 take 1 tablet by roro th once daily cholecalciferol (VITAMIN D3) 125 mcg (5,000 unit) tab tablet Indications: Vitamin D deficiency Take 1 Tablet by mouth once daily 90 Tablet 3 07/16/2024 Active Comment on above: Take 1 Tablet by roro th once daily 24 hr paliperidone 3 mg extended release oral tablet (1 source) Atypical Antipsychotic take 1 tablet by mouth once daily in the morning paliperidone (INVEGA) 3 MG extended release tablet Take 3 mg by mouth every morning 0 Active traZODone hydrochloride 50 mg oral tablet (4 sources) Serotonin Reuptake Inhibitor Start: 02-08-20 take 25-50 mg by mouth at bedtime as needed Trazodone 50 mg tablet Active 25 - 50 mg PO AT BEDTIME NEEDED as needed for insomnia February 07, 2025 12:00am traZODone (DESYR EL) 50 mg tablet Take 50 mg by mouth. 0 Active Comment on above: Take 50 mg by mouth. triamcinolone acetonide 1 mg/ml topical cream (2 sources) Corticosteroid Start: 03-11-2022 End: 03-18-2022 triamcinolone acetonide (KENALOG) 0.1 % cream Apply 1 application to affected area twice daily for 7 days. Apply sparingly to area for rash/itching. 28.4 g 0 03/11/2022 03/18/2022 Active Comment on above: Apply 1 application to affected area twice daily for 7 days. Apply sparingly to area for rash/itching. Completed/Discontinued Medications Medication Drug Class(es) Dates Sig (Normalized) Sig (Original) acetaminophen 500 mg oral tablet (3 sources) Start: 04-01-2024 take 1 tablet by mouth every six hours as needed for pain acetaminophen (TYLENOL) 500 mg tablet Indications: Generalized pain Take 1 Tablet by mouth every 6 (six) hours as needed for pain or fever 90 Tablet 2 04/01/2024 Active Comment on above: Take 1 Tablet by roro th every 6 (six) hours as needed for pain or fever docusate sodium 100 mg oral capsule (2 sources) Start: 06-13-2024 End: 02-07-2025 take 1 capsule by mouth twice daily Docusate Sodium (Colace) 100 mg capsule Discontinued 100 mg PO TWICE A DAY 60 June 13, 2024 12:00am February 07, 2025 9:55pm FLUoxetine 20 mg oral capsule (8 sources) Serotonin Reuptake Inhibitor Start: 03-16-2022 End: 02-07-2025 take 1 capsule by mouth once daily Fluoxetine 20 mg Capsule Discontinued 20 mg PO DAILY March 16, 2022 12:00am February 07, 2025 9:55pm take 2 capsules by mouth once da grisel FLUoxetine (PROZAC) 20 mg capsule Take 40 mg by mouth once daily. 0 Active FLUoxetine (PROZ AC) 20 MG capsule Take 20 mg by mouth 0 Active Comment on above: Take 40 mg by mouth once daily. ibuprofen 600 mg oral tablet (3 sources) Nonsteroidal Anti-inflammatory Drug Start: take 1 tablet by mouth four times daily as needed for pain ibuprofen 600 mg tablet Indications: Generalized pain Take 1 Tablet by mouth 4 (four) times daily as needed for fever, headaches or pain 90 Tablet 2 04/01/2024 Active Comment on above: Take 1 Tablet by roro th 4 (four) times daily as needed for fever, headaches or pain multivitamin tablet (2 sources) Start: 4 take 1 tablet by mouth once daily multivitamin tablet Indications: Preventive medication therapy needed Take 1 Tablet by mouth once daily 90 Tablet 3 04/15/2024 Active Comment on above: Take 1 Tablet by roro th once daily polyethylene glycol 3350 62711 mg powder for oral solution (2 sources) Osmotic Laxative Start: 4 End: 5 Polyethylene Glycol 3350 (Miralax) 17 gram/dose powder Discontinued 17 g PO DAILY 510 June 13, 2024 12:00am February 07, 2025 9:55pm Problems Active Problems Problem Classification Problem Date Documented Da te Episodic/Chronic Abdominal pain (2 sources) Right upper quadrant pain; Translations: [Right upper quadrant pain] Onset: 09-16-2025 Episodic Administrative/social admission (7 sources) Homeless; Translations: [Homeless] 06-13-2021 Episodic Anal and rectal conditions (2 sources) Acute anal fissure; Translations: [Acute anal fissure] 06-21-2024 Episodic Anxiety disorders (1 source) Irritability and anger; Translations: [Feeling angry] Onset: 04-21-2024 Episodic Biliary tract disease (4 sources) Acute cholecystitis; Translations: [Calculus of bile duct without cholangitis or cholecystitis without obstruction] Onset: 09-16-2025 Episodic Diseases of white blood cells (2 sources) Elevated white blood cell count, unspecified; Translations: [Elevated white blood cell count, unspecified] Onset: 09-16-2025 Chronic Headache; including migraine (4 sources) Migraine; Translations: [Migraine, unspecified, not intractable, without status migrainosus] 03-25-2021 Chronic Immunizations and screening for infectious disease (1 source) Encounter for screening for infections with a predominantly sexual mode of transmission; Translations: [Patient encounter status] 04-01-2024 Episodic Inflammation; infection of eye (except that caused by tuberculosis or sexually transmitteddisease) (4 sources) Herpes simplex dendritic keratitis; 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] 05-10-2019 Episodic Malaise and fatigue (4 sources) Fatigue; Translations: [Other fatigue] 02-04-2021 Episodic Miscellaneous mental health disorders (4 sources) Mental disorder; Translations: [Mental disorder, not otherwise specified] 12-27-2022 Chronic Miscellaneous mental health disorders (4 sources) At risk for suicide; Translations: [Other symptoms and signs involving emotional state] 06-13-2021 Episodic Mood disorders (5 sources) Depressive disorder; Translations: [Depression] 06-21-2024 Chronic Mood disorders (2 sources) Mood disorders; Translations: [Depression, unspecified] Onset: 09-16-2025 Nausea and vomiting (5 sources) Nausea and vomiting; Translations: [Nausea with vomiting, unspecified] Onset: 09-16-2025 09-30-2022 Episodic Nutritional deficiencies (2 sources) Vitamin D deficiency, unspecified; Translations: [Vitamin D deficiency] 04-15-2024 Chronic Open wounds of head; neck; and trunk (3 sources) Laceration of forehead; Translations: [Laceration without foreign body of other part of head, initial encounter] 01-29-2023 Episodic Other connective tissue disease (2 sources) Rhabdomyolysis; Translations: [Rhabdomyolysis] 09-20-2024 Episodic Other gastrointestinal disorders (4 sources) Irritable bowel syndrome; Translations: [Irritable bowel syndrome without diarrhea] 06-14-2019 Chronic Other injuries and conditions due to external causes (3 sources) Closed injury of head; Translations: [Unspecified injury of head, initial encounter] 01-29-2023 Episodic Other injuries and conditions due to external causes (2 sources) Superficial frostbite; Translations: [Superficial frostbite of unspecified sites, initial encounter] 12-17-2024 Episodic Other liver diseases (2 sources) Increased creatine kinase level; Translations: [Abnormal levels of other serum enzymes] 09-10-2024 Episodic Other nutritional; endocrine; and metabolic disorders (2 sources) Other disorders of bilirubin metabolism; Translations: [Other disorders of bilirubin metabolism] Onset: 09-16-2025 Chronic Other nutritional; endocrine; and metabolic disorders (2 sources) Overweight; Translations: [Overweight] 04-15-2024 Episodic Other screening for suspected conditions (not mental disorders or infectious disease) (4 sources) Screening due; Translations: [Encounter for screening, unspecified] Episodic Other skin disorders (1 source) Eruption; Translations: [Rash and other nonspecific skin eruption] Episodic Other upper respiratory infections (1 source) Acute upper respiratory infection, unspecified; Translations: [URI, acute] Onset: 03-03-2025 Episodic Pancreatic disorders (not diabetes) (2 sources) Biliary acute pancreatitis without necrosis or infection; Translations: [Biliary acute pancreatitis without necrosis or infection] Onset: 09-16-2025 Episodic Poisoning by other medications and drugs (3 sources) Overdose of opiate; Translations: [Poisoning by unspecified narcotics, accidental (unintentional), initial encounter] 09-30-2022 Episodic Residual codes; unclassified (3 sources) History of clinical finding in subject; Translations: [Personal history of other specified conditions] 01-29-2023 Episodic Residual codes; unclassified (1 source) Pain, unspecified; Translations: [Generalized aches and pains] 04-01-2024 Episodic Residual codes; unclassified (2 sources) Encounter for prophylactic measures, unspecified; Translations: [Preventive medication therapy needed] 04-15-2024 Episodic Residual codes; unclassified (2 sources) Patient encounter status; Translations: [Procedure and treatment not carried out due to patient leaving prior to being seen by health care provider] 06-20-2024 Episodic Residual codes; unclassified (2 sources) Noncompliance with medication regimen; Translations: [Noncompliance with medication regimen] 12-17-2024 Episodic Residual codes; unclassified (2 sources) Tobacco use; Translations: [Tobacco use] Onset: 09-16-2025 Episodic Schizophrenia and other psychotic disorders (8 sources) Schizoaffective disorder; Translations: [Schizoaffective disorder, unspecified] Onset: 04-21-2024 Chronic Substance-related disorders (2 sources) Other psychoactive substance abuse, uncomplicated; Translations: [Substance abuse] Onset: 09-08-2025 04-01-2024 Chronic Superficial injury; contusion (5 sources) Abrasion, right foot, initial encounter; Translations: [Abrasion of right foot] 09-22-2023 Episodic Unclassified (1 source) Peer Supporter Onset: 01-23-2022 01-23-2022 Unclassified (1 source) Connect to Treatment Onset: 01-23-2022 01-23-2022 Unclassified (4 sources) No history of clinical finding in subject; Translations: [No significant past medical history] 06-13-2019 Unclassified (1 source) Psych Eval Onset: 04-23-2024 Unclassified (1 source) Acute cough; Translations: [Acute cough] Onset: 03-03-2025 Unclassified (2 sources) Elevation of levels of liver transaminase levels; Translations: [Elevation of levels of liver transaminase levels] Onset: 09-16-2025 Unclassified (2 sources) Obesity, class 1; Translations: [Obesity, class 1] Onset: 09-16-2025 Viral infection (4 sources) Acute viral disease; Translations: [Viral infection, unspecified] 05-20-2021 Episodic Past or Other Problems Problem Classification Problem Date Documented Da te Episodic/Chronic Other injuries and conditions due to external causes (1 source) Elevated urine levels of drugs, medicaments and biological substances; Translations: [Elevated urine levels of drugs, medicaments and biological substances] Onset: 02-03-2025 Episodic Suicide and intentional self-inflicted injury (5 sources) Suicidal thoughts; Translations: [Suicidal ideations] Onset: 2025 Episodic Results Test Name Value Interpretation Reference Range Facility CBC W/Diff, Automatedon 10-3 Absolute Neut Normal 2.0-7.7 [facility] Comment on above: Result Comment: Canc elled via OM: Order cancelled - Patient discharged Performed By: #### L 505.5000, L500.2500, L700.6800, L501.3620, L100.0100, L501.9100 #### [facility] [address] [place], [address] HCT Normal 37-47 [facility] Comment on above: Result Comment: Canc elled via OM: Order cancelled - Patient discharged Performed By: #### L 505.5000, L500.2500, L700.6800, L501.3620, L100.0100, L501.9100 #### [facility] [address] [place], [place], [id number] ([address] HGB Normal 12.0-15.0 [facility] Comment on above: Result Comment: Canc elled via OM: Order cancelled - Patient discharged Performed By: #### L 505.5000, L500.2500, L700.6800, L501.3620, L100.0100, L501.9100 #### [facility] [address] [place], [address] MCH Normal 27.0-32.0 [facility] Comment on above: Result Comment: Canc elled via OM: Order cancelled - Patient discharged Performed By: #### L 505.5000, L500.2500, L700.6800, L501.3620, L100.0100, L501.9100 #### [facility] [address] [place], [address] MCHC Normal 32-36 [facility] Comment on above: Result Comment: Canc elled via OM: Order cancelled - Patient discharged Performed By: #### L 505.5000, L500.2500, L700.6800, L501.3620, L100.0100, L501.9100 #### [facility] [address] [place], [address] MCV Normal 81-99 [facility] Comment on above: Result Comment: Canc elled via OM: Order cancelled - Patient discharged Performed By: #### L 505.5000, L500.2500, L700.6800, L501.3620, L100.0100, L501.9100 #### [facility] [address] [place], [address] NEUT% Normal 47-70 [facility] Comment on above: Result Comment: Canc elled via OM: Order cancelled - Patient discharged Performed By: #### L 505.5000, L500.2500, L700.6800, L501.3620, L100.0100, L501.9100 #### [facility] [address] [place], [address] PLT Normal 150-450 [facility] Comment on above: Result Comment: Canc elled via OM: Order cancelled - Patient discharged Performed By: #### L 505.5000, L500.2500, L700.6800, L501.3620, L100.0100, L501.9100 #### [facility] [address] [place], [address] RBC Normal 4.2-5.4 [facility] Comment on above: Result Comment: Canc elled via OM: Order cancelled - Patient discharged Performed By: #### L 505.5000, L500.2500, L700.6800, L501.3620, L100.0100, L501.9100 #### [facility] [address] [place], [address] RDW CV Normal 11.6-14.6 [facility] Comment on above: Result Comment: Canc elled via OM: Order cancelled - Patient discharged Performed By: #### L 505.5000, L500.2500, L700.6800, L501.3620, L100.0100, L501.9100 #### [facility] [address] [place], [address] RDW SD Normal 35.1-43.9 [facility] Comment on above: Result Comment: Canc elled via OM: Order cancelled - Patient discharged Performed By: #### L 505.5000, L500.2500, L700.6800, L501.3620, L100.0100, L501.9100 #### [facility] [address] [place], [address] WBC Normal 4.4-11.0 [facility] Comment on above: Result Comment: Canc elled via OM: Order cancelled - Patient discharged Performed By: #### L 505.5000, L500.2500, L700.6800, L501.3620, L100.0100, L501.9100 #### [facility] [address] [place], [address] Liver Profileon 09-09-2025 ALB Normal 3.5-5.0 [facility] Comment on above: Result Comment: Canc elled via OM: Order cancelled - Patient discharged Performed By: #### L 505.5000, L500.2500, L700.6800, L501.3620, L100.0100, L501.9100 #### [facility] [address] [place], [address] ALK PHOS Normal 35-104 [facility] Comment on above: Result Comment: Canc elled via OM: Order cancelled - Patient discharged Performed By: #### L 505.5000, L500.2500, L700.6800, L501.3620, L100.0100, L501.9100 #### [facility] [address] [place], [address] ALT Normal <=34 [facility] Comment on above: Result Comment: Canc elled via OM: Order cancelled - Patient discharged Performed By: #### L 505.5000, L500.2500, L700.6800, L501.3620, L100.0100, L501.9100 #### [facility] [address] [place], [address] AST Normal <=31 [facility] Comment on above: Result Comment: Canc elled via OM: Order cancelled - Patient discharged Performed By: #### L 505.5000, L500.2500, L700.6800, L501.3620, L100.0100, L501.9100 #### [facility] [address] [place], [address] D BILI Normal 0.00-0.30 [facility] Comment on above: Result Comment: Canc elled via OM: Order cancelled - Patient discharged Performed By: #### L 505.5000, L500.2500, L700.6800, L501.3620, L100.0100, L501.9100 #### [facility] [address] [place], [address] T BILI Normal 0.00-1.30 [facility] Comment on above: Result Comment: Canc elled via OM: Order cancelled - Patient discharged Performed By: #### L 505.5000, L500.2500, L700.6800, L501.3620, L100.0100, L501.9100 #### [facility] [address] [place], [address] T PROT Normal 5.9-8.4 [facility] Comment on above: Result Comment: Canc elled via OM: Order cancelled - Patient discharged Performed By: #### L 505.5000, L500.2500, L700.6800, L501.3620, L100.0100, L501.9100 #### [facility] [address] [place], [place], [id number] ([address] CBC W/Diff, Automatedon 10-2 Absolute Neut Normal 2.0-7.7 [facility] Comment on above: Result Comment: Canc elled via OM: Order cancelled - Patient discharged Performed By: #### L 505.5000, L500.2500, L700.6800, L501.3620, L100.0100, L501.9100 #### [facility] [address] [place], [place], [id number] ([address] HCT Normal 37-47 [facility] Comment on above: Result Comment: Canc elled via OM: Order cancelled - Patient discharged Performed By: #### L 505.5000, L500.2500, L700.6800, L501.3620, L100.0100, L501.9100 #### [facility] [address] [place], [address] HGB Normal 12.0-15.0 [facility] Comment on above: Result Comment: Canc elled via OM: Order cancelled - Patient discharged Performed By: #### L 505.5000, L500.2500, L700.6800, L501.3620, L100.0100, L501.9100 #### [facility] [address] [place], [address] MCH Normal 27.0-32.0 [facility] Comment on above: Result Comment: Canc elled via OM: Order cancelled - Patient discharged Performed By: #### L 505.5000, L500.2500, L700.6800, L501.3620, L100.0100, L501.9100 #### [facility] [address] [place], [address] MCHC Normal 32-36 [facility] Comment on above: Result Comment: Canc elled via OM: Order cancelled - Patient discharged Performed By: #### L 505.5000, L500.2500, L700.6800, L501.3620, L100.0100, L501.9100 #### [facility] [address] [place], [address] MCV Normal 81-99 [facility] Comment on above: Result Comment: Canc elled via OM: Order cancelled - Patient discharged Performed By: #### L 505.5000, L500.2500, L700.6800, L501.3620, L100.0100, L501.9100 #### [facility] [address] [place], [address] NEUT% Normal 47-70 [facility] Comment on above: Result Comment: Canc elled via OM: Order cancelled - Patient discharged Performed By: #### L 505.5000, L500.2500, L700.6800, L501.3620, L100.0100, L501.9100 #### [facility] [address] [place], [address] PLT Normal 150-450 [facility] Comment on above: Result Comment: Canc elled via OM: Order cancelled - Patient discharged Performed By: #### L 505.5000, L500.2500, L700.6800, L501.3620, L100.0100, L501.9100 #### [facility] [address] [place], [address] RBC Normal 4.2-5.4 [facility] Comment on above: Result Comment: Canc elled via OM: Order cancelled - Patient discharged Performed By: #### L 505.5000, L500.2500, L700.6800, L501.3620, L100.0100, L501.9100 #### [facility] [address] [place], [address] RDW CV Normal 11.6-14.6 [facility] Comment on above: Result Comment: Canc elled via OM: Order cancelled - Patient discharged Performed By: #### L 505.5000, L500.2500, L700.6800, L501.3620, L100.0100, L501.9100 #### [facility] [address] [place], [address] RDW SD Normal 35.1-43.9 [facility] Comment on above: Result Comment: Canc elled via OM: Order cancelled - Patient discharged Performed By: #### L 505.5000, L500.2500, L700.6800, L501.3620, L100.0100, L501.9100 #### [facility] [address] [place], [address] WBC Normal 4.4-11.0 [facility] Comment on above: Result Comment: Canc elled via OM: Order cancelled - Patient discharged Performed By: #### L 505.5000, L500.2500, L700.6800, L501.3620, L100.0100, L501.9100 #### [facility] [address] [place], [address] Liver Profileon 09-08-2025 ALB Normal 3.5-5.0 [facility] Comment on above: Result Comment: Canc elled via OM: Order cancelled - Patient discharged Performed By: #### L 505.5000, L500.2500, L700.6800, L501.3620, L100.0100, L501.9100 #### [facility] [address] [place], [address] ALK PHOS Normal 35-104 [facility] Comment on above: Result Comment: Canc elled via OM: Order cancelled - Patient discharged Performed By: #### L 505.5000, L500.2500, L700.6800, L501.3620, L100.0100, L501.9100 #### [facility] [address] [place], [address] ALT Normal <=34 [facility] Comment on above: Result Comment: Canc elled via OM: Order cancelled - Patient discharged Performed By: #### L 505.5000, L500.2500, L700.6800, L501.3620, L100.0100, L501.9100 #### [facility] [address] [place], [address] AST Normal <=31 [facility] Comment on above: Result Comment: Canc elled via OM: Order cancelled - Patient discharged Performed By: #### L 505.5000, L500.2500, L700.6800, L501.3620, L100.0100, L501.9100 #### [facility] [address] [place], [address] D BILI Normal 0.00-0.30 [facility] Comment on above: Result Comment: Canc elled via OM: Order cancelled - Patient discharged Performed By: #### L 505.5000, L500.2500, L700.6800, L501.3620, L100.0100, L501.9100 #### [facility] [address] [place], [address] T BILI Normal 0.00-1.30 [facility] Comment on above: Result Comment: Canc elled via OM: Order cancelled - Patient discharged Performed By: #### L 505.5000, L500.2500, L700.6800, L501.3620, L100.0100, L501.9100 #### [facility] [address] [place], [address] T PROT Normal 5.9-8.4 [facility] Comment on above: Result Comment: Canc elled via OM: Order cancelled - Patient discharged Performed By: #### L 505.5000, L500.2500, L700.6800, L501.3620, L100.0100, L501.9100 #### [facility] [address] [place], [address] Basic Metabolic Profile (BMP )on 09-07-2025 BUN/CRE 12.2 RATIO Normal 10-20 [facility] Comment on above: Performed By: #### L 501.9100, L500.2500, L505.5000, L700.6800, L100.0100 #### [facility] [address] [place], [address] Calcium [Mass/Vol] 8.9 mg/dL Normal 7.6-11.0 [facility] Comment on above: Performed By: #### L 501.9100, L500.2500, L505.5000, L700.6800, L100.0100 #### [facility] [address] [place], [address] Chloride [Moles/Vol] 104 mmol/L Normal 98-108 [facility] Comment on above: Performed By: #### L 501.9100, L500.2500, L505.5000, L700.6800, L100.0100 #### [facility] [address] [place], [address] CO2 [Moles/Vol] 22.6 mmol/L Normal 21.0-32.0 [facility] Comment on above: Performed By: #### L 501.9100, L500.2500, L505.5000, L700.6800, L100.0100 #### [facility] [address] [place], [address] Creatinine [Mass/Vol] 0.78 mg/dL Normal 0.70-1.20 [facility] Comment on above: Performed By: #### L 501.9100, L500.2500, L505.5000, L700.6800, L100.0100 #### [facility] [address] [place], [address] ECRCL 114.30 ml/min Normal 50-250 [facility] Comment on above: Performed By: #### L 501.9100, L500.2500, L505.5000, L700.6800, L100.0100 #### [facility] [address] [place], [address] GAP 10 Normal 5-15 [facility] Comment on above: Performed By: #### L 501.9100, L500.2500, L505.5000, L700.6800, L100.0100 #### [facility] [address] [place], [address] GFR/1.73 sq M.predicted among non-blacks MDRD (S/P/Bld) [Vol rate/Area] 104 mL/min/{1.73_m2} Normal >60 [facility] Comment on above: Result Comment: mL/m in/1.73m2 CKD-EPI Creatinine Equation (2020) Performed By: #### L 501.9100, L500.2500, L505.5000, L700.6800, L100.0100 #### [facility] [address] [place], [address] Glucose [Mass/Vol] 100 mg/dL High 70-99 [facility] Comment on above: Performed By: #### L 501.9100, L500.2500, L505.5000, L700.6800, L100.0100 #### [facility] [address] [place], [address] Potassium [Moles/Vol] 4.1 mmol/L Normal 3.3-5.1 [facility] Comment on above: Performed By: #### L 501.9100, L500.2500, L505.5000, L700.6800, L100.0100 #### [facility] [address] [place], [address] Sodium [Moles/Vol] 136 mmol/L Normal 133-145 [facility] Comment on above: Performed By: #### L 501.9100, L500.2500, L505.5000, L700.6800, L100.0100 #### [facility] [address] [place], [address] Urea nitrogen [Mass/Vol] 10 mg/dL Normal 4-19 [facility] Comment on above: Performed By: #### L 501.9100, L500.2500, L505.5000, L700.6800, L100.0100 #### [facility] [address] [place], [address] CBC W/Diff, Automatedon 10-2 Absolute Lymph 2.60 X10 3/uL Normal 0.83-4.51 [facility] Comment on above: Performed By: #### L 501.9100, L500.2500, L505.5000, L700.6800, L100.0100 #### [facility] [address] [place], [address] Absolute Neut 11.3 X10 3/uL High 2.0-7.7 [facility] Comment on above: Performed By: #### L 501.9100, L500.2500, L505.5000, L700.6800, L100.0100 #### [facility] [address] [place], [address] Basophils/100 WBC (Bld) 0.3 % Normal 0-1 [facility] Comment on above: Performed By: #### L 501.9100, L500.2500, L505.5000, L700.6800, L100.0100 #### [facility] [address] [place], [address] Eosinophils/100 WBC (Bld) 0.1 % Normal 0-5 [facility] Comment on above: Performed By: #### L 501.9100, L500.2500, L505.5000, L700.6800, L100.0100 #### [facility] [address] [place], [address] Erythrocyte distribution width (RBC) [Ratio] 12.6 % Normal 11.6-14.6 [facility] Comment on above: Performed By: #### L 501.9100, L500.2500, L505.5000, L700.6800, L100.0100 #### [facility] [address] [place], [address] Hematocrit (Bld) [Volume fraction] 37.4 % Normal 37-47 [facility] Comment on above: Performed By: #### L 501.9100, L500.2500, L505.5000, L700.6800, L100.0100 #### [facility] [address] [place], [address] Hemoglobin (Bld) [Mass/Vol] 12.8 g/dL Normal 12.0-15.0 [facility] Comment on above: Performed By: #### L 501.9100, L500.2500, L505.5000, L700.6800, L100.0100 #### [facility] [address] [place], [address] IG% 0.600 Normal 0.0-0.9 [facility] Comment on above: Result Comment: IG% - Immature Granulocytes (promyelocytes, myelocytes and metamyelocytes) > 1% indicates that a LEFT SHIFT is Present. Performed By: #### L 501.9100, L500.2500, L505.5000, L700.6800, L100.0100 #### [facility] [address] [place], [address] Lymphocytes/100 WBC (Bld) 17.4 % Low 19-41 [facility] Comment on above: Performed By: #### L 501.9100, L500.2500, L505.5000, L700.6800, L100.0100 #### [facility] [address] [place], [address] MCH (RBC) [Entitic mass] 31.3 pg Normal 27.0-32.0 [facility] Comment on above: Performed By: #### L 501.9100, L500.2500, L505.5000, L700.6800, L100.0100 #### [facility] [address] [place], [address] MCHC (RBC) [Mass/Vol] 34.2 g/dL Normal 32-36 [facility] Comment on above: Performed By: #### L 501.9100, L500.2500, L505.5000, L700.6800, L100.0100 #### [facility] [address] [place], [address] MCV (RBC) [Entitic vol] 91.4 fL Normal 81-99 [facility] Comment on above: Performed By: #### L 501.9100, L500.2500, L505.5000, L700.6800, L100.0100 #### [facility] [address] [place], [address] Monocytes/100 WBC (Bld) 6.0 % Normal 0-10 [facility] Comment on above: Performed By: #### L 501.9100, L500.2500, L505.5000, L700.6800, L100.0100 #### [facility] [address] [place], [address] Neutrophils/100 WBC (Bld) 75.6 % High 47-70 [facility] Comment on above: Performed By: #### L 501.9100, L500.2500, L505.5000, L700.6800, L100.0100 #### [facility] [address] [place], [address] Nucleated RBC (Bld) [#/Vol] 0 10*3/uL Normal 0-5 [facility] Comment on above: Performed By: #### L 501.9100, L500.2500, L505.5000, L700.6800, L100.0100 #### [facility] [address] [place], [address] Platelet mean volume (Bld) [Entitic vol] 9.1 fL Normal 6.2-12.0 [facility] Comment on above: Performed By: #### L 501.9100, L500.2500, L505.5000, L700.6800, L100.0100 #### [facility] [address] [place], [address] Platelets (Bld) [#/Vol] 329 10*3/uL Normal 150-450 [facility] Comment on above: Performed By: #### L 501.9100, L500.2500, L505.5000, L700.6800, L100.0100 #### [facility] [address] [place], [address] RBC (Bld) [#/Vol] 4.09 10*6/uL Low 4.2-5.4 [facility] Comment on above: Performed By: #### L 501.9100, L500.2500, L505.5000, L700.6800, L100.0100 #### [facility] [address] [place], [address] RDW SD 41.9 fl Normal 35.1-43.9 [facility] Comment on above: Performed By: #### L 501.9100, L500.2500, L505.5000, L700.6800, L100.0100 #### [facility] [address] [place], [address] WBC (Bld) [#/Vol] 14.9 10*3/uL High 4.4-11.0 [facility] Comment on above: Performed By: #### L 501.9100, L500.2500, L505.5000, L700.6800, L100.0100 #### [facility] [address] [place], [address] Discharge Instructionon 08-12 Discharge Instruction [facility] Medical Records Department [address] [place] [address] Instructions for Home/Discharge Instructions 09/07/25 0810 MR#: [id number] Acct: [id number] Name: JAZZY FLORENCE Rep #: [id number] : 1995 30 From: Moe Huber MD PCP: Ever Toribio MD Status:DIS IN Documented by User: Dr. Moe Huber MD 09/07/25 08:11 Discharge Instructions DC O2, CPAP, BIPAP needs Home O2 Discharge instructions: No Dressing / Incision Discharge Activity: May Not Drive (No driving while using narcotic pain medication) and May Shower (Postoperative day 1) May shower in (days): 1 Ice area for (Minutes): 20 Lifting Restrictions: No lifting greater than 15 pounds for 2 weeks after surgery Dressing / Incision Call your doctor if your incision/area has: Continuous Slow Oozing, Increased Pain/ Swelling, Increased Redness, Foul Smelling Discharge and Swelling at the incision site Call your doctor if you observe: Fever of 101 or Higher Remove Dressing in: 1 day (Please leave Steri-Strips intact until they fall off spontaneously or are taken off at your follow-up visit) Cleanse incision/area with: Soap Water Follow Up Care Please Follow Up With: Moe Huber MD When: 10days postop Test Results: Test results from this visit will be discussed in further detail at your follow-up appointment, if applicable. Discharge Plan Admission Admit Date/Time: 09/02/25 21:45 Attending Provider: Valarie Varela Primary Care Provider: Ever Toribio Consulting Providers: Valarie Liu; Gagan Perez; Ian Zavala; Pepe Mancia; Thania Lambert; Nathalei Guallpa; Tatianna Osorio; Ever Vasquez Discharge Orders/Prescriptions Prescriptions: Continued buspirone 10 mg tablet 10 mg PO TID aripiprazole 30 mg tablet 30 mg PO DAILY atomoxetine 80 mg capsule 80 mg PO DAILY divalproex 250 mg tablet,delayed release (DR/EC) 250 mg PO BID Lotrimin AF 2 % aerosol,spray 1 spray topical BID Other Ambulatory Orders: Comprehensive Metabolic Profil (Routine) Timeframe: 20250916 Facility: [facility] - Location: Laboratory Ordered By: Akua MCDANIEL Referrals / Follow Up: Akua Calixto PA-C [Med Staff - [facility] Prof, Surgery] - 09/16/25 10:00 am Ever Toribio MD [Primary Care Provider, [facility]] - Within 2 Weeks Disposition Disposition (needs filled in before D/C Order can be placed): Home, Self Care Documented by User: Akua MCDANIEL PA-C 09/07/25 10:11 Discharge Instructions Follow Up Care Please Follow Up With: Akua Calixto PA-C When: Post-op appointment scheduled for 09/16/25 at 10:00AM. Please call [phone], option #2, if any questions or concerns. Discharge Plan Admission Admit Date/Time: 09/02/25 21:45 Attending Provider: Valarie Varela Primary Care Provider: Ever Toribio Consulting Providers: Valarie Liu; Gagan Perez; Ian Zavala; Pepe Mancia; Thania Lambert; Nathalie Guallpa; Tatianna Osorio; Ever Vasquez Discharge Orders/Prescriptions Prescriptions: Continued buspirone 10 mg tablet 10 mg PO TID aripiprazole 30 mg tablet 30 mg PO DAILY atomoxetine 80 mg capsule 80 mg PO DAILY divalproex 250 mg tablet,delayed release (DR/EC) 250 mg PO BID Lotrimin AF 2 % aerosol,spray 1 spray topical BID Other Ambulatory Orders: Comprehensive Metabolic Profil (Routine) Timeframe: 20250916 Facility: [facility] - Location: Laboratory Ordered By: Akua MCDANIEL Referrals / Follow Up: Akua Calixto PA-C [Med Staff - [facility] Prof, Surgery] - 09/16/25 10:00 am Ever Toribio MD [Primary Care Provider, [facility]] - Within 2 Weeks Disposition Disposition (needs filled in before D/C Order can be placed): Home, Self Care 09/07/25 5717 Moe Huber MD CC: DIGITAL MEDIA PRODUCERMaryana Lambert; DIGITAL MEDIA PRODUCERGrayC Nathalie Guallpa; Dr. Valarie Liu DO; Dr. Ever Vasquez DO; Dr. Ian Zavala MD; Dr. Gagan Perez MD; Ever Toribio MD; VIOLETA Rushing; Pepe Mancia DO Signed Normal [facility] Liver Profileon 09-07-2025 Albumin [Mass/Vol] 3.4 g/dL Low 3.5-5.0 [facility] Comment on above: Performed By: #### L 501.9100, L500.2500, L505.5000, L700.6800, L100.0100 #### [facility] [address] [place], [address] ALK PHOS 227 U/L High 35-104 [facility] Comment on above: Performed By: #### L 501.9100, L500.2500, L505.5000, L700.6800, L100.0100 #### [facility] [address] [place], [address] ALT [Catalytic activity/Vol] 82 U/L High <=34 [facility] Comment on above: Performed By: #### L 501.9100, L500.2500, L505.5000, L700.6800, L100.0100 #### [facility] [address] [place], [address] AST [Catalytic activity/Vol] 89 U/L High <=31 [facility] Comment on above: Performed By: #### L 501.9100, L500.2500, L505.5000, L700.6800, L100.0100 #### [facility] [address] [place], [address] Bilirubin [Mass/Vol] 3.72 mg/dL High 0.00-1.30 [facility] Comment on above: Performed By: #### L 501.9100, L500.2500, L505.5000, L700.6800, L100.0100 #### [facility] [address] [place], [address] Bilirubin.direct [Mass/Vol] 2.75 mg/dL High 0.00-0.30 [facility] Comment on above: Performed By: #### L 501.9100, L500.2500, L505.5000, L700.6800, L100.0100 #### [facility] [address] [place], [address] Globulin (S) [Mass/Vol] 2.9 g/dL Normal 2.2-4.2 [facility] Comment on above: Performed By: #### L 501.9100, L500.2500, L505.5000, L700.6800, L100.0100 #### [facility] [address] [place], [address] T PROT 6.3 g/dL Normal 5.9-8.4 [facility] Comment on above: Performed By: #### L 501.9100, L500.2500, L505.5000, L700.6800, L100.0100 #### [facility] [address] [place], [address] Magnesiumon 09-07-2025 Magnesium [Mass/Vol] 1.8 mg/dL Normal 1.5-2.2 [facility] Comment on above: Performed By: #### L 501.9100, L500.2500, L505.5000, L700.6800, L100.0100 #### [facility] [address] [place], [address] Phosphoruson 09-07-2025 Phosphate [Mass/Vol] 2.4 mg/dL Low 2.7-4.5 [facility] Comment on above: Performed By: #### L 501.9100, L500.2500, L505.5000, L700.6800, L100.0100 #### [facility] [address] [place], [address] Basic Metabolic Profile (BMP )on 09-06-2025 BUN/CRE 15.7 RATIO Normal 10-20 [facility] Comment on above: Performed By: #### L 505.5000, L500.2500, L700.6800, L501.3620, L100.0100, L501.9100 #### [facility] [address] [place], [address] Calcium [Mass/Vol] 9.1 mg/dL Normal 7.6-11.0 [facility] Comment on above: Performed By: #### L 505.5000, L500.2500, L700.6800, L501.3620, L100.0100, L501.9100 #### [facility] [address] [place], [address] Chloride [Moles/Vol] 103 mmol/L Normal 98-108 [facility] Comment on above: Performed By: #### L 505.5000, L500.2500, L700.6800, L501.3620, L100.0100, L501.9100 #### [facility] [address] [place], [address] CO2 [Moles/Vol] 22.9 mmol/L Normal 21.0-32.0 [facility] Comment on above: Performed By: #### L 505.5000, L500.2500, L700.6800, L501.3620, L100.0100, L501.9100 #### [facility] [address] [place], [address] Creatinine [Mass/Vol] 0.83 mg/dL Normal 0.70-1.20 [facility] Comment on above: Performed By: #### L 505.5000, L500.2500, L700.6800, L501.3620, L100.0100, L501.9100 #### [facility] [address] [place], [address] ECRCL 104.73 ml/min Normal 50-250 [facility] Comment on above: Performed By: #### L 505.5000, L500.2500, L700.6800, L501.3620, L100.0100, L501.9100 #### [facility] [address] [place], [address] GAP 11 Normal 5-15 [facility] Comment on above: Performed By: #### L 505.5000, L500.2500, L700.6800, L501.3620, L100.0100, L501.9100 #### [facility] [address] [place], [address] GFR/1.73 sq M.predicted among non-blacks MDRD (S/P/Bld) [Vol rate/Area] 97 mL/min/{1.73_m2} Normal >60 [facility] Comment on above: Result Comment: mL/m in/1.73m2 CKD-EPI Creatinine Equation (2020) Performed By: #### L 505.5000, L500.2500, L700.6800, L501.3620, L100.0100, L501.9100 #### [facility] [address] [place], [address] Glucose [Mass/Vol] 106 mg/dL High 70-99 [facility] Comment on above: Performed By: #### L 505.5000, L500.2500, L700.6800, L501.3620, L100.0100, L501.9100 #### [facility] [address] [place], [address] Potassium [Moles/Vol] 4.4 mmol/L Normal 3.3-5.1 [facility] Comment on above: Performed By: #### L 505.5000, L500.2500, L700.6800, L501.3620, L100.0100, L501.9100 #### [facility] [address] [place], [address] Sodium [Moles/Vol] 137 mmol/L Normal 133-145 [facility] Comment on above: Performed By: #### L 505.5000, L500.2500, L700.6800, L501.3620, L100.0100, L501.9100 #### [facility] [address] [place], [address] Urea nitrogen [Mass/Vol] 13 mg/dL Normal 4-19 [facility] Comment on above: Performed By: #### L 505.5000, L500.2500, L700.6800, L501.3620, L100.0100, L501.9100 #### [facility] [address] [place], [address] CBC W/Diff, Automatedon 10-2 Absolute Lymph 2.53 X10 3/uL Normal 0.83-4.51 [facility] Comment on above: Performed By: #### L 505.5000, L500.2500, L700.6800, L501.3620, L100.0100, L501.9100 #### [facility] [address] [place], [address] Absolute Neut 5.9 X10 3/uL Normal 2.0-7.7 [facility] Comment on above: Performed By: #### L 505.5000, L500.2500, L700.6800, L501.3620, L100.0100, L501.9100 #### [facility] [address] [place], [address] Basophils/100 WBC (Bld) 0.9 % Normal 0-1 [facility] Comment on above: Performed By: #### L 505.5000, L500.2500, L700.6800, L501.3620, L100.0100, L501.9100 #### [facility] [address] [place], [address] Eosinophils/100 WBC (Bld) 2.6 % Normal 0-5 [facility] Comment on above: Performed By: #### L 505.5000, L500.2500, L700.6800, L501.3620, L100.0100, L501.9100 #### [facility] [address] [place], [address] Erythrocyte distribution width (RBC) [Ratio] 12.7 % Normal 11.6-14.6 [facility] Comment on above: Performed By: #### L 505.5000, L500.2500, L700.6800, L501.3620, L100.0100, L501.9100 #### [facility] [address] [place], [address] Hematocrit (Bld) [Volume fraction] 39.6 % Normal 37-47 [facility] Comment on above: Performed By: #### L 505.5000, L500.2500, L700.6800, L501.3620, L100.0100, L501.9100 #### [facility] [address] [place], [address] Hemoglobin (Bld) [Mass/Vol] 13.4 g/dL Normal 12.0-15.0 [facility] Comment on above: Performed By: #### L 505.5000, L500.2500, L700.6800, L501.3620, L100.0100, L501.9100 #### [facility] [address] [place], [address] IG% 1.100 High 0.0-0.9 [facility] Comment on above: Result Comment: IG% - Immature Granulocytes (promyelocytes, myelocytes and metamyelocytes) > 1% indicates that a LEFT SHIFT is Present. Performed By: #### L 505.5000, L500.2500, L700.6800, L501.3620, L100.0100, L501.9100 #### [facility] [address] [place], [address] Lymphocytes/100 WBC (Bld) 26.6 % Normal 19-41 [facility] Comment on above: Performed By: #### L 505.5000, L500.2500, L700.6800, L501.3620, L100.0100, L501.9100 #### [facility] [address] [place], [address] MCH (RBC) [Entitic mass] 30.9 pg Normal 27.0-32.0 [facility] Comment on above: Performed By: #### L 505.5000, L500.2500, L700.6800, L501.3620, L100.0100, L501.9100 #### [facility] [address] [place], [address] MCHC (RBC) [Mass/Vol] 33.8 g/dL Normal 32-36 [facility] Comment on above: Performed By: #### L 505.5000, L500.2500, L700.6800, L501.3620, L100.0100, L501.9100 #### [facility] [address] [place], [address] MCV (RBC) [Entitic vol] 91.2 fL Normal 81-99 [facility] Comment on above: Performed By: #### L 505.5000, L500.2500, L700.6800, L501.3620, L100.0100, L501.9100 #### [facility] [address] [place], [address] Monocytes/100 WBC (Bld) 7.2 % Normal 0-10 [facility] Comment on above: Performed By: #### L 505.5000, L500.2500, L700.6800, L501.3620, L100.0100, L501.9100 #### [facility] [address] [place], [address] Neutrophils/100 WBC (Bld) 61.6 % Normal 47-70 [facility] Comment on above: Performed By: #### L 505.5000, L500.2500, L700.6800, L501.3620, L100.0100, L501.9100 #### [facility] [address] [place], [address] Nucleated RBC (Bld) [#/Vol] 0 10*3/uL Normal 0-5 [facility] Comment on above: Performed By: #### L 505.5000, L500.2500, L700.6800, L501.3620, L100.0100, L501.9100 #### [facility] [address] [place], [address] Platelet mean volume (Bld) [Entitic vol] 9.3 fL Normal 6.2-12.0 [facility] Comment on above: Performed By: #### L 505.5000, L500.2500, L700.6800, L501.3620, L100.0100, L501.9100 #### [facility] [address] [place], [address] Platelets (Bld) [#/Vol] 322 10*3/uL Normal 150-450 [facility] Comment on above: Performed By: #### L 505.5000, L500.2500, L700.6800, L501.3620, L100.0100, L501.9100 #### [facility] [address] [place], [address] RBC (Bld) [#/Vol] 4.34 10*6/uL Normal 4.2-5.4 [facility] Comment on above: Performed By: #### L 505.5000, L500.2500, L700.6800, L501.3620, L100.0100, L501.9100 #### [facility] [address] [place], [address] RDW SD 42.7 fl Normal 35.1-43.9 [facility] Comment on above: Performed By: #### L 505.5000, L500.2500, L700.6800, L501.3620, L100.0100, L501.9100 #### [facility] [address] [place], [address] WBC (Bld) [#/Vol] 9.5 10*3/uL Normal 4.4-11.0 [facility] Comment on above: Performed By: #### L 505.5000, L500.2500, L700.6800, L501.3620, L100.0100, L501.9100 #### [facility] [address] [place], [address] Cholangiogram/ O R,Initialon 09-06-2025 Cholangiogram/ O R,Initial [facility] Imaging Services [address] [place] [address] Cholangiogram/ O R,Initial MR#: [id number] Acct: [id number] Name: FLORENCEJAZZY Rep #: [id number] : 1995 F 30 From: Kwadwo Centeno MD PCP: Ever Toribio MD Status: ADM IN Study: Cholangiogram/ O R,Initial Date of Exam: 09/06 Exam# [id number] Ordering Dr: Moe Huber MD PROCEDURE: CHOLANGIOGRAM/ O R,INITIAL 09/06/2025 REASON FOR EXAM: LAP ADILSON W/ IOC TECHNIQUE: Procedure Code: RADCHO Modality: DX Procedure: CHOLANGIOGRAM/ O R,INITIAL COMPARISON: 09/01/2025. FINDINGS: Intraoperative fluoroscopy for a cholangiogram was performed. 25.7 seconds. 11.45 mGy. Filling defects within the common bile duct. See procedure report for full details. RAD/Cholangiogram/ O R,Initial IMPRESSION: As above. Reading Location: [id number] CC: Dr. Moe Huber MD; Ever Toribio MD Certified Vehicle Fire Investigator: Signed Normal [facility] MR/POSTOP.ANEon 09-06-2025 MR/POSTOP.ANE [facility] Medical Records Department [address] [place] [address] Anesthesia Postop Eval I 09/06/25 192 MR#: [id number] Acct: [id number] Name: JAZZY FLORENCE Rep #: [id number] : 1995 30 From: Justyn Michelle MD PCP: Ever Toribio MD Status:ADM IN Y Race: C [facility]esthesia: Postop Eval I Current Vital Signs Temperature: 99.2 F Pulse Rate: 74 Blood Pressure: 98/52 Respiratory Rate: 16 Pulse Ox: 100 Oxygen Delivery Method: Room Air Assessment Airway patent: Yes Spontaneous unlabored respirations: Yes Mental status: Awake and Calm nausea: Yes Vomiting: No Anesthesia Complication: No Fluid Hydration Crystalloid volume administer (ml): 1,800 Total IV fluid infused: 1,800 Progress Note Anesthesia document: Postop Eval 1 completed: Yes 09/06/251924 Date Justyn Michelle MD Cosigner Signature: Date CC: Signed Normal [facility] MR/[id number] [facility]-06-2025 [facility] Medical Records Department [address] [place] [address] Anesthesia Postop Eval II 09/06/252111 MR#: [id number] Acct: [id number] Name: FLORENCEJAZZYFrancois FERRO Rep #: [id number] : 1995 30 From: Justyn Michelle MD PCP: Ever Toribio MD Status:ADM IN Y Race: C [facility] Postop Eval I Sum Postop Eval Completion status Anesthesia document: Postop Eval 1 completed: Yes Anesthesia Postop Eval I Summary Anesthesia Postop Eval I Summary: Anesthesia Postop Eval I: Assessment Summary Airway patent Yes 09/06/25 19:25 Spontaneous unlabored Yes 09/06/25 19:25 respirations Mental status Awake,Calm 09/06/25 19:25 nausea Yes 09/06/25 19:25 Vomiting No 09/06/25 19:25 Anesthesia Postop Eval I: Fluid Summary Crystalloid volume administer 1,800 09/06/25 19:25 (ml) Colloids volume administered ( ml) Blood Product volume administered (ml) Total IV fluid infused 1,800 09/06/25 19:25 Anesthesia Postop Eval I: Summary Notes Anesthesia Complication No 09/06/25 19:25 Anesthesia Complication Comment: Post-operative progress note Anesthesia: Postop Eval II Evaluation Mental status: Awake and Calm Pain Level: 2 nausea: No Vomiting: No Complications Anesthesia Complication: No 09/06/252111 Date Justyn Michelle MD Cosigner Signature: Date CC: Signed Normal [facility] Operative Reporton Operative Report [facility] Medical Records Department [address] [place] [address] Operative Report 09/06/25 1850 MR#: [id number] Acct: [id number] Name: JAZZY FLORENCE Rep #: [id number] : 1995 30 From: Moe Huber MD PCP: Ever Toribio MD Status:ADM IN Location[place] [facility] Procedures Digestive 40xxx-49xxx: [id number] Laparo cholecystectomy/graph Operative Report (Standard) Operative Information Date of Procedure: 09/06/25 Pre-Operative Diagnosis: 1. Acute cholecystitis 2. Choledocholithiasis with gallstone pancreatitis status post ERCP with common bile duct stenting Post-Operative Diagnosis: 1. Severe acute on chronic cholecystitis 2. Choledocholithiasis with gallstone pancreatitis status post ERCP with common bile duct stenting Surgery/Procedure Performed: Laparoscopic cholecystectomy with intraoperative cholangiography manufacturing industrial engineer: Yes Loss Prevention Supervisor: David Lewis Tasks completed by service center assistant: Opening closing Type of Anesthesia: General/Supplemental RN Documented Start/Stop Times: Operation Date: 09/06/25 14:45 Case Time Into Pre-Op 09/06/25 13:40 Anesthesia Start 09/06/25 15:23 Into Room 09/06/25 15:23 Procedure Start 09/06/25 15:53 Procedure End 09/06/25 19:01 Anesthesia End 09/06/25 19:11 Out of Room 09/06/25 19:11 Into Recovery 09/06/25 19:13 Out of Recovery 09/06/25 20:10 Procedure Start Time: 15:53 Procedure Stop Time: 19:01 Select all DRAINS/GRAFTS/IMPLANTS that apply: None Estimated Blood Loss: 100 Specimen collected: Yes Description of specimen(s) removed: Gallbladder Description of surgery: After proper identification in the preoperative holding area the patient was brought to the operating room where she was positioned supine on the operating room table. Preoperatively SCDs were connected and antibiotics were administered. General anesthesia was then induced and anesthesia placed an orogastric tube. Patient's abdomen was prepped and draped in usual sterile fashion. A formal timeout was conducted to confirm both patient and the procedure. Procedure was begun with a supraumbilical incision which was extended deeply down to the level of the fascia. The fascia was elevated and incised, as well as the peritoneum. A finger sweep was performed to ensure there were no underlying adhesions and a 12 mm balloon trocar was inserted. Pneumoperitoneum was established at 15 mmHg. Three additional trocars (all 5 mm) were placed in the epigastrium and in the right upper quadrant. Inspection of the peritoneum revealed no inadvertent injury to the viscera below. The gallbladder was visualized with evidence of significant acute on chronic inflammation with a thickened wall, whitish appearance, and attachments to the underlying omentum. The gallbladder was so chronically inflamed and full of gallstones that the fundus could not be easily grasped even with trial of numerous graspers. I was able to obtain a slight tangential bite and the gallbladder was carefully elevated cephalad. Then, using careful dissection the peritoneum was opened and the structures of the hepatocystic triangle were delineated. There were a number of small branches from a dominant anterior cystic artery to the gallbladder, the border of the gallbladder, and the cystic duct. The cystic duct was quite challenging to isolate given the presence of these branches as well as the thick rind generally encasing the entirety of the gallbladder. The small vessels were taken in turn after first placing small titanium clip on the stay side and using electrocautery on the specimen side to control risk for bleeding. The cystic duct was also notably significantly dilated. Once the critical view of safety was obtained, the cystic duct was palpated with a grasper to try to dislodge stones distally into the gallbladder and out of the duct. I then used a Metzger clamp to occlude the duct and cholangiocatheter which was fed into the proximal segment of the cystic duct. Under fluoroscopy a cholangiogram was obtained showing a slightly foreshortened cystic duct flowing into a common bile duct containing a common bile duct stent and evidence of numerous proximal filling defects (that were nonocclusive) before entering the duodenum. There was also retrograde flow through the common hepatic duct into the right and left hepatic ducts. Satisfied with this result, the cholangiocatheter was withdrawn and the gallbladder was taken down in a dome-down approach as I had determined I would require an Endoloop to appropriately ligate patient's dilated cystic duct. The main trunk of the cystic artery had been controlled with titanium clips previously. The gallbladder was then removed from the gallbladder fossa with the use of electrocautery before 2X 0 PDS Endoloops were used to ligate the cystic duct. Laparoscopic allyson were used to (more content not included)... Normal [facility] Surgery Specimen Level IIIon 09-06-2025 Surgery Specimen Level III ---- Patient Age/Sex Location Account Attending Physician ---- JAZZY FLORENCE 30/ MS3 [id number] Dr. Valarie Varela MD ---- Specimen: [id number] Received: 09/07/25 Status: KAY Tan Num: [id number] Spec Type: TRACIE Monsalve Dr: Dr. Moe Huber MD HEADER OPERATION: Laparoscopic, cholecystectomy with IOC PRE-OP DIAGNOSIS: Gallstone pancreatitis, acute cholecystitis, hyperbilirubinemia, transaminitis, leukocytosis, nausea / vomiting, abdominal pain TISSUE SUBMITTED: A- Gallbladder ---- MICROSCOPIC DIAGNOSIS A. Gallbladder, laparoscopic cholecystectomy: - Acute on chronic cholecystitis, cholelithiasis. MICROSCOPIC DESCRIPTION Slides are reviewed. GROSS DESCRIPTION A. Received in formalin labeled with the patient's name and date of . Designated as "gallbladder" is a 6.8 x 3.0 x 2.0 cm intact, firm, pink-red gallbladder with attached cystic duct (inked black, shaved) that is grossly obstructed by a cholelith. A lymph node is not present. Opening reveals minimal yellow, inspissated bile and numerous yellow-red to brown, multifaceted choleliths, ranging 0.1 cm to 0.8 cm. The mucosa is puentes-red granular, trabeculated and diffusely eroded with a maximum wall thickness of 0.7 cm. Cholesterolosis is not present. In Room Dining Server sections are submitted in 1 cassette. NC 09/07/2025PT:79274 ---- Patient Age/Sex Location Account Attending Physician ---- JAZZY FLORENCE 30/F MS3 [id number] Dr. Valarie Varela MD ---- Signed (signature on file) Dr. Abiola Guzman MD 09/13/25 1246 ---- Normal [facility] Comment on above: Performed By: #### L 501.9100, L500.2500, L505.5000, L700.6800, L100.0100 #### [facility] [address] [place], [address] CBC W/Diff, Automatedon 10-2 5-2024 Absolute Lymph 2.34 X10 3/uL Normal 0.83-4.51 [facility] Comment on above: Performed By: #### L 501.9100, L500.2500, L505.5000, L700.6800, L100.0100 #### [facility] [address] [place], [address] Absolute Neut 8.1 X10 3/uL High 2.0-7.7 [facility] Comment on above: Performed By: #### L 501.9100, L500.2500, L505.5000, L700.6800, L100.0100 #### [facility] [address] [place], [address] Basophils/100 WBC (Bld) 0.3 % Normal 0-1 [facility] Comment on above: Performed By: #### L 501.9100, L500.2500, L505.5000, L700.6800, L100.0100 #### [facility] [address] [place], [address] Eosinophils/100 WBC (Bld) 0.3 % Normal 0-5 [facility] Comment on above: Performed By: #### L 501.9100, L500.2500, L505.5000, L700.6800, L100.0100 #### [facility] [address] [place], [address] Erythrocyte distribution width (RBC) [Ratio] 12.9 % Normal 11.6-14.6 [facility] Comment on above: Performed By: #### L 501.9100, L500.2500, L505.5000, L700.6800, L100.0100 #### [facility] [address] [place], [address] Hematocrit (Bld) [Volume fraction] 35.1 % Low 37-47 [facility] Comment on above: Performed By: #### L 501.9100, L500.2500, L505.5000, L700.6800, L100.0100 #### [facility] [address] [place], [address] Hemoglobin (Bld) [Mass/Vol] 12.0 g/dL Normal 12.0-15.0 [facility] Comment on above: Performed By: #### L 501.9100, L500.2500, L505.5000, L700.6800, L100.0100 #### [facility] [address] [place], [address] IG% 0.700 Normal 0.0-0.9 [facility] Comment on above: Result Comment: IG% - Immature Granulocytes (promyelocytes, myelocytes and metamyelocytes) > 1% indicates that a LEFT SHIFT is Present. Performed By: #### L 501.9100, L500.2500, L505.5000, L700.6800, L100.0100 #### [facility] [address] [place], [address] Lymphocytes/100 WBC (Bld) 20.3 % Normal 19-41 [facility] Comment on above: Performed By: #### L 501.9100, L500.2500, L505.5000, L700.6800, L100.0100 #### [facility] [address] [place], [address] MCH (RBC) [Entitic mass] 31.0 pg Normal 27.0-32.0 [facility] Comment on above: Performed By: #### L 501.9100, L500.2500, L505.5000, L700.6800, L100.0100 #### [facility] [address] [place], [address] MCHC (RBC) [Mass/Vol] 34.2 g/dL Normal 32-36 [facility] Comment on above: Performed By: #### L 501.9100, L500.2500, L505.5000, L700.6800, L100.0100 #### [facility] [address] [place], [address] MCV (RBC) [Entitic vol] 90.7 fL Normal 81-99 [facility] Comment on above: Performed By: #### L 501.9100, L500.2500, L505.5000, L700.6800, L100.0100 #### [facility] [address] [place], [address] Monocytes/100 WBC (Bld) 8.3 % Normal 0-10 [facility] Comment on above: Performed By: #### L 501.9100, L500.2500, L505.5000, L700.6800, L100.0100 #### [facility] [address] [place], [address] Neutrophils/100 WBC (Bld) 70.1 % High 47-70 [facility] Comment on above: Performed By: #### L 501.9100, L500.2500, L505.5000, L700.6800, L100.0100 #### [facility] [address] [place], [address] Nucleated RBC (Bld) [#/Vol] 0 10*3/uL Normal 0-5 [facility] Comment on above: Performed By: #### L 501.9100, L500.2500, L505.5000, L700.6800, L100.0100 #### [facility] [address] [place], [address] Platelet mean volume (Bld) [Entitic vol] 9.3 fL Normal 6.2-12.0 [facility] Comment on above: Performed By: #### L 501.9100, L500.2500, L505.5000, L700.6800, L100.0100 #### [facility] [address] [place], [address] Platelets (Bld) [#/Vol] 269 10*3/uL Normal 150-450 [facility] Comment on above: Performed By: #### L 501.9100, L500.2500, L505.5000, L700.6800, L100.0100 #### [facility] [address] [place], [address] RBC (Bld) [#/Vol] 3.87 10*6/uL Low 4.2-5.4 [facility] Comment on above: Performed By: #### L 501.9100, L500.2500, L505.5000, L700.6800, L100.0100 #### [facility] [address] [place], [address] RDW SD 42.6 fl Normal 35.1-43.9 [facility] Comment on above: Performed By: #### L 501.9100, L500.2500, L505.5000, L700.6800, L100.0100 #### [facility] [address] [place], [address] WBC (Bld) [#/Vol] 11.5 10*3/uL High 4.4-11.0 [facility] Comment on above: Performed By: #### L 501.9100, L500.2500, L505.5000, L700.6800, L100.0100 #### [facility] [address] [place], [address] Comprehensive Metabolic Prof ilon 09-04-2025 Albumin [Mass/Vol] 3.2 g/dL Low 3.5-5.0 [facility] Comment on above: Performed By: #### L 501.9100, L500.2500, L505.5000, L700.6800, L100.0100 #### [facility] [address] [place], [address] Albumin/Globulin [Mass ratio] 1.1 {ratio} Normal 0.9-2.4 [facility] Comment on above: Performed By: #### L 501.9100, L500.2500, L505.5000, L700.6800, L100.0100 #### [facility] [address] [place], [address] ALK PHOS 304 U/L High 35-104 [facility] Comment on above: Performed By: #### L 501.9100, L500.2500, L505.5000, L700.6800, L100.0100 #### [facility] [address] [place], [address] ALT [Catalytic activity/Vol] 68 U/L High <=34 [facility] Comment on above: Performed By: #### L 501.9100, L500.2500, L505.5000, L700.6800, L100.0100 #### [facility] [address] [place], [address] AST [Catalytic activity/Vol] 48 U/L High <=31 [facility] Comment on above: Performed By: #### L 501.9100, L500.2500, L505.5000, L700.6800, L100.0100 #### [facility] [address] [place], [address] Bilirubin [Mass/Vol] 3.78 mg/dL High 0.00-1.30 [facility] Comment on above: Performed By: #### L 501.9100, L500.2500, L505.5000, L700.6800, L100.0100 #### [facility] [address] [place], [address] BUN/CRE 10.0 RATIO Normal 10-20 [facility] Comment on above: Performed By: #### L 501.9100, L500.2500, L505.5000, L700.6800, L100.0100 #### [facility] [address] [place], [address] Calcium [Mass/Vol] 8.9 mg/dL Normal 7.6-11.0 [facility] Comment on above: Performed By: #### L 501.9100, L500.2500, L505.5000, L700.6800, L100.0100 #### [facility] [address] [place], [address] Chloride [Moles/Vol] 106 mmol/L Normal 98-108 [facility] Comment on above: Performed By: #### L 501.9100, L500.2500, L505.5000, L700.6800, L100.0100 #### [facility] [address] [place], [address] CO2 [Moles/Vol] 22.5 mmol/L Normal 21.0-32.0 [facility] Comment on above: Performed By: #### L 501.9100, L500.2500, L505.5000, L700.6800, L100.0100 #### [facility] [address] [place], [address] Creatinine [Mass/Vol] 0.78 mg/dL Normal 0.70-1.20 [facility] Comment on above: Performed By: #### L 501.9100, L500.2500, L505.5000, L700.6800, L100.0100 #### [facility] [address] [place], [address] ECRCL 111.91 ml/min Normal 50-250 [facility] Comment on above: Performed By: #### L 501.9100, L500.2500, L505.5000, L700.6800, L100.0100 #### [facility] [address] [place], [address] GAP 10 Normal 5-15 [facility] Comment on above: Performed By: #### L 501.9100, L500.2500, L505.5000, L700.6800, L100.0100 #### [facility] [address] [place], [address] GFR/1.73 sq M.predicted among non-blacks MDRD (S/P/Bld) [Vol rate/Area] 105 mL/min/{1.73_m2} Normal >60 [facility] Comment on above: Result Comment: mL/m in/1.73m2 CKD-EPI Creatinine Equation (2020) Performed By: #### L 501.9100, L500.2500, L505.5000, L700.6800, L100.0100 #### [facility] [address] [place], [address] Globulin (S) [Mass/Vol] 2.9 g/dL Normal 2.2-4.2 [facility] Comment on above: Performed By: #### L 501.9100, L500.2500, L505.5000, L700.6800, L100.0100 #### [facility] [address] [place], [address] Glucose [Mass/Vol] 132 mg/dL High 70-99 [facility] Comment on above: Performed By: #### L 501.9100, L500.2500, L505.5000, L700.6800, L100.0100 #### [facility] [address] [place], [address] Potassium [Moles/Vol] 3.5 mmol/L Normal 3.3-5.1 [facility] Comment on above: Performed By: #### L 501.9100, L500.2500, L505.5000, L700.6800, L100.0100 #### [facility] [address] [place], [address] Sodium [Moles/Vol] 138 mmol/L Normal 133-145 [facility] Comment on above: Performed By: #### L 501.9100, L500.2500, L505.5000, L700.6800, L100.0100 #### [facility] [address] [place], [address] T PROT 6.1 g/dL Normal 5.9-8.4 [facility] Comment on above: Performed By: #### L 501.9100, L500.2500, L505.5000, L700.6800, L100.0100 #### [facility] [address] [place], [address] Urea nitrogen [Mass/Vol] 8 mg/dL Normal 4-19 [facility] Comment on above: Performed By: #### L 501.9100, L500.2500, L505.5000, L700.6800, L100.0100 #### [facility] [address] [place], [address] Phosphoruson 09-04-2025 Phosphate [Mass/Vol] 2.2 mg/dL Low 2.7-4.5 [facility] Comment on above: Performed By: #### L 501.9100, L500.2500, L505.5000, L700.6800, L100.0100 #### [facility] [address] [place], [address] 12 Lead EKGon 09-03-2025 12 Lead EKG [facility] Cardiovascular Services [address] [place] [address] 12 Lead EKG 09/03/25 0509 MR#: [id number] Acct: [id number] Name: JAZZY FLORENCE Rep #: [id number] : 1995 30 From: Patti Rodriguez MD Attending Dr: Dr. Ever Vasquez DO Status: ADM IN Ordering Dr: Justyn Michelle MD Date: 09/03/25 Location: [facility] Sex: F C Admitted: 09/02/25 Test Reason : PRE OP Blood Pressure : */* mmHG Vent. Rate : 76 BPM Atrial Rate : 76 BPM P-R Int : 174 ms QRS Dur : 90 ms QT Int : 410 ms P-R-T Axes : 63 37 41 degrees QTcB Int : 461 ms Normal sinus rhythm Right atrial enlargement Borderline ECG When compared with ECG of 09-Dec-2024 07:48, Vent. rate has decreased by 52 bpm Confirmed by PATTI RODRIGUEZ ([id number]), technical writer and editor ISAAC BLAS ([id number]) on 09/06/2025 6:44:57 AM Referred By: LIU Confirmed By: PATTI RODRIGUEZ 09/06/25 0645 Date Patti Rodriguez MD CC: Dr. Justyn Michelle MD; Dr. Ever Vasquez DO; Ever Toribio MD Signed Normal [facility] CBC W/Diff, Automatedon 10- Absolute Lymph 1.86 X10 3/uL Normal 0.83-4.51 [facility] Comment on above: Performed By: #### L 501.9100, L500.2500, L505.5000, L700.6800, L100.0100 #### [facility] [address] [place], [address] Absolute Neut 7.6 X10 3/uL Normal 2.0-7.7 [facility] Comment on above: Performed By: #### L 501.9100, L500.2500, L505.5000, L700.6800, L100.0100 #### [facility] [address] [place], [address] Basophils/100 WBC (Bld) 0.4 % Normal 0-1 [facility] Comment on above: Performed By: #### L 501.9100, L500.2500, L505.5000, L700.6800, L100.0100 #### [facility] [address] [place], [address] Eosinophils/100 WBC (Bld) 0.9 % Normal 0-5 [facility] Comment on above: Performed By: #### L 501.9100, L500.2500, L505.5000, L700.6800, L100.0100 #### [facility] [address] [place], [address] Erythrocyte distribution width (RBC) [Ratio] 12.8 % Normal 11.6-14.6 [facility] Comment on above: Performed By: #### L 501.9100, L500.2500, L505.5000, L700.6800, L100.0100 #### [facility] [address] [place], [address] Hematocrit (Bld) [Volume fraction] 36.5 % Low 37-47 [facility] Comment on above: Performed By: #### L 501.9100, L500.2500, L505.5000, L700.6800, L100.0100 #### [facility] [address] [place], [address] Hemoglobin (Bld) [Mass/Vol] 12.4 g/dL Normal 12.0-15.0 [facility] Comment on above: Performed By: #### L 501.9100, L500.2500, L505.5000, L700.6800, L100.0100 #### [facility] [address] [place], [address] IG% 0.600 Normal 0.0-0.9 [facility] Comment on above: Result Comment: IG% - Immature Granulocytes (promyelocytes, myelocytes and metamyelocytes) > 1% indicates that a LEFT SHIFT is Present. Performed By: #### L 501.9100, L500.2500, L505.5000, L700.6800, L100.0100 #### [facility] [address] [place], [address] Lymphocytes/100 WBC (Bld) 17.5 % Low 19-41 [facility] Comment on above: Performed By: #### L 501.9100, L500.2500, L505.5000, L700.6800, L100.0100 #### [facility] [address] [place], [address] MCH (RBC) [Entitic mass] 31.3 pg Normal 27.0-32.0 [facility] Comment on above: Performed By: #### L 501.9100, L500.2500, L505.5000, L700.6800, L100.0100 #### [facility] [address] [place], [address] MCHC (RBC) [Mass/Vol] 34.0 g/dL Normal 32-36 [facility] Comment on above: Performed By: #### L 501.9100, L500.2500, L505.5000, L700.6800, L100.0100 #### [facility] [address] [place], [address] MCV (RBC) [Entitic vol] 92.2 fL Normal 81-99 [facility] Comment on above: Performed By: #### L 501.9100, L500.2500, L505.5000, L700.6800, L100.0100 #### [facility] [address] [place], [address] Monocytes/100 WBC (Bld) 9.2 % Normal 0-10 [facility] Comment on above: Performed By: #### L 501.9100, L500.2500, L505.5000, L700.6800, L100.0100 #### [facility] [address] [place], [address] Neutrophils/100 WBC (Bld) 71.4 % High 47-70 [facility] Comment on above: Performed By: #### L 501.9100, L500.2500, L505.5000, L700.6800, L100.0100 #### [facility] [address] [place], [address] Nucleated RBC (Bld) [#/Vol] 0 10*3/uL Normal 0-5 [facility] Comment on above: Performed By: #### L 501.9100, L500.2500, L505.5000, L700.6800, L100.0100 #### [facility] [address] [place], [address] Platelet mean volume (Bld) [Entitic vol] 9.4 fL Normal 6.2-12.0 [facility] Comment on above: Performed By: #### L 501.9100, L500.2500, L505.5000, L700.6800, L100.0100 #### [facility] [address] [place], [address] Platelets (Bld) [#/Vol] 278 10*3/uL Normal 150-450 [facility] Comment on above: Performed By: #### L 501.9100, L500.2500, L505.5000, L700.6800, L100.0100 #### [facility] [address] [place], [address] RBC (Bld) [#/Vol] 3.96 10*6/uL Low 4.2-5.4 [facility] Comment on above: Performed By: #### L 501.9100, L500.2500, L505.5000, L700.6800, L100.0100 #### [facility] [address] [place], [address] RDW SD 44.0 fl High 35.1-43.9 [facility] Comment on above: Performed By: #### L 501.9100, L500.2500, L505.5000, L700.6800, L100.0100 #### [facility] [address] [place], [address] WBC (Bld) [#/Vol] 10.6 10*3/uL Normal 4.4-11.0 [facility] Comment on above: Performed By: #### L 501.9100, L500.2500, L505.5000, L700.6800, L100.0100 #### [facility] [address] [place], [address] Comprehensive Metabolic Prof ilon 09-03-2025 Albumin [Mass/Vol] 3.4 g/dL Low 3.5-5.0 [facility] Comment on above: Performed By: #### L 501.9100, L500.2500, L505.5000, L700.6800, L100.0100 #### [facility] [address] [place], [address] Albumin/Globulin [Mass ratio] 1.1 {ratio} Normal 0.9-2.4 [facility] Comment on above: Performed By: #### L 501.9100, L500.2500, L505.5000, L700.6800, L100.0100 #### [facility] [address] [place], [address] ALK PHOS 306 U/L High 35-104 [facility] Comment on above: Performed By: #### L 501.9100, L500.2500, L505.5000, L700.6800, L100.0100 #### [facility] [address] [place], [address] ALT [Catalytic activity/Vol] 89 U/L High <=34 [facility] Comment on above: Performed By: #### L 501.9100, L500.2500, L505.5000, L700.6800, L100.0100 #### [facility] [address] [place], [address] AST [Catalytic activity/Vol] 68 U/L High <=31 [facility] Comment on above: Performed By: #### L 501.9100, L500.2500, L505.5000, L700.6800, L100.0100 #### [facility] [address] [place], [address] Bilirubin [Mass/Vol] 5.20 mg/dL High 0.00-1.30 [facility] Comment on above: Performed By: #### L 501.9100, L500.2500, L505.5000, L700.6800, L100.0100 #### [facility] [address] [place], [address] BUN/CRE 13.3 RATIO Normal 10-20 [facility] Comment on above: Performed By: #### L 501.9100, L500.2500, L505.5000, L700.6800, L100.0100 #### [facility] [address] [place], [address] Calcium [Mass/Vol] 8.6 mg/dL Normal 7.6-11.0 [facility] Comment on above: Performed By: #### L 501.9100, L500.2500, L505.5000, L700.6800, L100.0100 #### [facility] [address] [place], [address] Chloride [Moles/Vol] 102 mmol/L Normal 98-108 [facility] Comment on above: Performed By: #### L 501.9100, L500.2500, L505.5000, L700.6800, L100.0100 #### [facility] [address] [place], [address] CO2 [Moles/Vol] 23.9 mmol/L Normal 21.0-32.0 [facility] Comment on above: Performed By: #### L 501.9100, L500.2500, L505.5000, L700.6800, L100.0100 #### [facility] [address] [place], [address] Creatinine [Mass/Vol] 0.75 mg/dL Normal 0.70-1.20 [facility] Comment on above: Result Comment: Icte fina present, Results may be affected. Performed By: #### L 501.9100, L500.2500, L505.5000, L700.6800, L100.0100 #### [facility] [address] [place], [address] ECRCL 116.01 ml/min Normal 50-250 [facility] Comment on above: Performed By: #### L 501.9100, L500.2500, L505.5000, L700.6800, L100.0100 #### [facility] [address] [place], [address] GAP 10 Normal 5-15 [facility] Comment on above: Performed By: #### L 501.9100, L500.2500, L505.5000, L700.6800, L100.0100 #### [facility] [address] [place], [address] GFR/1.73 sq M.predicted among non-blacks MDRD (S/P/Bld) [Vol rate/Area] 110 mL/min/{1.73_m2} Normal >60 [facility] Comment on above: Result Comment: mL/m in/1.73m2 CKD-EPI Creatinine Equation (2020) Performed By: #### L 501.9100, L500.2500, L505.5000, L700.6800, L100.0100 #### [facility] [address] [place], [address] Globulin (S) [Mass/Vol] 2.9 g/dL Normal 2.2-4.2 [facility] Comment on above: Performed By: #### L 501.9100, L500.2500, L505.5000, L700.6800, L100.0100 #### [facility] [address] [place], [address] Glucose [Mass/Vol] 110 mg/dL High 70-99 [facility] Comment on above: Performed By: #### L 501.9100, L500.2500, L505.5000, L700.6800, L100.0100 #### [facility] [address] [place], [address] Potassium [Moles/Vol] 3.4 mmol/L Normal 3.3-5.1 [facility] Comment on above: Performed By: #### L 501.9100, L500.2500, L505.5000, L700.6800, L100.0100 #### [facility] [address] [place], [address] Sodium [Moles/Vol] 136 mmol/L Normal 133-145 [facility] Comment on above: Performed By: #### L 501.9100, L500.2500, L505.5000, L700.6800, L100.0100 #### [facility] [address] [place], [address] T PROT 6.3 g/dL Normal 5.9-8.4 [facility] Comment on above: Performed By: #### L 501.9100, L500.2500, L505.5000, L700.6800, L100.0100 #### [facility] [address] [place], [address] Urea nitrogen [Mass/Vol] 10 mg/dL Normal 4-19 [facility] Comment on above: Performed By: #### L 501.9100, L500.2500, L505.5000, L700.6800, L100.0100 #### [facility] [address] [place], [address] ERCP Biliary Onlyon 09-03-20 ERCP Biliary Only [facility] Services [address] [place] [address] ERCP Biliary Only MR#: [id number] Acct: [id number] Name: JAZZY FLORENCE Rep #: [id number] : 1995 F 30 From: Mauro Roach MD PCP: Ever Toribio MD Status: ADM IN Study: ERCP Biliary Only Date of Exam: 09/03/25 Exam# [id number] Ordering Dr: Pepe Mancia DO PROCEDURE: ERCP BILIARY ONLY 09/03/2025 REASON FOR EXAM: ERCP TECHNIQUE: Procedure Code: RADERCPBIL Modality: DX Procedure: ERCP BILIARY ONLY COMPARISON: CT dated 09/02/2025. FINDINGS: On the initial images, multiple round filling defects are noted within the gallbladder as well as the common bile duct, likely representing stones. On subsequent images, a sweep is seen within the common bile duct, cystic duct, and common hepatic duct, and subsequently, there is decrease in the round filling defects noted within the common bile duct on the later images. Total reported fluoroscopy time: 107.4 seconds Total exposure: 24.64 mGy RAD/ERCP Biliary Only IMPRESSION: Multiple filling defects within the gallbladder, cystic duct, and common bile duct, likely representing stones. Some of these filling defects could represent air bubbles. Reading Location: [id number] CC: Ever Toribio MD; Pepe Mancia DO Certified Vehicle Fire Investigator: Signed Normal [facility] ERCP Reporton 09-03-2025 ERCP Report [facility] Medical Records Department [address] [place] [address] ERCP Report MR#: [id number] Acct: [id number] Name: JAZZY FLORENCE Rep #: [id number] : 1995 30 From: Pepe Mancia DO PCP: Ever Toribio MD Status:ADM IN Patient Name: Jazzy Florence Procedure Date: 09/03/2025 2:24 PM Date of : 1995 Age: 30 Procedure: ERCP Indications: Bile duct stone(s), Abdominal pain of suspected biliary origin, Abdominal pain of suspected pancreatic origin, Abnormal abdominal CT, Biliary dilation on Computed Tomogram Scan, Suspected ascending cholangitis, Jaundice, Acute pancreatitis Providers: Pepe Mancia DO Medicines: Monitored Anesthesia Care Patient Profile: This is a 30 year old female. Refer to note in patient chart for documentation of history and physical. Patient has symptoms of acute abdominal cramping, acute right upper quadrant abdominal pain, acute dyspepsia, acute jaundice, acute nausea and acute vomiting. This patient has no history of previous ERCP. Complications: No immediate complications. Procedure: Pre-Anesthesia Assessment: - Prior to the procedure, a History and Physical was performed, and patient medications and allergies were reviewed. The patient is competent. The risks and benefits of the procedure and the sedation options and risks were discussed with the patient. All questions were answered and informed consent was obtained. Patient identification and proposed procedure were verified by the physician in the pre-procedure area. Mental Status Examination: alert and oriented. Airway Examination: normal oropharyngeal airway and neck mobility. Respiratory Examination: clear to auscultation. CV Examination: normal. Prophylactic Antibiotics: The patient does not require prophylactic antibiotics. Prior Anticoagulants: The patient has taken no anticoagulant or antiplatelet agents. ASA Grade Assessment: II - A patient with mild systemic disease. After reviewing the risks and benefits, the patient was deemed in satisfactory condition to undergo the procedure. The anesthesia plan was to use general anesthesia. Immediately prior to administration of medications, the patient was re-assessed for adequacy to receive sedatives. The heart rate, respiratory rate, oxygen saturations, blood pressure, adequacy of pulmonary ventilation, and response to care were monitored throughout the procedure. The physical status of the patient was re-assessed after the procedure. After obtaining informed consent, the scope was passed under direct vision. Throughout the procedure, the patient's blood pressure, pulse, and oxygen saturations were monitored continuously. The Duodenoscope was introduced through the mouth, and advanced to the duodenum and used to inject contrast into the bile duct. The ERCP was accomplished without difficulty. The patient tolerated the procedure well. Scope In: 3:02:13 PM Scope Out: 3:17:14 PM Total Procedure Duration Time 0 hours 15 minutes 1 second Findings: The bar finish operator film was normal. The esophagus was successfully intubated under direct vision. The scope was advanced to a normal major papilla in the descending duodenum without detailed examination of the pharynx, larynx and associated structures, and upper GI tract. The upper GI tract was grossly normal. A long 0.025 inch Jagwire was passed into the biliary tree. The short-nosed traction sphincterotome was passed over the guidewire and the bile duct was then deeply cannulated. Contrast was injected. I personally interpreted the bile duct images. There was brisk flow of contrast through the ducts. Image quality was adequate. Contrast extended to the main bile duct. Contrast extended to the cystic duct. Contrast extended to the gallbladder. Contrast extended to the bifurcation. Contrast extended to the hepatic ducts. Contrast extended to the entire biliary tree. Opacification of the entire opacified area, lower third of the main bile duct, middle third of the main bile duct, upper third of the main bile duct, main bile duct, common bile duct, cystic duct, gallbladder, common hepatic duct, hepatic duct bifurcation, left and right hepatic ducts and all intrahepatic branches and entire biliary tree was successful. The maximum diameter of the ducts was 10 mm. The main bile duct, common bile duct, cystic duct, gallbladder and common hepatic duct contained multiple stones, the largest of which was 6 mm in diameter. The entire opacified area, main bile duct and entire biliary tree were diffusely dilated, with a stone causing an obstruction. The largest diameter was 12 mm. A 5 mm biliary sphincterotomy was made with a traction (standard) sphincterotome using ERBE electrocautery. The sphincterotomy oozed blood. The biliary tree was swept with a 12 mm ball (more content not included)... Normal [facility] LDHon 09-03-2025 LDH 158 U/L Normal 84-246 [facility] Comment on above: Performed By: #### L 501.9100, L500.2500, L505.5000, L700.6800, L100.0100 #### [facility] [address] [place], [address] MR/CON.PCM.GIon 09-03-2025 MR/CON.PCM.GI [facility] Medical Records Department [address] [place] [address] Consultation - GI 09/03/25 1421 MR#: [id number] Acct: [id number] Name: JAZZY FLORENCE Rep #: [id number] : 1995 30 From: Pepe Friend DO PCP: Ever Toribio MD Status:ADM IN [place] [facility] [place] HPI Consult Data Date of Consult: 09/03/25 HPI Narrative Reason for Consultation: Acute choledocholithiasis and acute cholecystitis along with pancreatitis HPI Narrative: JAZZY FLORENCE, is a 30-year-old female presenting with acute abdominal pain, nausea, vomiting, and fever, likely due to???acute cholecystitis complicated by a secondary biliary obstruction and gallstone pancreatitis.???Her symptoms began with diffuse abdominal pain that localized to the right upper quadrant (RUQ), followed by nausea, bilious vomiting, and subjective fever.???Laboratory results show leukocytosis, a highly elevated lipase (>3K U/L), elevated total bilirubin (5.32 mg/dL), elevated transaminases (AST 77 U/L, ALT 109 U/L), and elevated alkaline phosphatase (340 U/L).???Imaging confirmed acute cholecystitis with gallbladder wall thickening, pericholecystic inflammation, a dilated common bile duct (CBD) of 11 mm, and dilated intrahepatic and extrahepatic ducts, consistent with a secondary biliary obstruction.??? * Labs: * WBC: 11.2K (leukocytosis). * Lipase: >3K U/L (highly elevated). * Total Bilirubin: 5.32 mg/dL (hyperbilirubinemia). * AST: 77 U/L (elevated). * ALT: 109 U/L (elevated). * Alkaline Phosphatase: 340 U/L (elevated). * Imaging: * CT Abdomen/Pelvis:???Find ings consistent with acute cholecystitis, gallbladder wall thickening, pericholecystic inflammation, and secondary biliary obstruction with intrahepatic and extrahepatic ductal dilatation (CBD 11 mm). * GB Ultrasound:???Cholelit hiasis (gallstones), signs of acute cholecystitis, and CBD dilatation [facility] Medical History Rhabdomyolysis Depression Irregular heart beat Home Medications ???Medication ???Instructions ???Recorded ???Last Taken ???Type aripiprazole 30 mg tablet 30 mg PO DAILY mental health 09/0209/02/25 History atomoxetine 80 mg capsule 80 mg PO DAILY ADHD 09/02/2509/02 History buspirone 10 mg tablet 10 mg PO TID anxiety/depression 09/02/25 History divalproex 250 mg tablet,delayed 250 mg PO BID mood stabilizer 08/1209/02/25 History release miconazole nitrate 2 % topical 1 spray topical BID athlete's foot 09/03/25 09/02/25 History spray (Lotrimin AF) Allergy/AdvReac Type Severity Reaction Status Date / Time lorazepam Allergy Rash Verified 09/03/25 13:28 risperidone Allergy Other Verified 09/03/25 13:28 Surgical History no surgical history Social History Smoking Status: Light Smoker (<10/day) Homelessness:: Sheltered ROS ROS Narrative Review of Systems: Constitutional: Patient admits to subjective fever and chills. Eyes: Patient denies changes in vision or discharge from eyes. ENT: Patient denies runny nose, sore throat or ear pain. Resp: Patient denies SOB or cough. CV: Patient denies chest pain, palpitations, heart racing of LE edema. GI: Patient admits to abdominal pain radiating into RUQ with nausea, vomiting and bilious emesis as per HPI. : Patient denies dysuria or hematuria. MSK: Patient denies arthralgias or myalgias. Skin: Patient admits to jaundice but denies rash. Psych: Patient has chronic depression but she denies SI or HI. Neuro: Patient denies headache, paresthesias or focal neurologic deficits. Allergy: Patient denies lip swelling, tongue swelling or urticaria. Hematology: Patient denies easy bleeding or easy bruisability. Endocrinology: Patient denies polyuria, polydipsia, polyphagia or heat/cold intolerance. 14 point ROS otherwise negative except for positives noted above. Physical Exam Const alert and oriented x3 General Appearance: cooperative HEENT normocephalic, head/scalp atraumatic and hearing grossly normal bilaterally Eyes PERRL and EOMs intact bilaterally Eyes Narrative: Scleral icterus noted. Neck no lymphadenopathy, supple and no JVD Resp normal respiratory effort, no retractions, no use of accessory muscles and clear to auscultation bilaterally Cardio regular rate and regular rhythm GI soft to palpation and non-distended GI Narrative: RUQ TTP with normoactive bowel sounds. No guarding or rebound. Extremity normal to inspection, full ROM and no clubbing, cyanosis or edema Skin Skin Narrative: Patient has evidence of mild jaundice. Neuro oriented x3, CN's II-XII intact bilaterally, moves all extremities and no focal motor deficits Sensorium / Orientation: awake, alert, oriented to person, (more content not included)... Normal [facility] Medical Records Department [address] [place] [address] Provation Physician Letter MR#: [id number] Acct: [id number] Name: JAZZY FLORENCE Rep #: [id number] : 1995 30 From: Pepe Mancia DO PCP: Ever Toribio MD Status:ADM IN 09/03/2025 Ever Toribio Md Re : ERCP procedure for Jazzy Florence Dear Dr. Toribio This procedure was performed on Wednesday, September 03, 2025. My impressions and recommendations are as follows: Impressions : - The entire main bile duct and entire biliary tree were dilated, with a stone causing an obstruction. - Choledocholithiasis was found. Complete removal was accomplished by biliary sphincterotomy and balloon extraction. - A biliary sphincterotomy was performed. - The biliary tree was swept. - One temporary stent was placed into the common bile duct. Recommendations : My findings are described in the full procedure note, which is enclosed. If I can be of further assistance, please feel free to contact me at . Sincerely, Pepe Mancia DO 09/03/2025 3:30:10 PM This report has been signed electronically. 10/24/25 1530 Date Pepe Mancia DO Cosigner Signature: Date (if indicated) CC: DIGITAL MEDIA PRODUCER-Nahomi Lambert; DIGITAL MEDIA PRODUCER-Nahomi Guallpa; Dr. Valarie Liu DO; Dr. Ever Vasquez DO; Dr. Ian Zavala MD; Dr. Gagan Perez MD; Ever Toribio MD; VIOLETA Rushing; Pepe Mancia DO Date Dictated: 09/03/25 1424 Date Transcribed: Certified Vehicle Fire Investigator: KATHERINE Capellan [facility] MR/POSTOP.[facility] 09-03-2025 MR/POSTOP.[facility] Medical Records Department [address] [place] [address] Anesthesia Postop Eval I 09/03/25 1527 MR#: [id number] Acct: [id number] Name: JAZZY FLORENCE Rep #: [id number] : 1995 30 From: Rebecca Alejo CRNA PCP: Ever Toribio MD Status:ADM IN Y Race: C Location: [place] [address] Anesthesia: Postop Eval I Current Vital Signs Temperature: 98.7 F Pulse Rate: 81 Blood Pressure: 101/60 Respiratory Rate: 18 Pulse Ox: 97 Assessment Airway patent: Yes Spontaneous unlabored respirations: Yes nausea: No Vomiting: No Anesthesia Complication: No Fluid Hydration Crystalloid volume administer (ml): 300 Total IV fluid infused: 300 Progress Note Anesthesia document: Postop Eval 1 completed: Yes 09/03/25 1528 Date Rebecca Sirca WOOL DYER Cosigner Signature: Date CC: Signed Normal [facility] MR/[id number] 09-03-2025 MR/POSTOPAN2 [facility] Medical Records Department [address] [place] [address] Anesthesia Postop Eval II 09/03/251929 MR#: [id number] Acct: [id number] Name: JAZZY FLORENCE Rep #: [id number] : 1995 30 From: Justyn Michelle MD PCP: Ever Toribio MD Status:ADM IN Y Race: C [facility] Postop Eval I Sum Postop Eval Completion status Anesthesia document: Postop Eval 1 completed: Yes Anesthesia Postop Eval I Summary Anesthesia Postop Eval I Summary: Anesthesia Postop Eval I: Assessment Summary Airway patent Yes 09/03/25 15:27 WOOL DYER.CSIR Spontaneous unlabored Yes 09/03/25 15:27 WOOL DYER.CSIR respirations Mental status nausea No 09/03/25 15:27 WOOL DYER.CSIR Vomiting No 09/03/25 15:27 WOOL DYER.CSIR Anesthesia Postop Eval I: Fluid Summary Crystalloid volume administer 300 09/03/25 15:27 WOOL DYER.CSIR (ml) Colloids volume administered ( ml) Blood Product volume administered (ml) Total IV fluid infused 300 09/03/25 15:27 WOOL DYER.CSIR Anesthesia Postop Eval I: Summary Notes Anesthesia Complication No 09/03/25 15:27 WOOL DYER.CSIR Anesthesia Complication Comment: Post-operative progress note Anesthesia: Postop Eval II Evaluation Mental status: Awake and Calm Pain Level: 1 nausea: No Vomiting: No Complications Anesthesia Complication: No 09/03/251930 Date Justyn Michelle MD Cosigner Signature: Date CC: Signed Normal [facility] Magnesiumon 09-03-2025 Magnesium [Mass/Vol] 1.9 mg/dL Normal 1.5-2.2 [facility] Comment on above: Performed By: #### L 501.9100, L500.2500, L505.5000, L700.6800, L100.0100 #### [facility] [address] [place], [address] Phosphoruson 09-03-2025 Phosphate [Mass/Vol] 3.1 mg/dL Normal 2.7-4.5 [facility] Comment on above: Performed By: #### L 501.9100, L500.2500, L505.5000, L700.6800, L100.0100 #### [facility] [address] [place], [address] Abdomen/Pelvis W IV Cont ONL Yon 09-02-2025 Abdomen/Pelvis W IV Cont ONLY [facility] Imaging Services [address] [address] Abdomen/Pelvis W IV Cont ONLY MR#: [id number] Acct: [id number] Name: JAZZY FLORENCE Rep #: [id number] : 1995 F 30 From: Kwadwo Centeno MD PCP: Ever Toribio MD Status: [facility] Study: Abdomen/Pelvis W IV Cont ONLY Date of Exam: Exam# [id number] Ordering Dr: Americo Kirkland MD PROCEDURE: ABDOMEN/PELVIS W IV CONT ONLY 09/02/2025 REASON FOR EXAM: PAIN TECHNIQUE: Procedure Code: [id number] Modality: CT Procedure: ABDOMEN/PELVIS W IV CONT ONLY Coronal and Sagittal reconstruction series were provided. CONTRAST: VOLUME: mL One or more dose reduction techniques were used (e.g., Automated exposure control, adjustment of the mA and/or kV according to patient size, use of iterative reconstruction technique. COMPARISON: Same day ultrasound. FINDINGS: The lung bases are clear. The peripheral soft tissues unremarkable. No acute osseous abnormalities. Gallbladder wall thickening, mild pericholecystic fluid, and adjacent fat stranding. There is intrahepatic and extrahepatic ductal dilation. The common bile duct measures up to 11 mm in diameter. No main pancreatic ductal dilation. No focal hepatic lesions. The spleen, and adrenals unremarkable. Symmetric enhancement of the bilateral kidneys. No hydroureteronephrosis. The urinary bladder is unremarkable. Anteverted uterus. Normal appearance of the ovaries. Normal caliber large and small bowel without surrounding inflammatory changes. Normal caliber appendix. CT/Abdomen/Pelvis W IV Cont ONLY IMPRESSION: Findings consistent with acute cholecystitis with secondary biliary obstruction. Gallbladder wall thickening and pericholecystic inflammation with intrahepatic and extrahepatic ductal dilation. Common bile duct measures up to 11 mm. No radiopaque gallstones visualized on CT. Recommend correlation with liver function tests and further evaluation with ultrasound or MRCP to assess for possible non-calcified choledocholithiasis. Reading Location: [address] CC: Dr. Americo Kirkland MD; Ever Toribio MD Certified Vehicle Fire Investigator: Signed Normal [facility] CBC W/Diff, Automatedon 10-2 Absolute Lymph 2.17 X10 3/uL Normal 0.83-4.51 [facility] Comment on above: Performed By: #### L 501.9100, L500.2500, L505.5000, L700.6800, L100.0100 #### [facility] [address] [place], [address] Absolute Neut 7.8 X10 3/uL High 2.0-7.7 [facility] Comment on above: Performed By: #### L 501.9100, L500.2500, L505.5000, L700.6800, L100.0100 #### [facility] [address] [place], [address] Basophils/100 WBC (Bld) 0.7 % Normal 0-1 [facility] Comment on above: Performed By: #### L 501.9100, L500.2500, L505.5000, L700.6800, L100.0100 #### [facility] [address] [place], [address] Eosinophils/100 WBC (Bld) 0.8 % Normal 0-5 [facility] Comment on above: Performed By: #### L 501.9100, L500.2500, L505.5000, L700.6800, L100.0100 #### [facility] [address] [place], [address] Erythrocyte distribution width (RBC) [Ratio] 12.8 % Normal 11.6-14.6 [facility] Comment on above: Performed By: #### L 501.9100, L500.2500, L505.5000, L700.6800, L100.0100 #### [facility] [address] [place], [address] Hematocrit (Bld) [Volume fraction] 41.4 % Normal 37-47 [facility] Comment on above: Performed By: #### L 501.9100, L500.2500, L505.5000, L700.6800, L100.0100 #### [facility] [address] [place], [address] Hemoglobin (Bld) [Mass/Vol] 14.0 g/dL Normal 12.0-15.0 [facility] Comment on above: Performed By: #### L 501.9100, L500.2500, L505.5000, L700.6800, L100.0100 #### [facility] [address] [place], [address] IG% 0.700 Normal 0.0-0.9 [facility] Comment on above: Result Comment: IG% - Immature Granulocytes (promyelocytes, myelocytes and metamyelocytes) > 1% indicates that a LEFT SHIFT is Present. Performed By: #### L 501.9100, L500.2500, L505.5000, L700.6800, L100.0100 #### [facility] [address] [place], [address] Lymphocytes/100 WBC (Bld) 19.3 % Normal 19-41 [facility] Comment on above: Performed By: #### L 501.9100, L500.2500, L505.5000, L700.6800, L100.0100 #### [facility] [address] [place], [address] MCH (RBC) [Entitic mass] 31.0 pg Normal 27.0-32.0 [facility] Comment on above: Performed By: #### L 501.9100, L500.2500, L505.5000, L700.6800, L100.0100 #### [facility] [address] [place], [address] MCHC (RBC) [Mass/Vol] 33.8 g/dL Normal 32-36 [facility] Comment on above: Performed By: #### L 501.9100, L500.2500, L505.5000, L700.6800, L100.0100 #### [facility] [address] [place], [address] MCV (RBC) [Entitic vol] 91.8 fL Normal 81-99 [facility] Comment on above: Performed By: #### L 501.9100, L500.2500, L505.5000, L700.6800, L100.0100 #### [facility] [address] [place], [address] Monocytes/100 WBC (Bld) 9.0 % Normal 0-10 [facility] Comment on above: Performed By: #### L 501.9100, L500.2500, L505.5000, L700.6800, L100.0100 #### [facility] [address] [place], [address] Neutrophils/100 WBC (Bld) 69.5 % Normal 47-70 [facility] Comment on above: Performed By: #### L 501.9100, L500.2500, L505.5000, L700.6800, L100.0100 #### [facility] [address] [place], [address] Nucleated RBC (Bld) [#/Vol] 0 10*3/uL Normal 0-5 [facility] Comment on above: Performed By: #### L 501.9100, L500.2500, L505.5000, L700.6800, L100.0100 #### [facility] [address] [place], [address] Platelet mean volume (Bld) [Entitic vol] 9.3 fL Normal 6.2-12.0 [facility] Comment on above: Performed By: #### L 501.9100, L500.2500, L505.5000, L700.6800, L100.0100 #### [facility] [address] [place], [address] Platelets (Bld) [#/Vol] 348 10*3/uL Normal 150-450 [facility] Comment on above: Performed By: #### L 501.9100, L500.2500, L505.5000, L700.6800, L100.0100 #### [facility] [address] [place], [address] RBC (Bld) [#/Vol] 4.51 10*6/uL Normal 4.2-5.4 [facility] Comment on above: Performed By: #### L 501.9100, L500.2500, L505.5000, L700.6800, L100.0100 #### [facility] [address] [place], [address] RDW SD 43.1 fl Normal 35.1-43.9 [facility] Comment on above: Performed By: #### L 501.9100, L500.2500, L505.5000, L700.6800, L100.0100 #### [facility] [address] [place], [address] WBC (Bld) [#/Vol] 11.2 10*3/uL High 4.4-11.0 [facility] Comment on above: Performed By: #### L 501.9100, L500.2500, L505.5000, L700.6800, L100.0100 #### [facility] [address] [place], [address] Comprehensive Metabolic Prof [facility] 09-02-2025 Albumin [Mass/Vol] 4.0 g/dL Normal 3.5-5.0 [facility] Comment on above: Performed By: #### L 501.9100, L500.2500, L505.5000, L700.6800, L100.0100 #### [facility] [address] [place], [address] Albumin/Globulin [Mass ratio] 1.1 {ratio} Normal 0.9-2.4 [facility] Comment on above: Performed By: #### L 501.9100, L500.2500, L505.5000, L700.6800, L100.0100 #### [facility] [address] [place], [address] ALK PHOS 340 U/L High 35-104 [facility] Comment on above: Performed By: #### L 501.9100, L500.2500, L505.5000, L700.6800, L100.0100 #### [facility] [address] [place], [address] ALT [Catalytic activity/Vol] 109 U/L High <=34 [facility] Comment on above: Performed By: #### L 501.9100, L500.2500, L505.5000, L700.6800, L100.0100 #### [facility] [address] [place], [address] AST [Catalytic activity/Vol] 77 U/L High <=31 [facility] Comment on above: Performed By: #### L 501.9100, L500.2500, L505.5000, L700.6800, L100.0100 #### [facility] [address] [place], [address] Bilirubin [Mass/Vol] 5.32 mg/dL High 0.00-1.30 [facility] Comment on above: Performed By: #### L 501.9100, L500.2500, L505.5000, L700.6800, L100.0100 #### [facility] [address] [place], [address] BUN/CRE 12.7 RATIO Normal 10-20 [facility] Comment on above: Performed By: #### L 501.9100, L500.2500, L505.5000, L700.6800, L100.0100 #### [facility] [address] [place], [address] Calcium [Mass/Vol] 9.7 mg/dL Normal 7.6-11.0 [facility] Comment on above: Performed By: #### L 501.9100, L500.2500, L505.5000, L700.6800, L100.0100 #### [facility] [address] [place], [address] Chloride [Moles/Vol] 99 mmol/L Normal 98-108 [facility] Comment on above: Performed By: #### L 501.9100, L500.2500, L505.5000, L700.6800, L100.0100 #### [facility] [address] [place], [address] CO2 [Moles/Vol] 25.5 mmol/L Normal 21.0-32.0 [facility] Comment on above: Performed By: #### L 501.9100, L500.2500, L505.5000, L700.6800, L100.0100 #### [facility] [address] [place], [address] Creatinine [Mass/Vol] 0.82 mg/dL Normal 0.70-1.20 [facility] Comment on above: Result Comment: Icte fina present, Results may be affected. Performed By: #### L 501.9100, L500.2500, L505.5000, L700.6800, L100.0100 #### [facility] [address] [place], [address] ECRCL 110.19 ml/min Normal 50-250 [facility] Comment on above: Performed By: #### L 501.9100, L500.2500, L505.5000, L700.6800, L100.0100 #### [facility] [address] [place], [address] GAP 12 Normal 5-15 [facility] Comment on above: Performed By: #### L 501.9100, L500.2500, L505.5000, L700.6800, L100.0100 #### [facility] [address] [place], [address] GFR/1.73 sq M.predicted among non-blacks MDRD (S/P/Bld) [Vol rate/Area] 99 mL/min/{1.73_m2} Normal >60 [facility] Comment on above: Result Comment: mL/m in/1.73m2 CKD-EPI Creatinine Equation (2020) Performed By: #### L 501.9100, L500.2500, L505.5000, L700.6800, L100.0100 #### [facility] [address] [place], [address] Globulin (S) [Mass/Vol] 3.8 g/dL Normal 2.2-4.2 [facility] Comment on above: Performed By: #### L 501.9100, L500.2500, L505.5000, L700.6800, L100.0100 #### [facility] [address] [place], [address] Glucose [Mass/Vol] 116 mg/dL High 70-99 [facility] Comment on above: Performed By: #### L 501.9100, L500.2500, L505.5000, L700.6800, L100.0100 #### [facility] [address] [place], [address] Potassium [Moles/Vol] 4.0 mmol/L Normal 3.3-5.1 [facility] Comment on above: Performed By: #### L 501.9100, L500.2500, L505.5000, L700.6800, L100.0100 #### [facility] [address] [place], [address] Sodium [Moles/Vol] 137 mmol/L Normal 133-145 [facility] Comment on above: Performed By: #### L 501.9100, L500.2500, L505.5000, L700.6800, L100.0100 #### [facility] [address] [place], [address] T PROT 7.8 g/dL Normal 5.9-8.4 [facility] Comment on above: Performed By: #### L 501.9100, L500.2500, L505.5000, L700.6800, L100.0100 #### [facility] [address] [place], [address] Urea nitrogen [Mass/Vol] 10 mg/dL Normal 4-19 [facility] Comment on above: Performed By: #### L 501.9100, L500.2500, L505.5000, L700.6800, L100.0100 #### [facility] [address] [place], [address] Consultation - Surgicalon Consultation - Surgical [facility] Medical Records Department [address] [place] [address] Consultation - Surgical 09/02/252128 MR#: [id number] Acct: [id number] Name: JAZZY FLORENCE Rep #: [id number] : 1995 30 From: Moe Huber MD PCP: Ever Toribio MD Status:REG ER Location: ED Assessment Plan Assessment/Plan (1) Gallstone pancreatitis: PLAN: Patient is a 30-year-old female presenting with acute symptoms of abdominal pain and associated nausea and vomiting. She additionally describes some associated darkened urine and acholic stools. Workup is indeed confirmatory diagnoses of acute gallstone pancreatitis and acute cholecystitis. Underlying choledocholithiasis suspected. Patient pending admission for evaluation by gastroenterology for possible ERCP with stone clearance. In the interim recommend n.p.o., aggressive IV fluid resuscitation, IV antibiotics (given ductal obstruction), and trending of biochemistries. Surgery will continue to follow with serial abdominal exams and plan for same admission cholecystectomy once ductal obstruction is relieved and pancreatitis is improved. Tentatively anticipate procedure 09/06/2025. Moe Huber MD General Surgery Endocrine Surgery Pager: [facility] [address] [place] [address], [facility], [address] [place] [address] Office: [phone] (2) Acute cholecystitis: HPI Consult Data Date of Consult: 09/02/25 HPI Narrative Reason for Consultation: Gallstone pancreatitis HPI Narrative: JAZZY FLORENCE, is a 30 F who presents to [facility] with complaints of acute onset nausea, vomiting, and abdominal pain. She states she was woken out of sleep last evening with vomiting and developed epigastric abdominal pain shortly thereafter. She notes that she had similar illness a couple weeks ago. Additionally, she notes that her urine has been dark for roughly the last week and her stools have been labor arbitrator on and off for the last week. Patient's ED workup was notable for biochemistries that reflect transaminitis and hyperbilirubinemia. Patient mild leukocytosis at 11.2. Ultrasound imaging of the gallbladder showed mild gallbladder wall thickening at 3.5 mm, cholelithiasis, and dilated common bile duct at 11.7 mm. Additionally, psychologist experimental noted positive sonographic Johnston sign. There was no evidence of pericholecystic fluid. CT abdomen pelvis was performed reflexively which confirmed findings of acute cholecystitis apparently secondary to biliary ductal obstruction. Radiology recommended further ductal evaluation to rule out choledocholithiasis. [facility] Medical History Rhabdomyolysis Depression Irregular heart beat Home Medications ???Medication ???Instructions ???Recorded ???Last Taken ???Type atomoxetine 40 mg capsule 40 mg PO DAILY 02/07/25 Unknown Hi story aripiprazole 30 mg tablet 30 mg PO DAILY 09/02/25 Unknown Hi story atomoxetine 80 mg capsule 80 mg PO DAILY 09/02/25 Unknown Hi story buspirone 10 mg tablet 10 mg PO TID 09/02/25 Unknown Hist ory divalproex 250 mg tablet,delayed 250 mg PO BID 09/02/25 Unknown His tory release Allergy/AdvReac Type Severity Reaction Status Date / Time lorazepam Allergy Rash Verified 09/02/25 17:53 risperidone Allergy Other Verified 09/02/25 17:53 Social History Smoking Status: Current every day smoker tobacco type: cigarettes Physical Exam Const alert Constitutional Narrative: Anxious/agitated General Appearance: cooperative Resp normal respiratory effort GI GI Narrative: Overweight, no scars, no visible herniation, nondistended, soft, tender to palpation in the right upper quadrant and epigastrium. Technically negative Johnston sign. Skin Skin Narrative: Jaundice Lab / Micro Data 09/02/25 18:10 09/02/25 18:10 Labs: Laboratory Results - last 24 hr 09/02/25 18:10: WBC 11.2 H, RBC 4.51, Hgb 14.0, Hct 41.4, MCV 91.8, MCH 31.0, MCHC 33.8, RDW Std Deviation 43.1, RDW Coeff of [place] 12.8, Plt Count 348, MPV 9.3, Immature Gran % (Auto) 0.700, Neut % (Auto) 69.5, Lymph % (Auto) 19.3, Brown % (Auto) 9.0, Eos % (Auto) 0.8, Baso % (Auto) 0.7, Absolute Neuts (auto) 7.8 H, Absolute Lymphs (auto) 2.17, Nucleated RBC % 0, Sodium 137, Potassium 4.0, Chloride 99, Carbon Dioxide 25.5, Anion Gap 12, BUN 10, Creatinine 0.82, Estim Creat Clear Calc 110.19, Est GFR (MDRD) Non-Af 99, BUN/Creatinine Ratio 12.7, Glucose 116 H, Calcium 9.7, Total Bilirubin 5.32 H, AST 77 H, ALT 109 H, Alkaline Phosphatase 340 H, Total Protein 7.8, Albumin 4.0, Globulin 3.8, Albumin/Globulin Ratio 1.1, Lipase > 3000 H, Serum , Qual NEGATIVE 09/02/25 20:10: Urine Color Stephani, Urine Clarity Sl. Cloudy, (more content not included)... Normal [facility] Emergency Department Summary on 09-02-2025 Emergency Department Summary [facility] Medical Records Department [address] [place] [address] Emergency Department Summary 09/02/25 MR#: [id number] Acct: [id number] Name: JAZZY FLORENCE Rep #: [id number] : 1995 30 From: Americo Kirkland MD PCP: Ever Toribio MD Status:REG ER Location: ED HPI HPI - GI History of Present Illness Chief Complaint: Abd Pain Narrative Narrative: 30-year-old female past medical history of what she calls mental health problems presents with abdominal pain diffusely and in the right upper quadrant with nausea and vomiting over the last 24 hours. She states she has vomited 4 or 5 times without hematemesis. No diarrhea. She had subjective fever but no chills. She states that her urine has been dark for quite some time as well. No exacerbating or relieving factors. [facility] Medical History (Updated 09/02/25 @ 21:[address] Valarie Liu, ) Rhabdomyolysis Depression Irregular heart beat Home Medications ???Medication ???Instructions ???Recorded ???Last Taken ???Type atomoxetine 40 mg capsule 40 mg PO DAILY 02/07/25 Unknown Hi story aripiprazole 30 mg tablet 30 mg PO DAILY 09/02/25 Unknown Hi story atomoxetine 80 mg capsule 80 mg PO DAILY 09/02/25 Unknown Hi story buspirone 10 mg tablet 10 mg PO TID 09/02/25 Unknown Hist ory divalproex 250 mg tablet,delayed 250 mg PO BID 09/02/25 Unknown His tory release Allergy/AdvReac Type Severity Reaction Status Date / Time lorazepam Allergy Rash Verified 09/02/25 17:53 risperidone Allergy Other Verified 09/02/25 17:53 Social History Smoking Status: Current every day smoker tobacco type: cigarettes ROS ROS ED ROS Narrative Review of systems positive for nausea and vomiting, no hematemesis, positive abdominal pain, right upper quadrant abdominal pain as well. No exacerbating or alleviating factors. Dark urine for weeks. States he was being treated for UTI and finished antibiotics as well. EXAM Physical Exam Narrative Exam Narrative: Afebrile. Vital signs noted. Nontoxic-appearing. Cardiovascular semination regular rate and rhythm. Lungs are clear to auscultation bilaterally. Abdomen is soft and mild tenderness in right upper quadrant to diffusely with positive bowel sounds. No guarding or rebound. Const Vital Signs: 09/02/25 17:54 09/02/25 19:53 09/02/25 21:26 Temperature 97.6 F L Temperature Source Temporal Pulse Rate 77 60 68 Respiratory Rate 22 H 15 15 Blood Pressure 100/83 H 105/61 97/62 Blood Pressure Mean 88 75 73 Pulse Ox 100 100 98 Oxygen Delivery Method Room Air Room Air Room Air MDM MDM MDM Narrative Medical decision making narrative: Differential diagnosis includes but not limited to Cliff renal syndrome versus pancreatitis versus acute cholecystitis versus colitis versus obstruction. History and physical does not support obstruction and she has not had any previous abdominal surgery. Initially patient given Zofran and Bentyl for pain. In her problem list, she does have history of opiate overdose. I reviewed her laboratory work and she has slight leukocytosis of 11.2 with hemoglobin 14.0, hematocrit 41.4, platelet count normal at 348. CMP shows sodium normal at 137 with potassium 4.0, BUN normal at 10 and creatinine 0.82. Glucose slightly elevated at 116 but she has normal anion gap of 12. LFTs are elevated with AST of 77 and ALT of 109 with an alk phos of 340. Total bilirubin elevated at 5.32. Lipase is greater than 3000 consistent with pancreatitis. Serum is negative. Urinalysis obtained and reviewed, while she is positive for nitrites, there is 0-5 WBCs. I feel this is probably a contaminated specimen with 10-25 squamous epithelial cells. I reviewed the radiology report of the ultrasound which is consistent with acute cholecystitis. Common bile duct dilated greater than 11 mm I also reviewed the radiology report of the CT of the abdomen pelvis which also states that there is acute cholecystitis with gallbladder wall thickening and pericholecystic inflammation. After a dose morphine and and repeated Zofran, repeat examination of the patient shows her pain under better control. She is resting comfortably on the cot. I discussed the patient with Dr. Huber with general surgery who agrees with Zosyn being started. However, should the patient need ERCP/MRCP this is to be done by gastroenterology. Although gastroenterology is not on-call today, Dr. Mancia is on-call for no doc tomorrow meaning he should be available to perform ERCP. This was rediscussed with Dr. Huber over backline who agrees with admission and can see the patient regarding her gallbladder. Patient will be discussed with the hospitalist, Dr. Padilla for admission for gallstone pancrea (more content not included)... Normal [facility] Gallbladderon 09-02-2025 Gallbladder [facility] [address] [place] [address] Gallbladder MR#: [id number] Acct: [id number] Name: JAZZY FLORENCE Rep #: [id number] : 1995 F 30 From: Yamilka Bledsoe MD PCP: Ever Toribio MD Status: REG ER Study: Gallbladder Date of Exam: 09/02/25 Exam# [id number] Ordering Dr: Americo Kirkland MD PROCEDURE: GALLBLADDER 09/02/2025 REASON FOR EXAM: PAIN TECHNIQUE: Procedure Code: USGB Modality: US Procedure: GALLBLADDER COMPARISON: None. FINDINGS: LIVER ECHOGENICITY: Diffuse increase in hepatic parenchymal echogenicity. SIZE: Enlarged measuring 17.7 cm in length. CONTOUR: Smooth. MASS: None. PORTAL VEIN: Normal direction hepatopetal portal venous flow. GALLBLADDER SIZE: Normal. STONES: The gallbladder is filled with gallstones. SLUDGE: None. WALL THICKNESS: Thickened measuring 3.5 mm. PERICHOLECYSTIC FLUID: None. SONOGRAPHIC JOHNSTON'S SIGN: Positive. BILE DUCTS: Dilated CBD measuring 11.7 mm in diameter. No obstructing lesion in the imaged portions of the duct. The distal CBD is not visualized. PANCREAS: Unremarkable as visualized. The distal pancreas is obscured by overlying bowel gas. RIGHT KIDNEY: Normal size and echogenicity with a length of 9.9 cm. No hydronephrosis, nephrolithiasis, cyst or mass seen. ASCITES/EFFUSIONS: None. OTHER: None. US/Gallbladder IMPRESSION: 1. Cholelithiasis WITH signs of acute cholecystitis. 2. Dilated common bile duct, without an obstructing lesion seen. A stone in the distal CBD is not excluded. 3. Enlarged hyperechoic liver, suggesting hepatic steatosis, although other diffuse liver diseases can have this appearance. Reading Location: [id number] CC: Dr. Americo Kirkland MD; Ever Toribio MD Certified Vehicle Fire Investigator: Signed Normal [facility] H AND P Exam - Hospitaliston 09-02-2025 H&P Exam - Hospitalist [facility] Medical Records Department [address] [place] [address] H P Exam - Hospitalist 09/02/25 2103 MR#: [id number] Acct: [id number] Name: JAZZY FLORENCE Rep #: [id number] : 1995 30 From: Valarie Liu DO PCP: Ever Toribio MD Status:ADM IN [place] [facility] [place] [id number] - General General Date of Admission: 09/02/25 Date of Service: 09/02/25 Chief Complaint: Abdominal Pain with Nausea and Vomiting. HPI Narrative JAZZY FLORENCE, is a 30 F with a past medical history of obesity (class I); with BMI of 30.2 this admission, chronic tobacco abuse, history of rhabdomyolysis, history of opiate overdose, depression with history of SI and violent behavior; on buspirone, trazodone and atomoxetine who presents to [facility] ER complaining of abdominal pain with nausea and vomiting. Ms. Florence reports her symptoms began approximately one day prior to admission with the abrupt-onset of abdominal pain that was severe and diffuse but gradually began to localize around the RUQ. She then developed nausea and bilious emesis x 4-5 episodes but she denies hematemesis and dark stools. She also admits to subjective fever but she denies chills with labor arbitrator stools and dark urine. In the ER she was noted to have Leukocytosis of 11.2K present on admission with a highly elevated Lipase of >3K U/L consistent with Acute (Gallstone) Pancreatitis with Hyperbilirubinemia; with total bilirubin of 5.32 mg/dL and Transaminitis; with AST of 77 U/L, ALT of 109 U/L and Alkaline Phosphatase of 340 U/L with a corresponding CT scan of the abdomen and pelvis that revealed findings consistent with Acute Cholecystitis with Secondary Biliary Obstruction plus gallbladder wall thickening and pericholecystic inflammation with intrahepatic and extrahepatic ductal dilatation with CBD 11 mm and no radiopaque gallstones visualized on CT with GB ultrasound that showed c holelithiasis with signs of Acute Cholecystitis in addition to CBD dilatation without an obstructing lesion appreciated, but a stone in the distal CBD not excluded plus enlarged hyperechoic liver suggesting hepatic steatosis. The ER physician then spoke to the general surgeon on-call who recommended admission to the hospitalist service with formal GI consultation pending in the AM for ERCP with help appreciated in advance. She was then admitted to the general medical floor for ongoing care for a stay that is expected to extend beyond 2 midnights. [facility] Medical History (Updated 09/03/25 @ 02:[address] Valarie Liu, DO) Rhabdomyolysis Depression Irregular heart beat Home Medications ???Medication ???Instructions ???Recorded ???Last Taken ???Type aripiprazole 30 mg tablet 30 mg PO DAILY mental health 09/0209/02/25 History atomoxetine 80 mg capsule 80 mg PO DAILY ADHD 09/02/2509/02 History buspirone 10 mg tablet 10 mg PO TID anxiety/depression 09/02/25 History divalproex 250 mg tablet,delayed 250 mg PO BID mood stabilizer 08/1209/02/25 History release miconazole nitrate 2 % topical 1 spray topical BID athlete's foot 09/03/25 09/02/25 History spray (Lotrimin AF) Allergy/AdvReac Type Severity Reaction Status Date / Time lorazepam Allergy Rash Verified 09/02/25 17:53 risperidone Allergy Other Verified 09/02/25 17:53 Social History Smoking Status: Light Smoker (<10/day) ROS ROS Narrative Review of Systems: Constitutional: Patient admits to subjective fever and chills. Eyes: Patient denies changes in vision or discharge from eyes. ENT: Patient denies runny nose, sore throat or ear pain. Resp: Patient denies SOB or cough. CV: Patient denies chest pain, palpitations, heart racing of LE edema. GI: Patient admits to abdominal pain radiating into RUQ with nausea, vomiting and bilious emesis as per HPI. : Patient denies dysuria or hematuria. MSK: Patient denies arthralgias or myalgias. Skin: Patient admits to jaundice but denies rash. Psych: Patient has chronic depression but she denies SI or HI. Neuro: Patient denies headache, paresthesias or focal neurologic deficits. Allergy: Patient denies lip swelling, tongue swelling or urticaria. Hematology: Patient denies easy bleeding or easy bruisability. Endocrinology: Patient denies polyuria, polydipsia, polyphagia or heat/cold intolerance. 14 point ROS otherwise negative except for positives noted above. Vital Signs Vital Signs Vital Signs: 09/02/25 17:54 09/02/25 19:53 Temperature 97.6 F L Temperature Source Temporal Pulse Rate 77 60 Respiratory Rate 22 H 15 Blood Pressure 100/83 H 105/61 Blood Pressure Mean 88 75 Pulse Ox 100 100 Oxygen Delivery Method Room Air Room Air Weight Weight: 187 lb 6.287 oz Body (more content not included)... Normal [facility] Lipaseon 09-02-2025 Lipase [Catalytic activity/Vol] U/L High 13-75 [facility] Comment on above: Result Comment: Sergei steel note: LIPASE revised reference range effective 23. New Lipase methodology. Expected to produce lower values than the previous assay method. NEW Reference Range: 13 - 75 U/L Performed By: #### L 501.9100, L500.2500, L505.5000, L700.6800, L100.0100 #### [facility] [address] [place], [address] ,Serum,hCG Quali.on 09-02-2025 HCG, SERUM QUAL Negative Normal [facility] Comment on above: Performed By: #### L 501.9100, L500.2500, L505.5000, L700.6800, L100.0100 #### [facility] [address] [place], [address] Thyroid Stim Hormone (TSH)on 09-02-2025 TSH 1.130 uIU/mL Normal 0.300-4.200 [facility] Comment on above: Performed By: #### L 501.9100, L500.2500, L505.5000, L700.6800, L100.0100 #### [facility] [address] [place], [address] Urinalysis, Completeon 09-02 BACTERIA 3+ /hpf Normal None Seen [facility] Comment on above: Order Comment: COLOR OF URINE MAY AFFECT DIPSTICK RESULTS. CLEAN CATCH Performed By: #### L 400.0001 #### [facility] [address] [place], [address] EPI,SQUAMOUS 10-25 SEEN Normal 5-10 [facility] Comment on above: Order Comment: COLOR OF URINE MAY AFFECT DIPSTICK RESULTS. CLEAN CATCH Performed By: #### L 400.0001 #### [facility] [address] [place], [address] RBC 0-5 SEEN Normal 0-5 [facility] Comment on above: Order Comment: COLOR OF URINE MAY AFFECT DIPSTICK RESULTS. CLEAN CATCH Performed By: #### L 400.0001 #### [facility] [address] [place], [address] WBC 0-5 SEEN Normal 0-5 [facility] Comment on above: Order Comment: COLOR OF URINE MAY AFFECT DIPSTICK RESULTS. CLEAN CATCH Performed By: #### L 400.0001 #### [facility] [address] [place], [address] Mucus Ql (Urine sed) 0 SEEN Normal [facility] Comment on above: Order Comment: COLOR OF URINE MAY AFFECT DIPSTICK RESULTS. CLEAN CATCH Performed By: #### L 400.0001 #### [facility] [address] [place], [address] Urine Cultureon 09-02-2025 URC Below infection leve l. Mixed Gram Pos Gram Neg Org Convent Count <1000 MIXC Mixed contaminants. Submit a new specimen if indicated. Normal [facility] Comment on above: Performed By: #### L 505.5000, L500.2500, L700.6800, L501.3620, L100.0100, L501.9100 #### [facility] [address] [place], [place], [id number] Urine Drug Screen (VISTA)on 08-31-2025 AMPHETAMINES Negative Normal <1000 ng/mL [facility] Comment on above: Order Comment: MEDTO X Result Comment: INCO RRECT LAST NAME DOES NOT MATCH SPECIMEN AND REGISTERED NAME. EMAIL SENT TO LAB STAFF. Performed By: #### L 505.5000, L500.2500, L700.6800, L501.3620, L100.0100, L501.9100 #### [facility] [address] [place], [address] BARBITIURATES Negative Normal < 200 ng/mL [facility] Comment on above: Order Comment: MEDTO X Result Comment: INCO RRECT LAST NAME DOES NOT MATCH SPECIMEN AND REGISTERED NAME. EMAIL SENT TO LAB STAFF. Performed By: #### L 505.5000, L500.2500, L700.6800, L501.3620, L100.0100, L501.9100 #### [facility] [address] [place], [address] BENZODIAZIPINE Negative Normal < 200 ng/mL [facility] Comment on above: Order Comment: MEDTO X Result Comment: INCO RRECT LAST NAME DOES NOT MATCH SPECIMEN AND REGISTERED NAME. EMAIL SENT TO LAB STAFF. Performed By: #### L 505.5000, L500.2500, L700.6800, L501.3620, L100.0100, L501.9100 #### [facility] [address] [place], [address] BUP Ur Drug Scr Negative Normal < 200 ng/mL [facility] Comment on above: Order Comment: MEDTO X Result Comment: INCO RRECT LAST NAME DOES NOT MATCH SPECIMEN AND REGISTERED NAME. EMAIL SENT TO LAB STAFF. Performed By: #### L 505.5000, L500.2500, L700.6800, L501.3620, L100.0100, L501.9100 #### [facility] [address] [place], [address] COCAINE Negative Normal < 300 ng/mL [facility] Comment on above: Order Comment: MEDTO X Result Comment: INCO RRECT LAST NAME DOES NOT MATCH SPECIMEN AND REGISTERED NAME. EMAIL SENT TO LAB STAFF. Performed By: #### L 505.5000, L500.2500, L700.6800, L501.3620, L100.0100, L501.9100 #### [facility] [address] [place], [address] Fentanyl Negative Normal <5 ng/mL [facility] Comment on above: Order Comment: MEDTO X Result Comment: CONF IRMATORY TESTING FOR ALL POSITIVE URINE DRUG SCREEN RESULTS WILL ONLY BE SENT OUT UPON PHYSICIAN ORDER. Francisco Pro Urine Drug Screen methods provide only preliminary analytical test results. A more specific alternate chemical method must be used in order to obtain a confirmed analytical result. Gas chromatography/mass spectrometery (GC/MS) is the preferred confirmatory method. Clinical consideration and professional judgement should be applied to any drug of abuse test result, particularly when preliminary positive results are used. Urine TCA testing must be ordered separately. Use test mnemonic: UTCA Performed By: #### L 505.5000, L500.2500, L700.6800, L501.3620, L100.0100, L501.9100 #### [facility] [address] [place], [place], [id number] (989) METHADONE Negative Normal < 300 ng/mL [facility] Comment on above: Order Comment: MEDTO X Result Comment: INCO RRECT LAST NAME DOES NOT MATCH SPECIMEN AND REGISTERED NAME. EMAIL SENT TO LAB STAFF. Performed By: #### L 505.5000, L500.2500, L700.6800, L501.3620, L100.0100, L501.9100 #### [facility] [address] [place], [place], [phone] (230) OPIATES Negative Normal < 300 ng/mL [facility] Comment on above: Order Comment: MEDTO X Result Comment: INCO RRECT LAST NAME DOES NOT MATCH SPECIMEN AND REGISTERED NAME. EMAIL SENT TO LAB STAFF. Performed By: #### L 505.5000, L500.2500, L700.6800, L501.3620, L100.0100, L501.9100 #### [facility] [address] [place], [place], [id number] OXYCODONE Negative Normal < 100 ng/mL [facility] Comment on above: Order Comment: MEDTO X Result Comment: INCO RRECT LAST NAME DOES NOT MATCH SPECIMEN AND REGISTERED NAME. EMAIL SENT TO LAB STAFF. Performed By: #### L 505.5000, L500.2500, L700.6800, L501.3620, L100.0100, L501.9100 #### [facility] [address] [place], [place], [phone] ([phone]) PCP Negative Normal < 25 ng/mL [facility] Comment on above: Order Comment: MEDTO X Result Comment: INCO RRECT LAST NAME DOES NOT MATCH SPECIMEN AND REGISTERED NAME. EMAIL SENT TO LAB STAFF. Performed By: #### L 505.5000, L500.2500, L700.6800, L501.3620, L100.0100, L501.9100 #### [facility] [address] [place], [address] THC Positive Normal < 50 ng/mL [facility] Comment on above: Order Comment: MEDTO X Result Comment: If c onfirmation testing is needed, a separate order will be required to send out testing to the reference laboratory. Performed By: #### L 505.5000, L500.2500, L700.6800, L501.3620, L100.0100, L501.9100 #### [facility] [address] [place], [place], [address] [id number] 08-25-2025 [facility] Misc. 2 COMMENT Normal . [facility] Comment on above: Order Comment: RED S ER/[id number] ACID FREE/TOTAL Result Comment: Test Ordered: [id number] Valproic Acid (Total+Free) Test(s) 277606-Yfnm Valproic Acid (Depakote) was developed and its performance characteristics determined by [facility]. It has not been cleared or approved by the Food and Drug Administration. Valproic Acid (Depakote)(R),S <4 [L ] ug/mL Reference Range: 50-100 Verified by repeat analysis Detection Limit = 4 <4 indicates None Detected Toxicity may occur at levels of 100-500. Measurements of free unbound valproic acid may improve the assess- ment of clinical response. Free Valproic Acid (Depakote) ug/mL Reference Range: . Test not performed. Insufficient specimen to perform or complete analysis. CONTACTED SHAVONNE AT YOUR FACILITY ON 08-24-2025 Detection Limit = 0.5 Performed at: [address] [id number] Laboratory Geneticist: Walt Castro PhD, Phone: [phone] Performed at: [address] [id number] Laboratory Geneticist: Ellie Nieto MD, Phone: [phone] Performed By: #### L 501.9100, L500.2500, L505.5000, L700.6800, L100.0100 #### [facility] [address] [place], [place], [id number] [id number] 08-21-20[facility] COM[facility] Normal . [facility] Comment on above: Order Comment: [id number] 750URINE KRATOM ALKALOIDS QN Result Comment: Test Ordered: [id number] Kratom, Screen w/Conf, Ur Kratom Negative MX Reference Range: NEGATIVE Screening Threshold: 5.0 ng/mL Analysis performed by immunoassay. This test was developed and its performance characteristics determined by [employer]. It has not been cleared or approved by the Food and Drug Administration. Performed at: [facility] [address] [place] [id number] Laboratory Geneticist: Mayte Mobley [facility], Phone: [phone] Performed at: [facility] [id number] Laboratory Geneticist: Walt Castro PhD, Phone: [phone] Performed By: #### L 501.9100, L500.2500, L505.5000, L700.6800, L100.0100 #### [facility] [address], [address] CBC W/Diff, Automatedon 10-0 Absolute Lymph 1.62 X10 3/uL Normal 0.83-4.51 [facility] Comment on above: Performed By: #### L 501.9100, L500.2500, L505.5000, L700.6800, L100.0100 #### [facility] [address] [place], [place], [id number] Absolute Neut 4.0 X10 3/uL Normal 2.0-7.7 [facility] Comment on above: Performed By: #### L 501.9100, L500.2500, L505.5000, L700.6800, L100.0100 #### [facility] [address] [place], [address] Basophils/100 WBC (Bld) 1.3 % High 0-1 [facility] Comment on above: Performed By: #### L 501.9100, L500.2500, L505.5000, L700.6800, L100.0100 #### [facility] [address] [place], [address] Eosinophils/100 WBC (Bld) 3.2 % Normal 0-5 [facility] Comment on above: Performed By: #### L 501.9100, L500.2500, L505.5000, L700.6800, L100.0100 #### [facility] [address] [place], [address] Erythrocyte distribution width (RBC) [Ratio] 13.0 % Normal 11.6-14.6 [facility] Comment on above: Performed By: #### L 501.9100, L500.2500, L505.5000, L700.6800, L100.0100 #### [facility] [address] [place], [address] Hematocrit (Bld) [Volume fraction] 45.2 % Normal 37-47 [facility] Comment on above: Performed By: #### L 501.9100, L500.2500, L505.5000, L700.6800, L100.0100 #### [facility] [address] [place], [address] Hemoglobin (Bld) [Mass/Vol] 14.8 g/dL Normal 12.0-15.0 [facility] Comment on above: Performed By: #### L 501.9100, L500.2500, L505.5000, L700.6800, L100.0100 #### [facility] [address] [place], [address] IG% 0.600 Normal 0.0-0.9 [facility] Comment on above: Result Comment: IG% - Immature Granulocytes (promyelocytes, myelocytes and metamyelocytes) > 1% indicates that a LEFT SHIFT is Present. Performed By: #### L 501.9100, L500.2500, L505.5000, L700.6800, L100.0100 #### [facility] [address] [place], [address] Lymphocytes/100 WBC (Bld) 25.9 % Normal 19-41 [facility] Comment on above: Performed By: #### L 501.9100, L500.2500, L505.5000, L700.6800, L100.0100 #### [facility] [address] [place], [address] MCH (RBC) [Entitic mass] 31.4 pg Normal 27.0-32.0 [facility] Comment on above: Performed By: #### L 501.9100, L500.2500, L505.5000, L700.6800, L100.0100 #### [facility] [address] [place], [address] MCHC (RBC) [Mass/Vol] 32.7 g/dL Normal 32-36 [facility] Comment on above: Performed By: #### L 501.9100, L500.2500, L505.5000, L700.6800, L100.0100 #### [facility] [address] [place], [address] MCV (RBC) [Entitic vol] 95.8 fL Normal 81-99 [facility] Comment on above: Performed By: #### L 501.9100, L500.2500, L505.5000, L700.6800, L100.0100 #### [facility] [address] [place], [address] Monocytes/100 WBC (Bld) 5.3 % Normal 0-10 [facility] Comment on above: Performed By: #### L 501.9100, L500.2500, L505.5000, L700.6800, L100.0100 #### [facility] [address] [place], [address] Neutrophils/100 WBC (Bld) 63.7 % Normal 47-70 [facility] Comment on above: Performed By: #### L 501.9100, L500.2500, L505.5000, L700.6800, L100.0100 #### [facility] [address] [place], [address] Nucleated RBC (Bld) [#/Vol] 0 10*3/uL Normal 0-5 [facility] Comment on above: Performed By: #### L 501.9100, L500.2500, L505.5000, L700.6800, L100.0100 #### [facility] [address] [place], [address] Platelet mean volume (Bld) [Entitic vol] 9.7 fL Normal 6.2-12.0 [facility] Comment on above: Performed By: #### L 501.9100, L500.2500, L505.5000, L700.6800, L100.0100 #### [facility] [address] [place], [address] Platelets (Bld) [#/Vol] 367 10*3/uL Normal 150-450 [facility] Comment on above: Performed By: #### L 501.9100, L500.2500, L505.5000, L700.6800, L100.0100 #### [facility] [address] [place], [address] RBC (Bld) [#/Vol] 4.72 10*6/uL Normal 4.2-5.4 [facility] Comment on above: Performed By: #### L 501.9100, L500.2500, L505.5000, L700.6800, L100.0100 #### [facility] [address] [place], [address] RDW SD 45.9 fl High 35.1-43.9 [facility] Comment on above: Performed By: #### L 501.9100, L500.2500, L505.5000, L700.6800, L100.0100 #### [facility] [address] [place], [address] WBC (Bld) [#/Vol] 6.3 10*3/uL Normal 4.4-11.0 [facility] Comment on above: Performed By: #### L 501.9100, L500.2500, L505.5000, L700.6800, L100.0100 #### [facility] [address] [place], [address] Comprehensive Metabolic Prof kson 08-19-2025 Albumin/Globulin [Mass ratio] 1.2 {ratio} Normal 0.9-2.4 [facility] Comment on above: Result Comment: AMENDED REPORT 08/19/251426 A/G previously reported as: 1.2 RATIO Performed By: #### L 501.9100, L500.2500, L505.5000, L700.6800, L100.0100 #### [facility] [address] [place], [address] ALK PHOS 153 U/L High 35-104 [facility] Comment on above: Result Comment: AMENDED REPORT 08/19/251426 ALK P previously reported as: 152 H U/L Performed By: #### L 501.9100, L500.2500, L505.5000, L700.6800, L100.0100 #### [facility] [address] [place], [address] ALT [Catalytic activity/Vol] 54 U/L High <=34 [facility] Comment on above: Result Comment: AMENDED REPORT 08/19/251426 ALT previously reported as: 55 H U/L Performed By: #### L 501.9100, L500.2500, L505.5000, L700.6800, L100.0100 #### [facility] [address] [place], [address] AST [Catalytic activity/Vol] 44 U/L High <=31 [facility] Comment on above: Result Comment: AMENDED REPORT 08/19/251426 AST previously reported as: 45 H U/L Performed By: #### L 501.9100, L500.2500, L505.5000, L700.6800, L100.0100 #### [facility] [address] [place], [address] BUN/CRE 15.4 RATIO Normal 10-20 [facility] Comment on above: Result Comment: AMENDED REPORT 08/19/251426 BUN/CRE previously reported as: 15.5 RATIO Performed By: #### L 501.9100, L500.2500, L505.5000, L700.6800, L100.0100 #### [facility] [address] [place], [address] Calcium [Mass/Vol] 9.5 mg/dL Normal 7.6-11.0 [facility] Comment on above: Performed By: #### L 501.9100, L500.2500, L505.5000, L700.6800, L100.0100 #### [facility] [address] [place], [address] CO2 [Moles/Vol] 25.3 mmol/L Normal 21.0-32.0 [facility] Comment on above: Result Comment: AMENDED REPORT 08/19/251426 CO2 previously reported as: 24.1 mmol/L Performed By: #### L 501.9100, L500.2500, L505.5000, L700.6800, L100.0100 #### [facility] [address] [place], [address] Creatinine [Mass/Vol] 0.83 mg/dL Normal 0.70-1.20 [facility] Comment on above: Result Comment: AMENDED REPORT 08/19/251426 CREAT,SERUM previously reported as: 0.81 mg/dL Performed By: #### L 501.9100, L500.2500, L505.5000, L700.6800, L100.0100 #### [facility] [address] [place], [address] GAP 10 Normal 5-15 [facility] Comment on above: Performed By: #### L 501.9100, L500.2500, L505.5000, L700.6800, L100.0100 #### [facility] [address] [place], [address] Globulin (S) [Mass/Vol] 3.5 g/dL Normal 2.2-4.2 [facility] Comment on above: Result Comment: AMENDED REPORT 08/19/251426 GLOB previously reported as: 3.3 g/dL Performed By: #### L 501.9100, L500.2500, L505.5000, L700.6800, L100.0100 #### [facility] [address] [place], [address] Glucose [Mass/Vol] 140 mg/dL High 70-99 [facility] Comment on above: Result Comment: AMENDED REPORT 08/19/251426 GLU previously reported as: 136 H mg/dL Performed By: #### L 501.9100, L500.2500, L505.5000, L700.6800, L100.0100 #### [facility] [address] [place], [address] T PROT 7.5 g/dL Normal 5.9-8.4 [facility] Comment on above: Result Comment: AMENDED REPORT 08/19/251426 T PROT previously reported as: 7.3 g/dL Performed By: #### L 501.9100, L500.2500, L505.5000, L700.6800, L100.0100 #### [facility] [address] [place], [address] Urea nitrogen [Mass/Vol] 13 mg/dL Normal 4-19 [facility] Comment on above: Performed By: #### L 501.9100, L500.2500, L505.5000, L700.6800, L100.0100 #### [facility] [address] [place], [address] Ferritinon 08-19-2025 Ferritin [Mass/Vol] 56 ng/mL Normal 22-378 [facility] Comment on above: Performed By: #### L 501.9100, L500.2500, L505.5000, L700.6800, L100.0100 #### [facility] [address] [place], [address] Hemoglobin A1con 08-19-2025 HbA1c (Bld) [Mass fraction] 5.1 % Normal <=5.6 [facility] Comment on above: Result Comment: Norm al < 5.7 % Prediabetic 5.7 - 6.4 % Diabetic >or= 6.5 % Please note range changes. Performed By: #### L 501.9100, L500.2500, L505.5000, L700.6800, L100.0100 #### [facility] [address] [place], [address] Ironon 08-19-2025 Iron [Mass/Vol] 148 ug/dL Normal 50-170 [facility] Comment on above: Performed By: #### L 501.9100, L500.2500, L505.5000, L700.6800, L100.0100 #### [facility] [address] [place], [address] Lipid Profileon 08-19-2025 CHOL:HDL 7.55 Normal [facility] Comment on above: Performed By: #### L 501.9100, L500.2500, L505.5000, L700.6800, L100.0100 #### [facility] [address] [place], [address] Cholesterol [Mass/Vol] 262 mg/dL High <=200 [facility] Comment on above: Result Comment: Chol esterol level, Desirable <200 mg/dL Borderline high cholesterol 200-239 mg/dL High cholesterol >=240 mg/dL Recommendations of the NCEP Adult Treatment Panel for the following risk-cutoff thresholds for the [place] population. Performed By: #### L 501.9100, L500.2500, L505.5000, L700.6800, L100.0100 #### [facility] [address] [place], [address] Cholesterol in HDL [Mass/Vol] 35 mg/dL Low [facility] Comment on above: Result Comment: [place] onal Cholesterol Education Program (NCEP) guidelines: <40 mg/dL: Low HDL-cholesterol (major risk factor for CHD) >= 60 mg/dL: High HDL-cholesterol (negative risk factor for CHD) HDL-cholesterol is affected by a number of factors, e.g. smoking, exercise, hormones, sex and age. Performed By: #### L 501.9100, L500.2500, L505.5000, L700.6800, L100.0100 #### [facility] [address] [place], [address] Cholesterol in LDL [Mass/Vol] 199 mg/dL Normal [facility] Comment on above: Result Comment: Bord njzmwr=462-071 mg/dL Higher Vrgg=552 mg/dL or greater Friedwald Equation for LDL-C Performed By: #### L 501.9100, L500.2500, L505.5000, L700.6800, L100.0100 #### [facility] [address] [place], [address] Cholesterol in VLDL [Mass/Vol] 28 mg/dL Normal 5-40 [facility] Comment on above: Performed By: #### L 501.9100, L500.2500, L505.5000, L700.6800, L100.0100 #### [facility] [address] [place], [address] Triglyceride [Mass/Vol] 141 mg/dL Normal [facility] Comment on above: Result Comment: The drugs N-Acetylcysteine and Metamizole may falsely depress this assay. Normal range: <150 mg/dL Borderline High: 150-199 mg/dL High: 200-499 mg/dL Very High: >500 mg/dL Performed By: #### L 501.9100, L500.2500, L505.5000, L700.6800, L100.0100 #### [facility] [address] [place], [address] Microalbumin,Random Urineon 08-19-2025 MICROALBUMIN,UR < 12.0 Normal <20 mg/L [facility] Comment on above: Performed By: #### L 501.9100, L500.2500, L505.5000, L700.6800, L100.0100 #### [facility] [address] [place], [address] Thyroid Stim Hormone (TSH)on 08-19-2025 TSH 1.410 uIU/mL Normal 0.300-4.200 [facility] Comment on above: Performed By: #### L 501.9100, L500.2500, L505.5000, L700.6800, L100.0100 #### [facility] [address] [place], [address] Vitamin B12on 08-19-2025 Cobalamin (Vitamin B12) [Mass/Vol] 277 pg/mL Normal 180-914 [facility] Comment on above: Performed By: #### L 501.9100, L500.2500, L505.5000, L700.6800, L100.0100 #### [facility] [address] [place], [place], [address] Vitamin D,25 Hydroxyon 08-19 Vitamin D 25-OH 29.3 ng/mL Low 30-100 [facility] Comment on above: Result Comment: Shyanne min D Status Deficiency: <20 ng/mL (50nmol/L) Insufficiency: 20-30 ng/mL (50-75 nmol/L) Sufficiency: 30-100 ng/mL (75-250 nmol/L) Toxicity: >100 ng/mL (>250 nmol/L) Performed By: #### L 501.9100, L500.2500, L505.5000, L700.6800, L100.0100 #### [facility] [address] [place], [address] CNOVon 03-03-2025 [facility] SAURABHJAZZY VILLAGRAN ([id number]) 1995 F Date Time Provider Department 03/03/25 5:30 PM LORRAINE CHESTER [facility] During your visit today, we recorded the following information about you: Temperature Pulse Respiration Blood pressure 99.8 degrees 118/minute 16/minute 102/60 Weight 77.7 kg Lorraine Chester APRN.CNP 03/03/2025 6:51 PM Signed [facility] Subjective HPI HPI Jazzy Callaway is a 30 year old female who presents today for CC of cough, congestion, fever, vomiting, feverish. This started 2 days ago. Has tried otc medication for relief. Symptoms are worsened by nothing. Risk factors smoker. Denies possibility of being . .Patient presents with: Nasal Congestion: drainage, cough with vomiting x 2 days PAST MEDICAL HISTORY Diagnosis Date ADD (attention deficit disorder) Anxiety Seeing Dr. Kim Depression OCD (obsessive compulsive disorder) Palpitations PAST SURGICAL HISTORY Procedure Laterality Date NONE ALLERGIES Lorazepam MEDICATIONS ARIPiprazole (ABILIFY) 30 mg tablet atomoxetine (STRATTERA) 25 mg capsule Take 1 capsule by mouth once daily. busPIRone (BUSPAR) 15 mg tablet Take 15 mg by mouth three times a day. divalproex DR (DEPAKOTE) 250 mg EC tablet traZODone (DESYREL) 50 mg tablet Take 50 mg by mouth. FLUoxetine (PROZAC) 20 mg capsule Take 40 mg by mouth once daily. (Patient not taking: Reported on 03/03/2025) FAMILY HISTORY Problem Relation Age of Onset Cancer Maternal Grandmother other (Depression [Other]) Mother other (Unknown [Other]) Father Social History Tobacco Use Smoking status: Some Days Current packs/day: 0.00 Average packs/day: 0.2 packs/day for 3.0 years (0.6 ttl pk-yrs) Types: Cigarettes Start date: 04/24/2014 Last attempt to quit: 04/24/2017 Years since quittin.8 Smokeless tobacco: Never Substance Use Topics Alcohol use: Not Currently Comment: rare Drug use: No Review of Systems Constitutional: Positive for chills, fatigue and fever. HENT: Positive for rhinorrhea and sore throat. Negative for ear discharge, ear pain, sinus pressure and sinus pain. Eyes: Negative for discharge and redness. Respiratory: Positive for cough. Negative for shortness of breath and wheezing. Cardiovascular: Negative for chest pain. Skin: Negative for rash. Objective BP 102/60 Pulse 118 Temp 37.7 ?C (99.8 ?F) Resp 16 Wt 77.7 kg (171 lb 4.8 oz) LMP 11/06/2018 (Approximate) SpO2 97% BMI 28.07 kg/m? Physical Exam Constitutional: General: She is not in acute distress. Appearance: She is not toxic-appearing or diaphoretic. HENT: Head: Normocephalic and atraumatic. Cardiovascular: Rate and Rhythm: Normal rate and regular rhythm. Heart sounds: Normal heart sounds, S1 normal and S2 normal. Pulmonary: Effort: Pulmonary effort is normal. Breath sounds: Normal breath sounds. Neurological: Mental Status: She is alert and oriented to person, place, and time. {ASSESSMENT/PLAN: 1. URI, acute - ICD9: 465.9, ICD10: J06.9 (primary diagnosis) - Discussed viral etiology and rationale for treatment. - Symptomatic treatment with prn analgesia - Supportive care with fluids and rest - Follow up in 3-5 days if symptoms persist or sooner if worsening of symptoms - INFLUENZA AANDB MOLECULAR (POC) - COVID AND INFLUENZA A/B AND RSV PCR, ROUTINE - many medication interactions with paxlovid, not candidate for treatment if positive 2. Acute cough - ICD9: 786.2, ICD10: R05.1 - XR CHEST 2V FRONTAL/LAT IMPRESSION: No acute radiographic abnormality. Dictated by : MD Lorraine DEAL APRN.PERSONNEL TRAINING OFFICER History and Record Review External record(s) reviewed: prior outpatient record. Systemic symptoms present included: fever Disposition The patient was discharged. OTC Medications were advised: Procedures Allergies As of Date: 03/03/2025 Noted Allergy Reaction LORAZEPAM 03/29/2016 2 - Rash Date Reviewed: 03/03/2025 Reviewed by: Christen Patel MA - Fully Assessed Reason for Visit: Nasal Congestion [235] Cmt: drainage, cough with vomiting x 2 days Primary Visit Diagnosis:URI, acute [J06.9] Other Visit Diagnosis:Acute cough [R05.1] Order(s):XR CHEST 2V FRONTAL/LAT [2423386] Order #: [id number]. #:[id number] INFLUENZA AANDB MOLECULAR (POC) [9961231] Order #: [id number]. #:[id number] COVID AND INFLUENZA A/B AND RSV PCR, ROUTINE [SQCVFLRS] Order #: [id number]. #:[id number] Prescriptions as of 03/03/2025 - ARIPiprazole (ABILIFY) 30 mg tablet - atomoxetine (STRATTERA) 25 mg capsule Take 1 capsule by mouth once daily. - busPIRone (BUSPAR) 15 mg tablet Take 15 mg by mouth three times a day. - divalproex DR (DEPAKOTE) 250 mg EC tablet - FLUoxetine (PROZAC) 20 mg capsule Take 40 mg by mouth once daily. - traZODone (D (more content not included)... Normal [facility] XR CHEST 2V FRONTAL/LATon XR CHEST 2V FRONTAL/LAT * * *Final Repor t* * * DATE OF EXAM: Mar 03 2025 5:55PM WOX [id number] - XR CHEST 2V FRONTAL/LAT / PROCEDURE REASON: Acute cough * * * * Physician Interpretation * * * * EXAMINATION: CHEST RADIOGRAPH (2 VIEW FRONTAL and LATERAL) CLINICAL HISTORY: Acute cough MQ: [id number]_6 EXAM DATE/TIME: 03/03/2025 5:55 PM COMPARISON: No relevant prior studies available. RESULT: Lines, tubes, and devices: None. Lungs and pleura: No consolidation. No lung mass. No pleural effusion. No pneumothorax. Cardiomediastinal silhouette: Normal cardiomediastinal silhouette. Bones and soft tissues: Unremarkable. IMPRESSION: No acute radiographic abnormality. Certified Vehicle Fire Investigator: PSCB Transcribe Date/Time: Mar 03 2025 5:56P Dictated by : BEBETO MEJIA MD This examination was interpreted and the report reviewed and electronically signed by: BEBETO MEJIA MD on Mar 03 2025 5:57PM EST [id number] Normal [facility] Absolute neutrophil countOrd ered By: Addy Blake on 02-07-2025 Neutrophils (Bld) [#/Vol] 4.0 10*3/uL 2.0-7.7 [facility] Alcohol, Blood (Medical)-Ser umon 02-07-2025 SERUM ETOH < 10.1 Normal <=10.0 [facility] Comment on above: Result Comment: This test is for medical purposes only. The legal definition of intoxication varies according to local law. Performed By: #### L 501.9100, L500.2500, L505.5000, L700.6800, L100.0100 #### [facility] [address] [place], [address] Amphetamines Screen method > 1000 ng/mL Ql (U)Ordered By: Addy Blake on 02-07-2025 Amphetamines Ql (U) Negative <1000 ng/mL [facility] Urine Barbiturates Screen Negative < 200 ng/mL [facility] Anion gap in Serum or Plasma Ordered By: Addy Blake on 02-07-2025 Anion gap [Moles/Vol] 11 mmol/L 03-25 [facility] BUN/creatinine ratioOrdered By: Addy Blake on 02-07-2025 Urea nitrogen/Creatinine [Mass ratio] 10.5 mg/mg - [facility] Basic Metabolic Profile (BMP )on 02-07-2025 BUN/CRE 10.5 RATIO Normal 08-30 [facility] Comment on above: Performed By: #### L 501.9100, L500.2500, L505.5000, L700.6800, L100.0100 #### [facility] [address] [place], [address] Calcium [Mass/Vol] 9.3 mg/dL Normal 7.6-11.0 [facility] Comment on above: Performed By: #### L 501.9100, L500.2500, L505.5000, L700.6800, L100.0100 #### [facility] [address] [place], [address] Chloride [Moles/Vol] 102 mmol/L Normal 98-108 [facility] Comment on above: Performed By: #### L 501.9100, L500.2500, L505.5000, L700.6800, L100.0100 #### [facility] [address] [place], [address] CO2 [Moles/Vol] 25.1 mmol/L Normal 21.0-32.0 [facility] Comment on above: Performed By: #### L 501.9100, L500.2500, L505.5000, L700.6800, L100.0100 #### [facility] [address] [place], [address] Creatinine [Mass/Vol] 0.83 mg/dL Normal 0.70-1.20 [facility] Comment on above: Performed By: #### L 501.9100, L500.2500, L505.5000, L700.6800, L100.0100 #### [facility] [address] [place], [address] GAP 11 Normal 5-15 [facility] Comment on above: Performed By: #### L 501.9100, L500.2500, L505.5000, L700.6800, L100.0100 #### [facility] [address] [place], [address] GFR/1.73 sq M.predicted among non-blacks MDRD (S/P/Bld) [Vol rate/Area] 98 mL/min/{1.73_m2} Normal >60 [facility] Comment on above: Result Comment: mL/m in/1.73m2 CKD-EPI Creatinine Equation (2020) Performed By: #### L 501.9100, L500.2500, L505.5000, L700.6800, L100.0100 #### [facility] [address] [place], [address] Glucose [Mass/Vol] 63 mg/dL Low 70-99 [facility] Comment on above: Performed By: #### L 501.9100, L500.2500, L505.5000, L700.6800, L100.0100 #### [facility] [address] [place], [address] Potassium [Moles/Vol] 4.0 mmol/L Normal 3.3-5.1 [facility] Comment on above: Performed By: #### L 501.9100, L500.2500, L505.5000, L700.6800, L100.0100 #### [facility] [address] [place], [address] Sodium [Moles/Vol] 138 mmol/L Normal 133-145 [facility] Comment on above: Performed By: #### L 501.9100, L500.2500, L505.5000, L700.6800, L100.0100 #### [facility] [address] [place], [address] Urea nitrogen [Mass/Vol] 9 mg/dL Normal 4-19 [facility] Comment on above: Performed By: #### L 501.9100, L500.2500, L505.5000, L700.6800, L100.0100 #### [facility] [address] [place], [address] Basophil percentageOrdered B y: Addy Blake on 02-07-2025 Basophils/100 WBC (Bld) 0.6 % 0-1 [facility] Beta HCG ( test) Ql Ordered By: Addy Blake on 02-07-2025 Serum Test, Qualitative Negative [facility] CBC W/Diff, Automatedon 01-11 Absolute Lymph 2.98 X10 3/uL Normal 0.83-4.51 [facility] Comment on above: Performed By: #### L 501.9100, L500.2500, L505.5000, L700.6800, L100.0100 #### [facility] [address] [place], [address] Absolute Neut 4.0 X10 3/uL Normal 2.0-7.7 [facility] Comment on above: Performed By: #### L 501.9100, L500.2500, L505.5000, L700.6800, L100.0100 #### [facility] [address] [place], [address] Basophils/100 WBC (Bld) 0.6 % Normal 0-1 [facility] Comment on above: Performed By: #### L 501.9100, L500.2500, L505.5000, L700.6800, L100.0100 #### [facility] [address] [place], [address] Eosinophils/100 WBC (Bld) 1.1 % Normal 0-5 [facility] Comment on above: Performed By: #### L 501.9100, L500.2500, L505.5000, L700.6800, L100.0100 #### [facility] [address] [place], [address] Erythrocyte distribution width (RBC) [Ratio] 12.7 % Normal 11.6-14.6 [facility] Comment on above: Performed By: #### L 501.9100, L500.2500, L505.5000, L700.6800, L100.0100 #### [facility] [address] [place], [address] Hematocrit (Bld) [Volume fraction] 40.4 % Normal 37-47 [facility] Comment on above: Performed By: #### L 501.9100, L500.2500, L505.5000, L700.6800, L100.0100 #### [facility] [address] [place], [address] Hemoglobin (Bld) [Mass/Vol] 14.0 g/dL Normal 12.0-15.0 [facility] Comment on above: Performed By: #### L 501.9100, L500.2500, L505.5000, L700.6800, L100.0100 #### [facility] [address] [place], [address] IG% 0.100 Normal 0.0-0.9 [facility] Comment on above: Result Comment: IG% - Immature Granulocytes (promyelocytes, myelocytes and metamyelocytes) > 1% indicates that a LEFT SHIFT is Present. Performed By: #### L 501.9100, L500.2500, L505.5000, L700.6800, L100.0100 #### [facility] [address] [place], [address] Lymphocytes/100 WBC (Bld) 38.1 % Normal 19-41 [facility] Comment on above: Performed By: #### L 501.9100, L500.2500, L505.5000, L700.6800, L100.0100 #### [facility] [address] [place], [address] MCH (RBC) [Entitic mass] 31.7 pg Normal 27.0-32.0 [facility] Comment on above: Performed By: #### L 501.9100, L500.2500, L505.5000, L700.6800, L100.0100 #### [facility] [address] [place], [address] MCHC (RBC) [Mass/Vol] 34.7 g/dL Normal 32-36 [facility] Comment on above: Performed By: #### L 501.9100, L500.2500, L505.5000, L700.6800, L100.0100 #### [facility] [address] [place], [address] MCV (RBC) [Entitic vol] 91.4 fL Normal 81-99 [facility] Comment on above: Performed By: #### L 501.9100, L500.2500, L505.5000, L700.6800, L100.0100 #### [facility] [address] [place], [address] Monocytes/100 WBC (Bld) 8.6 % Normal 0-10 [facility] Comment on above: Performed By: #### L 501.9100, L500.2500, L505.5000, L700.6800, L100.0100 #### [facility] [address] [place], [address] Neutrophils/100 WBC (Bld) 51.5 % Normal 47-70 [facility] Comment on above: Performed By: #### L 501.9100, L500.2500, L505.5000, L700.6800, L100.0100 #### [facility] [address] [place], [address] Nucleated RBC (Bld) [#/Vol] 0 10*3/uL Normal 0-5 [facility] Comment on above: Performed By: #### L 501.9100, L500.2500, L505.5000, L700.6800, L100.0100 #### [facility] [address] [place], [address] Platelet mean volume (Bld) [Entitic vol] 8.7 fL Normal 6.2-12.0 [facility] Comment on above: Performed By: #### L 501.9100, L500.2500, L505.5000, L700.6800, L100.0100 #### [facility] [address] [place], [address] Platelets (Bld) [#/Vol] 279 10*3/uL Normal 150-450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 width (RBC) [Entitic vol] 44.2 fL High 35.1-43.9 [facility] GFR/1.73 sq M.predicted stalin g non-blacks MDRD (S/P/Bld) [Vol rate/Area]Ordered By: sarah Crespo on 01-26-2025 Estimated GFR (MDRD) Non-Af Amer 78 >60 [facility] Comment on above: mL/min/1.73m2 CKD-EP I Creatinine Equation (2020) Hematocrit Auto (Bld) [Volum e fraction]Ordered By: [facility] on 01-26-2025 Hematocrit (Bld) [Volume fraction] 42.9 % 37-47 [facility] Hemoglobin measurementOrdere d By: [facility] on 01-26-2025 Hemoglobin (Bld) [Mass/Vol] 14.6 g/dL 12.0-15.0 [facility] Immature granulocytes/100 WB C Auto (Bld)Or[facility] 01-26-2025 Immature granulocytes/100 WBC (Bld) 0.400 % 0.0-0.9 [facility] Comment on above: IG% - Immature Granu locytes (promyelocytes, myelocytes and metamyelocytes) > 1% indicates that a LEFT SHIFT is Present. Laboratory - Chemistry and C hemistry - challengeOrdered By: [facility] on 01-26-2025 AST [Catalytic activity/Vol] 18 U/L <32 [facility] Lymphocytes Auto (Unsp spec) [#/Vol]Ordered By: [facility] on 01-26-2025 Lymphocytes (Bld) [#/Vol] 3.08 10*3/uL 0.83-4.51 [facility] Lymphocytes/100 WBC Auto (Un sp spec)Ordered By: [facility] on 01-26-2025 Lymphocytes/100 WBC (Bld) 32.8 % 19-41 [facility] MCV (mean corpuscular volume ) determinationOrdered By: [facility] on 01-26-2025 MCV (RBC) [Entitic vol] 92.5 fL 81-99 [facility] Mean corpuscular hemoglobin (MCH) determinationOrdered By: Vikas Crespo on 01-26-2025 MCH (RBC) [Entitic mass] 31.5 pg 27.0-32.0 [facility] Mean corpuscular hemoglobin concentration (MCHC) determinationOrdered By: Vikas Beam on 01-26-2025 MCHC (RBC) [Mass/Vol] 34.0 g/dL 32-36 [facility] Mean platelet volume determi nationOrdered By: Herminion Beam on 01-26-2025 Platelet mean volume (Bld) [Entitic vol] 8.6 fL 6.2-12.0 [facility] Methadone, urineOrdered By: Vikas Crespo on 01-26-2025 Urine Methadone Screen Negative < 300 ng/mL [facility] Monocyte percentageOrdered B y: Vikas Crespo on 01-26-2025 Monocytes/100 WBC (Bld) 7.5 % 0-10 [facility] Neutrophil percentageOrdered By: Vikas Crespo on 01-26-2025 Neutrophils/100 WBC (Bld) 58.4 % 47-70 [facility] No Panel InformationOrdered By: Vikas Crespo on 01-26-2025 Urine Buprenorphine Qualitative Negative < 200 ng/mL [facility] Urine Oxycodone Screen Negative < 100 ng/mL [facility] Nucleated red blood cell per centageOrdered By: Vikas Crespo on 01-26-2025 Nucleated RBC/100 WBC (Bld) [Ratio] 0 % 0-5 [facility] Platelet countOrdered By: Chema Crespo on 01-26-2025 Platelets (Bld) [#/Vol] 361 10*3/uL 150-450 [facility] Potassium (Unsp spec) [Mass/ Vol]Ordered By: Vikas Crespo on 01-26-2025 Potassium [Moles/Vol] 3.2 mmol/L Low 3.3-5.1 [facility] Quantitative urine opiates m easurementOrdered By: Vikas Crespo on 01-26-2025 Opiates Ql (U) Negative < 300 ng/mL [facility] RBC Auto (Bld) [#/Vol]Ordere d By: Vikas Crespo on 01-26-2025 RBC (Bld) [#/Vol] 4.64 10*6/uL 4.2-5.4 [facility] Serum creatinine measurement (mass/volume)Ordered By: Vikas Beam on 01-26-2025 Creatinine [Mass/Vol] 1.00 mg/dL 0.70-1.20 [facility] Serum globulin measurementOr dered By: Vikas Crespo on 01-26-2025 Globulin (S) [Mass/Vol] 3.1 g/dL 2.2-4.2 [facility] Serum glucose measurement (m ass/volume)Ordered By: Vikas Crespo on 01-26-2025 Glucose [Mass/Vol] 108 mg/dL High 70-99 [facility] Serum or plasma alanine alejandro otransferase (ALT) measurementOrdered By: Vikas Beam on 01-26-2025 ALT [Catalytic activity/Vol] 6 U/L <35 [facility] Serum or plasma albumin onur urement (mass/volume)Ordered By: Vikas Beam on 01-26-2025 Albumin [Mass/Vol] 4.4 g/dL 3.5-5.0 [facility] Serum or plasma albumin/glob ulin mass ratioOrdered By: Vikas Beam on 01-26-2025 Albumin/Globulin [Mass ratio] 1.4 {ratio} 0.9-2.4 [facility] Serum or plasma alkaline aman sphatase measurementOrdered By: Vikas Beam on 01-26-2025 ALP [Catalytic activity/Vol] 56 U/L 35-104 [facility] Serum or plasma calcium onur urement (mass/volume)Ordered By: Vikas Beam on 01-26-2025 Calcium [Mass/Vol] 9.3 mg/dL 7.6-11.0 [facility] Serum or plasma urea nitroge n measurement (mass/volume)Ordered By: Mathieulun Beam on 01-26-2025 Urea nitrogen [Mass/Vol] 9 mg/dL 4-19 [facility] Sodium levelOrdered By: Mathieu Crespo on 01-26-2025 Sodium [Moles/Vol] 137 mmol/L 133-145 [facility] TSH DL <= 0.005 mIU/L QnOrde red By: Vikas Crespo on 01-26-2025 Thyroid Stimulating Hormone (TSH) 2.060 uIU/mL 0.300-4.200 [facility] Thyroid Stim Hormone (TSH)on 01-26-2025 TSH 2.060 uIU/mL Normal 0.300-4.200 [facility] Comment on above: Performed By: #### L 501.9100, L500.2500, L505.5000, L700.6800, L100.0100 #### [facility] [address] [place], [place], [id number] Total proteinOrdered By: Ronal Crespo on 01-26-2025 Protein [Mass/Vol] 7.6 g/dL 5.9-8.4 [facility] Urine Drug Screen (VISTA)on 01-26-2025 AMPHETAMINES Positive Normal <1000 ng/mL [facility] Comment on above: Order Comment: UNK Result Comment: If c onfirmation testing is needed, a separate order will be required to send out testing to the reference laboratory. Performed By: #### L 501.9100, L500.2500, L505.5000, L700.6800, L100.0100 #### [facility] [address] [place], [address] BARBITIURATES Negative Normal < 200 ng/mL [facility] Comment on above: Order Comment: UNK Performed By: #### L 501.9100, L500.2500, L505.5000, L700.6800, L100.0100 #### [facility] [address] [place], [address] BENZODIAZIPINE Negative Normal < 200 ng/mL [facility] Comment on above: Order Comment: UNK Performed By: #### L 501.9100, L500.2500, L505.5000, L700.6800, L100.0100 #### [facility] [address] [place], [address] BUP Ur Drug Scr Negative Normal < 200 ng/mL [facility] Comment on above: Order Comment: UNK Performed By: #### L 501.9100, L500.2500, L505.5000, L700.6800, L100.0100 #### [facility] [address] [place], [address] COCAINE Negative Normal < 300 ng/mL [facility] Comment on above: Order Comment: UNK Performed By: #### L 501.9100, L500.2500, L505.5000, L700.6800, L100.0100 #### [facility] [address] [place], [address] Fentanyl Negative Normal [facility] Comment on above: Order Comment: UNK Performed By: #### L 501.9100, L500.2500, L505.5000, L700.6800, L100.0100 #### [facility] [address] [place], [address] METHADONE Negative Normal < 300 ng/mL [facility] Comment on above: Order Comment: UNK Performed By: #### L 501.9100, L500.2500, L505.5000, L700.6800, L100.0100 #### [facility] [place], [address] OPIATES Negative Normal < 300 ng/mL [facility] Comment on above: Order Comment: UNK Performed By: #### L 501.9100, L500.2500, L505.5000, L700.6800, L100.0100 #### [facility] [address] [place], [address] OXYCODONE Negative Normal < 100 ng/mL [facility] Comment on above: Order Comment: UNK Performed By: #### L 501.9100, L500.2500, L505.5000, L700.6800, L100.0100 #### [facility] [address] [place], [place], [id number] PCP Negative Normal < 25 ng/mL [facility] Comment on above: Order Comment: UNK Performed By: #### L 501.9100, L500.2500, L505.5000, L700.6800, L100.0100 #### [facility] [address] [place], [address] THC Positive Normal < 50 ng/mL [facility] Comment on above: Order Comment: UNK Result Comment: If c onfirmation testing is needed, a separate order will be required to send out testing to the reference laboratory. Performed By: #### L 501.9100, L500.2500, L505.5000, L700.6800, L100.0100 #### [facility] [address] [place], [place], [id number] Urine benzodiazepine levelOr dered By: Vikas Crespo on 01-26-2025 Benzodiazepines Ql (U) Negative < 200 ng/mL [facility] Urine cocaine levelOrdered B y: Zebulun Zak on 01-26-2025 Cocaine Ql (U) Negative < 300 ng/mL [facility] Urine glslt-0-rydsndckeqxpoe abinol (THC) measurementOrdered By: Vikas Crespo on 01-26-2025 Cannabinoids Screen Ql (U) Positive < 50 ng/mL [facility] Comment on above: If confirmation test ing is needed, a separate order will be required to send out testing to the reference laboratory. Urine phencyclidine (PCP) de tectionOrdered By: Vikas Crespo on 01-26-2025 Phencyclidine Ql (U) Negative < 25 ng/mL [facility] White blood cell (WBC) count Ordered By: Vikas Crespo on 01-26-2025 WBC (Bld) [#/Vol] 9.4 10*3/uL 4.4-11.0 [facility] fentaNYL Screen Ql (U)Ordere d By: Vikas Crespo on 01-26-2025 Urine Fentanyl Screen Negative [facility] 12 Lead EKGon 12-09-2024 12 Lead EKG [facility] [address] [place] [address] 12 Lead EKG 12/09/24 0748 MR#: [id number] Acct: [id number] Name: JAZZY CALLAWAY Rep #: [id number] : 1995 29 From: Zaina Jones MD Attending Dr: Status: DEP ER Ordering Dr: Miguelangel Kwong MD Date: 12/09/24 Location: ED Sex: F C Admitted: Test Reason : MH Blood Pressure : */* mmHG Vent. Rate : 128 BPM Atrial Rate : 128 BPM P-R Int : 160 ms QRS Dur : 76 ms QT Int : 288 ms P-R-T Axes : 69 69 40 degrees QTcB Int : 420 ms Sinus tachycardia Otherwise normal ECG Confirmed by JAYY MURDOCK, RUSSELL ([id number]), technical writer and editor ISAAC BLAS ([id number]) on 12/10/2024 1:21:09 PM Referred By: Confirmed By: RUSSELL JONES MD 12/10/24 1321 Date Zaina Jones MD CC: Dr. Miguelangel Kwong MD; No Primary Care Physician Signed Normal [facility] Absolute neutrophil countOrd ered By: Miguelangel Kwong on 12-09-2024 Neutrophils (Bld) [#/Vol] 7.7 10*3/uL 2.0-7.7 [facility] Alcohol, Blood (Medical)-Ser umon 12-09-2024 SERUM ETOH < 3.0 Normal [facility] Comment on above: Result Comment: The serum:whole blood ethanol ratio is approximately 1.14 and varies slightly with hematocrit. Medical Alcohol reference interval and critical value in non-tolerant individuals; 50 - 100 Impairment 100 Intoxication 100 - 250 Severe Poisoning 250 - 400 Deep/possible fatal coma Performed By: #### L 505.5000, L500.2500, L700.6800, L501.3620, L100.0100, L501.9100 #### [facility] [address] [place], [address] Basic Metabolic Profile (BMP )on 12-09-2024 BUN/CRE 16.8 RATIO Normal 10-20 [facility] Comment on above: Performed By: #### L 505.5000, L500.2500, L700.6800, L501.3620, L100.0100, L501.9100 #### [facility] [address] [place], [address] CA,Total 9.3 mg/dL Normal 8.5-10.1 [facility] Comment on above: Performed By: #### L 505.5000, L500.2500, L700.6800, L501.3620, L100.0100, L501.9100 #### [facility] [address] [place], [address] Chloride [Moles/Vol] 110 mmol/L High 98-107 [facility] Comment on above: Performed By: #### L 505.5000, L500.2500, L700.6800, L501.3620, L100.0100, L501.9100 #### [facility] [address] [place], [address] CO2 [Moles/Vol] 21.0 mmol/L Normal 21.0-32.0 [facility] Comment on above: Performed By: #### L 505.5000, L500.2500, L700.6800, L501.3620, L100.0100, L501.9100 #### [facility] [address] [place], [address] Creatinine [Mass/Vol] 0.95 mg/dL Normal 0.55-1.02 [facility] Comment on above: Result Comment: The validity of the calculated GFR GFRAA in patients over 70 years has not been determined. Clinical correlation is essential. Performed By: #### L 505.5000, L500.2500, L700.6800, L501.3620, L100.0100, L501.9100 #### [facility] [address] [place], [address] ECRCL 81.80 ml/min Normal [facility] Comment on above: Performed By: #### L 505.5000, L500.2500, L700.6800, L501.3620, L100.0100, L501.9100 #### [facility] [address] [place], [address] EST GFR - AA 89 mL/min Normal >60 [facility] Comment on above: Result Comment: Afri can Macanese GFR Calc Performed By: #### L 505.5000, L500.2500, L700.6800, L501.3620, L100.0100, L501.9100 #### [facility] [address] [place], [address] GAP 8 Normal 5-15 [facility] Comment on above: Performed By: #### L 505.5000, L500.2500, L700.6800, L501.3620, L100.0100, L501.9100 #### [facility] [address] [place], [address] GFR/1.73 sq M.predicted among non-blacks MDRD (S/P/Bld) [Vol rate/Area] 73 mL/min/{1.73_m2} Normal >60 [facility] Comment on above: Result Comment: Non- GFR Calc Performed By: #### L 505.5000, L500.2500, L700.6800, L501.3620, L100.0100, L501.9100 #### [facility] [address] [place], [address] Glucose [Mass/Vol] 96 mg/dL Normal 74-106 [facility] Comment on above: Performed By: #### L 505.5000, L500.2500, L700.6800, L501.3620, L100.0100, L501.9100 #### [facility] [address] [place], [address] Potassium [Moles/Vol] 4.2 mmol/L Normal 3.5-5.1 [facility] Comment on above: Performed By: #### L 505.5000, L500.2500, L700.6800, L501.3620, L100.0100, L501.9100 #### [facility] [address] [place], [address] Sodium [Moles/Vol] 139 mmol/L Normal 136-145 [facility] Comment on above: Performed By: #### L 505.5000, L500.2500, L700.6800, L501.3620, L100.0100, L501.9100 #### [facility] [address] [place], [address] Urea nitrogen [Mass/Vol] 16 mg/dL Normal 7-18 [facility] Comment on above: Performed By: #### L 505.5000, L500.2500, L700.6800, L501.3620, L100.0100, L501.9100 #### [facility] [address] [place], [address] Basophil percentageOrdered B y: Miguelangel Kwong on 12-09-2024 Basophils/100 WBC (Bld) 0.4 % 0-1 [facility] Beta HCG ( test) Ql Ordered By: Miguelangel Kwong on 12-09-2024 Serum Test, Qualitative Negative [facility] Blood urea nitrogen (BUN)/cr eatinine ratioOrdered By: Miguelangel Kwong on 12-09-2024 Urea nitrogen/Creatinine [Mass ratio] 16.8 mg/mg 10-20 [facility] CBC W/Diff, Automatedon 11-12 Absolute Lymph 1.55 X10 3/uL Normal 0.83-4.51 [facility] Comment on above: Performed By: #### L 505.5000, L500.2500, L700.6800, L501.3620, L100.0100, L501.9100 #### [facility] [address] [place], [address] Absolute Neut 7.7 X10 3/uL Normal 2.0-7.7 [facility] Comment on above: Performed By: #### L 505.5000, L500.2500, L700.6800, L501.3620, L100.0100, L501.9100 #### [facility] [address] [place], [address] Basophils/100 WBC (Bld) 0.4 % Normal 0-1 [facility] Comment on above: Performed By: #### L 505.5000, L500.2500, L700.6800, L501.3620, L100.0100, L501.9100 #### [facility] [address] [place], [address] Eosinophils/100 WBC (Bld) 0.0 % Normal 0-5 [facility] Comment on above: Performed By: #### L 505.5000, L500.2500, L700.6800, L501.3620, L100.0100, L501.9100 #### [facility] [address] [place], [address] Erythrocyte distribution width (RBC) [Ratio] 12.7 % Normal 11.6-14.6 [facility] Comment on above: Performed By: #### L 505.5000, L500.2500, L700.6800, L501.3620, L100.0100, L501.9100 #### [facility] [address] [place], [address] Hematocrit (Bld) [Volume fraction] 40.7 % Normal 37-47 [facility] Comment on above: Performed By: #### L 505.5000, L500.2500, L700.6800, L501.3620, L100.0100, L501.9100 #### [facility] [address] [place], [address] Hemoglobin (Bld) [Mass/Vol] 14.1 g/dL Normal 12.0-15.0 [facility] Comment on above: Performed By: #### L 505.5000, L500.2500, L700.6800, L501.3620, L100.0100, L501.9100 #### [facility] [address] [place], [address] IG% 0.400 Normal 0.0-0.9 [facility] Comment on above: Result Comment: IG% - Immature Granulocytes (promyelocytes, myelocytes and metamyelocytes) > 1% indicates that a LEFT SHIFT is Present. Performed By: #### L 505.5000, L500.2500, L700.6800, L501.3620, L100.0100, L501.9100 #### [facility] [address] [facility] [place], [address] Lymphocytes/100 WBC (Bld) 16.0 % Low 19-41 [facility] Comment on above: Performed By: #### L 505.5000, L500.2500, L700.6800, L501.3620, L100.0100, L501.9100 #### [facility] [address] [place], [address] MCH (RBC) [Entitic mass] 31.6 pg Normal 27.0-32.0 [facility] Comment on above: Performed By: #### L 505.5000, L500.2500, L700.6800, L501.3620, L100.0100, L501.9100 #### [facility] [address] [place], [address] MCHC (RBC) [Mass/Vol] 34.6 g/dL Normal 32-36 [facility] Comment on above: Performed By: #### L 505.5000, L500.2500, L700.6800, L501.3620, L100.0100, L501.9100 #### [facility] [address] [place], [address] MCV (RBC) [Entitic vol] 91.3 fL Normal 81-99 [facility] Comment on above: Performed By: #### L 505.5000, L500.2500, L700.6800, L501.3620, L100.0100, L501.9100 #### [facility] [address] [place], [address] Monocytes/100 WBC (Bld) 3.6 % Normal 0-10 [facility] Comment on above: Performed By: #### L 505.5000, L500.2500, L700.6800, L501.3620, L100.0100, L501.9100 #### [facility] [address] [place], [address] Neutrophils/100 WBC (Bld) 79.6 % High 47-70 [facility] Comment on above: Performed By: #### L 505.5000, L500.2500, L700.6800, L501.3620, L100.0100, L501.9100 #### [facility] [address] [place], [address] Nucleated RBC (Bld) [#/Vol] 0 10*3/uL Normal 0-5 [facility] Comment on above: Performed By: #### L 505.5000, L500.2500, L700.6800, L501.3620, L100.0100, L501.9100 #### [facility] [address] [place], [address] Platelet mean volume (Bld) [Entitic vol] 9.1 fL Normal 6.2-12.0 [facility] Comment on above: Performed By: #### L 505.5000, L500.2500, L700.6800, L501.3620, L100.0100, L501.9100 #### [facility] [address] [place], [address] Platelets (Bld) [#/Vol] 253 10*3/uL Normal 150-450 [facility] Comment on above: Performed By: #### L 505.5000, L500.2500, L700.6800, L501.3620, L100.0100, L501.9100 #### [facility] [address] [place], [address] RBC (Bld) [#/Vol] 4.46 10*6/uL Normal 4.2-5.4 [facility] Comment on above: Performed By: #### L 505.5000, L500.2500, L700.6800, L501.3620, L100.0100, L501.9100 #### [facility] [address] [place], [address] RDW SD 41.8 fl Normal 35.1-43.9 [facility] Comment on above: Performed By: #### L 505.5000, L500.2500, L700.6800, L501.3620, L100.0100, L501.9100 #### [facility] [address] [place], [address] WBC (Bld) [#/Vol] 9.7 10*3/uL Normal 4.4-11.0 [facility] Comment on above: Performed By: #### L 505.5000, L500.2500, L700.6800, L501.3620, L100.0100, L501.9100 #### [facility] [address] [place], [address] CPK Total, Creatine Kinaseon 12-09-2024 CPK TOTAL 60 U/L Normal 26-192 [facility] Comment on above: Performed By: #### L 501.9100, L500.2500, L505.5000, L700.6800, L100.0100 #### [facility] [address] [place], [address] Carbon dioxide measurementOr dered By: Miguelangel Kwong on 12-09-2024 CO2 [Moles/Vol] 21.0 mmol/L 21.0-32.0 [facility] Chloride measurementOrdered By: Miguelangel Kwong on 12-09-2024 Chloride [Moles/Vol] 110 mmol/L High 98-107 [facility] Emergency Department Summary on 12-09-2024 Emergency Department Summary [facility] Medical Records Department [address] [place] [address] Emergency Department Summary 12/09/24 MR#: [id number] Acct: [id number] Name: JAZZY CALLAWAY Rep #: [id number] : 1995 29 From: Miguelangel Kwong MD PCP: Care Physician,No Primary Status:REG ER Location: ED HPI HPI - Psych History of Present Illness Chief Complaint: Mental Health Detail of Chief Complaint: Paranoia Informant: patient and police/[employer] Onset/Context/Timing Onset: - (Unknown) Context: Since age of 18 per patient Conflict: - (Nothing that she admits to) Timing: Continuous (Hallucinations predominantly auditory) Current Severity: Moderate Maximum Severity: Severe Relieved by: Nothing Associated Symptoms Associated Symptoms - Psych: Positive for Change in Eating, Change in sleeping, Increased activity, Agitated, Paranoia and Auditory Hallucinations; Negative for Depressed, Decreased Interest, Guilt, Decreased Concentration, Hopelessness, Suicidal Thoughts, Easily distracted, Grandiosity, Flight of Ideas, Pressured Speech, Angry, Hostile, Threatening or Confusion Specific plan (suicidal thought): Not applicable Narrative Narrative: Patient is a 29-year-old woman with history of schizophrenia. She does not believe she has schizophrenia. She has not been compliant with her medication. She presently is homeless. [facility] has been involved with her for several hours prior to presentation. Patient was pink slipped to [facility] because of her paranoia, concerned for ability to care for herself and made the statement "I just want to ". She states she does not believe she has schizophrenia. She believes her something else going on. Prior similar symptoms: Yes Recent Illness/Hospitalizatio n: Yes PFSH PFS Medical History Rhabdomyolysis Depression Irregular heart beat Home Medications ???Medication ???Instructions ???Recorded ???Last Taken ???Type buspirone 10 mg tablet 10 mg PO BID 03/16/22 Unknown History fluoxetine 20 mg capsule 20 mg PO DAILY 03/16/22 Unknown History docusate sodium 100 mg capsule 100 mg PO BID #60 caps 06/13/24 Unknown Rx (Colace) polyethylene glycol 3350 17 17 g PO DAILY #510 grams 06/13/24 Unknown Rx gram/dose oral powder (Miralax) Allergy/AdvReac Type Severity Reaction Status Date / Time lorazepam Allergy Rash Verified 09/09/24 21:04 risperidone Allergy Other Verified 09/09/24 21:04 Social History Smoking Status: Current every day smoker tobacco type: cigarettes Homelessness:: Unsheltered ROS ROS ED Review of Systems ROS Unobtainable: due to mental condition Constitutional Constitutional ED: Denies chills, fever(s), subjective, sweats or weight loss Eyes Eyes: Denies blurry vision or change in vision ENT ENT ED: Denies ear pain, rhinorrhea or sore throat Cardiovascular Cardiovascular: Denies chest pain or palpitations Respiratory/Chest Respiratory/Chest: Denies cough, dyspnea, dyspnea on exertion or sputum Gastrointestinal Gastrointestinal: Denies abdominal pain, diarrhea, nausea or vomiting Genitourinary Genitourinary ED: Denies dysuria, hematuria or urinary frequency Musculoskeletal Musculoskeletal: Denies arthralgias or myalgias Integumentary Denies rash Neurologic Neurologic: Denies headache(s) or paresthesias Psychiatric Psychiatric: Reports anxiety and other Details: Per HPI narrative ; Denies suicidal ideation or suicidal thoughts Hematologic/Lymphatic Hematologic/Lymphatic: Denies easy bleeding or easy bruising EXAM Physical Exam Const Vital Signs: 12/09/24 07:24 12/09/24 08:47 12/09/24 09:12 Temperature 97.5 F L 97.5 F L Temperature Source Temporal Oral Pulse Rate 140 H 116 H 104 H Respiratory Rate 22 H 20 H 16 Blood Pressure 120/84 H 112/78 105/70 Blood Pressure Mean 96 89 81 Pulse Ox 100 98 98 Oxygen Delivery Method Room Air Room Air Room Air 12/09/24 10:17 12/09/24 11:30 12/09/24 12:00 Temperature 97.4 F L Temperature Source Oral Pulse Rate 103 H 97 Respiratory Rate 16 17 Blood Pressure 97/65 94/61 93/61 Blood Pressure Mean 75 72 71 Pulse Ox 98 98 Oxygen Delivery Method Room Air Room Air 12/09/24 13:00 Temperature Temperature Source Pulse Rate 97 Respiratory Rate 23 H Blood Pressure 88/60 L Blood Pressure Mean 70 Pulse Ox 94 Oxygen Delivery Method Positive well developed and unkempt; Negative for obese General Appearance ED: unkempt and well developed; Negative for NAD Nutritional Appearance: Negative for obese HEENT Reports moist mucous membranes normocephalic Eyes PERRL and EOMs intact bilaterally General Eye ED: Negati (more content not included)... Normal [facility] Eosinophil percentageOrdered By: Miguelangel Kwong on 12-09-2024 Eosinophils/100 WBC (Bld) 0.0 % 0-5 [facility] Erythrocyte distribution wid th ratioOrdered By: Miguelangel Kwong on 12-09-2024 Erythrocyte distribution width (RBC) [Ratio] 12.7 % 11.6-14.6 [facility] Erythrocyte distribution wid th standard deviationOrdered By: Miguelangel Kwong on 12-09-2024 Erythrocyte distribution width (RBC) [Entitic vol] 41.8 fL 35.1-43.9 [facility] Estimated glomerular filtrat ion rate (GFR) AmericanOrdered By: Miguelangel Kwong on 12-09-2024 Estimated GFR (MDRD) Amer 89 mL/min >60 [facility] Comment on above: GFR Calc Estimation of creatinine damaso aranceOrdered By: Miguelangel Kwong on 12-09-2024 Estimated Creatinine Clearance Calc 81.80 ml/min [facility] Glomerular filtration rate ( GFR) estimationOrdered By: Miguelangel Kwong on 12-09-2024 Estimated GFR (MDRD) Non-Af Amer 73 mL/min >60 [facility] Comment on above: Non- GFR Calc Glucose measurementOrdered B y: Miguelangel Kwong on 12-09-2024 Glucose [Mass/Vol] 96 mg/dL 74-106 [facility] Hematocrit Auto (Bld) [Volum e fraction]Ordered By: Miguelangelolena Kwong on 12-09-2024 Hematocrit (Bld) [Volume fraction] 40.7 % 37-47 [facility] Hemoglobin measurementOrdere d By: Miguelangelolena Kwong on 12-09-2024 Hemoglobin (Bld) [Mass/Vol] 14.1 g/dL 12.0-15.0 [facility] Immature granulocytes/100 WB C Auto (Bld)Ordered By: Miguelangelolena Kwong on 12-09-2024 Immature granulocytes/100 WBC (Bld) 0.400 % 0.0-0.9 [facility] Comment on above: IG% - Immature Granu locytes (promyelocytes, myelocytes and metamyelocytes) > 1% indicates that a LEFT SHIFT is Present. Lymphocytes Auto (Unsp spec) [#/Vol]Ordered By: Miguelangelolena Kwong on 12-09-2024 Lymphocytes (Bld) [#/Vol] 1.55 10*3/uL 0.83-4.51 [facility] Lymphocytes/100 WBC Auto (Un sp spec)Ordered By: Miguelangelolena Kwong on 12-09-2024 Lymphocytes/100 WBC (Bld) 16.0 % Low 19-41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 ####[facility] LABORATORYCLIA [id number] [place] [address] [place] Bilirubin [Mass/Vol] 0.2 mg/dL Normal 0.2-1.3 [facility] Comment on above: Order Comment: Speci men Type: BLOOD SPECIMENOrdering Facility: [facility] Address: [facility] [place] [address] Performed By: #### 5 643-2, 43882-4 ####[facility] LABORATORYCLIA [id number] [place] [id number] [place] Calcium [Mass/Vol] 8.8 mg/dL Normal 8.5-10.2 [facility] Comment on above: Order Comment: Speci men Type: BLOOD SPECIMENOrdering Facility: [facility] Address: [address] [facility] [address] Performed By: #### 5 643-2, 36095-9 ####[facility] LABORATORYCLIA [id number] [place] [id number] [place] Chloride [Moles/Vol] 105 mmol/L Normal 98-107 [facility] Comment on above: Order Comment: Russell dick Type: BLOOD SPECIMENOrdering Facility: [facility] Address: [address] [place] [address] Performed By: #### 5 643-2, 77933-4 ####[facility] FACILITYMOMESILLA VALLEY [facility] LABORATORYCLIA [id number] [place] [id number] [place] CO2 [Moles/Vol] 24 mmol/L Normal 22-30 [facility] Comment on above: Order Comment: Sarahyi men Type: BLOOD SPECIMENOrdering Facility: [facility] Address: [address] [place] [address] Performed By: #### 5 643-2, 79364-8 ####[facility] LABORATORYCLIA [id number] [place] [id number] [place] Creatinine [Mass/Vol] 0.87 mg/dL Normal 0.58-0.96 [facility] Comment on above: Order Comment: Sarahyi men Type: BLOOD SPECIMENOrdering Facility: [facility] Address: [address] [place] [address] Performed By: #### 5 643-2, 74115-9 ####[facility] LABORATORYCLIA [id number] [place] [address] [place] Creatinine and Glomerular filtration rate.predicted panel (S/P/Bld) 93 mL/min/1.73m??? Normal >=60 [facility] Comment on above: Order Comment: Sarahyi men Type: BLOOD SPECIMENOrdering Facility: [facility] Address: [address] [place] [address] Result Comment: Lauren mated Glomerular Filtration Rate (eGFR) is calculated using the 2020 CKD-EPI creatinine equation. This equation utilizes serum creatinine, sex, and age as parameters. The creatinine assay has traceable calibration to isotope dilution-mass spectrometry. Refer to KDIGO guidelines for clinical interpretation. In patients with unstable renal function, e.g. those with acute kidney injury, the eGFR may not accurately reflect actual GFR. Performed By: #### 5 643-2, 13186-2 ####[facility] LABORATORYCLIA [id number] [place] [id number] [place] Glucose [Mass/Vol] 115 mg/dL High 74-99 [facility] Comment on above: Order Comment: Speci men Type: BLOOD SPECIMENOrdering Facility: [facility] Address: [address] [place] [address] Result Comment: The [place] Diabetes Association (ADA) provides guidance for cutoff values for fasting glucose and random glucose. The ADA defines fasting as no caloric intake for at least 8 hours. Fasting plasma glucose results between 100 to 125 mg/dL indicate increased risk for diabetes (prediabetes). Fasting plasma glucose results greater than or equal to 126 mg/dL meet the criteria for diagnosis of diabetes. In the absence of unequivocal hyperglycemia, results should be confirmed by repeat testing. In a patient with classic symptoms of hyperglycemia or hyperglycemic crisis, random plasma glucose results greater than or equal to 200 mg/dL meet the criteria for diagnosis of diabetes. Reference: Standards of Medical Care in Diabetes 2016, [place] Diabetes Association. Diabetes Care. 2016.39(Suppl 1). Performed By: #### 5 643-2, 51810-6 ####[facility] LABORATORYCLIA [id number] [place] [id number] [place] Potassium [Moles/Vol] 3.9 mmol/L Normal 3.7-5.1 [facility] Comment on above: Order Comment: Speci men Type: BLOOD SPECIMENOrdering Facility: [facility] Address: [address] [place] [address] Performed By: #### 5 643-2, 44238-4 ####[facility] LABORATORYCLIA [id number] [place] [id number] [place] Protein [Mass/Vol] 6.1 g/dL Low 6.3-8.0 [facility] Comment on above: Order Comment: Speci men Type: BLOOD SPECIMENOrdering Facility: [facility] Address: [address] [place] [address] Performed By: #### 5 643-2, 93004-4 ####[facility] LABORATORYCLIA [id number] [place] [id number] [place] Sodium [Moles/Vol] 138 mmol/L Normal 136-144 [facility] Comment on above: Order Comment: Speci men Type: BLOOD SPECIMENOrdering Facility: [facility] Address: [address] [place] [address] Performed By: #### 5 643-2, 62231-7 ####[facility] LABORATORYCLIA [id number] [place] [id number] [place] Urea nitrogen [Mass/Vol] 9 mg/dL Normal 7-21 [facility] Comment on above: Order Comment: Speci men Type: BLOOD SPECIMENOrdering Facility: [facility] Address: [address] [place] [address] Performed By: #### 5 643-2, 35476-1 ####[facility] LABORATORYCLIA [id number] [place] [id number] [place] ECG COMPLETEon 04-23-2024 ECG COMPLETE Ventricular Rate : 1 10 BPM Atrial Rate : 110 BPM P-R Interval : 172 ms QRS Duration : 84 ms Q-T Interval : 328 ms QTC Calculation(Bazett) : 443 ms Calculated P Mize : 65 degrees Calculated R Mize : 48 degrees Calculated T Mize : 44 degrees Sinus tachycardia Low voltage QRS Borderline ECG No previous ECGs available Confirmed by MD HANLEY GINNY ([id number]), technical writer and editor EDWIN DOE ([id number]) on 04/27/2024 9:58:53 PM NAME : JAZZY CALLAWAY PID : [id number] : 1995 Gender : Female Race : ORD : [id number] Procedure Date : Apr 23 2024 21:09:33 Edit Date : Apr 27 2024 21:58:54 Diagnosis: Sinus tachycardia Low voltage QRS Borderline ECG No previous ECGs available Confirmed by MD HANLEY GINNY ([id number]), technical writer and editor EDWIN DOE ([id number]) on 04/27/2024 9:58:53 PM Test Reason : Arrhythmia Location : 18 : ED CC Overread By : MD HANELY GINNY Edited By : EDWIN DOE Referred By : , Acquired by : y, [facility] ED NOTEon 04-23-2024 ED NOTE HNO ID: [id number] Author: CRISTAL BA RN Service: ? Author Type: Registered Nurse Type: ED Notes Filed: 04/23/2024 23:33 Note Text: Patient very anxious about receiving IV fluids. Patient expressed concerns that the IV was not placed correctly. Patient also is nervous about how long she has been here. Patient ultimately was able to be verbally redirected to receive fluids. Patient in bed resting at this time. [facility] ED NOTE HNO ID: [id number] Author: CRISTAL BA RN Service: ? Author Type: Registered Nurse Type: ED Notes Filed: 04/23/2024 21:56 Note Text: speaking with Fabby from intake. [facility] ED NOTE HNO ID: [id number] Author: TIEN SANCHEZ RN Service: ? Author Type: Registered Nurse Type: ED Notes Filed: 04/23/2024 20:41 Note Text: During triage. Pt explains that her understanding of the situation is that she is here to be transferred for her mental health" when asked why Pt states that she is unsure. Pt currently denies SI/ HI or A/V hallucinations [facility] ED NOTE HNO ID: [id number] Author: CRISTAL BA RN Service: ? Author Type: Registered Nurse Type: ED Notes Filed: 04/23/2024 20:42 Note Text: Patient was brought in by Kalpana Ritter, who is the resident advocate at the drug treatment center, [facility]. Patient states in a meeting today that she has been SI and HI. Patient has not been physically aggressive with any staff members Per Kalpana the courts faxed paperwork for the patient to come to to be evaluated. Patient presents calm and cooperative. Kalpana: [phone] Erik Cannon is faxing the paperwork, his phone number is [phone] [facility] ED PROV NOTEon 04-23-2024 ED PROV NOTE HNO ID: [id number] Author: NOE HANLEY MD Service: Emergency Medicine Author Type: Physician Type: ED Provider Notes Filed: 04/24/2024 01:12 Note Text: ED Provider Note Patient Name: Jazzy Callaway : 1995 SERVICE DATE: 04/23/24 History Patient presents with: Psychiatric Problem 29-year-old female with history of anxiety, depression, OCD, ADD presents from [facility] for what patient states is for placement in [place]. States she is at [facility] for mental health treatment and a safe place to stay. Denying SI, HI or AVH. Denying any physical complaints. Fax received regarding patient which notes - Patient coming from [facility] for medical clearance, placement. Patient is under court order, should not be allowed to leave voluntarily. PAST MEDICAL HISTORY Diagnosis Date - ADD (attention deficit disorder) - Anxiety Seeing Dr. Kim - Depression - OCD (obsessive compulsive disorder) - Palpitations PAST SURGICAL HISTORY Procedure Laterality Date - NONE FAMILY HISTORY Problem Relation Age of Onset - Cancer Maternal Grandmother - other (Depression [Other]) Mother - other (Unknown [Other]) Father Social History Tobacco Use - Smoking status: Some Days Packs/day: 0.20 Years: 3.00 Additional pack years: 0.00 Total pack years: 0.60 Types: Cigarettes Last attempt to quit: 04/24/2017 Years since quittin.0 - Smokeless tobacco: Never Substance and Sexual Activity - Alcohol use: Not Currently Comment: rare - Drug use: No - Sexual activity: Yes control/protection: None ALLERGIES Allergen Reactions - Lorazepam Rash Review of Systems Gastrointestinal: Negative for abdominal pain. Psychiatric/Behavioral : Negative for agitation, hallucinations and suicidal ideas. Physical Exam Vitals [04/23/242036] BP Pulse Temp Temp src Resp SpO2 Weight Height 100/62 (!) 119 37.2 ?C (98.9 ?F) Oral 20 97 % -- -- Physical Exam Vitals reviewed. Eyes: Extraocular Movements: Extraocular movements intact. Pupils: Pupils are equal, round, and reactive to light. Cardiovascular: Rate and Rhythm: Normal rate and regular rhythm. Pulmonary: Effort: Pulmonary effort is normal. Abdominal: Palpations: Abdomen is soft. Musculoskeletal: General: Normal range of motion. Cervical back: Normal range of motion. Right lower leg: No edema. Left lower leg: No edema. Skin: General: Skin is warm and dry. Capillary Refill: Capillary refill takes less than 2 seconds. Neurological: General: No focal deficit present. Psychiatric: Comments: No SI, HI or AVH Poor insight and judgment Diagnostic Testing ED Labs Ordered and Reviewed - No data to display Procedures ED Course / Clinical Impression ED Course as of 04/24/24111 Noe Hanley's Documentation Mary Apr 23, [id number] EKG shows a sinus tachycardia with a rate of 110, normal axis, no QTc prolongation, no acute ischemic findings Clinical Impressions as of 04/24/24111 Schizoaffective disorder, bipolar type (HCC) Homicidal ideation Anxiety Depression with suicidal ideation Tachycardia Diminished Capacity (From admission, onward) Ordered Status Ordering Provider 04/23/242037 Diminished Mental Capacity (This order expires after 24 hours) [[id number]] Continuous x 24 hours Expiring References: Against Medical Advice (AMA) Policy Patients Without Surrogate Standard Operating Procedure Against Medical Advice (AMA) Policy ([place] Only) Question Answer Comment I have evaluated this patient and based on my examination determined that the patient has a primary diagnosis of: Depression At present, patient lacks sufficient decision making ability to make informed decisions to leave the hospital, therefore, Patient should not be allowed to leave the hospital against medical advice Acknowledged NOE HANLEY MDM / Disposition / Plan Faxed paper chart further reviewed. History of schizophrenia, ADHD, ODD, PTSD, MDD, IED, CAD, legal problems for which she was incarcerated, medication noncompliance. 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 Plan for medical clearance, psychiatric admission. Basic labs unremarkable. Heart rate improved to 100. Medically cleared. Signed out to oncoming physician Dr. Rodriguez, pending psychiatric admission. Differential Diagnoses - Schizophrenia is more likely for the following reason(s): suggested by HANDP - SI/HI is more likely for the following reason(s): suggested by HANDP Management Management of the patient was discussed with:behavioral health and behavioral health Disposition The patient was admitted. Admitted to Psychiatry. SIGNATURE: Noe Hanley MD - NOE HANLEY 04/24/24111 [facility] Ethanol SerPl-mCncon 024 Ethanol [Mass/Vol] mg/dL Normal <11 [facility] Comment on above: Order Comment: Speci men Type: BLOOD SPECIMENOrdering Facility: [facility] Address: [address] [place] [address] Performed By: #### 5 643-2, 43285-7 ####[facility] [id number] [place] [id number] [facility] ED NOTEon 04-21-2024 ED NOTE HNO ID: [id number] Author: ROSA MEZA RN Service: Emergency Medicine Author Type: Registered Nurse Type: ED Notes Filed: 04/21/2024 13:23 Note Text: Pt brought in by police from [facility]. Pt had zoom meeting with circuit judge and not allowed to leave [facility] yet. Told pt threatened to kill circuit judge, . No si or hallucinations . Pt stated was just mad felt like she was lied too. Pt seen by dr butt. Pt does not need to be detained . Pt left e.r went to waiting room to call cats for ride. No vitals obtained prior to leaving [facility] ED PROV NOTEon 04-21-2024 ED PROV NOTE HNO ID: [id number] Author: NIKOLE BUTT DO Service: Emergency Medicine Author Type: Physician Type: ED Provider Notes Filed: 04/21/2024 13:35 Note Text: ED Provider Note Patient Name: Jazzy Callaway : 1995 SERVICE DATE: 04/21/24 History Patient presents with: Psychiatric Problem 29-year-old female, past history of ADD, anxiety, depression, OCD, schizoaffective disorder, presents emergency department with PD for concerns of a behavioral problem. Patient currently resides at [facility] [place]. She had a court meeting this morning and was upset and angry about her ultimate disposition at staying at [facility] for she made verbal threats to kill the circuit judge. Patient states that this was just "a figure of speech". She denies actually feeling suicidal. Denies homicidal ideation at this time. She states that she feels fine now she just was very angry. She is been taking all of her medications normally. Denies recent substance abuse. No physical complaints. Patient is requesting discharge. PAST MEDICAL HISTORY Diagnosis Date - ADD (attention deficit disorder) - Anxiety Seeing Dr. Kim - Depression - OCD (obsessive compulsive disorder) - Palpitations PAST SURGICAL HISTORY Procedure Laterality Date - NONE FAMILY HISTORY Problem Relation Age of Onset - Cancer Maternal Grandmother - other (Depression [Other]) Mother - other (Unknown [Other]) Father Social History Tobacco Use - Smoking status: Some Days Packs/day: 0.20 Years: 3.00 Additional pack years: 0.00 Total pack years: 0.60 Types: Cigarettes Last attempt to quit: 04/24/2017 Years since quittin.9 - Smokeless tobacco: Never Substance and Sexual Activity - Alcohol use: Yes Comment: rare - Drug use: No - Sexual activity: Yes control/protection: None ALLERGIES Allergen Reactions - Lorazepam Rash Review of Systems Psychiatric/Behavioral : Positive for agitation and behavioral problems. Negative for suicidal ideas. Physical Exam Vitals BP Pulse Temp Temp src Resp SpO2 Weight Height -- -- -- -- -- -- -- -- Physical Exam Vitals and nursing note reviewed. Constitutional: General: She is not in acute distress. Appearance: Normal appearance. She is well-developed. HENT: Head: Normocephalic and atraumatic. Nose: Nose normal. Eyes: Pupils: Pupils are equal, round, and reactive to light. Cardiovascular: Pulses: Radial pulses are 2+ on the right side and 2+ on the left side. Pulmonary: Effort: Pulmonary effort is normal. No respiratory distress. Musculoskeletal: General: Normal range of motion. Cervical back: Normal range of motion. Skin: General: Skin is warm and dry. Capillary Refill: Capillary refill takes less than 2 seconds. Neurological: General: No focal deficit present. Mental Status: She is alert and oriented to person, place, and time. Psychiatric: Attention and Perception: Attention normal. Speech: Speech normal. Behavior: Behavior normal. Behavior is cooperative. Thought Content: Thought content normal. Thought content is not paranoid or delusional. Thought content does not include homicidal or suicidal ideation. Cognition and Memory: Cognition normal. Judgment: Judgment normal. Comments: Pt upset but cooperative Diagnostic Testing ED Labs Ordered and Reviewed - No data to display Procedures ED Course / Clinical Impression Clinical Impressions as of 04/21/24 1322 Schizoaffective disorder, unspecified type (HCC) Feeling angry MDM / Disposition / Plan 29-year-old female, past history of ADD, anxiety, depression, OCD, schizoaffective disorder, presents emergency department with PD for concerns of a behavioral problem. Clinically, patient is well-appearing, ambulatory, no distress. She declines vitals and is immediately requesting discharge when she got here. She denies SI/HI, hallucinations, and contracts for safety. She admits that she made a statement about killing the circuit judge because she was upset about her court sentence. At this time, pt is alert and oriented x3, contracts for safety, and has intact decision making capacity. No indication to pink slip her. Pt does not desire any further work up, treatment, or psychiatric/social work evaluation in the ED. Pt left the ED in stable condition. History and Record Review External record(s) reviewed: prior inpatient record. Findings from review of inpatient records: Patient seen at [facility] 02/12/2022 for SI attempt. Admitted to inpatient psychiatry at that time. Differential Diagnoses - Verbal threat - Schizoaffective disorder - SI/HI is less likely for the following reason(s): Pt denies - Substance intoxication/withdrawa l is less likely for the following reason(s): Pt denies recent use, no toxidrome - Psychosis Less likely because: no delusions, no hallucinations, normal attention and patient has organized though (more content not included)... Normal [facility] URINE (HCG)on 03-12 HCG ( test) Ql (U) Negative NEG - [facility] Work Phone: XR ABDOMEN /KUB/FLAT PLATE/1 VIEWon 02-22-2022 XR ABDOMEN /KUB/FLAT PLATE/1 VIEW EXAMINATION: ONE SUPINE XRAY VIEW(S) OF THE ABDOMEN 02/22/2022 2:34 am COMPARISON: None. HISTORY: ORDERING SYSTEM PROVIDED HISTORY: swallowed razor blade at 0145; TECHNOLOGIST PROVIDED HISTORY: Illness/Other Acuity: Acute Reason for Exam: swallowed razor blade at 0145 Cancer History: unk Surgery, Radiation History: unk Type of Encounter: Initial Additional signs and symptoms: FINDINGS: No acute osseous abnormality is identified in the pelvis. SI joints appear intact. No free air is identified. No significant stool volume noted. Small phleboliths seen in the left hemipelvis. No metallic foreign body is identified. Lung bases appear clear. IMPRESSION: Mild stool volume without ileus or obstruction. No metallic foreign body is identified. Workstation ID: [id number] Dictated by: VALARIE MITTAL on SatFeb 22, 2022 2:46:59 AM EDT Transcribed by: VALARIE MITTAL on SatFeb 22, 2022 2:46:59 AM EDT Finalized by: VALARIE MITTAL on SatFeb 22, 2022 2:46:59 AM EDT [facility] Comment on above: Order Comment: Injur y/Trauma or Illness?:Illness/Other How long have you had these symptoms (acute/chronic)?:Acute Reason for exam?:swallowed razor blade at 0145 History of cancer?:unk Surgeries, chemotherapy, or radiation?:unk Type of Exam?:Initial Additional signs and symptoms?: Glucose Auto test strip (Bld ) [Mass/Vol]on 01-23-2022 Glucose POC 112 mg/dL Abnormal 70 - 110 mg/dL wireLawyer Comment on above: PP 1 hour isreal lowe Interpretation and review of laboratory results Abnormal [facility] wireLawyer Acetaminophen Levelon 2021 Acetaminophen Level <5.0 Low 15 - 30 ug/ml [facility] [place] CBC Auto Differentialon Basophils (Bld) [#/Vol] 0.1 10*3/uL K/CU MM [facility] [place] Basophils/100 WBC (Bld) 0.8 % 0 - 1 % [facility] [facility] Differential Type AUTOMATED DIFFERENTIAL [facility] Eosinophils Absolute 0.2 K/CU MM [facility] Eosinophils/100 WBC (Bld) 3.1 % High 0 - 3 % [facility] Hematocrit (Bld) [Volume fraction] 38.3 % 37 - 47 % [facility] Hemoglobin.gastrointest inal spec 1 Ql (Stl) 12.9 [facility] Interpretation and review of laboratory results Abnormal [facility] Lymphocytes Absolute 3.4 K/CU MM [facility] Lymphocytes/100 WBC (Bld) 44.0 % 24 - 44 % [facility] MCH (RBC) [Entitic mass] 30.4 pg 27 - 31 PG [facility] MCHC (RBC) [Mass/Vol] 33.7 % 32.0 - 36.0 % [facility] MCV (RBC) [Entitic vol] 90.3 fL [facility] Monocytes Absolute 0.7 K/CU MM [facility] Monocytes/100 WBC (Bld) 9.0 % High 0 - 4 % M [facility] Neutrophils/100 WBC (Bld) 0.3 % 0 - 0.43 % [facility] Platelet distribution width (Bld) [Ratio] 13.0 % 11.7 - 14.9 % [facility] Platelet mean volume (Bld) [Entitic vol] 8.6 fL [facility] Platelets (Bld) [#/Vol] 247 10*3/uL [facility] RBC (Bld) [#/Vol] 4.24 10*6/uL [facility] Segs Absolute 3.3 K/CU MM [facility] Segs Relative 42.8 % 36 - 66 % [facility] Total Immature Neutrophil 0.02 K/CU MM [facility] WBC (Bld) [#/Vol] 7.7 10*3/uL [facility] COVID-19, Rapidon 11-14-2021 SARS-CoV-2 (COVID-19) RNA MICK+probe Ql (Unsp spec) Not detected NOT DETECTED [facility] Comment on above: Rapid NAAT: The specimen is NEGATIVE for SARS-CoV-2, the novel coronavirus associated with COVID-19. Negative results should be treated as presumptive and, if inconsistent with clinical signs and symptoms or necessary for patient management, should be tested with an alternate molecular assay. Negative results do not preclude SARS-CoV-2 infection and should not be used as the sole basis for patient management decisions. This test has been authorized by the FDA under an Emergency Use Authorization (EUA) for use by authorized laboratories. The ID NOW COVID-19 assay is designed to detect the virus that causes COVID-19 in patients with signs and symptoms of infection who are suspected of COVID-19. An individual without symptoms of COVID-19 and who is not shedding SARS-CoV-2 virus would expect to have a negative (not detected) result in this assay. Fact sheet for Healthcare Providers: https://www.fda.gov/media/542604/download Fact sheet for Patients: https://www.fda.gov/media/335815/download METHODOLOGY: Isothermal Nucleic Acid Amplification Source THROAT [facility] Comprehensive Metabolic Pane chivo 11-14-2021 Albumin [Mass/Vol] 3.7 g/dL [facility] ALP (Bld) [Catalytic activity/Vol] 55 U/L [facility] ALT [Catalytic activity/Vol] 9 U/L Low 10 - 40 U/L [facility] Anion gap [Moles/Vol] 10 mmol/L [facility] AST [Catalytic activity/Vol] 10 U/L Low [facility] Bilirubin [Mass/Vol] 0.2 mg/dL [facility] Calcium [Mass/Vol] 8.5 mg/dL [facility] Chloride [Moles/Vol] 106 mmol/L [facility] CO2 [Moles/Vol] 22 mmol/L [facility] Creatinine [Mass/Vol] 0.7 mg/dL [facility] Free PSA/Total PSA [Mass fraction] 6.5 [facility] GFR >60 >60 mL/min/1.73m2 [facility] GFR Non- >60 >60 mL/min/1.73m2 [facility] Glucose [Mass/Vol] 127 mg/dL High [facility] Interpretation and review of laboratory results Abnormal [facility] Potassium [Moles/Vol] 3.7 mmol/L [facility] Sodium [Moles/Vol] 138 mmol/L [facility] Urea nitrogen (BldV) [Mass/Vol] 12 [facility] Ethanolon 11-14-2021 Alcohol Scrn <0.01 <0.01 %WT/VOL [facility] Comment on above: THE VALUE IS BELOW O UR DETECTION LIMIT. No Panel Informationon 11-14 DOSE AMOUNT DOSE AMT. GIVEN - UNKNOWN [facility] DOSE TIME DOSE TIME GIVEN - UNKNOWN [facility] Interpretation and review of laboratory results Abnormal [facility] Salicylateon 11-14-2021 Salicylate Lvl <0.3 Low [facility] Urine Drug Screenon 11-13-19 22 Amphetamines Negative NEGATIVE [facility] Barbiturate Screen, Ur Negative NEGATIVE [facility] Benzodiazepine Screen, Urine Negative NEGATIVE [facility] Cannabinoid Scrn, Ur Negative NEGATIVE [facility] Cocaine Metabolite Negative NEGATIVE [facility] Opiates, Urine Negative NEGATIVE [facility] Oxycodone Negative NEGATIVE [facility] Comment on above: THRESHOLD CONCENTRATIONS (mg/dL) AMPHT 1000 BASIA,OPIA 300 BZO,BAR 200 PCP 25 THC 50 OXY 100 IF POSITIVE, SPECIMEN WILL BE DISCARDED AFTER 6 MONTHS. CALL LAB IF CONFIRMATION NEEDED. ALL NEGATIVE SPECIMENS WILL BE DISCARDED AFTER ONE WEEK. * UNCONFIRMED POSITIVES MAY NOT MEET FORENSIC REQUIREMENTS. Phencyclidine, Urine Negative NEGATIVE [facility] Urine HCG, if >12yrs and pre menopausalon 11-13-2021 Beta HCG ( test) Ql (U) Negative NEGATIVE [facility] Interpretation HCG METHOD LIMITATIONS: [facility] Comment on above: Very dilute specimen s, as indicated by low specific gravity, may have insufficient concentration of HCG to bring about a positive result. Specific [place], Urine 1.006 M [facility] HEPATIC FUNCTION PANELon Albumin [Mass/Vol] 3.9 g/dL Normal 3.5-5.0 [facility] Comment on above: Performed By: #### C HM7, HDLT, HFP #### [facility] (DEFAULT) [address] [address] ALP [Catalytic activity/Vol] 53 U/L Normal 32-126 [facility] Comment on above: Performed By: #### C HM7, HDLT, HFP #### [facility] (DEFAULT) [address] [place] [address] ALT [Catalytic activity/Vol] 12 U/L Normal 9-48 [facility] Comment on above: Performed By: #### C HM7, HDLT, HFP #### [facility] (DEFAULT) [address] [place] [address] AST [Catalytic activity/Vol] 17 U/L Normal 14-40 [facility] Comment on above: Performed By: #### C HM7, HDLT, HFP #### [facility] (DEFAULT) [address] [place] [address] Bilirubin [Mass/Vol] 0.8 mg/dL Normal <1.5 [facility] Comment on above: Performed By: #### C HM7, HDLT, HFP #### [facility] (DEFAULT) [address] [place] [address] Bilirubin.indirect [Mass/Vol] 0.2 mg/dL Normal <0.3 [facility] Comment on above: Performed By: #### C HM7, HDLT, HFP #### [facility] (DEFAULT) [address] [place] [address] Protein [Mass/Vol] 6.4 g/dL Normal 6.4-8.3 [facility] Comment on above: Performed By: #### C HM7, HDLT, HFP #### [facility] (DEFAULT) [address] [place] [address] INFLUENZA A/B RAPID MOLECULA [place] 10-01-2021 Influenza A, Molecular Not detected Normal Not Detecte d [facility] Comment on above: Order Comment: This test utilizes isothermal nucleic amplification technology for the differential qualitative detection of influenza A and influenza B viral nucleic acids. Performed By: #### C HM7, HDLT, HFP #### [facility] (DEFAULT) [address] [place] [address] Influenza B, Molecular Not detected Normal Not Detecte d [facility] Comment on above: Order Comment: This test utilizes isothermal nucleic amplification technology for the differential qualitative detection of influenza A and influenza B viral nucleic acids. Performed By: #### C HM7, HDLT, HFP #### [facility] (DEFAULT) [address] [place] [address] LIPASEon 10-01-2021 Lipase [Catalytic activity/Vol] 12 U/L Normal - [facility] Comment on above: Performed By: #### C HM7, HDLT, HFP #### [facility] (DEFAULT) [address] [place] [address] SARS-COV-2 RAPIDon 1 SARS-CoV-2 (COVID-19) RNA MICK+probe Ql (Unsp spec) Not detected Normal NOT DETECTED [facility] Comment on above: Order Comment: Use r lewis, foam, polyester or flocked swabs to collect a nasopharyngeal specimen. After collection, fold over the open end of the collection sleeve and seal with patient lab label, double bag in biohazard bag, and transport to the lab WIL[place], no later than 60 minutes from collection. Collection must be done while wearing N-95 mask, eye protection, gown and gloves. Result Comment: [facility] Negative results do not preclude SARS-CoV-2 infection and should not be used as the sole basis for treatment or other patient management decisions. Optimum specimen types and timing for peak viral levels during infections caused by SARS-CoV-2 has not been determined. The possibility of a false negative result should especially be considered if the patient's recent exposures or clinical presentation suggest that SARS-CoV-2 infection is probable, and diagnostic tests for other causes of illness (e.g., other respiratory illness) are negative. Collection of a new specimen and re-testing may be necessary if the patient is critically ill or clinically deteriorating. This test was performed using isothermal nucleic acid amplification technology for the qualitative detection of SARS-CoV-2 nucleic acid. The test has been authorized by the FDA under an emergency use authorization for use by authorized laboratories. Performed By: #### L [id number] #### [facility] (DEFAULT) [address] [place] [address] XR CHEST AP PORTABLE EDon XR CHEST AP PORTABLE ED EXAM: XR CHEST A P PORTABLE ED, 10/01/2021 15:18 PM CLINICAL INDICATIONS: cough, congestion RELEVANT CLINICAL HISTORY: COMPARISON: Compared to the prior study dated July 10, 2021 FINDINGS: 2 views were obtained at different depths of inspiration. There is some mild basilar volume loss that partially improves on inspiration. No lobar pneumonia is seen. The heart size is normal. There is no pulmonary edema. The bones appear normal. IMPRESSION: Low lung volumes with some bibasilar volume loss. Early pneumonia could have this appearance and close follow-up may be helpful. I personally viewed and interpreted these images and I have reviewed and approved this report. Normal [facility] XR HAND RIGHT 3+ VIEWSon XR HAND RIGHT 3+ VIEWS EXAM: XR HAND RIG HT 3+ VIEWS, 10/01/2021 14:43 PM COMPARISON: Right hand radiographs September 17, 2021 CLINICAL INDICATIONS: 4th fx, known, evaluate for difference RELEVANT CLINICAL HISTORY: FINDINGS: 3 images obtained. Soft Tissue: Persistent dorsal soft tissue swelling. Bone: Unchanged alignment of angulated fourth metacarpal fracture. Interval development of slight callus formation. No new osseous abnormality. Joint: No evidence of dislocation. The carpal joints appear anatomically aligned. IMPRESSION: Unchanged alignment of fourth metacarpal fracture. Slight increase in callus formation at the fracture site. Persistent dorsal swelling. Normal [facility] XR WRIST RIGHT 3 VIEWSon XR WRIST RIGHT 3 VIEWS EXAM: XR WRIST RI GHT 3 VIEWS VIEWS,, 10/01/2021 14:44 PM COMPARISON: Right wrist radiographs September 17, 2021 CLINICAL INDICATIONS: pain RELEVANT CLINICAL HISTORY: FINDINGS: 4 images obtained. Soft Tissue: Dorsal soft tissue swelling of the hand. Bone: No acute osseous abnormality is identified in the wrist. Carpal Joints: Carpal alignment is anatomic. Ulnar length: There is ulnar neutral variance. DRUJ: The distal radioulnar joint is anatomically aligned. IMPRESSION: No specific osseous abnormality identified in the right wrist. Normal [facility] HCG QUALITATIVE, URINEon Beta HCG ( test) Ql (U) Negative Normal Negative [facility] Comment on above: Performed By: #### L [id number] #### [facility] (DEFAULT) [address] [address] CBC AND ELECTRONIC DIFFon Basophils (Bld) [#/Vol] 10*3/uL Normal 0.00-0.15 O [facility] Comment on above: Performed By: #### H EMOGC #### [facility] (DEFAULT) [address] [address] Basophils/100 WBC (Bld) 0.5 % Normal O [facility] Comment on above: Performed By: #### H EMOGC #### [facility] (DEFAULT) [address] [address] DIFF STATUS Electronic Differential Normal [facility] Comment on above: Performed By: #### H EMOGC #### [facility] (DEFAULT) [address] [address] Eosinophils (Bld) [#/Vol] 0.07 10*3/uL Normal 0.00-0.42 [facility] Comment on above: Performed By: #### H EMOGC #### [facility] (DEFAULT) [address] [address] Eosinophils/100 WBC (Bld) 1.2 % Normal [facility] Comment on above: Performed By: #### H EMOGC #### [facility] (DEFAULT) [address] [address] Hematocrit (Bld) [Volume fraction] 39.6 % Normal 34.9-44.3 [facility] Comment on above: Performed By: #### H EMOGC #### [facility] (DEFAULT) [address] [address] Hemoglobin (Bld) [Mass/Vol] 13.7 g/dL Normal 11.4-15.2 [facility] Comment on above: Performed By: #### H EMOGC #### [facility] (DEFAULT) [address] [address] Immature Grans % 0.3 % Normal [facility] Comment on above: Performed By: #### H EMOGC #### [facility] (DEFAULT) [address] [address] Immature Grans Absolute <0.04 Normal <=0.09 O [facility] Comment on above: Performed By: #### H EMOGC #### [facility] (DEFAULT) [address] [place] [address] Lymphocytes (Bld) [#/Vol] 2.14 10*3/uL Normal 1.16-3.51 [facility] Comment on above: Performed By: #### H EMOGC #### [facility] (DEFAULT) [address] [address] Lymphocytes/100 WBC (Bld) 35.3 % Normal [facility] Comment on above: Performed By: #### H EMOGC #### [facility] (DEFAULT) [address] [place] [address] MCV (RBC) [Entitic vol] 91.5 fL Normal 79.6-97.7 O [facility] Comment on above: Performed By: #### H EMOGC #### [facility] (DEFAULT) [address] [place] [address] Mean Cell Hgb 31.6 pg Normal 25.9-33.9 [facility] Comment on above: Performed By: #### H EMOGC #### [facility] (DEFAULT) [address] [place] [address] Mean Cell Hgb Conc 34.6 g/dL Normal 31.4-35.9 [facility] Comment on above: Performed By: #### H EMOGC #### [facility] (DEFAULT) [address] [place] [address] Monocytes (Bld) [#/Vol] 0.43 10*3/uL Normal 0.22-0.87 [facility] Comment on above: Performed By: #### H EMOGC #### [facility] (DEFAULT) [address] [address] Monocytes/100 WBC (Bld) 7.1 % Normal O [facility] Comment on above: Performed By: #### H EMOGC #### [facility] (DEFAULT) [address] [place] [address] Nucleated RBC 0.0 /100 WBC Normal <=0.2 [facility] Comment on above: Performed By: #### H EMOGC #### [facility] (DEFAULT) [address] [address] Platelet mean volume (Bld) [Entitic vol] 8.7 fL Normal 8.5-12.2 [facility] Comment on above: Performed By: #### H EMOGC #### [facility] (DEFAULT) [address] [address] Platelets (Bld) [#/Vol] 227 10*3/uL Normal 150-393 [facility] Comment on above: Performed By: #### H EMO #### [facility] (DEFAULT) [address] [place] [address] RBC (Bld) [#/Vol] 4.33 10*6/uL Normal 3.91-5.04 [facility] Comment on above: Performed By: #### H EMO #### [facility] (DEFAULT) [address] [place] [address] RBC Distribution 12.6 % Normal 10.8-14.9 [facility] Comment on above: Performed By: #### H EMO #### [facility] (DEFAULT) [address] [place] [address] Segs + Bands Auto 55.6 % Normal [facility] Comment on above: Performed By: #### H EMOGC #### [facility] (DEFAULT) [address] [place] [address] Segs + Bands,Absolute Auto 3.37 K/uL Normal 1.64-7.28 [facility] Comment on above: Performed By: #### H EMOGC #### [facility] (DEFAULT) [address] [place] [address] WBC (Bld) [#/Vol] 6.06 10*3/uL Normal 3.99-11.19 [facility] Comment on above: Performed By: #### H EMO #### [facility] (DEFAULT) [address] [place] [address] CHEM 7 (LYTES,BUN,CREA,GLUC) on 09-21-2021 Anion gap [Moles/Vol] 13 mmol/L Normal 7-17 [facility] Comment on above: Performed By: #### C HM7, HDLT, HFP #### [facility] (DEFAULT) [address] [place] [address] Chloride [Moles/Vol] 107 mmol/L Normal 98-108 [facility] Comment on above: Performed By: #### C HM7, HDLT, HFP #### [facility] (DEFAULT) [address] [place] [address] CO2 [Moles/Vol] 23 mmol/L Normal 22-30 [facility] Comment on above: Performed By: #### C HM7, HDLT, HFP #### [facility] (DEFAULT) [address] [place] [address] Creatinine [Mass/Vol] 0.79 mg/dL Normal 0.50-1.20 [facility] Comment on above: Performed By: #### C HM7, HDLT, HFP #### [facility] (DEFAULT) [address] [place] [address] EST GFR, >=60 Normal >=60 [facility] Comment on above: Performed By: #### C HM7, HDLT, HFP #### [facility] (DEFAULT) [address] [place] [address] EST GFR,Non >=60 Normal >=60 [facility] Comment on above: Performed By: #### C HM7, HDLT, HFP #### [facility] (DEFAULT) [address] [place] [address] Glucose [Mass/Vol] 90 mg/dL Normal 70-99 [facility] Comment on above: Performed By: #### C HM7, HDLT, HFP #### [facility] (DEFAULT) [address] [place] [address] Osmolality [Osmolality] 291 mosm/kg Normal 278-305 [facility] Comment on above: Performed By: #### C HM7, HDLT, HFP #### [facility] (DEFAULT) [address] [place] [address] Potassium [Moles/Vol] 4.2 mmol/L Normal 3.5-5.0 [facility] Comment on above: Performed By: #### C HM7, HDLT, HFP #### [facility] (DEFAULT) [address] [place] [address] Sodium [Moles/Vol] 139 mmol/L Normal 133-143 [facility] Comment on above: Performed By: #### C HM7, HDLT, HFP #### [facility] (DEFAULT) [address] [place] [address] Urea nitrogen [Mass/Vol] 15 mg/dL Normal 7-22 [facility] Comment on above: Performed By: #### C HM7, HDLT, HFP #### [facility] (DEFAULT) [address] [place] [address] Urea nitrogen/Creatinine [Mass ratio] 19 mg/mg Normal [facility] Comment on above: Performed By: #### C HM7, HDLT, HFP #### [facility] (DEFAULT) [address] [place] [address] HEMOGLOBIN A1Con 09-21-2021 Glucose [Mass/Vol] 80 mg/dL Normal [facility] Comment on above: Performed By: #### 1 0DRUG #### [facility] (DEFAULT) [address] [place] [address] HbA1c (Bld) [Mass fraction] 4.4 % Low 4.7-5.6 [facility] Comment on above: Performed By: #### 1 0DRUG #### [facility] (DEFAULT) [address] [place] [address] HEPATIC FUNCTION PANELon Albumin [Mass/Vol] 3.7 g/dL Normal 3.5-5.0 [facility] Comment on above: Performed By: #### L [id number] #### [facility] (DEFAULT) [address] [place] [address] ALP [Catalytic activity/Vol] 48 U/L Normal 32-126 [facility] Comment on above: Performed By: #### L [id number] #### [facility] (DEFAULT) [address] [place] [address] ALT [Catalytic activity/Vol] 8 U/L Low 9-48 [facility] Comment on above: Performed By: #### L [id number] #### [facility] (DEFAULT) [address] [place] [address] AST [Catalytic activity/Vol] 14 U/L Normal 14-40 [facility] Comment on above: Performed By: #### L [id number] #### [facility] (DEFAULT) [address] [place] [address] Bilirubin [Mass/Vol] 0.3 mg/dL Normal <1.5 [facility] Comment on above: Performed By: #### L [id number] #### [facility] (DEFAULT) [address] [place] [address] Bilirubin.indirect [Mass/Vol] 0.1 mg/dL Normal <0.3 [facility] Comment on above: Performed By: #### L [id number] #### [facility] (DEFAULT) [address] [place] [address] Protein [Mass/Vol] 6.4 g/dL Normal 6.4-8.3 [facility] Comment on above: Performed By: #### L [id number] #### [facility] (DEFAULT) [address] [place] [address] LIPID PANEL W CALCULATED LDL on 09-21-2021 Calculated LDL Cholesterol 57 mg/dL Normal 0-99 [facility] Comment on above: Result Comment: [<10 0 mg/dL: Optimal] [100-129 mg/dL: Near Optimal] [130-159 mg/dL: Borderline High] [160-189 mg/dL: High] [>189 mg/dL: Very High] Performed By: #### C HM7, HDLT, HFP #### [facility] (DEFAULT) [address] [place] [address] Cholesterol [Mass/Vol] 116 mg/dL Normal <200 [facility] Comment on above: Result Comment: [<20 0 mg/dL: Desirable] [200-239 mg/dL: Borderline High] [>239 mg/dL: High] Performed By: #### C HM7, HDLT, HFP #### [facility] (DEFAULT) [address] [place] [address] Cholesterol in HDL [Mass/Vol] 39 mg/dL Low >=40 [facility] Comment on above: Result Comment: [<40 mg/dL: Low (High Risk)] [>59 mg/dL: High (Low Risk)] Performed By: #### C HM7, HDLT, HFP #### [facility] (DEFAULT) [address] [place] [address] Non HDL Cholesterol 77 mg/dL Normal <130 [facility] Comment on above: Performed By: #### C HM7, HDLT, HFP #### [facility] (DEFAULT) [address] [place] [address] Total Cholesterol/HDL Ratio 3.0 Normal <4.5 [facility] Comment on above: Performed By: #### C HM7, HDLT, HFP #### [facility] (DEFAULT) [address] [place] [address] Triglyceride [Mass/Vol] 100 mg/dL Normal <150 O [facility] Comment on above: Result Comment: [<15 0 mg/dL: Desirable] [150-199 mg/dL: Borderline] [200-499 mg/dL: High] [>500 mg/dL: Very High] Performed By: #### C HM7, HDLT, HFP #### [facility] (DEFAULT) [address] [place] [address] TSH W/FT4 REFLEXon TSH 1.833 uIU/mL Normal 0.550-4.780 [facility] Comment on above: Performed By: #### 1 0DRUG #### [facility] (DEFAULT) [address] [place] [address] DRUGS OF ABUSE SCREEN 10, UR INEon 09-17-2021 Amphetamine/Methampheta mine Positive Abnormal Cutoff: 500 ng/mL [facility] Comment on above: Order Comment: For edical purposes only. Positive results are unconfirmed unless otherwise noted. Performed By: #### C HM7, HDLT, HFP #### [facility] (DEFAULT) [address] [address] Barbiturates Negative Normal Cutoff: 200 ng/mL [facility] Comment on above: Order Comment: For edical purposes only. Positive results are unconfirmed unless otherwise noted. Performed By: #### C HM7, HDLT, HFP #### [facility] (DEFAULT) [address] [address] Benzodiazepines Negative Normal Cutoff: 200 ng/mL [facility] Comment on above: Order Comment: For edical purposes only. Positive results are unconfirmed unless otherwise noted. Performed By: #### C HM7, HDLT, HFP #### [facility] (DEFAULT) [address] [address] Buprenorphine Negative Normal Cutoff: 5 ng/mL [facility] Comment on above: Order Comment: For edical purposes only. Positive results are unconfirmed unless otherwise noted. Performed By: #### C HM7, HDLT, HFP #### [facility] (DEFAULT) [address] [address] Cannabinoids Screen Ql (U) Negative Normal Cutoff: 50 ng/mL [facility] Comment on above: Order Comment: For edical purposes only. Positive results are unconfirmed unless otherwise noted. Performed By: #### C HM7, HDLT, HFP #### [facility] (DEFAULT) [address] [address] Cocaine Negative Normal Cutoff: 150 ng/mL [facility] Comment on above: Order Comment: For edical purposes only. Positive results are unconfirmed unless otherwise noted. Performed By: #### C HM7, HDLT, HFP #### [facility] (DEFAULT) [address] [address] Fentanyl Negative Normal Cutoff: 1 ng/mL [facility] Comment on above: Order Comment: For m edical purposes only. Positive results are unconfirmed unless otherwise noted. Performed By: #### C HM7, HDLT, HFP #### [facility] (DEFAULT) [address] [place] [address] Methadone Negative Normal Cutoff: 300 ng/mL [facility] Comment on above: Order Comment: For m edical purposes only. Positive results are unconfirmed unless otherwise noted. Performed By: #### C HM7, HDLT, HFP #### [facility] (DEFAULT) [address] [place] [address] Opiates Negative Normal Cutoff: 300 ng/mL [facility] Comment on above: Order Comment: For m edical purposes only. Positive results are unconfirmed unless otherwise noted. Performed By: #### C HM7, HDLT, HFP #### [facility] (DEFAULT) [address] [place] [address] Oxycodone Negative Normal Cutoff: 100 ng/mL [facility] Comment on above: Order Comment: For m edical purposes only. Positive results are unconfirmed unless otherwise noted. Performed By: #### C HM7, HDLT, HFP #### [facility] (DEFAULT) [address] [place] [address] NOVEL CORONAVIRUS PCRon 11-0 SARS-CoV-2 (COVID-19) RNA MICK+probe Ql (Unsp spec) Not detected Normal NOT DETECTED [facility] Comment on above: Order Comment: Viral transport media or BAL specimen - Collection must be done while wearing N-95 mask, eye protection, gown and gloves. Please label ALL specimens as "2019-nCoV rule out" and deliver by hand.This test was performed using real time PCR and has been approved for the qualitative detection of SARS-CoV-2 nucleic acid. The test has been authorized by the FDA under an emergency use authorization for use by authorized laboratories. Result Comment: [facility] Negative results do not preclude SARS-CoV-2 infection and should not be used as the sole basis for treatment or other patient management decisions. Optimum specimen types and timing for peak viral levels during infections caused by SARS-CoV-2 has not been determined. The possibility of a false negative result should especially be considered if the patient's recent exposures or clinical presentation suggest that SARS-CoV-2 infection is probable, and diagnostic tests for other causes of illness (e.g., other respiratory illness) are negative. Collection of a new specimen and re-testing may be necessary if the patient is critically ill or clinically deteriorating. Performed By: #### L [id number] #### [facility] (DEFAULT) [address] [place] [address] XR HAND RIGHT 3+ VIEWSon XR HAND RIGHT 3+ VIEWS EXAM: XR HAND RIG HT 3+ VIEWS, XR WRIST RIGHT 4 VIEWS, 09/17/2021 14:26 PM COMPARISON: No prior studies available for comparison. CLINICAL INDICATIONS: Swollen, trauma RELEVANT CLINICAL HISTORY: FINDINGS: 3 images of the right hand and 4 images of the right wrist obtained. Right hand: Prominent dorsal soft tissue swelling overlies the metacarpals. Oblique fracture of the distal diaphysis of the fourth metacarpal is noted with minimal ulnar displacement and dorsal apex configuration of approximately 15 degrees. Volar displacement of 3 mm is evident. Joint spaces are maintained. Right wrist: No acute fracture. Neutral ulnar variance. Carpal alignment is anatomic. IMPRESSION: Mildly displaced and dorsally apexed fourth metacarpal fracture. Normal [facility] XR WRIST RIGHT 3 VIEWSon XR WRIST RIGHT 3 VIEWS EXAM: XR HAND RIG HT 3+ VIEWS, XR WRIST RIGHT 4 VIEWS, 09/17/2021 14:26 PM COMPARISON: No prior studies available for comparison. CLINICAL INDICATIONS: Swollen, trauma RELEVANT CLINICAL HISTORY: FINDINGS: 3 images of the right hand and 4 images of the right wrist obtained. Right hand: Prominent dorsal soft tissue swelling overlies the metacarpals. Oblique fracture of the distal diaphysis of the fourth metacarpal is noted with minimal ulnar displacement and dorsal apex configuration of approximately 15 degrees. Volar displacement of 3 mm is evident. Joint spaces are maintained. Right wrist: No acute fracture. Neutral ulnar variance. Carpal alignment is anatomic. IMPRESSION: Mildly displaced and dorsally apexed fourth metacarpal fracture. Normal [facility] XR CHEST PA/APon 08-20-2021 XR CHEST PA/AP EXAMINATION: ONE XRAY VIEW OF THE CHEST 08/19/2021 11:20 pm COMPARISON: None. HISTORY: ORDERING SYSTEM PROVIDED HISTORY: palpitations; TECHNOLOGIST PROVIDED HISTORY: Illness/Other Acuity: Unknown Reason for Exam: palpitations Cancer History: unk Surgery, Radiation History: unk Type of Encounter: Unknown Additional signs and symptoms: "heart racing" and feeling like she is going to pass out. Pt states she took meth tonight at 2100 by snorting it and has felt like this ever since ORDERING SYSTEM PROVIDED DIAGNOSIS CODES: R00.2 Palpitations R07.9 Chest pain, unspecified type FINDINGS: Cardiomediastinal silhouette is normal in size. There is no pleural effusion or pneumothorax. There are bibasilar pulmonary opacities. No acute osseous abnormality. IMPRESSION: Bibasilar pulmonary opacities, atelectasis versus pneumonia. Workstation ID: [id number] Dictated by: KAYLI GARCIA on [employer] Aug 20, 2021 12:11:49 AM EDT Transcribed by: KAYLI GARCIA on [employer] Aug 20, 2021 12:11:49 AM EDT Finalized by: KAYLI GARCIA on [employer] Aug 20, 2021 12:11:49 AM EDT [facility] Comment on above: Order Comment: Injur y/Trauma or Illness?:Illness/Other How long have you had these symptoms (acute/chronic)?:Unknown Reason for exam?:palpitations History of cancer?:unk Surgeries, chemotherapy, or radiation?:unk Type of Exam?:Unknown Additional signs and symptoms?:"heart racing" and feeling like she is going to pass out. Pt states she took meth tonight at 2100 by snorting it and has felt like this ever since Acetaminophen [Moles/Vol]on 08-12-2021 Acetaminophen [Mass/Vol] ug/mL Abnormal 10.0-30.0 [facility] Comment on above: Performed By: #### 4 8642-3x1, 37070-8, 29597-9, 42019-9, 38705-9, 15001-7 #### [facility] [address], [place] Basic metabolic 2000 panelon 08-12-2021 Anion gap [Moles/Vol] 8.0 mmol/L Normal 6.0-18.0 [facility] Comment on above: Performed By: #### 4 8642-3x1, 16753-9, 60340-3, 73685-7, 39560-1, 43926-4 #### [facility] [address], [place] Calcium [Mass/Vol] 8.8 mg/dL Low 8.9-10.3 [facility] Comment on above: Performed By: #### 4 8642-3x1, 85684-3, 66262-6, 50830-7, 56384-3, 55604-6 #### [facility] [address], [place] Chloride [Moles/Vol] 103 mmol/L Normal 98-107 [facility] Comment on above: Performed By: #### 4 8642-3x1, 95718-3, 23249-6, 75768-8, 59362-0, 76960-2 #### [facility] [address], [place] CO2 [Moles/Vol] 23 mmol/L Normal 22-32 [facility] Comment on above: Performed By: #### 4 8642-3x1, 89241-7, 47174-6, 52811-8, 63931-5, 06272-8 #### [facility] [address], [place] Creatinine [Mass/Vol] 0.74 mg/dL Normal 0.60-1.30 [facility] Comment on above: Performed By: #### 4 8642-3x1, 60274-5, 54337-4, 32885-9, 74546-6, 16529-8 #### [facility] [address], [place] Glucose [Mass/Vol] 101 mg/dL High 70-99 [facility] Comment on above: Result Comment: U pdated ADA Reference Range A normal fasting glucose concentration is less than 100 mg/dL. An impaired fasting glucose concentration is 100-125 mg/dL. A provisional diagnosis of diabetes mellitus can be made when a fasting glucose concentration is greater than 125 mg/dL. Performed By: #### 4 8642-3x1, 10414-7, 94634-5, 19229-6, 98263-5, 08331-8 #### [facility] [address], [place] Potassium [Moles/Vol] 3.2 mmol/L Low 3.6-5.1 [facility] Comment on above: Performed By: #### 4 8642-3x1, 51672-0, 30179-1, 27881-7, 16321-7, 46884-5 #### [facility] [address], [place] Sodium [Moles/Vol] 134 mmol/L Low 136-145 [facility] Comment on above: Performed By: #### 4 8642-3x1, 26643-3, 32008-8, 91250-4, 37178-4, 71845-3 #### [facility] [address], [place] Urea nitrogen (BldV) [Mass/Vol] 10 mg/dL Normal 8-20 [facility] Comment on above: Performed By: #### 4 8642-3x1, 55432-7, 16623-3, 64068-6, 88860-9, 52411-7 #### [facility] [address], [place] Drugs identified Screen Nom (U)on 08-12-2021 Amphetamines Ql (U) Negative Normal [facility] Comment on above: Performed By: #### 4 8642-3x1, 78200-1, 21034-1, 56877-2, 28232-9, 90234-8 #### [facility] [address], [place] Barbiturates Screen Ql (U) Negative Normal [facility] Comment on above: Performed By: #### 4 8642-3x1, 71395-0, 31302-0, 44425-3, 88871-4, 46502-4 #### [facility] [address], [place] Benzodiazepines cutoff Screen (U) [Mass/Vol] Negative Normal [facility] Comment on above: Performed By: #### 4 8642-3x1, 20001-9, 83819-7, 12532-9, 14134-4, 11016-5 #### [facility] [address], [place] Cocaine Ql (U) Negative Normal [facility] Comment on above: Performed By: #### 4 8642-3x1, 83773-7, 28864-6, 34779-0, 44377-6, 17730-6 #### [place] [address], [place] Interpretation and review of laboratory results Negative Normal [facility] Comment on above: Performed By: #### 4 8642-3x1, 89295-0, 15940-5, 57017-6, 70107-1, 85586-6 #### [facility] [address], [place] Methadone Screen Ql (U) Negative Normal NEGA TIVE-NEGAT ANNETTE [facility] Comment on above: Performed By: #### 4 8642-3x1, 65048-5, 01023-6, 48204-3, 11313-1, 68365-5 #### [facility] [address], [place] Opiates Screen Ql (U) Negative Normal [facility] Comment on above: Result Comment: INTE RPRETATION TABLE FOR SAP8 URINE DRUG SCREEN PRESUMPTIVE POSITIVE CUT-OFF VALUES (NG/ML) TEST POSITIVE CUT-OFF VALUES(NG/ML) Amphetamine 1000 Barbiturate 200 Benzodiazepines 200 Cannabinoids 50 Cocaine 300 Methadone 300 Opiates 300 Oxycodone 100 All drugs identified should be considered presumptive positives. Presumptive Positive Screens can be confirmed by a reference lab upon request. ALL DRUG SCREEN RESULTS ARE FOR MEDICAL PURPOSES ONLY. Performed By: #### 4 8642-3x1, 59872-5, 40146-0, 53247-1, 37086-1, 07292-9 #### [facility] [address], [place] Tetrahydrocannabinol Screen Ql (U) Negative Normal [facility] Comment on above: Performed By: #### 4 8642-3x1, 52182-4, 74992-0, 08272-4, 20080-8, 38828-5 #### [facility] [address], [place] ED Pat Edu 08-12-2021 ED Pat [facility] [address], [place] [address] Emergency Department Discharge Instructions JAZZY LEE , Please provide this information to your Primary Care/Specialist Name : JAZZY LEE Current Date : 08/12/2021 12:08:55 : 1995 Primary Care Physician : Physician, Latia PCP Diagnosis: Follow-Up Instructions: JAZZY LEE has been given these follow-up instructions: Laboratory Orders: Name: Status: Alcohol (Ethanol) Level Completed Acetaminophen (Tylenol) Level Completed Basic Metabolic Panel Completed CBC Completed Urinalysis with Microscopic Automatic Completed Test Urine Completed Drug Abuse Screen 8 Urine Completed Salicylate Level Completed GFRaa Completed GFRbb Completed Radiology Orders: None Ordered Diagnostic Tests: None Ordered Procedure(s) and Patient Education(s) : EMERGENCY SERVICES MEDICATION LIST Lista de Medicaciones de los Servicios de Emergencia Name JAZZY LEE MRN (COL)-[id number] [facility]# [id number] PLEASE READ THE FOLLOWING REGARDING YOUR MEDICATIONS Based on the information available during your visit we have given you the medication instructions below. Continue taking medications you took prior to your visit unless you have been told to change. Please share this information with your own doctor. Carry a list of your medications with you in case of an emergency. Update it when medications are stopped, doses are changed, or new medications (including soxm-pzf-dsrabbp products) are added. If you have any questions, check with your doctor. Por la informaci??n disponible gisela moses visita, las instrucciones de medicaci??n aparecen debajo. Favor de continuar tomando las medicaciones Ud. clifford?? antes de moses visita por lo menos que hay cambios. Favor de compartir esta informaci??n con moses medico. Lleva omar lista de medicaciones consigo por ryan de emergenc??a. Actualiza la lista cuando Ud. capo de carina las medicaciones, si cambian las dosis, o si hay nuevas medicaciones a??adidas (incluyendo medicaciones vendidas sin prescripci??n). Favor de preguntar a moses medico por cualquier see. THESE ARE THE MEDICATIONS YOU SHOULD BE TAKING No Medications Documented MEDICATIONS GIVEN DURING MEDICAL VISIT haloperidol 10 mg last dose given on 08/12/2021 at 00:29 Route: Intramuscular acetaminophen 650 mg last dose given on 08/12/2021 at 02:01 Route: By Mouth Maximum 4 Gm Acetaminophen/Day for Adults NON-MEDICATION PRESCRIPTION SCHEDULING PHONE NUMBER: MEDICATION CHANGE DETAILS (Not your Final Home Medication List) During the course of your visit, your home medication list was updated with the most current information. The details of those changes are shown below: NEW MEDICATIONS None UPDATED MEDICATIONS None UNCHANGED MEDICATIONS None STOP TAKING THESE MEDICATIONS None DO NOT TAKE UNTIL YOU TALK TO YOUR DOCTOR None [address] [address] Emergency Department Discharge Instructions Name: JAZZY LEE Current Date: 08/12/2021 12:08:55 : 1995 Primary Physician: Physician, No PCP We would like to thank you for choosing [facility] for your emergency medical needs. We examined and treated you today on an emergency basis only. This was not a substitute for, or an effort to provide, complete medical care. In most cases, you must let your doctor (or the doctor we referred you to) check you again. Tell your doctor about any new or lasting problems. We cannot recognize and treat all injuries or illnesses in one emergency department visit. After you leave, you should follow the directions attached. Instructions for obtaining X-rays: When following up with your doctor or a bone doctor, you may need to take copies of your x-rays that were done in the Emergency Department. If you didn't receive these upon your discharge from the emergency department, please call . When the final report becomes available and it is reviewed, the emergency department will attempt to contact you if there are any changes in your instructions. It is important that you leave accurate information with us on how to contact you. IF you cannot be contacted, YOU must contact the follow-up doctor that you were assigned to make sure that the final official x-ray report does not require a change in your treatment. Instructions for obtaining medical records: If you need a copy of your medical records for follow-up, please contact the Health Information Management Department at . Their office hours are 8 AM- 4:30 PM, Saturday through Saturday. Please note: Results are not immediately available. Please allow a minimum of 48 hours for documentation and results. If you were prescribed an antibiotic: Antibiotics are life-saving drugs and they need to be used properly. Your team might change (more content not included)... Normal [facility] Ethanol (Bld) [Moles/Vol]on 08-12-2021 Ethanol [Mass/Vol] mg/dL Normal 0.00-0.00 [facility] Comment on above: Performed By: #### 4 8642-3x1, 41086-3, 70175-7, 94051-5, 16225-9, 29256-2 #### [facility] [address], [place] GFR/1.73 sq M.predicted (S/P /Bld) [Vol rate/Area]on 08-12-2021 GFR/1.73 sq M.predicted among blacks MDRD (S/P/Bld) [Vol rate/Area] mL/min/{1.73_m2} Normal [facility] Comment on above: Result Comment: The MDRD equation has not been validated for those over 70 years, women, patients with serious co-morbid conditions, or with extremes of body size, muscle mass of nutritional status. Performed By: #### 4 8642-3x1, 07079-3, 19262-7, 46010-8, 49764-3, 15721-7 #### [facility] [address], [place] GFRbbon 08-12-2021 GFR/1.73 sq M.predicted among non-blacks MDRD (S/P/Bld) [Vol rate/Area] mL/min/{1.73_m2} Normal [facility] Comment on above: Performed By: #### 4 8642-3x1, 09745-0, 24433-0, 26695-8, 59079-4, 38846-5 #### [address] Hemogram and platelets WO di fferential panel (Bld)on 08-12-2021 Erythrocyte distribution width (RBC) [Entitic vol] 13.2 % Normal 11.0-14.8 [facility] Comment on above: Performed By: #### 2 4317-0 #### [address] Hematocrit (Bld) [Volume fraction] 37.8 % Normal 35.0-45.0 [facility] Comment on above: Performed By: #### 2 4317-0 #### [address] Hemoglobin (Bld) [Mass/Vol] 13.2 g/dL Normal 12.0-16.0 [facility] Comment on above: Performed By: #### 2 4317-0 #### [facility] [address], [place] MCH (RBC) [Entitic mass] 31.4 Picograms Normal 27.0-34.0 [facility] Comment on above: Performed By: #### 2 4317-0 #### [facility] [address] [place] [address] MCHC (RBC) [Mass/Vol] 34.8 g/dL Normal 32.0-36.0 [facility] Comment on above: Performed By: #### 2 4317-0 #### [facility] [address], [place] MCV (RBC) [Entitic vol] 90.2 fL Normal 80.0-97.0 M [facility] Comment on above: Performed By: #### 2 4317-0 #### [facility] [address], [place] Platelet mean volume (Bld) [Entitic vol] 6.1 fL Low 6.2-12.1 [facility] Comment on above: Performed By: #### 2 4317-0 #### [place] [address], [place] Platelets (Bld) [#/Vol] 227 thou/mcL Normal 142-424 [facility] Comment on above: Performed By: #### 2 4317-0 #### [address] RBC (Bld) [#/Vol] 4.19 million/mcL Normal 3.80-5.10 M [facility] Comment on above: Performed By: #### 2 4317-0 #### [address] WBC (Bld) [#/Vol] 6.3 thou/mcL Normal 4.6-10.2 [facility] Comment on above: Performed By: #### 2 4317-0 #### [address] Test Urineon 08-12 HCG ( test) Ql (U) Negative Normal [facility] Comment on above: Performed By: #### 4 8642-3x1, 27431-1, 82206-5, 97783-4, 77485-0, 10897-9 #### [place] [address], [place] Salicylates [Moles/Vol]on Salicylates [Mass/Vol] mg/dL Normal 2.8-30.0 Mo [facility] Comment on above: Performed By: #### 4 8642-3x1, 30378-0, 74625-9, 63791-0, 92125-2, 14512-4 #### [place] [address] Urinalysis dipstick W Reflex Microscopic panel (U)on 08-12-2021 Appearance (U) CLEAR Normal CLEAR [facility] Comment on above: Performed By: #### 2 106-3 #### [facility], [address] [place] [address] #### 75508-9 #### [place] Bilirubin (U) [Mass/Vol] Negative Normal NEGATIVE-NEGAT ANNETTE [facility] Comment on above: Performed By: #### 2 106-3 #### [facility], [address] [place] [address] #### 92448-5 #### [place] RIVERA Color (U) STRAW Abnormal YELLOW [facility] Comment on above: Performed By: #### 2 106-3 #### [facility], [address] [place] [address] #### 57783-4 #### [place] Glucose Test strip (U) [Mass/Vol] NORMAL Normal NORMAL [facility] Comment on above: Performed By: #### 2 106-3 #### [facility], [address] [place] [address] #### 96684-1 #### [place] Hemoglobin Ql (U) Negative Normal NEGATIVE-N EGAT ANNETTE [facility] Comment on above: Performed By: #### 2 106-3 #### [facility], [address] [place] [address] #### 43772-8 #### [place] Ketones (U) [Mass/Vol] Negative Normal NEGAT ANNETTE-NEGAT ANNETTE [facility] Comment on above: Performed By: #### 2 106-3 #### [facility], [address] [place] [address],[place] #### 93211-0 #### [place] KARISSA NICOLE Leukocyte esterase Test strip Ql (U) Negative Normal NEGATIVE-NEGAT ANNETTE [facility] Comment on above: Performed By: #### Jozef 106-3 #### [facility], [address] [place] [address] #### 53864-4 #### [place] KARISSA NICOLE Nitrite Test strip (U) [Mass/Vol] Negative Normal NEGATIVE-NEGAT ANNETTE [facility] Comment on above: Performed By: #### Jozef 106-3 #### [facility], [address] [place] [address] #### 11211-4 #### [place] RIVERA pH (U) 6.0 [pH] Normal 4.5-8.0 [facility] Comment on above: Performed By: #### Jozef 106-3 #### [facility], [address] [place] [address] #### 07669-7 #### [place]ANC[place] NICOLE Protein (U) [Mass/Vol] Negative Normal NEGAT ANNETTE-NEGAT ANNETTE [facility] Comment on above: Performed By: #### Jozef -3 #### [facility], [address] [place] [address] #### 11485-0 #### [place] RIVERA Specific gravity (U) [Rel density] 1.005 Normal 1.002-1.030 [facility] Comment on above: Performed By: #### Jozef -3 #### [place] [facility], [address] [place] [address] #### 74169-7 #### [place]IVER[place] Urobilinogen (U) [Mass/Vol] NORMAL Normal NORMAL [facility] Comment on above: Performed By: #### Jozef 106-3 #### [facility], [address] [place] [address] #### 89053-8 #### [place]A [facility] COMPREHENSIVE METABOLIC PANE [place] 08-04-2021 Albumin [Mass/Vol] 3.6 g/dL Normal 3.5-5.0 [facility] Comment on above: Performed By: #### C HM7, HDLT, HFP #### [facility] (DEFAULT) [address] [place] [address] 37738 ALP [Catalytic activity/Vol] 84 U/L Normal 32-126 [facility] Comment on above: Performed By: #### C HM7, HDLT, HFP #### [facility] (DEFAULT) [address] [place] [address] 47632 ALT [Catalytic activity/Vol] 62 U/L High 9-48 [facility] Comment on above: Performed By: #### C HM7, HDLT, HFP #### [facility] (DEFAULT) [address] [place] [address] 13048 Anion gap [Moles/Vol] 8 mmol/L Normal 7-17 [facility] Comment on above: Performed By: #### C HM7, HDLT, HFP #### [facility] (DEFAULT) [address] [place] [address] 64443 AST [Catalytic activity/Vol] 60 U/L High 14-40 [facility] Comment on above: Performed By: #### C HM7, HDLT, HFP #### [facility] (DEFAULT) [address] [place] [address] 24821 Bilirubin [Mass/Vol] 0.7 mg/dL Normal <1.5 [facility] Comment on above: Performed By: #### C HM7, HDLT, HFP #### [facility] (DEFAULT) [address] [place] [address] 50908 Calcium [Mass/Vol] 8.8 mg/dL Normal 8.6-10.5 [facility] Comment on above: Performed By: #### C HM7, HDLT, HFP #### [facility] (DEFAULT) [address] [place] [address] 87665 Chloride [Moles/Vol] 106 mmol/L Normal 98-108 [facility] Comment on above: Performed By: #### C HM7, HDLT, HFP #### [facility] (DEFAULT) [address] [place] [address] 72460 CO2 [Moles/Vol] 30 mmol/L Normal 22-30 [facility] Comment on above: Performed By: #### C HM7, HDLT, HFP #### [facility] (DEFAULT) [address] [place] [address] 94109 Creatinine [Mass/Vol] 0.96 mg/dL Normal 0.50-1.20 [facility] Comment on above: Performed By: #### C HM7, HDLT, HFP #### [facility] (DEFAULT) [address] [place] [address] 03076 EST GFR, >=60 Normal >=60 [facility] Comment on above: Performed By: #### C HM7, HDLT, HFP #### [facility] (DEFAULT) [address] [place] [address] 27075 EST GFR,Non >=60 Normal >=60 [facility] Comment on above: Performed By: #### C HM7, HDLT, HFP #### [facility] (DEFAULT) [address] [place] [address] 24732 Glucose [Mass/Vol] 78 mg/dL Normal 70-99 [facility] Comment on above: Performed By: #### C HM7, HDLT, HFP #### [facility] (DEFAULT) [address] [place] [address] 33701 Osmolality [Osmolality] 291 mosm/kg Normal 278-305 [facility] Comment on above: Performed By: #### C HM7, HDLT, HFP #### [facility] (DEFAULT) [address] [place] [address] 74521 Potassium [Moles/Vol] 4.3 mmol/L Normal 3.5-5.0 [facility] Comment on above: Performed By: #### C HM7, HDLT, HFP #### [facility] (DEFAULT) [address] [place] [address] 86423 Protein [Mass/Vol] 6.1 g/dL Low 6.4-8.3 [facility] Comment on above: Performed By: #### C HM7, HDLT, HFP #### [facility] (DEFAULT) [address] [place] [address] 61753 Sodium [Moles/Vol] 140 mmol/L Normal 133-143 [facility] Comment on above: Performed By: #### C HM7, HDLT, HFP #### [facility] (DEFAULT) [address] [place] [address] 52757 Urea nitrogen [Mass/Vol] 11 mg/dL Normal 7-22 [facility] Comment on above: Performed By: #### C HM7, HDLT, HFP #### [facility] (DEFAULT) [address] [place] [address] 42918 Urea nitrogen/Creatinine [Mass ratio] 11 mg/mg Normal [facility] Comment on above: Performed By: #### C HM7, HDLT, HFP #### [facility] (DEFAULT) [address] [place] [address] 97129 HEPATIC FUNCTION PANELon Albumin [Mass/Vol] 3.6 g/dL Normal 3.5-5.0 [facility] Comment on above: Performed By: #### 1 0DRUG #### [facility] (DEFAULT) [address] [place] [address] 40293 ALP [Catalytic activity/Vol] 54 U/L Normal 32-126 [facility] Comment on above: Performed By: #### 1 0DRUG #### [facility] (DEFAULT) [address] [place] [address] 08278 ALT [Catalytic activity/Vol] 78 U/L High 9-48 [facility] Comment on above: Performed By: #### 1 0DRUG #### [facility] (DEFAULT) [address] [place] [address] 70777 AST [Catalytic activity/Vol] 51 U/L High 14-40 [facility] Comment on above: Performed By: #### 1 0DRUG #### [facility] (DEFAULT) [address] [place] [address] 29960 Bilirubin [Mass/Vol] 0.5 mg/dL Normal <1.5 [facility] Comment on above: Performed By: #### 1 0DRUG #### [facility] (DEFAULT) [address] [place] [address] 02419 Bilirubin.indirect [Mass/Vol] 0.1 mg/dL Normal <0.3 [facility] Comment on above: Performed By: #### 1 0DRUG #### [facility] (DEFAULT) [address] [place] [address] 01477 Protein [Mass/Vol] 6.1 g/dL Low 6.4-8.3 [facility] Comment on above: Performed By: #### 1 0DRUG #### [facility] (DEFAULT) [address] [place] [address] 29829 HEPATIC FUNCTION PANELon Albumin [Mass/Vol] 3.6 g/dL Normal 3.5-5.0 [facility] Comment on above: Performed By: #### C HM7, HDLT, HFP #### [facility] (DEFAULT) [address] [place] [address] 26009 ALP [Catalytic activity/Vol] 48 U/L Normal 32-126 [facility] Comment on above: Performed By: #### C HM7, HDLT, HFP #### [facility] (DEFAULT) [address] [place] [address] 43684 ALT [Catalytic activity/Vol] 139 U/L High 9-48 [facility] Comment on above: Performed By: #### C HM7, HDLT, HFP #### [facility] (DEFAULT) [address] [place] [address] 06421 AST [Catalytic activity/Vol] 113 U/L High 14-40 [facility] Comment on above: Performed By: #### C HM7, HDLT, HFP #### [facility] (DEFAULT) [address] [place] [address] Bilirubin [Mass/Vol] 0.5 mg/dL Normal <1.5 [facility] Comment on above: Performed By: #### C HM7, HDLT, HFP #### [facility] (DEFAULT) [address] [place] [address] Bilirubin.indirect [Mass/Vol] 0.1 mg/dL Normal <0.3 [facility] Comment on above: Performed By: #### C HM7, HDLT, HFP #### [facility] (DEFAULT) [address] [place] [address] 54656 Protein [Mass/Vol] 5.9 g/dL Low 6.4-8.3 [facility] Comment on above: Performed By: #### C HM7, HDLT, HFP #### [facility] (DEFAULT) [address] [place] [address] 91810 US ABDOMEN RUQ/LIVER/GBon US ABDOMEN RUQ/LIVER/GB EXAM: US ABDOMEN RUQ/LIVER/GB, 07/23/2021 09:58 AM CLINICAL INDICATIONS: elevated lfts COMPARISON: No prior studies available for comparison. TECHNIQUE: Real-time ultrasound evaluation of the right upper quadrant was performed utilizing a curved array transducer. Duplex scan is performed. Color flow images and spectral waveforms obtained. FINDINGS: Pancreas: Normal. Liver: Normal. Doppler ultrasound demonstrates hepatopetal flow in the main portal vein. Flow velocity is 37.9 cm/sec which is normal. Gall Bladder: Several gallstones. No wall thickening or pericholecystic fluid. The sonographic Johnston's sign was reported as negative. The common duct is normal in caliber measuring 3 mm in diameter. Right Kidney: Normal without hydronephrosis. Bipolar length is 10.1 cm. Ascites: No right upper quadrant ascites. IMPRESSION: Uncomplicated cholelithiasis. No findings to explain elevated transaminases. Normal [facility] ACETAMINOPHEN LEVELon 2020 Acetaminophen [Mass/Vol] ug/mL Normal Therapeutic Range: 10-32 mcg/mL [facility] Comment on above: Performed By: #### L AB980 #### [facility] (DEFAULT) [address] [address] Icterus 0 Normal [facility] Comment on above: Performed By: #### L AB980 #### [facility] (DEFAULT) [address] [address] ALFRED MULTIPLEX SCRN WITH REFL EXon 07-22-2021 ALFRED Screen, Multiplex Negative Normal Negative [facility] Comment on above: Result Comment: This test includes the following antibodies: Centromere, Chromatin, DsDNA, Jo1, Ribosomal P, [employer], ScL70, Sm/S[employer]ES [employer], Toribio, SSA and SSB. A negative screen result means each antibody listed is negative. If positive, the individual antibody results will be reflexed. Performed By: #### 1 0DRUG #### [facility] (DEFAULT) [address] [address] CKon 07-22-2021 CK [Catalytic activity/Vol] 50 U/L Normal 30-184 [facility] Comment on above: Performed By: #### C ORT #### [facility] (DEFAULT) [address] [address] CMV IGG & IGM, QUANT.on 07-12 CMV AB IGM <30.00 Normal <30.00 [facility] Comment on above: Result Comment: AU/m L Interpretation < 30.00 No Antibody Detected 30.00 - 34.99 Equivocal > or = 35.00 Antibody Detected Results from any one IgM assay should not be used as a sole determinant of a current or recent infection. Because an IgM test can yield false positive results and low level IgM antibody may persist for more than 12 months post infection, reliance on a single test result could be misleading. Acute infection is best diagnosed by demonstrating the conversion of IgG from negative to positive. If an acute infection is suspected, consider obtaining a new specimen and submit for both IgG and IgM testing in two or more weeks. Test Performed at: [facility] [address] [address] Danny Sosa M.D., Ph.D.,Director of Laboratories Performed By: #### Y CMVQ #### [facility] (DEFAULT) [address] [address] CMV IGG AB <0.60 Normal <0.60 [facility] Comment on above: Result Comment: U/mL Interpretation <0.60 Negative 0.60 - 0.69 Equivocal > or = 0.70 Positive A positive result indicates that the patient has antibody to CMV. It does not differentiate between an active or past infection. Performed By: #### Y CMVQ #### [facility] (DEFAULT) [address] [address] EBV VCA IGG AND IGMon 2020 EBV VCA IgG Antibody Positive Abnormal Negative [facility] Comment on above: Performed By: #### 1 0DRUG #### [facility] (DEFAULT) [address] [address] EBV VCA IgM Antibody Negative Normal Negative [facility] Comment on above: Performed By: #### 1 0DRUG #### [facility] (DEFAULT) [address] [address] GGTon 07-22-2021 Gamma glutamyl transferase [Catalytic activity/Vol] 31 U/L Normal 8-64 [facility] Comment on above: Performed By: #### C ORT #### [facility] (DEFAULT) [address] [address] HCG QUALITATIVE, URINEon Beta HCG ( test) Ql (U) Negative Normal Negative [facility] Comment on above: Performed By: #### U HCG #### [facility] (DEFAULT) [address] [address] HEMOGLOBIN A1Con 07-22-2021 Glucose [Mass/Vol] 88 mg/dL Normal [facility] Comment on above: Performed By: #### C HM7, HDLT, HFP #### [facility] (DEFAULT) [address] [place] [address] 22741 HbA1c (Bld) [Mass fraction] 4.7 % Normal 4.7-5.6 [facility] Comment on above: Performed By: #### C HM7, HDLT, HFP #### [facility] (DEFAULT) [address] [place] [address] 56656 HEPATIC FUNCTION PANELon Albumin [Mass/Vol] 3.5 g/dL Normal 3.5-5.0 [facility] Comment on above: Performed By: #### C HM7, HDLT, HFP #### [facility] (DEFAULT) [address] [place] [address] 58788 ALP [Catalytic activity/Vol] 51 U/L Normal 32-126 [facility] Comment on above: Performed By: #### C HM7, HDLT, HFP #### [facility] (DEFAULT) [address] [place] [address] 36259 ALT [Catalytic activity/Vol] 156 U/L High 9-48 [facility] Comment on above: Result Comment: Slig htly hemolyzed Performed By: #### C HM7, HDLT, HFP #### [facility] (DEFAULT) [address] [place] [address] 82833 AST [Catalytic activity/Vol] 230 U/L High 14-40 [facility] Comment on above: Result Comment: Slig htly hemolyzed Performed By: #### C HM7, HDLT, HFP #### [facility] (DEFAULT) [address] [place] [address] 76899 Bilirubin [Mass/Vol] 0.4 mg/dL Normal <1.5 [facility] Comment on above: Result Comment: Slig htly hemolyzed Performed By: #### C HM7, HDLT, HFP #### [facility] (DEFAULT) [address] [place] [address] 92840 Bilirubin.indirect [Mass/Vol] 0.1 mg/dL Normal <0.3 [facility] Comment on above: Result Comment: Slig htly hemolyzed Performed By: #### C HM7, HDLT, HFP #### [facility] (DEFAULT) [address] [place] [address] 27594 Protein [Mass/Vol] 5.9 g/dL Low 6.4-8.3 [facility] Comment on above: Performed By: #### C HM7, HDLT, HFP #### [facility] (DEFAULT) [address] [place] [address] 81316 HEPATITIS BATTERY, ACUTEon 0 07-22-2021 Hep B Core Ab,Total (IgG+IgM) Negative Normal Negative [facility] Comment on above: Performed By: #### C HM7, HDLT, HFP #### [facility] (DEFAULT) [address] [place] [address] 34925 Hep B Core IgM Ab Negative Normal Negative [facility] Comment on above: Performed By: #### C HM7, HDLT, HFP #### [facility] (DEFAULT) [address] [place] [address] 50247 Hep B Surface Ag Negative Normal Negative [facility] Comment on above: Performed By: #### C HM7, HDLT, HFP #### [facility] (DEFAULT) [address] [place] [address] 78435 Hepatitis A IgM Ab Negative Normal Negative [facility] Comment on above: Performed By: #### C HM7, HDLT, HFP #### [facility] (DEFAULT) [address] [place] [address] 97895 Hepatitis C Antibody Negative Normal Negative [facility] Comment on above: Performed By: #### C HM7, HDLT, HFP #### [facility] (DEFAULT) [address] [place] [address] 35908 IGG4 (IMMUNOGLOBULIN G SUBCL ASS 4)on 07-22-2021 IGG4 18.8 mg/dL Normal 2.4-121.0 [facility] Comment on above: Result Comment: Test Performed by: [facility] [address] [place] [address] Laboratory Geneticist: Juan Gonzalez M.D. Ph.D.; CLIA# [id number] Performed By: #### C HM7, HDLT, HFP #### [facility] (DEFAULT) [address] [place] [address] 24384 LIPID PANEL W CALCULATED LDL on 07-22-2021 Calculated LDL Cholesterol 59 mg/dL Normal 0-99 [facility] Comment on above: Result Comment: [<10 0 mg/dL: Optimal] [100-129 mg/dL: Near Optimal] [130-159 mg/dL: Borderline High] [160-189 mg/dL: High] [>189 mg/dL: Very High] Performed By: #### C HM7, HDLT, HFP #### [facility] (DEFAULT) [address] [place] [address] 14823 Cholesterol [Mass/Vol] 120 mg/dL Normal <200 [facility] Comment on above: Result Comment: [<20 0 mg/dL: Desirable] [200-239 mg/dL: Borderline High] [>239 mg/dL: High] Performed By: #### C HM7, HDLT, HFP #### [facility] (DEFAULT) [address] [place] [address] 97371 Cholesterol in HDL [Mass/Vol] 30 mg/dL Low >=40 [facility] Comment on above: Result Comment: [<40 mg/dL: Low (High Risk)] [>59 mg/dL: High (Low Risk)] Performed By: #### C HM7, HDLT, HFP #### [facility] (DEFAULT) [address] [place] [address] 45293 Non HDL Cholesterol 90 mg/dL Normal <130 [facility] Comment on above: Performed By: #### C HM7, HDLT, HFP #### [facility] (DEFAULT) [address] [place] [address] 22490 Total Cholesterol/HDL Ratio 4.0 Normal <4.5 [facility] Comment on above: Performed By: #### C HM7, HDLT, HFP #### [facility] (DEFAULT) [address] [place] [address] 70579 Triglyceride [Mass/Vol] 157 mg/dL High <150 [facility] Comment on above: Result Comment: [<15 0 mg/dL: Desirable] [150-199 mg/dL: Borderline] [200-499 mg/dL: High] [>500 mg/dL: Very High] Performed By: #### C HM7, HDLT, HFP #### [facility] (DEFAULT) [address] [place] [address] 77313 PT,INR,PTTon 07-22-2021 aPTT Coag (Bld) [Time] 25.6 s Normal 24.0-34.3 [facility] Comment on above: Performed By: #### 1 0DRUG #### [facility] (DEFAULT) [address] [place] [address] 96708 INR Coag (PPP) [Relative time] 0.9 {INR} Normal 0.9-1.1 [facility] Comment on above: Performed By: #### 1 0DRUG #### [facility] (DEFAULT) [address] [place] [address] 89598 PT Coag (PPP) [Time] 12.4 s Normal 11.9-14.2 [facility] Comment on above: Performed By: #### 1 0DRUG #### [facility] (DEFAULT) [address] [place] [address] 84400 TSH W/FT4 REFLEXon TSH 1.552 uIU/mL Normal 0.550-4.780 [facility] Comment on above: Performed By: #### C ORT #### [facility] (DEFAULT) [address] [place] [address] 25399 CBC,PLATELETSon 07-19-2021 Hematocrit (Bld) [Volume fraction] 38.6 % Normal 34.9-44.3 [facility] Comment on above: Performed By: #### H EMOGC #### [facility] (DEFAULT) [address] [place] [address] 58058 Hemoglobin (Bld) [Mass/Vol] 13.3 g/dL Normal 11.4-15.2 [facility] Comment on above: Performed By: #### H EMOGC #### [facility] (DEFAULT) [address] [place] [address] 25248 MCV (RBC) [Entitic vol] 90.2 fL Normal 79.6-97.7 [facility] Comment on above: Performed By: #### H EMOGC #### [facility] (DEFAULT) [address] [place] [address] 74321 Mean Cell Hgb 31.1 pg Normal 25.9-33.9 [facility] Comment on above: Performed By: #### H EMOGC #### [facility] (DEFAULT) [address] [place] [address] 30486 Mean Cell Hgb Conc 34.5 g/dL Normal 31.4-35.9 [facility] Comment on above: Performed By: #### H EMOGC #### [facility] (DEFAULT) [address] [place] [address] 95147 Platelet mean volume (Bld) [Entitic vol] 9.8 fL Normal 8.5-12.2 [facility] Comment on above: Performed By: #### H EMOGC #### [facility] (DEFAULT) [address] [place] [address] 08668 Platelets (Bld) [#/Vol] 184 10*3/uL Normal 150-393 [facility] Comment on above: Performed By: #### H EMOGC #### [facility] (DEFAULT) [address] [place] [address] 37617 RBC (Bld) [#/Vol] 4.28 10*6/uL Normal 3.91-5.04 [facility] Comment on above: Performed By: #### H EMOGC #### [facility] (DEFAULT) [address] [place] [address] 34453 RBC Distribution 12.4 % Normal 10.8-14.9 [facility] Comment on above: Performed By: #### H EMOGC #### [facility] (DEFAULT) [address] [place] [address] 22381 WBC (Bld) [#/Vol] 5.54 10*3/uL Normal 3.99-11.19 [facility] Comment on above: Performed By: #### H EMO #### [facility] (DEFAULT) [address] [place] [address] 22644 CHEM 7 (LYTES,BUN,CREA,GLUC) on 07-19-2021 Anion gap [Moles/Vol] 10 mmol/L Normal 7-17 [facility] Comment on above: Performed By: #### C ORT #### [facility] (DEFAULT) [address] [place] [address] 59330 Chloride [Moles/Vol] 109 mmol/L High 98-108 [facility] Comment on above: Performed By: #### C ORT #### [facility] (DEFAULT) [address] [place] [address] 66339 CO2 [Moles/Vol] 24 mmol/L Normal 22-30 [facility] Comment on above: Performed By: #### C ORT #### [facility] (DEFAULT) [address] [place] [address] 54073 Creatinine [Mass/Vol] 0.79 mg/dL Normal 0.50-1.20 [facility] Comment on above: Performed By: #### C ORT #### [facility] (DEFAULT) [address] [place] [address] 38394 EST GFR, >=60 Normal >=60 [facility] Comment on above: Performed By: #### C ORT #### [facility] (DEFAULT) [address] [place] [address] 50341 EST GFR,Non >=60 Normal >=60 [facility] Comment on above: Performed By: #### C ORT #### [facility] (DEFAULT) [address] [place] [address] 04960 Glucose [Mass/Vol] 97 mg/dL Normal 70-99 [facility] Comment on above: Performed By: #### C ORT #### [facility] (DEFAULT) [address] [place] [address] 62570 Osmolality [Osmolality] 290 mosm/kg Normal 278-305 [facility] Comment on above: Performed By: #### C ORT #### [facility] (DEFAULT) [address] [place] [address] 17221 Potassium [Moles/Vol] 3.9 mmol/L Normal 3.5-5.0 [facility] Comment on above: Performed By: #### C ORT #### [facility] (DEFAULT) [address] [place] [address] 76668 Sodium [Moles/Vol] 139 mmol/L Normal 133-143 [facility] Comment on above: Performed By: #### C ORT #### [facility] (DEFAULT) [address] [place] [address] 04802 Urea nitrogen [Mass/Vol] 11 mg/dL Normal 7-22 [facility] Comment on above: Performed By: #### C ORT #### [facility] (DEFAULT) [address] [place] [address] 43754 Urea nitrogen/Creatinine [Mass ratio] 14 mg/mg Normal [facility] Comment on above: Performed By: #### C ORT #### [facility] (DEFAULT) [address] [place] [address] 08945 LACTATE, BLOODon 07-19-2021 Lactate, Blood 1.3 mmol/L Normal 0.5-1.6 [facility] Comment on above: Performed By: #### C HM7, HDLT, HFP #### [facility] (DEFAULT) [address] [place] [address] XR ABDOMEN 1 VIEW PORTABLEon 07-19-2021 XR ABDOMEN 1 VIEW PORTABLE EXAM: XR ABDOMEN 1 VIEW PORTABLE, 07/19/2021 11:38 AM COMPARISON: Abdomen single view July 18 July 17 July 16July CLINICAL INDICATIONS: follow-up glass ingestion FINDINGS: Tubes: No enteric tubes are seen. As previously seen, there are several small subcentimeter foci of increased density overlying the area of the colon concerning for foreign bodies and small pieces of glass related to the patient's history. These are less numerous compared to July 18, 2021. On this current exam, 2 small subcentimeter triangular foci are seen in the area of the cecum and proximal ascending colon overlying the right iliac wing. There is also 2 small linear foci seen in the proximal most ascending colon. Also, there is evidence for a linear subcentimeter focus in the area of the inferior left SI joint. A small focus in the area of the proximal sigmoid colon cannot be excluded, however in comparison to July 15, 2021, this appears to be simply artifactual and related to the iliac wing. Multiple other small foci seen July 18, 2021 are not longer visualized. There is a mild to moderate amount of bowel gas present within small bowel and colon without evidence for ileus or obstruction. No obvious free air. No evidence of pneumatosis. No obvious abnormal mass shadow is seen. Regional included bones appear intact. Included lung bases in limited evaluation appear well-aerated. IMPRESSION: As detailed above, 4 small foci of increased density overlying portions of the colon again seen concerning for small radiopaque foreign bodies consistent with the patient's history of glass ingestion. These are much less numerous compared to July 18, 2021. 2 of these foci remain in the area of the proximal most ascending colon and 2 others are seen in the proximal descending colon. Normal [facility] ACTHon 07-18-2021 ACTH 8.0 pg/mL Low 9.0-50.0 [facility] Comment on above: Performed By: #### C ORT #### [facility] (DEFAULT) [address] [address] ALDOSTERONEon 07-18-2021 Aldosterone <4.00 Normal <35.30 [facility] Comment on above: Result Comment: Refe rence Range: Plasma Upright: <35.30 ng/dL Plasma Supine: <23.60 ng/dL Serum Upright: <39.20 ng/dL Serum Supine: <23.20 ng/dL Samples with low levels of Aldosterone have been shown to be falsely decreased by hemolysis and should be interpreted with caution. Performed By: #### C ORT #### [facility] (DEFAULT) [address] [address] CBC,PLATELETSon 07-18-2021 Hematocrit (Bld) [Volume fraction] 41.0 % Normal 34.9-44.3 [facility] Comment on above: Performed By: #### C HM7, HDLT, HFP #### [facility] (DEFAULT) [address] [address] Hemoglobin (Bld) [Mass/Vol] 14.0 g/dL Normal 11.4-15.2 [facility] Comment on above: Performed By: #### C HM7, HDLT, HFP #### [facility] (DEFAULT) [address] [address] MCV (RBC) [Entitic vol] 91.3 fL Normal 79.6-97.7 O [facility] Comment on above: Performed By: #### C HM7, HDLT, HFP #### [facility] (DEFAULT) [address] [address] Mean Cell Hgb 31.2 pg Normal 25.9-33.9 [facility] Comment on above: Performed By: #### C HM7, HDLT, HFP #### [facility] (DEFAULT) [address] [address] Mean Cell Hgb Conc 34.1 g/dL Normal 31.4-35.9 [facility] Comment on above: Performed By: #### C HM7, HDLT, HFP #### [facility] (DEFAULT) [address] [place] [address] Platelet mean volume (Bld) [Entitic vol] 9.9 fL Normal 8.5-12.2 [facility] Comment on above: Performed By: #### C HM7, HDLT, HFP #### [facility] (DEFAULT) [address] [place] [address] Platelets (Bld) [#/Vol] 177 10*3/uL Normal 150-393 [facility] Comment on above: Performed By: #### C HM7, HDLT, HFP #### [facility] (DEFAULT) [address] [place] [address] RBC (Bld) [#/Vol] 4.49 10*6/uL Normal 3.91-5.04 [facility] Comment on above: Performed By: #### C HM7, HDLT, HFP #### [facility] (DEFAULT) [address] [place] [address] RBC Distribution 12.8 % Normal 10.8-14.9 [facility] Comment on above: Performed By: #### C HM7, HDLT, HFP #### [facility] (DEFAULT) [address] [place] [address] WBC (Bld) [#/Vol] 5.03 10*3/uL Normal 3.99-11.19 [facility] Comment on above: Performed By: #### C HM7, HDLT, HFP #### [facility] (DEFAULT) [address] [place] [address] COMPREHENSIVE METABOLIC PANE Chivo 07-18-2021 Albumin [Mass/Vol] 3.8 g/dL Normal 3.5-5.0 [facility] Comment on above: Performed By: #### C MPN, MGO ####[facility] (DEFAULT)[address] [place] [address] ALP [Catalytic activity/Vol] 38 U/L Normal 32-126 [facility] Comment on above: Performed By: #### C MPN, MGO ####[facility] (DEFAULT)[address] [place] [address] ALT [Catalytic activity/Vol] 12 U/L Normal 9-48 [facility] Comment on above: Performed By: #### C MPN, MGO ####[facility] (DEFAULT)[address] [place] [address] Anion gap [Moles/Vol] 12 mmol/L Normal 7-17 [facility] Comment on above: Performed By: #### C MPN, MGO ####[facility] (DEFAULT)[address] [place] [address] AST [Catalytic activity/Vol] 20 U/L Normal 14-40 [facility] Comment on above: Performed By: #### C MPN, MGO ####[facility] (DEFAULT)[address] [place] [address] Bilirubin [Mass/Vol] 0.6 mg/dL Normal <1.5 [facility] Comment on above: Performed By: #### C MPN, MGO ####[facility] (DEFAULT)[address] [place] [address] Calcium [Mass/Vol] 9.0 mg/dL Normal 8.6-10.5 [facility] Comment on above: Performed By: #### C MPN, MGO ####[facility] (DEFAULT)[address] [place] [address] Chloride [Moles/Vol] 108 mmol/L Normal 98-108 [facility] Comment on above: Performed By: #### C MPN, MGO ####[facility] (DEFAULT)[address] [place] [address] CO2 [Moles/Vol] 25 mmol/L Normal 22-30 [facility] Comment on above: Performed By: #### C MPN, MGO ####[facility] (DEFAULT)[address] [place] [address] Creatinine [Mass/Vol] 0.83 mg/dL Normal 0.50-1.20 [facility] Comment on above: Performed By: #### C MPN, MGO ####[facility] (DEFAULT)[address] [place] [address] EST GFR, >=60 Normal >=60 [facility] Comment on above: Performed By: #### C MPN, MGO ####[facility] (DEFAULT)[address] [place] [address] EST GFR,Non >=60 Normal >=60 [facility] Comment on above: Performed By: #### C MPN, MGO ####[facility] (DEFAULT)[address] [place] [address] Glucose [Mass/Vol] 86 mg/dL Normal 70-99 [facility] Comment on above: Performed By: #### C MPN, MGO ####[facility] (DEFAULT)[address] [place] [address] Osmolality [Osmolality] 291 mosm/kg Normal 278-305 [facility] Comment on above: Performed By: #### C MPN, MGO ####[facility] (DEFAULT)[address] [place] [address] Potassium [Moles/Vol] 3.8 mmol/L Normal 3.5-5.0 [facility] Comment on above: Performed By: #### C MPN, MGO ####[facility] (DEFAULT)[address] [place] [address] Protein [Mass/Vol] 6.2 g/dL Low 6.4-8.3 [facility] Comment on above: Performed By: #### C MPN, MGO ####[facility] (DEFAULT)[address] [place] [address] Sodium [Moles/Vol] 141 mmol/L Normal 133-143 [facility] Comment on above: Performed By: #### C MPN, MGO ####[facility] (DEFAULT)[address] [place] [address] Urea nitrogen [Mass/Vol] 7 mg/dL Normal 7-22 [facility] Comment on above: Performed By: #### C MPN, MGO ####[facility] (DEFAULT)[address] [place] [address] Urea nitrogen/Creatinine [Mass ratio] 8 mg/mg Normal [facility] Comment on above: Performed By: #### C MPN, MGO ####[facility] (DEFAULT)[address] [place] [address] CORTISOLon 07-18-2020 Cortisol 22.00 mcg/dL Normal 3.09-22.40 [facility] Comment on above: Order Comment: Draw post dose level one hour after Cosyntropin administration. Performed By: #### C HM7, HDLT, HFP #### [facility] (DEFAULT) [address] [place] [address] Cortisol 4.88 mcg/dL Normal 3.09-22.40 [facility] Comment on above: Order Comment: Draw pre dose level prior to Cosyntropin administration. Performed By: #### C ORT #### [facility] (DEFAULT) [address] [place] [address] Cortisol 4.47 mcg/dL Normal 3.09-22.40 [facility] Comment on above: Order Comment: For m edical purposes only. Positive results are unconfirmed unless otherwise noted. Performed By: #### 1 0DRUG #### [facility] (DEFAULT) [address] [place] [address] Cortisol 1.78 mcg/dL Low 3.09-22.40 [facility] Comment on above: Performed By: #### H EMOGC #### [facility] (DEFAULT) [address] [place] [address] FOLATE, SERUMon 07-18-2021 Folate 6.76 ng/mL Normal >5.38 [facility] Comment on above: Performed By: #### H EMOGC #### [facility] (DEFAULT) [address] [place] [address] MAGNESIUMon 07-18-2021 Magnesium [Mass/Vol] 1.7 mg/dL Normal 1.6-2.6 [facility] Comment on above: Performed By: #### C MPN, MGO ####[facility] (DEFAULT)[address] [place] [address] RENINon 07-18-2021 Renin, Direct 6.0 pg/mL Normal 4.2-52.2 [facility] Comment on above: Result Comment: Dire ct Renin Reference Range: Upright: >Age 40 (3.6-81.6 pg/mL) Supine: >Age 40 (2.5-45.1 pg/mL) Performed By: #### R ENIN ####[facility] (DEFAULT)[address] [place] [address] VITAMIN B1on 07-18-2021 THIAMIN, RBC 98 nmol/L Normal 78-185 [facility] Comment on above: Result Comment: Shyanne min supplementation within 24 hours prior to blood draw may affect the accuracy of the results. This test was developed and its analytical performance characteristics have been determined by [facility] [place], [place]. It has not been cleared or approved by the U.S. Food and Drug Administration. This assay has been validated pursuant to the CLIA regulations and is used for clinical purposes. Test Performed at: [facility] [address] Danny Sosa M.D., Ph.D.,Director of Laboratories Performed By: #### Y VITB1 ####[facility] (DEFAULT)[address] [address] VITAMIN D (25-HYDROXY,TOTAL) on 07-18-2021 25-OH Vitamin D Total 33.2 ng/mL Normal 30.0-100.0 [facility] Comment on above: Order Comment: For m edical purposes only. Positive results are unconfirmed unless otherwise noted. Result Comment: <10 Deficiency 10-29 Insufficiency 30-100 Optimal Level >100 Possible Toxicity Performed By: #### 1 0DRUG #### [facility] (DEFAULT) [address] [place] [address] XR ABDOMEN 1 VIEW PORTABLEon 07-18-2021 XR ABDOMEN 1 VIEW PORTABLE EXAM: XR ABDOMEN 1 VIEW PORTABLE, 07/18/2021 08:36 AM COMPARISON: Abdomen single view several previous exams, July 17, 2021, July 16, July 15, July 14, 2021 CLINICAL INDICATIONS: follow-up glass ingestion FINDINGS: Tubes: No enteric tubes are seen. Scattered on the exam, there is again evidence for numerous radiopaque and slightly faint radiopaque small and/or curvilinear objects noted. These are numerous and all appear to overlie portions of the colon and extending from the area of the hepatic flexure through the remainder of the colon. These are most numerous in the mid to distal descending colon and proximal sigmoid colon. The largest appear to be present in the distal sigmoid colon and rectum. The appearance is similar to July 17, 2021. There is been slight progress of some of the small radiopaque densities compared to July 17. There is no evidence for ileus or obstruction on these AP supine views. No obvious free air. No evidence of pneumatosis. The psoas margins are maintained. Regional included bones appear intact. Included lung bases in limited evaluation appear well-aerated. IMPRESSION: Numerous radiopaque objects are again noted and appear to overlie and the present within portions of the colon as detailed above. There is slight progress of some of the radiopacities compared to July 17, 2021. Normal [facility] CBC AND ELECTRONIC DIFFon Basophils (Bld) [#/Vol] 0.05 10*3/uL Normal 0.00-0.15 [facility] Comment on above: Performed By: #### 1 0DRUG #### [facility] (DEFAULT) [address] [place] [address] Basophils/100 WBC (Bld) 1.0 % Normal O [facility] Comment on above: Performed By: #### 1 0DRUG #### [facility] (DEFAULT) [address] [place] [address] DIFF STATUS Electronic Differential Normal [facility] Comment on above: Performed By: #### 1 0DRUG #### [facility] (DEFAULT) [address] [place] [address] Eosinophils (Bld) [#/Vol] 0.10 10*3/uL Normal 0.00-0.42 [facility] Comment on above: Performed By: #### 1 0DRUG #### [facility] (DEFAULT) [address] [place] [address] Eosinophils/100 WBC (Bld) 1.9 % Normal [facility] Comment on above: Performed By: #### 1 0DRUG #### [facility] (DEFAULT) [address] [place] [address] Hematocrit (Bld) [Volume fraction] 37.0 % Normal 34.9-44.3 [facility] Comment on above: Performed By: #### 1 0DRUG #### [facility] (DEFAULT) [address] [place] [address] Hemoglobin (Bld) [Mass/Vol] 12.5 g/dL Normal 11.4-15.2 [facility] Comment on above: Performed By: #### 1 0DRUG #### [facility] (DEFAULT) [address] [place] [address] Immature Grans % 0.2 % Normal [facility] Comment on above: Performed By: #### 1 0DRUG #### [facility] (DEFAULT) [address] [place] [address] Immature Grans Absolute <0.04 Normal <=0.09 O [facility] Comment on above: Performed By: #### 1 0DRUG #### [facility] (DEFAULT) [address] [place] [address] Lymphocytes (Bld) [#/Vol] 2.53 10*3/uL Normal 1.16-3.51 [facility] Comment on above: Performed By: #### 1 0DRUG #### [facility] (DEFAULT) [address] [place] [address] Lymphocytes/100 WBC (Bld) 48.3 % Normal [facility] Comment on above: Performed By: #### 1 0DRUG #### [facility] (DEFAULT) [address] [place] [address] MCV (RBC) [Entitic vol] 92.3 fL Normal 79.6-97.7 O [facility] Comment on above: Performed By: #### 1 0DRUG #### [facility] (DEFAULT) [address] [place] [address] Mean Cell Hgb 31.2 pg Normal 25.9-33.9 [facility] Comment on above: Performed By: #### 1 0DRUG #### [facility] (DEFAULT) [address] [place] [address] Mean Cell Hgb Conc 33.8 g/dL Normal 31.4-35.9 [facility] Comment on above: Performed By: #### 1 0DRUG #### [facility] (DEFAULT) [address] [place] [address] Monocytes (Bld) [#/Vol] 0.57 10*3/uL Normal 0.22-0.87 [facility] Comment on above: Performed By: #### 1 0DRUG #### [facility] (DEFAULT) [address] [place] [address] Monocytes/100 WBC (Bld) 10.9 % Normal O [facility] Comment on above: Performed By: #### 1 0DRUG #### [facility] (DEFAULT) [address] [place] [address] Nucleated RBC 0.0 /100 WBC Normal <=0.2 [facility] Comment on above: Performed By: #### 1 0DRUG #### [facility] (DEFAULT) [address] [place] [address] Platelet mean volume (Bld) [Entitic vol] 9.9 fL Normal 8.5-12.2 [facility] Comment on above: Performed By: #### 1 0DRUG #### [facility] (DEFAULT) [address] [place] [address] Platelets (Bld) [#/Vol] 203 10*3/uL Normal 150-393 [facility] Comment on above: Performed By: #### 1 0DRUG #### [facility] (DEFAULT) [address] [place] [address] RBC (Bld) [#/Vol] 4.01 10*6/uL Normal 3.91-5.04 [facility] Comment on above: Performed By: #### 1 0DRUG #### [facility] (DEFAULT) [address] [place] [address] RBC Distribution 12.7 % Normal 10.8-14.9 [facility] Comment on above: Performed By: #### 1 0DRUG #### [facility] (DEFAULT) [address] [place] [address] Segs + Bands Auto 37.7 % Normal [facility] Comment on above: Performed By: #### 1 0DRUG #### [facility] (DEFAULT) [address] [place] [address] Segs + Bands,Absolute Auto 1.98 K/uL Normal 1.64-7.28 [facility] Comment on above: Performed By: #### 1 0DRUG #### [facility] (DEFAULT) [address] [place] [address] WBC (Bld) [#/Vol] 5.24 10*3/uL Normal 3.99-11.19 [facility] Comment on above: Performed By: #### 1 0DRUG #### [facility] (DEFAULT) [address] [place] [address] CHEM 7 (LYTES,BUN,CREA,GLUC) on 07-17-2021 Anion gap [Moles/Vol] 12 mmol/L Normal 7-17 [facility] Comment on above: Performed By: #### C HM7, HDLT, HFP #### [facility] (DEFAULT) [address] [place] [address] Chloride [Moles/Vol] 110 mmol/L High 98-108 [facility] Comment on above: Performed By: #### C HM7, HDLT, HFP #### [facility] (DEFAULT) [address] [place] [address] CO2 [Moles/Vol] 20 mmol/L Low 22-30 [facility] Comment on above: Performed By: #### C HM7, HDLT, HFP #### [facility] (DEFAULT) [address] [place] [address] Creatinine [Mass/Vol] 1.02 mg/dL Normal 0.50-1.20 [facility] Comment on above: Performed By: #### C HM7, HDLT, HFP #### [facility] (DEFAULT) [address] [place] [address] EST GFR, >=60 Normal >=60 [facility] Comment on above: Performed By: #### C HM7, HDLT, HFP #### [facility] (DEFAULT) [address] [place] [address] EST GFR,Non >=60 Normal >=60 [facility] Comment on above: Performed By: #### C HM7, HDLT, HFP #### [facility] (DEFAULT) [address] [place] [address] Glucose [Mass/Vol] 88 mg/dL Normal 70-99 [facility] Comment on above: Performed By: #### C HM7, HDLT, HFP #### [facility] (DEFAULT) [address] [place] [address] Osmolality [Osmolality] 289 mosm/kg Normal 278-305 [facility] Comment on above: Performed By: #### C HM7, HDLT, HFP #### [facility] (DEFAULT) [address] [place] [address] Potassium [Moles/Vol] 3.4 mmol/L Low 3.5-5.0 [facility] Comment on above: Performed By: #### C HM7, HDLT, HFP #### [facility] (DEFAULT) [address] [place] [address] Sodium [Moles/Vol] 139 mmol/L Normal 133-143 [facility] Comment on above: Performed By: #### C HM7, HDLT, HFP #### [facility] (DEFAULT) [address] [place] [address] Urea nitrogen [Mass/Vol] 13 mg/dL Normal 7-22 [facility] Comment on above: Performed By: #### C HM7, HDLT, HFP #### [facility] (DEFAULT) [address] [place] [address] Urea nitrogen/Creatinine [Mass ratio] 13 mg/mg Normal [facility] Comment on above: Performed By: #### C HM7, HDLT, HFP #### [facility] (DEFAULT) [address] [place] [address] LACTATE, BLOODon 07-17-2021 Lactate, Blood 1.6 mmol/L Normal 0.5-1.6 [facility] Comment on above: Performed By: #### H EMO #### [facility] (DEFAULT) [address] [place] [address] PHOSPHATE, INORGANICon 07-17 Phosphorous 3.8 mg/dL Normal 2.2-4.6 [facility] Comment on above: Performed By: #### C HM7, HDLT, HFP #### [facility] (DEFAULT) [address] [place] [address] PT,INR,PTTon 07-17-2021 aPTT Coag (Bld) [Time] 29.0 s Normal 24.0-34.3 [facility] Comment on above: Performed By: #### L AB980 #### [facility] (DEFAULT) [address] [place] [address] INR Coag (PPP) [Relative time] 1.1 {INR} Normal 0.9-1.1 [facility] Comment on above: Performed By: #### L AB980 #### [facility] (DEFAULT) [address] [address] PT Coag (PPP) [Time] 13.6 s Normal 11.9-14.2 [facility] Comment on above: Performed By: #### L AB980 #### [facility] (DEFAULT) [address] [address] VITAMIN B12on 07-17-2021 Cobalamin (Vitamin B12) [Mass/Vol] 667 pg/mL Normal 211-911 [facility] Comment on above: Result Comment: Test ing of Methylmalonic Acid and Intrinsic Factor Blocking Antibody are recommended if clinical suspicion for pernicious anemia due to B12 deficiency is high for patients with intermediate B12 levels (211 to 400 pg/mL) to rule out spurious heterophile antibodies. Performed By: #### C HM7, HDLT, HFP #### [facility] (DEFAULT) [address] [place] [address] XR ABDOMEN 1 VIEWon 07-17-20 XR ABDOMEN 1 VIEW EXAM: XR ABDOMEN 1 VIEW, 07/17/2021 05:02 AM COMPARISON: July 16, 2021 CLINICAL INDICATIONS: follow up metalic objects FINDINGS: Tubes: None. Numerous faintly radiopaque, small curvilinear structures are distributed along the distal ascending colon and hepatic flexure as well as at the splenic flexure and proximal descending colon. There are additional small radiopaque foreign bodies overlying the sigmoid colon and proximal rectum. No pneumoperitoneum. No findings of obstruction. IMPRESSION: Numerous radiopaque foreign bodies are probably all within the colon. Normal [facility] CBC,PLATELETSon 07-16-2021 Hematocrit (Bld) [Volume fraction] 39.7 % Normal 34.9-44.3 [facility] Comment on above: Performed By: #### C HM7, HDLT, HFP #### [facility] (DEFAULT) [address] [place] [address] 87020 Hemoglobin (Bld) [Mass/Vol] 13.9 g/dL Normal 11.4-15.2 [facility] Comment on above: Performed By: #### C HM7, HDLT, HFP #### [facility] (DEFAULT) [address] [place] [address] 94030 MCV (RBC) [Entitic vol] 88.8 fL Normal 79.6-97.7 [facility] Comment on above: Performed By: #### C HM7, HDLT, HFP #### [facility] (DEFAULT) [address] [place] [address] 58465 Mean Cell Hgb 31.1 pg Normal 25.9-33.9 [facility] Comment on above: Performed By: #### C HM7, HDLT, HFP #### [facility] (DEFAULT) [address] [place] [address] 84620 Mean Cell Hgb Conc 35.0 g/dL Normal 31.4-35.9 [facility] Comment on above: Performed By: #### C HM7, HDLT, HFP #### [facility] (DEFAULT) [address] [place] [address] 15756 Platelet mean volume (Bld) [Entitic vol] 9.7 fL Normal 8.5-12.2 [facility] Comment on above: Performed By: #### C HM7, HDLT, HFP #### [facility] (DEFAULT) [address] [place] [address] 42832 Platelets (Bld) [#/Vol] 220 10*3/uL Normal 150-393 [facility] Comment on above: Performed By: #### C HM7, HDLT, HFP #### [facility] (DEFAULT) [address] [place] [address] 16525 RBC (Bld) [#/Vol] 4.47 10*6/uL Normal 3.91-5.04 [facility] Comment on above: Performed By: #### C HM7, HDLT, HFP #### [facility] (DEFAULT) [address] [place] [address] 88385 RBC Distribution 12.6 % Normal 10.8-14.9 [facility] Comment on above: Performed By: #### Nahomi HM7, HDLT, HFP #### [facility] (DEFAULT) [address] [place] [address] 40889 WBC (Bld) [#/Vol] 4.80 10*3/uL Normal 3.99-11.19 [facility] Comment on above: Performed By: #### Nahomi HM7, HDLT, HFP #### [facility] (DEFAULT) [address] [place] [address] 74629 CHEM 7 (LYTES,BUN,CREA,GLUC) on 07-16-2021 Anion gap [Moles/Vol] 11 mmol/L Normal 7-17 [facility] Comment on above: Performed By: #### Nahomi HM7, HDLT, HFP #### [facility] (DEFAULT) [address] [place] [address] 76363 Chloride [Moles/Vol] 110 mmol/L High 98-108 [facility] Comment on above: Performed By: #### Nahomi HM7, HDLT, HFP #### [facility] (DEFAULT) [address] [place] [address] 19663 CO2 [Moles/Vol] 22 mmol/L Normal 22-30 [facility] Comment on above: Performed By: #### Nahomi HM7, HDLT, HFP #### [facility] (DEFAULT) [address] [place] [address] 09463 Creatinine [Mass/Vol] 0.85 mg/dL Normal 0.50-1.20 [facility] Comment on above: Performed By: #### C HM7, HDLT, HFP #### [facility] (DEFAULT) [address] [place] [address] 32729 EST GFR, >=60 Normal >=60 [facility] Comment on above: Performed By: #### C HM7, HDLT, HFP #### [facility] (DEFAULT) [address] [place] [address] 73106 EST GFR,Non >=60 Normal >=60 [facility] Comment on above: Performed By: #### C HM7, HDLT, HFP #### [facility] (DEFAULT) [address] [place] [address] 17729 Glucose [Mass/Vol] 109 mg/dL High 70-99 [facility] Comment on above: Performed By: #### C HM7, HDLT, HFP #### [facility] (DEFAULT) [address] [place] [address] 37245 Osmolality [Osmolality] 290 mosm/kg Normal 278-305 [facility] Comment on above: Performed By: #### C HM7, HDLT, HFP #### [facility] (DEFAULT) [address] [place] [address] 91886 Potassium [Moles/Vol] 3.5 mmol/L Normal 3.5-5.0 [facility] Comment on above: Performed By: #### C HM7, HDLT, HFP #### [facility] (DEFAULT) [address] [place] [address] 56085 Sodium [Moles/Vol] 139 mmol/L Normal 133-143 [facility] Comment on above: Performed By: #### C HM7, HDLT, HFP #### [facility] (DEFAULT) [address] [place] [address] 30067 Urea nitrogen [Mass/Vol] 12 mg/dL Normal 7-22 [facility] Comment on above: Performed By: #### C HM7, HDLT, HFP #### [facility] (DEFAULT) [address] [address] Urea nitrogen/Creatinine [Mass ratio] 14 mg/mg Normal [facility] Comment on above: Performed By: #### C HM7, HDLT, HFP #### [facility] (DEFAULT) [address] [place] [address] 94477 XR ABDOMEN 1 VIEW PORTABLEon 07-16-2021 XR ABDOMEN 1 VIEW PORTABLE EXAM: XR ABDOMEN 1 VIEW PORTABLE, 07/16/2021 09:42 AM COMPARISON: Abdominal radiograph dated July 15, 2021. CLINICAL INDICATIONS: follow-up glass ingestion FINDINGS: Tubes: None. The lung bases are not imaged. Multiple opacities are seen overlying the right hemiabdomen, presumably in the ascending colon. There is a nonobstructive bowel gas pattern. No obvious free air. Osseous structures are intact. IMPRESSION: Multiple opacities overlie the right hemiabdomen, presumably in the ascending colon. Normal [facility] CBC,PLATELETSon 07-15-2021 Hematocrit (Bld) [Volume fraction] 40.4 % Normal 34.9-44.3 [facility] Comment on above: Performed By: #### 1 0DRUG #### [facility] (DEFAULT) [address] [address] Hemoglobin (Bld) [Mass/Vol] 13.7 g/dL Normal 11.4-15.2 [facility] Comment on above: Performed By: #### 1 0DRUG #### [facility] (DEFAULT) [address] [address] MCV (RBC) [Entitic vol] 92.4 fL Normal 79.6-97.7 [facility] Comment on above: Performed By: #### 1 0DRUG #### [facility] (DEFAULT) [address] [address] Mean Cell Hgb 31.4 pg Normal 25.9-33.9 [facility] Comment on above: Performed By: #### 1 0DRUG #### [facility] (DEFAULT) [address] [place] [address] 64491 Mean Cell Hgb Conc 33.9 g/dL Normal 31.4-35.9 [facility] Comment on above: Performed By: #### 1 0DRUG #### [facility] (DEFAULT) [address] [place] [address] 44371 Platelet mean volume (Bld) [Entitic vol] 9.6 fL Normal 8.5-12.2 [facility] Comment on above: Performed By: #### 1 0DRUG #### [facility] (DEFAULT) [address] [place] [address] 84786 Platelets (Bld) [#/Vol] 208 10*3/uL Normal 150-393 [facility] Comment on above: Performed By: #### 1 0DRUG #### [facility] (DEFAULT) [address] [place] [address] 47031 RBC (Bld) [#/Vol] 4.37 10*6/uL Normal 3.91-5.04 [facility] Comment on above: Performed By: #### 1 0DRUG #### [facility] (DEFAULT) [address] [address] RBC Distribution 12.0 % Normal 10.8-14.9 [facility] Comment on above: Performed By: #### 1 0DRUG #### [facility] (DEFAULT) [address] [address] WBC (Bld) [#/Vol] 4.62 10*3/uL Normal 3.99-11.19 [facility] Comment on above: Performed By: #### 1 0DRUG #### [facility] (DEFAULT) [address] [address] CHEM 7 (LYTES,BUN,CREA,GLUC) on 07-15-2021 Anion gap [Moles/Vol] 15 mmol/L Normal 7-17 [facility] Comment on above: Performed By: #### C ORT #### [facility] (DEFAULT) [address] [place] [address] 30440 Chloride [Moles/Vol] 109 mmol/L High 98-108 [facility] Comment on above: Performed By: #### C ORT #### [facility] (DEFAULT) [address] [place] [address] 41977 CO2 [Moles/Vol] 16 mmol/L Low 22-30 [facility] Comment on above: Performed By: #### C ORT #### [facility] (DEFAULT) [address] [place] [address] 46476 Creatinine [Mass/Vol] 0.89 mg/dL Normal 0.50-1.20 [facility] Comment on above: Performed By: #### C ORT #### [facility] (DEFAULT) [address] [place] [address] 93033 EST GFR, >=60 Normal >=60 [facility] Comment on above: Performed By: #### C ORT #### [facility] (DEFAULT) [address] [place] [address] 20321 EST GFR,Non >=60 Normal >=60 [facility] Comment on above: Performed By: #### C ORT #### [facility] (DEFAULT) [address] [place] [address] 24168 Glucose [Mass/Vol] 56 mg/dL Low 70-99 [facility] Comment on above: Performed By: #### C ORT #### [facility] (DEFAULT) [address] [place] [address] 00801 Osmolality [Osmolality] 281 mosm/kg Normal 278-305 [facility] Comment on above: Performed By: #### C ORT #### [facility] (DEFAULT) [address] [place] [address] 99829 Potassium [Moles/Vol] 3.9 mmol/L Normal 3.5-5.0 [facility] Comment on above: Performed By: #### C ORT #### [facility] (DEFAULT) [address] [place] [address] Sodium [Moles/Vol] 136 mmol/L Normal 133-143 [facility] Comment on above: Performed By: #### C ORT #### [facility] (DEFAULT) [address] [place] [address] Urea nitrogen [Mass/Vol] 9 mg/dL Normal 7-22 [facility] Comment on above: Performed By: #### C ORT #### [facility] (DEFAULT) [address] [place] [address] 49562 Urea nitrogen/Creatinine [Mass ratio] 10 mg/mg Normal [facility] Comment on above: Performed By: #### C ORT #### [facility] (DEFAULT) [address] [place] [address] 70342 XR ABDOMEN 1 VIEW PORTABLEon 07-15-2021 XR ABDOMEN 1 VIEW PORTABLE EXAM: XR ABDOMEN 1 VIEW PORTABLE, 07/15/2021 06:31 AM COMPARISON: Abdominal radiograph dated July 14, 2021. CLINICAL INDICATIONS: FB ingestion FINDINGS: Tubes: None. There is a nonobstructive bowel gas pattern. Faint opacities are seen overlying the ascending colon/hepatic flexure in the right hemiabdomen. Additional opacities are seen overlying the sigmoid flexure and proximal descending colon in the left hemiabdomen. No foreign bodies are seen in the deep pelvis. No free air. No evidence of organomegaly or mass effect. Osseous structures are intact. The visualized lung bases are clear. IMPRESSION: Faint opacities appear to be within the colon. No evidence of bowel obstruction or perforation. Normal [facility] CBC,PLATELETSon 07-14-2021 Hematocrit (Bld) [Volume fraction] 41.2 % Normal 34.9-44.3 [facility] Comment on above: Performed By: #### C ORT #### [facility] (DEFAULT) [address] [place] [address] 25241 Hemoglobin (Bld) [Mass/Vol] 13.9 g/dL Normal 11.4-15.2 [facility] Comment on above: Performed By: #### C ORT #### [facility] (DEFAULT) [address] [place] [address] 89367 MCV (RBC) [Entitic vol] 92.2 fL Normal 79.6-97.7 O [facility] Comment on above: Performed By: #### C ORT #### [facility] (DEFAULT) [address] [place] [address] 67503 Mean Cell Hgb 31.1 pg Normal 25.9-33.9 [facility] Comment on above: Performed By: #### C ORT #### [facility] (DEFAULT) [address] [place] [address] 53550 Mean Cell Hgb Conc 33.7 g/dL Normal 31.4-35.9 [facility] Comment on above: Performed By: #### C ORT #### [facility] (DEFAULT) [address] [place] [address] 32793 Platelet mean volume (Bld) [Entitic vol] 9.7 fL Normal 8.5-12.2 [facility] Comment on above: Performed By: #### C ORT #### [facility] (DEFAULT) [address] [place] [address] 73788 Platelets (Bld) [#/Vol] 216 10*3/uL Normal 150-393 [facility] Comment on above: Performed By: #### C ORT #### [facility] (DEFAULT) [address] [place] [address] 08680 RBC (Bld) [#/Vol] 4.47 10*6/uL Normal 3.91-5.04 [facility] Comment on above: Performed By: #### C ORT #### [facility] (DEFAULT) [address] [place] [address] 96350 RBC Distribution 12.2 % Normal 10.8-14.9 [facility] Comment on above: Performed By: #### C ORT #### [facility] (DEFAULT) [address] [place] [address] 61842 WBC (Bld) [#/Vol] 5.28 10*3/uL Normal 3.99-11.19 [facility] Comment on above: Performed By: #### C ORT #### [facility] (DEFAULT) [address] [place] [address] 51411 CHEM 7 (LYTES,BUN,CREA,GLUC) on 07-14-2021 Anion gap [Moles/Vol] 13 mmol/L Normal 7-17 [facility] Comment on above: Performed By: #### C HM7, MGO ####[facility] (DEFAULT)[address] [place] [address] 49009 Chloride [Moles/Vol] 109 mmol/L High 98-108 [facility] Comment on above: Performed By: #### C HM7, MGO ####[facility] (DEFAULT)[address] [place] [address] 37388 CO2 [Moles/Vol] 21 mmol/L Low 22-30 [facility] Comment on above: Performed By: #### C HM7, MGO ####[facility] (DEFAULT)[address] [place] [address] 29741 Creatinine [Mass/Vol] 0.73 mg/dL Normal 0.50-1.20 [facility] Comment on above: Performed By: #### C HM7, MGO ####[facility] (DEFAULT)[address] [place] [address] 80139 EST GFR, >=60 Normal >=60 [facility] Comment on above: Performed By: #### C HM7, MGO ####[facility] (DEFAULT)[address] [place] [address] EST GFR,Non >=60 Normal >=60 [facility] Comment on above: Performed By: #### C HM7, MGO ####[facility] (DEFAULT)[address] [place] [address] Glucose [Mass/Vol] 57 mg/dL Low 70-99 [facility] Comment on above: Performed By: #### C HM7, MGO ####[facility] (DEFAULT)[address] [place] [address] Osmolality [Osmolality] 286 mosm/kg Normal 278-305 [facility] Comment on above: Performed By: #### C HM7, MGO ####[facility] (DEFAULT)[address] [place] [address] Potassium [Moles/Vol] 4.0 mmol/L Normal 3.5-5.0 [facility] Comment on above: Performed By: #### C HM7, MGO ####[facility] (DEFAULT)[address] [place] [address] Sodium [Moles/Vol] 139 mmol/L Normal 133-143 [facility] Comment on above: Performed By: #### C HM7, MGO ####[facility] (DEFAULT)[address] [place] [address] Urea nitrogen [Mass/Vol] 8 mg/dL Normal 7-22 [facility] Comment on above: Performed By: #### C HM7, MGO ####[facility] (DEFAULT)[address] [place] [address] Urea nitrogen/Creatinine [Mass ratio] 11 mg/mg Normal [facility] Comment on above: Performed By: #### C HM7, MGO ####[facility] (DEFAULT)[address] [place] [address] MAGNESIUMon 09-03-2021 Magnesium [Mass/Vol] 1.6 mg/dL Normal 1.6-2.6 [facility] Comment on above: Performed By: #### C HM7, MGO ####[facility] (DEFAULT)[address] [place] [address] XR ABDOMEN 1 VIEW PORTABLEon 07-14-2021 XR ABDOMEN 1 VIEW PORTABLE EXAM: XR ABDOMEN 1 VIEW PORTABLE, 07/14/2021 09:10 AM COMPARISON: July 13, 2021 CLINICAL INDICATIONS: foreign bodies FINDINGS: Tubes: None. Decreased number of faintly radiopaque foreign bodies, with a few subtle clustered in the right upper quadrant, probably within the hepatic flexure and a few in the pelvis, likely in the distal sigmoid or rectum. There are also small number overlying the proximal transverse colon. No pneumoperitoneum. No obstruction. IMPRESSION: Few remaining faintly radiopaque foreign bodies, most likely clustered at the hepatic flexure, in the proximal transverse colon, and in the rectum. Normal [facility] XR ABDOMEN 1 VIEW PORTABLEon 07-13-2021 XR ABDOMEN 1 VIEW PORTABLE EXAM: XR ABDOMEN 1 VIEW PORTABLE, 07/13/2021 12:26 PM COMPARISON: July 12, 2021 CLINICAL INDICATIONS: ingestion of glass FINDINGS: Tubes: None. No definite pneumoperitoneum. Cluster of faintly radiopaque foreign bodies in the right mid abdomen, impossible to localize with certainty but potentially in the ascending colon or distal small bowel. Additional radiopaque foreign bodies overlie the pelvis, potentially in the rectum but also not localized with certainty. Additional very tiny radiopaque foreign bodies overlie the left mid abdomen, potentially in the descending colon. Normal caliber the small and large bowel. IMPRESSION: Numerous faintly radiopaque foreign bodies as detailed, with no findings of obstruction or perforation. Normal [facility] CBC,PLATELETSon 07-12-2021 Hematocrit (Bld) [Volume fraction] 38.6 % Normal 34.9-44.3 [facility] Comment on above: Performed By: #### G CSCRN #### [facility] (DEFAULT) [address] [place] [address] 36035 Hemoglobin (Bld) [Mass/Vol] 13.4 g/dL Normal 11.4-15.2 [facility] Comment on above: Performed By: #### G CSCRN #### [facility] (DEFAULT) [address] [place] [address] 55220 MCV (RBC) [Entitic vol] 92.3 fL Normal 79.6-97.7 [facility] Comment on above: Performed By: #### G CSCRN #### [facility] (DEFAULT) [address] [address] Mean Cell Hgb 32.1 pg Normal 25.9-33.9 [facility] Comment on above: Performed By: #### G CSCRN #### [facility] (DEFAULT) [address] [address] Mean Cell Hgb Conc 34.7 g/dL Normal 31.4-35.9 [facility] Comment on above: Performed By: #### G CSCRN #### [facility] (DEFAULT) [address] [address] Platelet mean volume (Bld) [Entitic vol] 9.5 fL Normal 8.5-12.2 [facility] Comment on above: Performed By: #### G CSCRN #### [facility] (DEFAULT) [address] [address] Platelets (Bld) [#/Vol] 222 10*3/uL Normal 150-393 [facility] Comment on above: Performed By: #### G CSCRN #### [facility] (DEFAULT) [address] [address] RBC (Bld) [#/Vol] 4.18 10*6/uL Normal 3.91-5.04 [facility] Comment on above: Performed By: #### G CSCRN #### [facility] (DEFAULT) [address] [place] [address] 70591 RBC Distribution 12.6 % Normal 10.8-14.9 [facility] Comment on above: Performed By: #### G CSCRN #### [facility] (DEFAULT) [address] [place] [address] 65239 WBC (Bld) [#/Vol] 7.35 10*3/uL Normal 3.99-11.19 [facility] Comment on above: Performed By: #### G CSCRN #### [facility] (DEFAULT) [address] [place] [address] 89823 CHEM 7 (LYTES,BUN,CREA,GLUC) on 07-12-2021 Anion gap [Moles/Vol] 11 mmol/L Normal 7-17 [facility] Comment on above: Performed By: #### C HM7 ####[facility] (DEFAULT)[address] [place] [address] 17509 Chloride [Moles/Vol] 109 mmol/L High 98-108 [facility] Comment on above: Performed By: #### C HM7 ####[facility] (DEFAULT)[address] [place] [address] 41486 CO2 [Moles/Vol] 21 mmol/L Low 22-30 [facility] Comment on above: Performed By: #### C HM7 ####[facility] (DEFAULT)[address] [place] [address] 03655 Creatinine [Mass/Vol] 0.69 mg/dL Normal 0.50-1.20 [facility] Comment on above: Performed By: #### C HM7 ####[facility] (DEFAULT)[address] [place] [address] 06184 EST GFR, >=60 Normal >=60 [facility] Comment on above: Performed By: #### C HM7 ####[facility] (DEFAULT)[address] [place] [address] 82892 EST GFR,Non >=60 Normal >=60 [facility] Comment on above: Performed By: #### C HM7 ####[facility] (DEFAULT)[address] Counts [facility] [address] [facility] [place] [address] Glucose [Mass/Vol] 71 mg/dL Normal 70-99 [facility] Comment on above: Performed By: #### C HM7 ####[facility] (DEFAULT)[address] Counts include [address] [facility] [place] [address] Osmolality [Osmolality] 283 mosm/kg Normal 278-305 [facility] Comment on above: Performed By: #### C HM7 ####[facility] (DEFAULT)[address] Counts include [address] [place] [address] Potassium [Moles/Vol] 3.6 mmol/L Normal 3.5-5.0 [facility] Comment on above: Performed By: #### C HM7 ####[facility] (DEFAULT)[address] Counts include [address] [place] [address] Sodium [Moles/Vol] 137 mmol/L Normal 133-143 [facility] Comment on above: Performed By: #### C HM7 ####[facility] (DEFAULT)[address] [place] [address] Urea nitrogen [Mass/Vol] 7 mg/dL Normal 7-22 [facility] Comment on above: Performed By: #### C HM7 ####[facility] (DEFAULT)[address] [place] [address] Urea nitrogen/Creatinine [Mass ratio] 10 mg/mg Normal [facility] Comment on above: Performed By: #### C HM7 ####[facility] (DEFAULT)[address] [place] [address] LACTATE, BLOODon 07-12-2021 Lactate, Blood 1.1 mmol/L Normal 0.5-1.6 [facility] Comment on above: Performed By: #### C ORT #### [facility] (DEFAULT) [address] [place] [address] XR ABDOMEN 1 VIEWon 07-12-20 XR ABDOMEN 1 VIEW EXAM: XR ABDOMEN 1 VIEW, 07/12/2021 10:18 AM COMPARISON: July 11, 2021 CLINICAL INDICATIONS: assess location of FB FINDINGS: Tubes: None. The bowel gas pattern is normal, with no findings of obstruction. No definite pneumoperitoneum. Numerous faintly radiopaque, irregularly-shaped foreign bodies, some of which are clustered along the right abdomen, potentially in the ascending and proximal transverse colon but impossible to localize precisely. Others are clustered in the left lower quadrant/left mid abdomen, potentially in the distal descending or sigmoid colon but also impossible to precisely localize. Several others overlie the rectum and also the left pelvis. One of the larger structures measures approximately 1.9 x 1.1 cm and overlies the right upper quadrant, potentially in the proximal transverse colon. IMPRESSION: Numerous faintly radiopaque and small/irregularly shaped foreign bodies, exact localization of which is impossible. These are most likely distributed throughout the colon. No findings of obstruction or perforation. Normal [facility] XR ABDOMEN 1 VIEW PORTABLEon 07-12-2021 XR ABDOMEN 1 VIEW PORTABLE EXAM: XR ABDOMEN 1 VIEW PORTABLE, 07/12/2021 00:22 AM COMPARISON: Same day. CLINICAL INDICATIONS: Concern for perforation of abdominal viscus FINDINGS: Tubes: None. No free air seen under the diaphragms on this upright view. The bowel gas pattern is nonobstructed. Some of the known radiopaque foreign bodies within the bowel are demonstrated within the [id number] of the upper abdomen. Visualized lung bases are unremarkable. IMPRESSION: No radiographic evidence of free peritoneal air. Normal [facility] CBC,PLATELETSon 07-11-2021 Hematocrit (Bld) [Volume fraction] 40.0 % Normal 34.9-44.3 [facility] Comment on above: Performed By: #### C ORT #### [facility] (DEFAULT) [address] [place] [address] 11705 Hemoglobin (Bld) [Mass/Vol] 13.9 g/dL Normal 11.4-15.2 [facility] Comment on above: Performed By: #### C ORT #### [facility] (DEFAULT) [address] [place] [address] 59449 MCV (RBC) [Entitic vol] 91.5 fL Normal 79.6-97.7 [facility] Comment on above: Performed By: #### C ORT #### [facility] (DEFAULT) [address] [place] [address] 13394 Mean Cell Hgb 31.8 pg Normal 25.9-33.9 [facility] Comment on above: Performed By: #### C ORT #### [facility] (DEFAULT) [address] [place] [address] 58433 Mean Cell Hgb Conc 34.8 g/dL Normal 31.4-35.9 [facility] Comment on above: Performed By: #### C ORT #### [facility] (DEFAULT) [address] [place] [address] 59688 Platelet mean volume (Bld) [Entitic vol] 9.4 fL Normal 8.5-12.2 [facility] Comment on above: Performed By: #### C ORT #### [facility] (DEFAULT) [address] [place] [address] 78938 Platelets (Bld) [#/Vol] 256 10*3/uL Normal 150-393 [facility] Comment on above: Performed By: #### C ORT #### [facility] (DEFAULT) [address] [place] [address] 38895 RBC (Bld) [#/Vol] 4.37 10*6/uL Normal 3.91-5.04 [facility] Comment on above: Performed By: #### C ORT #### [facility] (DEFAULT) [address] [place] [address] 03159 RBC Distribution 12.8 % Normal 10.8-14.9 [facility] Comment on above: Performed By: #### C ORT #### [facility] (DEFAULT) [address] [place] [address] 37813 WBC (Bld) [#/Vol] 7.12 10*3/uL Normal 3.99-11.19 [facility] Comment on above: Performed By: #### C ORT #### [facility] (DEFAULT) [address] [place] [address] 48804 CHEM 7 (LYTES,BUN,CREA,GLUC) on 07-11-2021 Anion gap [Moles/Vol] 6 mmol/L Low 7-17 [facility] Comment on above: Performed By: #### H EMOGC #### [facility] (DEFAULT) [address] [place] [address] 48511 Chloride [Moles/Vol] 110 mmol/L High 98-108 [facility] Comment on above: Performed By: #### H EMOGC #### [facility] (DEFAULT) [address] [place] [address] 87053 CO2 [Moles/Vol] 26 mmol/L Normal 22-30 [facility] Comment on above: Performed By: #### H EMOGC #### [facility] (DEFAULT) [address] [place] [address] 41826 Creatinine [Mass/Vol] 0.78 mg/dL Normal 0.50-1.20 [facility] Comment on above: Performed By: #### H EMOGC #### [facility] (DEFAULT) [address] [place] [address] 72938 EST GFR, >=60 Normal >=60 [facility] Comment on above: Performed By: #### H EMOGC #### [facility] (DEFAULT) [address] [address] EST GFR,Non >=60 Normal >=60 [facility] Comment on above: Performed By: #### H EMOGC #### [facility] (DEFAULT) [address] [place] [address] 91254 Glucose [Mass/Vol] 99 mg/dL Normal 70-99 [facility] Comment on above: Performed By: #### H EMOGC #### [facility] (DEFAULT) [address] [place] [address] 59281 Osmolality [Osmolality] 288 mosm/kg Normal 278-305 [facility] Comment on above: Performed By: #### H EMOGC #### [facility] (DEFAULT) [address] [place] [address] 95641 Potassium [Moles/Vol] 3.9 mmol/L Normal 3.5-5.0 [facility] Comment on above: Performed By: #### H EMOGC #### [facility] (DEFAULT) [address] [place] [address] 96286 Sodium [Moles/Vol] 138 mmol/L Normal 133-143 [facility] Comment on above: Performed By: #### H EMOGC #### [facility] (DEFAULT) [address] [place] [address] 57603 Urea nitrogen [Mass/Vol] 10 mg/dL Normal 7-22 [facility] Comment on above: Performed By: #### H EMOGC #### [facility] (DEFAULT) [address] [place] [address] 93278 Urea nitrogen/Creatinine [Mass ratio] 13 mg/mg Normal [facility] Comment on above: Performed By: #### H EMOGC #### [facility] (DEFAULT) [address] [place] [address] 08362 CHLAMYDIA & GONORRHEA AMPLIF IED PROBEon 07-11-2021 Chlamydia trachomatis Amplified Probe Not detected Normal Not Detected, Indeterminate [facility] Comment on above: Order Comment: This test was performed using a real time PCR assay. Performed By: #### G CSCRN #### [facility] (DEFAULT) [address] [place] [address] 96656 Neisseria gonorrhea Amplified Probe Not detected Normal Not Detected [facility] Comment on above: Order Comment: This test was performed using a real time PCR assay. Performed By: #### G CSCRN #### [facility] (DEFAULT) [address] [address] Chlamydia trachomatis Amplified Probe Not detected Normal Not Detected, Indeterminate [facility] Comment on above: Order Comment: This test was performed using a real time PCR assay. Performed By: #### C HM7, HDLT, HFP #### [facility] (DEFAULT) [address] [place] [address] 63824 Neisseria gonorrhea Amplified Probe Not detected Normal Not Detected [facility] Comment on above: Order Comment: This test was performed using a real time PCR assay. Performed By: #### C HM7, HDLT, HFP #### [facility] (DEFAULT) [address] [address] Chlamydia trachomatis Amplified Probe Not detected Normal Not Detected, Indeterminate [facility] Comment on above: Order Comment: This test was performed using a real time PCR assay.This test was developed and its performance characteristics determined by [facility]. It has not been cleared or approved by the FDA. The laboratory is regulated under CLIA as qualified to perform high-complexity testing. It should not be regarded as investigational or for research. Result Comment: The limit of detection for Chlamydia trachomatis is 32 copies/assay. Performed By: #### L [id number] #### [facility] (DEFAULT) [address] [address] Neisseria gonorrhea Amplified Probe Not detected Normal Not Detected [facility] Comment on above: Order Comment: This test was performed using a real time PCR assay.This test was developed and its performance characteristics determined by [facility]. It has not been cleared or approved by the FDA. The laboratory is regulated under CLIA as qualified to perform high-complexity testing. It should not be regarded as investigational or for research. Result Comment: The limit of detection for Neisseria gonorrhoeae is 84 copies/assay. Performed By: #### L [id number] #### [facility] (DEFAULT) [address] [address] DRUGS OF ABUSE SCREEN 10, UR INEon 07-11-2021 Amphetamine/Methampheta mine Negative Normal Cutoff: 500 ng/mL [facility] Comment on above: Order Comment: For m edical purposes only. Positive results are unconfirmed unless otherwise noted. Performed By: #### 1 0DRUG #### [facility] (DEFAULT) [address] [address] Barbiturates Negative Normal Cutoff: 200 ng/mL [facility] Comment on above: Order Comment: For edical purposes only. Positive results are unconfirmed unless otherwise noted. Performed By: #### 1 0DRUG #### [facility] (DEFAULT) [address] [address] Benzodiazepines Positive Abnormal Cutoff: 200 ng/mL [facility] Comment on above: Order Comment: For edical purposes only. Positive results are unconfirmed unless otherwise noted. Performed By: #### 1 0DRUG #### [facility] (DEFAULT) [address] [address] Buprenorphine Negative Normal Cutoff: 5 ng/mL [facility] Comment on above: Order Comment: For edical purposes only. Positive results are unconfirmed unless otherwise noted. Performed By: #### 1 0DRUG #### [facility] (DEFAULT) [address] [address] Cannabinoids Screen Ql (U) Positive Abnormal Cutoff: 50 ng/mL [facility] Comment on above: Order Comment: For edical purposes only. Positive results are unconfirmed unless otherwise noted. Performed By: #### 1 0DRUG #### [facility] (DEFAULT) [address] [address] Cocaine Positive Abnormal Cutoff: 150 ng/mL [facility] Comment on above: Order Comment: For edical purposes only. Positive results are unconfirmed unless otherwise noted. Performed By: #### 1 0DRUG #### [facility] (DEFAULT) [address] [address] Fentanyl Negative Normal Cutoff: 1 ng/mL [facility] Comment on above: Order Comment: For m edical purposes only. Positive results are unconfirmed unless otherwise noted. Performed By: #### 1 0DRUG #### [facility] (DEFAULT) [address] [address] Methadone Negative Normal Cutoff: 300 ng/mL [facility] Comment on above: Order Comment: For m edical purposes only. Positive results are unconfirmed unless otherwise noted. Performed By: #### 1 0DRUG #### [facility] (DEFAULT) [address] [address] Opiates Negative Normal Cutoff: 300 ng/mL [facility] Comment on above: Order Comment: For m edical purposes only. Positive results are unconfirmed unless otherwise noted. Performed By: #### 1 0DRUG #### [facility] (DEFAULT) [address] [address] Oxycodone Negative Normal Cutoff: 100 ng/mL [facility] Comment on above: Order Comment: For edical purposes only. Positive results are unconfirmed unless otherwise noted. Performed By: #### 1 0DRUG #### [facility] (DEFAULT) [address] [address] MAGNESIUMon 07-11-2021 Magnesium [Mass/Vol] 1.9 mg/dL Normal 1.6-2.6 [facility] Comment on above: Performed By: #### H EMOGC #### [facility] (DEFAULT) [address] [address] URINALYSISon 07-11-2021 Appearance (U) Cloudy Abnormal Clear [facility] Comment on above: Performed By: #### L [id number] #### [facility] (DEFAULT) [address] [address] Bacteria PRESENT Abnormal ABSENT [facility] Comment on above: Performed By: #### L [id number] #### [facility] (DEFAULT) [address] [address] Blood Urine Small Abnormal Negative [facility] Comment on above: Performed By: #### L [id number] #### [facility] (DEFAULT) [address] [place] [address] 55333 Color (U) Yellow Normal Yellow [facility] Comment on above: Performed By: #### L [id number] #### [facility] (DEFAULT) [address] [place] [address] 67421 Glucose Ql (U) Negative Normal Negative [facility] Comment on above: Performed By: #### L [id number] #### [facility] (DEFAULT) [address] [place] [address] 89310 Ketones Ql (U) 15 mg/dL = Small Abnormal Negative [facility] Comment on above: Performed By: #### L [id number] #### [facility] (DEFAULT) [address] [place] [address] 50692 Leukocyte esterase Test strip Ql (U) Moderate Abnormal Negative [facility] Comment on above: Performed By: #### L [id number] #### [facility] (DEFAULT) [address] [place] [address] 90257 Mucus Ql (Urine sed) PRESENT Normal [facility] Comment on above: Performed By: #### L [id number] #### [facility] (DEFAULT) [address] [place] [address] 48341 Nitrites Urine Positive Abnormal Negative [facility] Comment on above: Performed By: #### L AB980 #### [facility] (DEFAULT) [address] [place] [address] 64035 pH (U) 6.0 [pH] Normal 5.0-7.0 [facility] Comment on above: Performed By: #### L [id number] #### [facility] (DEFAULT) [address] [place] [address] 98926 Protein Urine Trace Abnormal Negative [facility] Comment on above: Performed By: #### L [id number] #### [facility] (DEFAULT) [address] [place] [address] 67901 RBC Urine 3-5 Abnormal 0-2 [facility] Comment on above: Performed By: #### L [id number] #### [facility] (DEFAULT) [address] [place] [address] 79485 Specific [place] Urine 1.021 Normal 1.001-1.035 O [facility] Comment on above: Performed By: #### L [id number] #### [facility] (DEFAULT) [address] [place] [address] 93567 Squamous/Epithelial Cells 1/hpf = 1+ Normal 1/hpf = 1+, 2-5/hpf = 2+, 0/hpf = 0+, ABSENT [facility] Comment on above: Performed By: #### L [id number] #### [facility] (DEFAULT) [address] [place] [address] 00766 Urobilinogen Urine 1.0 E.U./dL Normal 0.2-1.0 [facility] Comment on above: Performed By: #### L [id number] #### [facility] (DEFAULT) [address] [place] [address] 26526 WBC LM.HPF (Urine sed) [#/Area] /[HPF] Abnormal 0-5 [facility] Comment on above: Performed By: #### L [id number] #### [facility] (DEFAULT) [address] [address] XR ABDOMEN 1 VIEWon 07-11-20 21 XR ABDOMEN 1 VIEW EXAM: XR ABDOMEN 1 VIEW, 07/10/2021 23:59 PM COMPARISON: Same day CLINICAL INDICATIONS: FB ingestion FINDINGS: Redemonstration of numerous, irregularly-shaped radiopaque foreign bodies projecting overall 4 quadrants of the abdomen and pelvis. No evidence of free air. No bowel obstruction. Osseous structures are unremarkable. IMPRESSION: No evidence of free air. Numerous radiopaque foreign bodies throughout the abdomen and pelvis. Normal [facility] XR ABDOMEN 1 VIEW PORTABLEon 07-11-2021 XR ABDOMEN 1 VIEW PORTABLE EXAM: XR ABDOMEN 1 VIEW PORTABLE, 07/11/2021 21:15 PM COMPARISON: Same day. CLINICAL INDICATIONS: eval FB transit FINDINGS: Redemonstration of multiple radiopaque foreign bodies, overall grossly similar in distribution to prior allowing for difference in patient positioning. No obvious free air noting limitation of technique. No evidence of bowel obstruction. IMPRESSION: Radiopaque foreign bodies within the bowel, not significantly changed from prior. Normal [facility] XR ABDOMEN 1 VIEW PORTABLE EXAM: XR ABDOMEN 1 VIEW PORTABLE, 07/11/2021 12:06 PM COMPARISON: July 11, 2021 CLINICAL INDICATIONS: eval FB Transit FINDINGS: Multiple radiopaque foreign bodies are again identified in the abdomen. A small foreign body is noted in the upper pelvis that may be in the rectosigmoid region. There are multiple radiopaque foreign bodies in the region of the ascending colon, splenic flexure and transverse colon. A small radiopaque foreign body is suggested in the region of the descending colon. The foreign bodies have slightly moved in position. No radiopaque foreign bodies are noted centrally. No gross free air is identified or visceromegaly suspected. There are tiny phleboliths in the left hemipelvis. Stools are noted throughout the large intestine. There is air in some small bowel loops without significant gaseous distention noted. The right hemidiaphragm was incompletely imaged. The osseous structures are unchanged. IMPRESSION: Multiple small radiopaque foreign bodies again identified throughout the large intestine, slightly moved in position compared to the prior exam. Normal [facility] XR ABDOMEN 1 VIEW PORTABLE EXAM: XR ABDOMEN 1 VIEW PORTABLE, 07/11/2021 05:29 AM COMPARISON: Abdominal radiographs dated July 10, 2020 CLINICAL INDICATIONS: eval FB transit FINDINGS: Tubes: No definite enteric tubes are identified. There are multiple small linear, curvilinear and rectangular irregular radiopaque foreign bodies in the GI tract predominantly seen along the distribution of the right colon, transverse colon and the splenic flexure. These appear grossly stable in position since the prior comparison study. One of the radiopaque densities is seen in the distal left colon. No new obvious radiopaque foreign bodies are identified in the abdomen or pelvis. No definite pneumoperitoneum or pneumatosis of the bowel wall. There is a non obstructive bowel gas pattern. No interval colonic or small bowel dilatation is seen. No organomegaly or mass effect. Visualized osseous structures are unremarkable for the patient's age. IMPRESSION: 1. Multiple small radiopaque foreign bodies predominantly in a stable distribution in the right and transverse colon reaching up to the splenic flexure. One of these appears to be within the distal left colon 2. No interval free air or acute bowel obstruction Normal [facility] ACETAMINOPHEN LEVELon 2020 Acetaminophen [Mass/Vol] ug/mL Normal Therapeutic Range: 10-32 mcg/mL [facility] Comment on above: Performed By: #### L [id number] #### [facility] (DEFAULT) [address] [place] [address] Icterus 0 Normal [facility] Comment on above: Performed By: #### L [id number] #### [facility] (DEFAULT) [address] [place] [address] 31051 BETA HCG, QUAL, BLOODon 06-13 HCG (Qual) Serum Negative Normal Negative [facility] Comment on above: Performed By: #### H EMOGC #### [facility] (DEFAULT) [address] [place] [address] CALCIUMon 07-10-2021 Calcium [Mass/Vol] 8.5 mg/dL Low 8.6-10.5 [facility] Comment on above: Performed By: #### L [id number] #### [facility] (DEFAULT) [address] [place] [address] CBC AND ELECTRONIC DIFFon Basophils (Bld) [#/Vol] 0.04 10*3/uL Normal 0.00-0.15 [facility] Comment on above: Performed By: #### L [id number] #### [facility] (DEFAULT) [address] [place] [address]26 Basophils/100 WBC (Bld) 0.6 % Normal O [facility] Comment on above: Performed By: #### L [id number] #### [facility] (DEFAULT) [address] [place] [address]6870 DIFF STATUS Electronic Differential Normal [facility] Comment on above: Performed By: #### L [id number] #### [facility] (DEFAULT) [address] [place] [address] 28232 Eosinophils (Bld) [#/Vol] 0.10 10*3/uL Normal 0.00-0.42 [facility] Comment on above: Performed By: #### L [id number] #### [facility] (DEFAULT) [address] [place] [address] 97763 Eosinophils/100 WBC (Bld) 1.6 % Normal [facility] Comment on above: Performed By: #### L [id number] #### [facility] (DEFAULT) [address] [place] [address] Hematocrit (Bld) [Volume fraction] 40.3 % Normal 34.9-44.3 [facility] Comment on above: Performed By: #### L [id number] #### [facility] (DEFAULT) [address] [place] [address]257 Hemoglobin (Bld) [Mass/Vol] 13.9 g/dL Normal 11.4-15.2 [facility] Comment on above: Performed By: #### L [id number] #### [facility] (DEFAULT) [address] [place] [address]2339 Immature Grans % 0.2 % Normal [facility] Comment on above: Performed By: #### L [id number] #### [facility] (DEFAULT) [address] [place] [address] 14725 Immature Grans Absolute <0.04 Normal <=0.09 O [facility] Comment on above: Performed By: #### L [id number] #### [facility] (DEFAULT) [address] [place] [address] 364[address] Lymphocytes (Bld) [#/Vol] 2.32 10*3/uL Normal 1.16-3.51 [facility] Comment on above: Performed By: #### L [id number] #### [facility] (DEFAULT) [address] [place] [address] 80402 Lymphocytes/100 WBC (Bld) 37.1 % Normal [facility] Comment on above: Performed By: #### L [id number] #### [facility] (DEFAULT) [address] [place] [address]773 MCV (RBC) [Entitic vol] 92.0 fL Normal 79.6-97.7 O [facility] Comment on above: Performed By: #### L [id number] #### [facility] (DEFAULT) [address] [place] [address] 67658 Mean Cell Hgb 31.7 pg Normal 25.9-33.9 [facility] Comment on above: Performed By: #### L [id number] #### [facility] (DEFAULT) [address] [place] [address] 89395 Mean Cell Hgb Conc 34.5 g/dL Normal 31.4-35.9 [facility] Comment on above: Performed By: #### L [id number] #### [facility] (DEFAULT) [address] [place] [address] 77335 Monocytes (Bld) [#/Vol] 0.42 10*3/uL Normal 0.22-0.87 [facility] Comment on above: Performed By: #### L [id number] #### [facility] (DEFAULT) [address] [place] [address] 9[address]99 Monocytes/100 WBC (Bld) 6.7 % Normal O [facility] Comment on above: Performed By: #### L [id number] #### [facility] (DEFAULT) [address] [place] [address] 52857 Nucleated RBC 0.0 /100 WBC Normal <=0.2 [facility] Comment on above: Performed By: #### L [id number] #### [facility] (DEFAULT) [address] [place] [address] 6[address] Platelet mean volume (Bld) [Entitic vol] 9.4 fL Normal 8.5-12.2 [facility] Comment on above: Performed By: #### L [id number] #### [facility] (DEFAULT) [address] [address] Platelets (Bld) [#/Vol] 225 10*3/uL Normal 150-393 [facility] Comment on above: Performed By: #### L [id number] #### [facility] (DEFAULT) [address] [address] RBC (Bld) [#/Vol] 4.38 10*6/uL Normal 3.91-5.04 [facility] Comment on above: Performed By: #### L [id number] #### [facility] (DEFAULT) [address] [place] [address] RBC Distribution 12.5 % Normal 10.8-14.9 [facility] Comment on above: Performed By: #### L [id number] #### [facility] (DEFAULT) [address] [address] Segs + Bands Auto 53.8 % Normal [facility] Comment on above: Performed By: #### L [id number] #### [facility] (DEFAULT) [address] [address] Segs + Bands,Absolute Auto 3.36 K/uL Normal 1.64-7.28 [facility] Comment on above: Performed By: #### L [id number] #### [facility] (DEFAULT) [address] [address] WBC (Bld) [#/Vol] 6.25 10*3/uL Normal 3.99-11.19 [facility] Comment on above: Performed By: #### L [id number] #### [facility] (DEFAULT) [address] [place] [address] CHM 7 - EDon 07-10-2021 Anion gap [Moles/Vol] 9 mmol/L Normal 7-17 [facility] Comment on above: Performed By: #### L [id number] #### [facility] (DEFAULT) [address] [place] [address] Chloride [Moles/Vol] 110 mmol/L High 98-108 [facility] Comment on above: Performed By: #### L [id number] #### [facility] (DEFAULT) [address] [place] [address] CO2 [Moles/Vol] 23 mmol/L Normal 22-30 [facility] Comment on above: Performed By: #### L [id number] #### [facility] (DEFAULT) [address] [place] [address] Creatinine [Mass/Vol] 0.76 mg/dL Normal 0.50-1.20 [facility] Comment on above: Performed By: #### L [id number] #### [facility] (DEFAULT) [address] [place] [address] EST GFR, >=60 Normal >=60 [facility] Comment on above: Performed By: #### L [id number] #### [facility] (DEFAULT) [address] [place] [address] EST GFR,Non >=60 Normal >=60 [facility] Comment on above: Performed By: #### L [id number] #### [facility] (DEFAULT) [address] [place] [address] Glucose [Mass/Vol] 72 mg/dL Normal 70-99 [facility] Comment on above: Performed By: #### L [id number] #### [facility] (DEFAULT) [address] [place] [address] Osmolality [Osmolality] 286 mosm/kg Normal 278-305 [facility] Comment on above: Performed By: #### L [id number] #### [facility] (DEFAULT) [address] [place] [address] Potassium [Moles/Vol] 3.3 mmol/L Low 3.5-5.0 [facility] Comment on above: Performed By: #### L [id number] #### [facility] (DEFAULT) [address] [place] [address] Sodium [Moles/Vol] 139 mmol/L Normal 133-143 [facility] Comment on above: Performed By: #### L [id number] #### [facility] (DEFAULT) [address] [place] [address] Urea nitrogen [Mass/Vol] 8 mg/dL Normal 7-22 [facility] Comment on above: Performed By: #### L [id number] #### [facility] (DEFAULT) [address] [place] [address] Urea nitrogen/Creatinine [Mass ratio] 11 mg/mg Normal [facility] Comment on above: Performed By: #### L [id number] #### [facility] (DEFAULT) [address] [place] [address] HEPATIC FUNCTION PANELon Albumin [Mass/Vol] 3.7 g/dL Normal 3.5-5.0 [facility] Comment on above: Performed By: #### L [id number] #### [facility] (DEFAULT) [address] [place] [address] ALP [Catalytic activity/Vol] 42 U/L Normal 32-126 [facility] Comment on above: Performed By: #### L [id number] #### [facility] (DEFAULT) [address] [place] [address] ALT [Catalytic activity/Vol] 5 U/L Low 9-48 [facility] Comment on above: Performed By: #### L [id number] #### [facility] (DEFAULT) [address] [place] [address] AST [Catalytic activity/Vol] 14 U/L Normal 14-40 [facility] Comment on above: Performed By: #### L [id number] #### [facility] (DEFAULT) [address] [address] Bilirubin [Mass/Vol] 0.6 mg/dL Normal <1.5 [facility] Comment on above: Performed By: #### L [id number] #### [facility] (DEFAULT) [address] [address] Bilirubin.indirect [Mass/Vol] 0.2 mg/dL Normal <0.3 [facility] Comment on above: Performed By: #### L [id number] #### [facility] (DEFAULT) [address] [address] Protein [Mass/Vol] 6.3 g/dL Low 6.4-8.3 [facility] Comment on above: Performed By: #### L [id number] #### [facility] (DEFAULT) [address] [address] HEPATITIS BATTERY, ACUTEon 0 07-10-2021 Hep B Core Ab,Total (IgG+IgM) Negative Normal Negative [facility] Comment on above: Performed By: #### [facility] #### [facility] (DEFAULT) [address] [address] Hep B Core IgM Ab Negative Normal Negative [facility] Comment on above: Performed By: #### H EMO #### [facility] (DEFAULT) [address] [address] Hep B Surface Ag Negative Normal Negative [facility] Comment on above: Performed By: #### H EMOGC #### [facility] (DEFAULT) [address] [address] Hepatitis A IgM Ab Negative Normal Negative [facility] Comment on above: Performed By: #### H EMO #### [facility] (DEFAULT) [address] [address] Hepatitis C Antibody Negative Normal Negative [facility] Comment on above: Performed By: #### H EMOGC #### [facility] (DEFAULT) [address] [place] [address] HIV 1 AND 2 ANTIBODIESon HIV-1/HIV-2 Ab With p24 Antigen Non-Reactive Normal Non Reactive [facility] Comment on above: Performed By: #### H EMOGC #### [facility] (DEFAULT) [address] [place] [address] MAGNESIUMon 07-10-2021 Magnesium [Mass/Vol] 1.8 mg/dL Normal 1.6-2.6 [facility] Comment on above: Performed By: #### L [id number] #### [facility] (DEFAULT) [address] [place] [address] NOVEL CORONAVIRUS PCRon 06-13 SARS-CoV-2 (COVID-19) RNA MICK+probe Ql (Unsp spec) Not detected Normal NOT DETECTED [facility] Comment on above: Order Comment: Viral transport media or BAL specimen - Collection must be done while wearing N-95 mask, eye protection, gown and gloves. Please label ALL specimens as "2019-nCoV rule out" and deliver by hand.This test was performed using performed using real time PCR for the qualitative detection of SARS-CoV-2 nucleic acid and has been approved as Emergency Use Authorization (EUA) for the qualitative detection of SARS-CoV-2 nucleic acid. Result Comment: [facility] Negative results do not preclude SARS-CoV-2 infection and should not be used as the sole basis for treatment or other patient management decisions. Optimum specimen types and timing for peak viral levels during infections caused by SARS-CoV-2 has not been determined. The possibility of a false negative result should especially be considered if the patient's recent exposures or clinical presentation suggest that SARS-CoV-2 infection is probable, and diagnostic tests for other causes of illness (e.g., other respiratory illness) are negative. Collection of a new specimen and re-testing may be necessary if the patient is critically ill or clinically deteriorating. Performed By: #### L [id number] #### [facility] (DEFAULT) [address] [place] [address] PHOSPHATE, INORGANICon 07-10 Phosphorous 2.9 mg/dL Normal 2.2-4.6 [facility] Comment on above: Performed By: #### L [id number] #### [facility] (DEFAULT) [address] [place] [address] SALICYLATE LEVELon Salicylate <5.0 Normal Therapeutic Range: 20.0-30.0 mg/dL [facility] Comment on above: Performed By: #### L [id number] #### [facility] (DEFAULT) [address] [place] [address] SYPHILIS AB W/REFLEX RPRon 0 07-10-2021 Syphilis IgG/IGM Total Non-Reactive Normal Non Reactiv e [facility] Comment on above: Performed By: #### H EMOGC #### [facility] (DEFAULT) [address] [place] [address] T4 FREEon 07-10-2021 Free T4 [Mass/Vol] 1.08 ng/dL Normal 0.89-1.76 [facility] Comment on above: Performed By: #### F T4, HEP1B, TSH, BHCG, SYPHT, HIV ####[facility] (DEFAULT)[address] [place] [address] TSHon 07-10-2021 TSH 1.761 uIU/mL Normal 0.550-4.780 [facility] Comment on above: Performed By: #### F T4, HEP1B, TSH, BHCG, SYPHT, HIV ####[facility] (DEFAULT)[address] [place] [address] XR ABDOMEN 1 VIEWon 07-10-20 21 XR ABDOMEN 1 VIEW EXAM: XR ABDOMEN 1 VIEW, 07/10/2021 19:41 PM COMPARISON: No prior abdominal radiographs available for comparison. CLINICAL INDICATIONS: glass ingestion FINDINGS: Evaluation for free intraperitoneal gas or air-fluid levels is limited by supine technique. There are multiple radiopaque foreign bodies throughout the abdomen and pelvis. No dilated bowel loops or suspicious air-fluid levels. IMPRESSION: Multiple radiopaque foreign bodies throughout the abdomen and pelvis. None of these appear to project over the stomach. If clinical concern for pneumoperitoneum would recommend upright view of the upper abdomen. Normal [facility] XR CHEST AP PORTABLE EDon XR CHEST AP PORTABLE ED EXAM: XR CHEST A P PORTABLE ED, 07/10/2021 19:41 PM COMPARISON: No prior studies available for comparison. CLINICAL INDICATIONS: glass ingestion RELEVANT CLINICAL HISTORY: FINDINGS: Implanted Devices: None Chest Wall: No appreciable acute abnormality. Leana: Normal Mediastinum: No pneumomediastinum appreciated.. No radiopaque foreign bodies. Pleural Spaces: No pleural effusion. No pneumothorax. Lungs: Clear. Cardiac Silhouette: Normal in size. Thoracic Aorta: Normal Pulmonary Vessels: Normal, without PVH IMPRESSION: No pneumomediastinum seen. No radiopaque foreign body is identified. These note glass is not necessarily radiopaque. Normal [facility] Vital Signs Date Time Vital Sign Value Performing Clinician Facility 02-08-2025 06:20-0400 Diastolic blood pressure 77 mm[Hg] No Primary Care Physician [facility] 02-08-2025 06:20-0400 Heart rate 94 /min No Primary Care Physician [facility] 02-08-2025 06:20-0400 Respiratory rate 18 /min No Primary Care Physician [facility] 02-08-2025 06:20-0400 SaO2% (BldA) [Mass fraction] 97 % No Primary Care Physician [facility] 02-08-2025 06:20-0400 Systolic blood pressure 106 mm[Hg] No Primary Care Physician [facility] 02-08-2025 04:44-0400 Body temperature 97 [degF] No Primary Care Physician [facility] 02-07-2025 20:37-0400 Body mass index (BMI) [Ratio] 24.1 kg/m2 No Primary Care Physician [facility] 02-07-2025 20:37-0400 Body weight 67.9 kg No Primary Care Physician [facility] 02-07-2025 20:33-0400 Body height 167.64 cm No Primary Care Physician [facility] 12-09-2024 19:00-0500 Diastolic blood pressure 62 mm[Hg] No Primary Care Physician [facility] 12-09-2024 19:00-0500 Heart rate 82 /min No Primary Care Physician [facility] 12-09-2024 19:00-0500 Respiratory rate 13 /min No Primary Care Physician [facility] 12-09-2024 19:00-0500 Systolic blood pressure 96 mm[Hg] No Primary Care Physician [facility] 12-09-2024 14:00-0500 SaO2% (BldA) [Mass fraction] 94 % No Primary Care Physician [facility] 12-09-2024 11:30-0500 Body temperature 97.4 [degF] No Primary Care Physician [facility] 12-09-2024 09:12-0500 Body mass index (BMI) [Ratio] 23.6 kg/m2 No Primary Care Physician [facility] 12-09-2024 09:12-0500 Body weight 66.5 kg No Primary Care Physician [facility] 12-09-2024 07:24-0500 Body height 167.64 cm No Primary Care Physician [facility] 04-15-2024 09:48-0400 Heart rate 100 /min Tracee Cheney APRN, CNP Work Phone: [facility] Work Phone: 04-15-2024 09:35-0400 Body height 167.6 cm Tracee Cheney APRN, CNP Work Phone: [facility] Work Phone: 04-15-2024 09:35-0400 Body temperature 98.4 [degF] Tracee Cheney APRN, CNP Work Phone: [facility] Work Phone: 04-15-2024 09:35-0400 Body weight 71.94 kg Tracee Cheney APRN, CNP Work Phone: [facility] Work Phone: 04-15-2024 09:35-0400 Diastolic blood pressure 85 mm[Hg] Tracee Cheney APRN, CNP Work Phone: [facility] Work Phone: 04-15-2024 09:35-0400 Respiratory rate 19 /min Tracee Cheney APRN, CNP Work Phone: [facility] Work Phone: 04-15-2024 09:35-0400 SaO2% (BldA) [Mass fraction] 98 % Tracee Cheney APRN, CNP Work Phone: [facility] Work Phone: 04-15-2024 09:35-0400 Systolic blood pressure 138 mm[Hg] Tracee Cheney APRN, CNP Work Phone: [facility] Work Phone: 04-01-2024 09:04-0400 Body height 167.6 cm Tracee Cheney APRN, CNP Work Phone: [facility] Work Phone: 04-01-2024 09:04-0400 Body weight 69.13 kg Tracee Cheney APRN, CNP Work Phone: [facility] Work Phone: 04-01-2024 09:04-0400 Diastolic blood pressure 68 mm[Hg] Tracee Cheney APRN, CNP Work Phone: [facility] Work Phone: 04-01-2024 09:04-0400 Heart rate 105 /min Tracee Cheney APRN, CNP Work Phone: [facility] Work Phone: 04-01-2024 09:04-0400 Respiratory rate 18 /min Tracee Cheney APRN, CNP Work Phone: [facility] Work Phone: 04-01-2024 09:04-0400 SaO2% (BldA) [Mass fraction] 97 % Tracee Cheney APRN, CNP Work Phone: [facility] Work Phone: 04-01-2024 09:04-0400 Systolic blood pressure 106 mm[Hg] Tracee Cheney APRN, CNP Work Phone: [facility] Work Phone: 09-22-2023 17:29-0500 Body height 162.56 cm [facility] 09-22-2023 17:29-0500 Body mass index (BMI) [Ratio] 23.3 kg/m2 [facility] 09-22-2023 17:29-0500 Body temperature 98.6 [degF] [facility] 09-22-2023 17:29-0500 Body weight 61.68 kg [facility] 09-22-2023 17:29-0500 Diastolic blood pressure 80 mm[Hg] [facility] 09-22-2023 17:29-0500 Heart rate 131 /min [facility] 09-22-2023 17:29-0500 Respiratory rate 16 /min [facility] 09-22-2023 17:29-0500 SaO2% (BldA) [Mass fraction] 99 % [facility] 09-22-2023 17:29-0500 Systolic blood pressure 110 mm[Hg] [facility] 03-16-2022 09:44-0400 Body height 172.72 cm [facility] Work Phone: 03-16-2022 09:44-0400 Body mass index (BMI) [Ratio] 28 kg/m2 [facility] Work Phone: 03-16-2022 09:44-0400 Body temperature 98.3 [degF] [facility] Work Phone: 03-16-2022 09:44-0400 Body weight 83.8 kg [facility] Work Phone: 03-16-2022 09:44-0400 Diastolic blood pressure 89 mm[Hg] [facility] Work Phone: 03-16-2022 09:44-0400 Heart rate 114 /min [facility] Work Phone: 03-16-2022 09:44-0400 Respiratory rate 16 /min [facility] Work Phone: 03-16-2022 09:44-0400 SaO2% (BldA) [Mass fraction] 97 % [facility] Work Phone: 03-16-2022 09:44-0400 Systolic blood pressure 134 mm[Hg] [facility] Work Phone: 03-11-2022 15:39-0400 Body temperature 99.61 [degF] [facility] [employer]ILDING [employer]ER.PERSONNEL TRAINING OFFICER Work Phone: [facility] 03-11-2022 15:39-0400 Body weight 78.38 kg Glen Pringle BUILDING CLEANER.PERSONNEL TRAINING OFFICER Work Phone: [facility] 03-11-2022 15:39-0400 Diastolic blood pressure 70 mm[Hg] [facility] BUILDING CLEANER.PERSONNEL TRAINING OFFICER Work Phone: [facility] 03-11-2022 15:39-0400 Heart rate 98 /min Glen Pendlefay BUILDING CLEANER.PERSONNEL TRAINING OFFICER Work Phone: [facility] 03-11-2022 15:39-0400 Respiratory rate 14 /min [facility] BUILDING CLEANER.PERSONNEL TRAINING OFFICER Work Phone: [facility] 03-11-2022 15:39-0400 SaO2% (BldA) [Mass fraction] 95 % [facility] BUILDING CLEANER.PERSONNEL TRAINING OFFICER Work Phone: [facility] 03-11-2022 15:39-0400 Systolic blood pressure 110 mm[Hg] [facility] BUILDING CLEANER.PERSONNEL TRAINING OFFICER Work Phone: [facility] 01-23-2022 11:09-0400 Body height 165.1 cm Nelly Montanez RN [facility] 01-23-2022 11:09-0400 Body mass index (BMI) [Ratio] 31.28 kg/m2 Nelly Montanez RN [facility] 01-23-2022 11:09-0400 Body temperature 98.29 [degF] Nelly Montanez RN [facility] 01-23-2022 11:09-0400 Body weight 85.28 kg Nelly Lisseth HAYDEN [facility] 01-23-2022 11:09-0400 Diastolic blood pressure 69 mm[Hg] Nelly Montanez RN [facility] 01-23-2022 11:09-0400 Heart rate 88 /min Nellyariela Montanez RN [facility] 01-23-2022 11:09-0400 Respiratory rate 20 /min Nelly Montanez RN [facility] 01-23-2022 11:09-0400 Systolic blood pressure 107 mm[Hg] Nellyariela Montanez RN [facility] 11-14-2021 16:00-0500 Diastolic blood pressure 55 mm[Hg] Dominick Muhammad MD Work Phone: [facility] 11-14-2021 16:00-0500 Heart rate 80 /min Dominick Muhammad MD Work Phone: [facility] 11-14-2021 16:00-0500 SaO2% (BldA) [Mass fraction] 94 % Dominick Muhammad MD Work Phone: [facility] 11-14-2021 16:00-0500 Systolic blood pressure 100 mm[Hg] Dominick Muhammad MD Work Phone: [facility] 11-13-2021 21:11-0500 Body temperature 99.1 [degF] Dominick Muhammad MD Work Phone: [facility] 11-13-2021 21:11-0500 Body weight 74.84 kg Dominick Muhammad MD Work Phone: [facility] 11-13-2021 21:11-0500 Respiratory rate 18 /min Dominick Muhammad MD Work Phone: [facility] Encounters Encounter Date Encounter Type Care Provider Facility Start: 09-16-2025 ambulatory Ever Toribio [facility] Facility :[facility] Start: 09-02-2025 End: 09-07-2025 Evaluation and management of inpatient Ever Toribio [facility] Facility:[facility] Start: 09-02-2025 ambulatory Valarie Jones ty:[facility] Start: 08-30-2025 End: 08-30-2025 ambulatory Ever Toribio [facility] Facility:[facility] Start: 08-19-2025 End: 08-19-2025 ambulatory Kateryna Ceron [facility] Facility:[facility] Start: 03-03-2025 End: 03-03-2025 ambulatory LORRAINE CHESTER Facility:[facility] Start: 02-07-2025 End: 02-08-2025 Emergency department patient visit No Primary Care Physician -Emergency Department Work Phone: Start: 01-26-2025 End: 01-26-2025 ambulatory No Primary Care Physician [facility] Work Phone: Start: 01-26-2025 End: 01-26-2025 Patient encounter procedure Vikas Crespo NP-C -Laboratory, [facility] Start: 01-26-2025 End: 01-26-2025 ambulatory Ever Toribio [facility] Facility:[facility] Start: 12-09-2024 End: 12-09-2024 Emergency department patient visit Dr. Miguelangel Kwong MD -Emergency Department Work Phone: Start: 04-23-2024 Emergency department patient visit JUAN Amairani HAZEL Facility:[facility] Start: 04-23-2024 Admission to establishment [facility] Start: 04-23-2024 ambulatory Rachana SOLER [facility] Comment on above: Psychiatric Problem Start: 04-21-2024 End: 04-21-2024 Emergency department patient visit NIKOLE BUTT Facility:[facility] Start: 04-15-2024 End: 04-15-2024 Office outpatient visit 10 minutes Tracee Cheney APRN, CNP Work Phone: [facility] Comment on above: Vitamin D deficiency (Primary Dx); Preventive medication therapy needed; Over weight; Encounter for smoking cessation counseling Start: 04-01-2024 End: 04-01-2024 Encounter for general adult medical examination with abnormal findings Tracee Cheney IZABELA,PERSONNEL TRAINING OFFICER Work Phone: [facility] Work Phone: Start: 04-01-2024 End: 04-01-2024 Periodic preventive med est patient 18-39 yrs Tracee Cheney APRNCONY Work Phone: [facility] Comment on above: Encounter for routin e adult health examination with abnormal findings (Primary Dx); Thyroid disorder screen; Diabetes mellitus screening; Encounter for vitamin deficiency screening; Routine screening for STI (sexually transmitted infection); Generalized pain; Encounter for smoking cessation counseling; Substance abuse ([facility]) Start: 04-01-2024 End: 04-15-2024 ambulatory TRACEE CHENEY [facility] Start: 09-22-2023 End: 09-22-2023 Emergency department patient visit [facility] Work Phone: Start: 12-27-2022 Admission to [facility] Start: 03-16-2022 End: 03-16-2022 Emergency department patient visit [facility] Start: 03-11-2022 End: 03-11-2022 Patient encounter procedure Glen Leggettfay GURROLA.PERSONNEL TRAINING OFFICER Work Phone: [facility] Comment on above: Rash (Primary Dx) Start: 03-11-2022 ambulatory Suzanne Mackenzie RN NURSE INFORMATION OFFICER Comment on above: Medication Problem Start: 02-22-2022 End: 02-22-2022 ambulatory PHYSICIAN [facility] Start: 01-23-2022 End: 01-23-2022 ambulatory NELLY Jose~[id number] LISSETH MONTANEZ [facility] Start: 01-23-2022 End: 01-23-2022 Clinical Support Nelly Montanez RN [facility] Comment on above: Screening due (Prima ry Dx) Start: 01-23-2022 End: 01-23-2022 Clinical Support Nelly Montanez RN [facility] Start: 11-13-2021 End: 11-14-2021 Emergency department patient visit Dominick Muhammad MD Work Phone: [facility] Comment on above: Suicidal ideation (P rimary Dx); Schizoaffective disorder, unspecified type (HCC) Start: 10-01-2021 End: 10-01-2021 Emergency department patient visit BARB ZACARIAS Facility:[facility] Start: 09-17-2021 End: 09-29-2021 Evaluation and management of inpatient MAYTE NEVES Facility:[facility] Start: 08-20-2021 End: 08-20-2021 [facility] Start: 07-21-2021 End: 08-07-2021 Evaluation and management of inpatient JOSAFAT URIBE Facility:[facility] Start: 07-10-2021 End: 07-21-2021 Evaluation and management of inpatient MOE VERDUGO Facility:[facility] Procedures Date Procedure Procedure Detail Performing Clinician Start: 04-01-2024 Urine test visual color cmprsn meths Tracee Cheney APRN,PERSONNEL TRAINING OFFICER Work Phone: Start: 09-22-2023 X-ray of both feet Start: 01-23-2022 Gluc bld gluc mntr d ev cleared fda spec home use Alvaro Addison MD Work Phone: Start: 11-14-2021 COVID-19, RAPID Dominick Muhammad MD Work Phone: Start: 11-14-2021 Assay of acetaminophen Dominick Muhammad MD Work Phone: Start: 11-14-2021 Assay of ethanol Dominick Muhammad MD Work Phone: Start: 11-14-2021 Assay of salicylate And rew Sabina MURDOCK Work Phone: Start: 11-14-2021 Comprehensive metabo lic panel Dominick Muhammad MD Work Phone: Start: 11-13-2021 Drug screen class list a Dominick Muhammad MD Work Phone: Start: 11-13-2021 Urine test visual color cmprsn meths Dominick Muhammad MD Work Phone: Start: 05-24-2017 Adult depression scr eening assessment Glen Leggettfay GURROLA.PERSONNEL TRAINING OFFICER Work Phone: Plan of Treatment Date Care Activity Detail Author Start: 07-10-2031 DTaP,Tdap,and Td Vaccines (2 - Td or Tdap) DTaP,Tdap,and Td Vaccines (2 - Td or Tdap) [facility] Start: 07-10-2031 Urine microalbumin profile DTaP,Tdap,Td Vaccine (3 - Td or Tdap) [facility] Start: 04-01-2027 Hypertension screening Hyperte nsion Screening (#1) [facility] Start: 07-19-2025 DTaP/Tdap/Td vaccine (2 - Td or Tdap) DTaP/Tdap/Td vaccine (2 - Td or Tdap) [facility] Start: 04-15-2025 Hypertension screening Hyperte nsion Screening (#1) [facility] Start: 04-01-2025 Annual Wellness Visit Annual Wellnes s Visit [facility] Start: 02-08-2025 [facility] Start: 02-07-2025 [facility] Start: 02-07-2025 Referral to service [facility] Start: 02-07-2025 End: 02-07-2025 Suicide precautions [facility] Start: 12-09-2024 [facility] Start: 12-09-2024 [facility] Start: 12-09-2024 Suicide precautions [facility] Start: 10-02-2024 [id number] ( season) [id number] ( season) [facility] Comment on above: Postponed from 07/12 (Patient declines) Start: 07-12-2024 Influenza vaccination [facility] Start: 07-02-2024 Hepatitis B vaccination Imm-He patitis B (1 of 3 - 19+ 3-dose series) [facility] Comment on above: Postponed from 02/10 (Patient declines) Start: 07-02-2024 Tetanus vaccination Imm-DTaP/T dap/Td (1 - Tdap) [facility] Comment on above: Postponed from 07/11 (Patient declines) Start: 04-15-2024 Screening for malign ant neoplasm of cervix Cervical Cancer Screening [facility] Comment on above: Postponed from 02/10 (Follow up visit) Start: 11-11-2023 Behavioral Health Screening Behavioral Health Screening [facility] Start: 09-22-2023 [facility] Start: 07-12-2023 Covid-19 Vaccine () Covid-19 Vaccine () [facility] Start: 01-23-2023 Social Influencers o f Health Screening Social Influencers of Health Screening [facility] Start: 09-21-2021 COVID-19 Vaccine (2 - Booster for [place] series) COVID-19 Vaccine (2 - Booster for [place] series) [facility] Start: 08-13-2021 Adolescent depressio n screening assessment Depression Screening [facility] Start: 08-13-2021 Hepatitis C screening Hepatitis C Sc reening [facility] Start: 08-13-2021 HIV screening HIV Screening [facility] Start: 08-13-2021 Lipid panel Cholesterol Sc reening (Lipid Panel) [facility] Start: 04-19-2019 PAP TESTING PAP TESTING [facility] Start: 04-19-2019 Screening for malign ant neoplasm of cervix Cervical Cancer Screening [facility] Start: 05-24-2018 Adult depression screening assessment DEPRESSION SCREENING [facility] Start: 02-11-2016 Screening for malign ant neoplasm of cervix [facility] Start: 2014 Hepatitis B Vaccine (1 of 3 - 19+ 3-dose series) Hepatitis B Vaccine (1 of 3 - 19+ 3-dose series) [facility] Start: 2014 ONE PNEUMOVAX PRIOR TO AGE 65 ONE PNEUMOVAX PRIOR TO AGE 65 [facility] Start: 2014 Urine microalbumin profile DTAP,TDAP,TD (1 - Tdap) [facility] Start: 2013 HEPATITIS C SCREENING HEPATITIS C SC REENING [facility] Start: 2013 HIV SCREENING HIV SCREENING [facility] Start: 2013 HIV screening HIV Screening [facility] Start: 2010 HIV screening HIV screen [facility] Start: 2010 HIV Screening HIV Screening [facility] Start: 2007 Depression Screen Depression Screen [facility] Start: 2006 HPV vaccine (1 - 2-d ose series) HPV vaccine (1 - 2-dose series) [facility] Start: 2006 HPV Vaccines (1 - 2- dose series) HPV Vaccines (1 - 2-dose series) [facility] Start: 2001 Pneumococcal vaccination Pneum ococcal Vaccine (1 of 2 - PCV) [facility] Start: 2001 Pneumococcal Vaccine : Pediatrics (0 to 5 Years) and At-Risk Patients (6 to 64 Years) (1 of 2 - PPSV23) Pneumococcal Vaccine: Pediatrics (0 to 5 Years) and At-Risk Patients (6 to 64 Years) (1 of 2 - PPSV23) [facility] Start: 02-11-1996 Varicella vaccine (1 of 2 - 2-dose childhood series) Varicella vaccine (1 of 2 - 2-dose childhood series) [facility] Start: 1995 Hepatitis C [facility] Start: 1995 Screening for malign ant neoplasm of cervix [facility] 25 hydroxy includes fractions if performed 25 HYDROXY INCLUDES FRACTIONS IF PERFORMED Lab Routine Encounter for routine adult health examination with abnormal findings Substance abuse ([facility]) Encounter for vitamin deficiency screening Ordered: 04/01/2024 [facility] Work Phone: Comment on above: Ordered: 04/01/2024 End: 11-13-2021 Acetaminophen Level Acetaminophen Level Lab STAT One Time for 1 Occurrences starting 11/13/2021 until 11/13/2021 [facility] Phone: Comment on above: One Time for 1 Occur rences starting 11/13/2021 until 11/13/2021 Acute hepatitis panel ACUTE HEPA TITIS Lab Routine Encounter for routine adult health examination with abnormal findings Substance abuse ([facility]) Routine screening for STI (sexually transmitted infection) Ordered: 04/01/2024 [facility] Work Phone: Comment on above: Ordered: 04/01/2024 End: 11-13-2021 CBC W Auto Differential panel - Blood CBC auto diff Lab STAT One Time for 1 Occurrences starting 11/13/2021 until 11/13/2021 [facility] Phone: Comment on above: One Time for 1 Occur rences starting 11/13/2021 until 11/13/2021 CBC W Auto Different ial panel - Blood BLOOD COUNT COMPLETE AUTO&AUTO DIFRNTL WBC Lab Routine Encounter for routine adult health examination with abnormal findings Substance abuse ([facility]) Thyroid disorder screen Diabetes mellitus screening Ordered: 04/01/2024 [facility] Phone: Comment on above: Ordered: 04/01/2024 CHLAMYDIA, GONORRHOE AE, AND TRICHOMONAS VAGINALIS, MICK CHLAMYDIA, GONORRHOEAE, AND TRICHOMONAS VAGINALIS, MICK Lab Routine Encounter for routine adult health examination with abnormal findings Substance abuse ([facility]) Routine screening for STI (sexually transmitted infection) Ordered: 04/01/2024 [facility] Phone: Comment on above: Ordered: 04/01/2024 Comprehensive metabo lic panel COMPREHENSIVE METABOLIC PANEL Lab Routine Encounter for routine adult health examination with abnormal findings Substance abuse ([facility]) Thyroid disorder screen Diabetes mellitus screening Ordered: 04/01/2024 [facility] Work Phone: Comment on above: Ordered: 04/01/2024 End: 11-13-2021 Comprehensive Metabolic Panel w/ Reflex to MG Comprehensive Metabolic Panel w/ Reflex to MG Lab Routine One Time for 1 Occurrences starting 11/13/2021 until 11/13/2021 [facility] Phone: Comment on above: One Time for 1 Occur rences starting 11/13/2021 until 11/13/2021 End: 11-13-2021 ETOH Blood ETOH Blood Lab STAT One Time for 1 Occurrences starting 11/13/2021 until 11/13/2021 [facility] Phone: Comment on above: One Time for 1 Occur rences starting 11/13/2021 until 11/13/2021 Hemoglobin glycosyla jerardo a1c HEMOGLOBIN GLYCOSYLATED A1C Lab Routine Encounter for routine adult health examination with abnormal findings Substance abuse ([facility]) Thyroid disorder screen Diabetes mellitus screening Ordered: 04/01/2024 [employer] Phone: Comment on above: Ordered: 04/01/2024 Iaad ia hiv-1 ag w/h iv-1 & hiv-2 antbdy single HIV 1/0/2 AG/AB W/CASCADE RFLX SUPPLEMENTAL TESTING Lab Routine Encounter for routine adult health examination with abnormal findings Substance abuse ([facility]) Routine screening for STI (sexually transmitted infection) Ordered: 04/01/2024 [facility] Work Phone: Comment on above: Ordered: 04/01/2024 Iadna nos amplified probe tq each organism MYCOPLASMA GENITALIUM, MICK, URINE Lab Routine Encounter for routine adult health examination with abnormal findings Substance abuse ([facility]) Routine screening for STI (sexually transmitted infection) Ordered: 04/01/2024 [facility] Work Phone: Comment on above: Ordered: 04/01/2024 Lipid panel LIPID PANEL W/TO T CHOL/HDL RATIO Lab Routine Encounter for routine adult health examination with abnormal findings Substance abuse ([facility]) Thyroid disorder screen Diabetes mellitus screening Ordered: 04/01/2024 [facility] Work Phone: Comment on above: Ordered: 04/01/2024 MICROALBUMIN/CREATIN INE RATIO, URINE, RANDOM MICROALBUMIN/CREATININE RATIO, URINE, RANDOM Lab Routine Encounter for routine adult health examination with abnormal findings Substance abuse ([facility]) Thyroid disorder screen Diabetes mellitus screening Ordered: 04/01/2024 [employer] Work Phone: Comment on above: Ordered: 04/01/2024 Patient Education [facility] Work Phone: Patient referral [facility] Work Phone: End: 11-13-2021 Salicylate Level Salicylate Level Lab STAT One Time for 1 Occurrences starting 11/13/2021 until 11/13/2021 [facility] Work Phone: Comment on above: One Time for 1 Occur rences starting 11/13/2021 until 11/13/2021 Syphilis test non-treponemal antibody qual RPR W/ RFLX, COMP. OF REVERSE CASCADE FOR SPEC. KNOWN POS. FOR T. PALLIDUM TREPONEMAL AB Lab Routine Encounter for routine adult health examination with abnormal findings Substance abuse ([facility]) Routine screening for STI (sexually transmitted infection) Ordered: 04/01/2024 [employer] Work Phone: Comment on above: Ordered: 04/01/2024 Thyrotropin [Units/volume] in Serum or Plasma TSH + FREE T4 Lab Routine Encounter for routine adult health examination with abnormal findings Substance abuse ([facility]) Thyroid disorder screen Diabetes mellitus screening Ordered: 04/01/2024 [facility] Work Phone: Comment on above: Ordered: 04/01/2024 VITAMIN B12 & FOLATE VITAMIN B12 & FOLATE Lab Routine Encounter for routine adult health examination with abnormal findings Substance abuse ([facility]) Encounter for vitamin deficiency screening Ordered: 04/01/2024 [facility] Work Phone: Comment on above: Ordered: 04/01/2024 [facility] Immunizations Immunization Date Immunization Notes Care Provider Fa cili 07-25-2021 influenza, injectabl e, quadrivalent, preservative free Tracee Cheney APRN, CNP Work Phone: [facility] Work Phone: 07-25-2021 influenza virus vaccine, unspecified formulation Rachana SOLER [facility] 07-10-2021 tetanus and diphther ia toxoids, adsorbed, preservative free, for adult use (2 Lf of tetanus toxoid and 2 Lf of diphtheria toxoid) Tracee Cheney APRN, CNP Work Phone: [facility] Work Phone: Payers Date Payer Category Payer Self-pay [id number] 2023 Medicaid [id number] 2021 Medicaid [facility] MEDICAID [facility] [employer] MEDICAID [id number] 2021-Present [phone] [address] [place] [address] Medicaid [id number] 2021 Private Health Insurance [id number]. [id number] 2021 Unknown [id number] 1995 Unknown [id number] 2.16.840.1.769074.3.579.2. 902 1995 Unknown [id number] 2.16.840.1.323418.3.579.2. 902 1995 Unknown [id number] 2.16.840.1.849193.3.579.2. 594 1995 Unknown [id number] 2.16.840.1.820630.3.579.2. 594 1995 Unknown [id number] 2.16.840.1.116145.3.579.2. 594 1995 Unknown [id number] 2.16.840.1.090327.3.579.2. 594 1995 Unknown [id number] 2.16840.1.980448.3.579.2. 1249 Unknown [id number] 2.16.840.1.477677.3.579.2. 462 Unknown [id number] 2.16.840.1.237054.3.579.2. 462 Unknown [id number] 2.16840.1.178258.3.579.2. 462 Unknown [id number] 2.16840.1.082732.3.579.2. 462 Unknown [id number] 2.16840.1.897448.3.579.2. 462 Unknown [id number] 2.16.840.1.745127.3.579.2. 462 Unknown [id number] 2.16.840.1.544238.3.579.2. 462 Unknown [id number] 2.16840.1.953604.3.579.2. 462 Unknown [id number] 2.16840.1.842843.3.579.2. 462 Unknown [id number] 2.16840.1.658592.3.579.2. 462 Unknown [id number] 2.16.840.1.281077.3.579.2. 462 Unknown [id number] 2.16.840.1.832042.3.579.2. 462 Unknown [id number] 2.16.840.1.229844.3.579.2. 462 Unknown [id number] 2.16.840.1.863849.3.579.2. 462 Unknown [id number] 2.16.840.1.165777.3.579.2. 462 Unknown [id number] 2.16.840.1.794379.3.579.2. 462 Unknown [id number] 2.16.840.1.330929.3.579.2. 462 Unknown [id number] 2.16.840.1.236545.3.579.2. 462 Unknown [id number] 2.16.840.1.606929.3.579.2. 462 Unknown [id number] 2.16.840.1.341469.3.579.2. 462 Unknown [id number] 2.16.840.1.396608.3.579.2. 462 Unknown [id number] 2.16.840.1.858946.3.579.2. 462 Social History Date Type Detail Facility Start: 11-13-2021 End: 02-07-2025 Tobacco smoking status LAIS Smokes tobacco daily [facility] Phone: End: 04-24-2017 History of tobacco use Cigarette Smoker [facility] Phone: Start: 11-13-2021 End: 04-22-2024 Cigarettes smoked current (pack per day) - Reported 0.5 [facility] Start: 11-13-2021 End: 04-23-2024 Tobacco use and exposure Smokeless tobacco non-user [facility] Phone: Start: 1995 Sex Assigned At Not on file [facility] Phone: Exposure to SARS-CoV -2 (event) Not sure [facility] Work Phone: Start: 01-23-2022 End: 04-23-2024 Tobacco smoking status NHIS Occasional tobacco smoker [facility] Start: 01-23-2022 Tobacco use and exposure Former smokeless tobacco user [facility] Start: 01-23-2022 Tobacco Comment Tried smokeless Monisha [facility] Start: 03-11-2022 Alcohol intake Current drinke r of alcohol (finding) [facility]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 states that she feels like her stomach is dropping. No vomiting no diarrhea no fevers or chills. She will explain to me the [facility]. She will rest comfortably answer 1 to questions and then start screaming. Social history: Patient uses crystal meth Medical Decision Making I saw and evaluated the patient I have reviewed the chief complaint, triage note, past medical/surgical history, family history, and social history. Previous medical records have been reviewed The patient's presenting pulse oximetry was 98% on room air. This was interpreted as normal. Patient's OARRS report is reviewed Laboratory results have been reviewed by me. Twelve-lead EKG is obtained and interpreted contemporaneously by the attending physician. Please see scanned EKG document Patient presents emergency department secondary to hallucinations and concern for overdose. She is screaming and aggressive with staff. She was sedated with 10 mg of Haldol IM. Lab work is normal nonspecific. EKG was performed by nursing staff which showed no significant findings did have a prolonged QT at 500 ms. Patient is medically cleared at this time for psychiatric evaluation. She has been seen by the social welfare administrator. Plan to [facility] for further evaluation. Patient medically cleared for psychiatric transfer. Final impression: 1. Auditory hallucinations 2. Medication overdose 3. History of methamphetamine use Procedure DISPOSITION: Time of Departure From ER 08/12/2021 12:07 Discharge/Transfer From ER Admit to inpatient psych unit 65 MEDICATION LISTS: CURRENT MEDICATION LIST No Medications Documented MEDICATIONS GIVEN DURING MEDICAL VISIT haloperidol 10 mg last dose given on 08/12/2021 at 00:29 Route: Intramuscular acetaminophen 650 mg last dose given on 08/12/2021 at 02:01 Route: By Mouth Maximum 4 Gm Acetaminophen/Day for Adults LAB RESULTS: LABORATORY TESTS: Abnormal Lab Result(s): Date Order Results 08/12/2021 01:00 MPV L 6.1 FL 08/12/2021 01:00 Color Urine A STRAW 08/12/2021 01:00 Potassium Level L 3.2 mMol/L 08/12/2021 01:00 Sodium Level L 134 mMol/L 08/12/2021 01:00 Glucose Level H 101 mg/dL 08/12/2021 01:00 Calcium Total L 8.8 mg/dL 08/12/2021 01:00 Acetaminophen (Tylenol) Level A <10 mcg/mL RADIOLOGY: [facility]* Diagnosis Suicidal ideation- Primary Schizoaffective disorder, unspecified type (HCC) documented in this encounter [facility] Work Phone: evaluation note* Diagnosis Screening due- Primary documented in this encounter [facility]* Diagnosis Rash- Primary Rash and other nonspecific skin eruption documented in this encounter [facility]bleEvaluation noteNo assessment information availableWMercy Health Clermont Hospital Work Phone: Evaluation note* Diagnosis Encounter for routine adult health examination with abnormal findings- Primary Routine general medical examination at a health care facility Thyroid disorder screen Screening for thyroid disorder Diabetes mellitus screening Screening for diabetes mellitus Encounter for vitamin deficiency screening Screening for other and unspecified endocrine, nutritional, metabolic, and immunity disorders Routine screening for STI (sexually transmitted infection) Screening examination for venereal disease Generalized pain Encounter for smoking cessation counseling Counseling on substance use and abuse Substance abuse ([facility]) Other, mixed, or unspecified nondependent drug abuse, unspecified documented in this encounter [facility] Work Phone: Evaluation note* Diagnosis Vitamin D deficiency- Primary Preventive medication therapy needed Other specified prophylactic or treatment measure Over weight Overweight Encounter for smoking cessation counseling Counseling on substance use and abuse documented in this encounter [facility] Work Phone: Evaluation note* Diagnosis Psychiatric problem- Primary Unspecified nonpsychotic mental disorder documented in this encounter [facility] Discharge instructions Additional Instructions X-rays negative for retained glass. [facility] Work Phone: Instructions* Attachments The following attachments cannot be sent through Care Everywhere. * Substance Use Disorder: General Info (Stateless) documented in this encounterS[facility] Work Phone: Instructions* Attachments The following attachments cannot be sent through Care Everywhere. * Vitamin D: General Info (Stateless) * Weight: Overweight: Wants to Lose Weight (Stateless) documented in this encounterS[facility] Work Phone: Reason for referral (narrative)No reason for referral information availableSycamore Medical Center Work Phone: Summary Purpose Family History No Family History Records FoundNo Family History Records FoundNo Family History Records FoundNo Family History Records FoundNo Family History Records FoundNo Family History Records FoundNo Family History Records FoundNo Family History Records Found Advance Directives No Advanced Directives Records FoundDocuments on File Type Date Recorded 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 No February 07, 2025 8:42pm Chief Complaint and Reason for Visit Chief Complaint mental health Chief Complaint glass in foot Chief Complaint Admit Date mental health December 09, 2024 7 :24am Chief Complaint Admit Date mental health December 09, 2024 7 :24am mental health February 07, 2025 8:3 2pm Additional Source Comments INFORMATION SOURCE (unrecogn ized section and content) DATE CREATED AUTHOR 08/13/2021 Chandana Rivero [facility] DATE CREATED AUTHOR AUTHOR'S ORGANIZ ATION [facility]/23/2022 [facility] DATE CREATED AUTHOR AUTHOR'S ORGANIZ ATION 03/01/2022 [facility] DATE CREATED AUTHOR AUTHOR'S ORGANIZ ATION 04/29/2022 [facility] DATE CREATED AUTHOR AUTHOR'S ORGANIZ ATION 04/16/2024 [facility] DATE CREATED AUTHOR AUTHOR'S ORGANIZ ATION 04/29/2024 [facility] DATE CREATED AUTHOR AUTHOR'S ORGANIZ ATION 03/17/2025 [facility] DATE CREATED AUTHOR AUTHOR'S ORGANIZ ATION 09/16/2025 [facility] Reason for Visit (unrecogniz ed section and content) Reason Comments Suicidal Voices in her head a re telling her to commit suicide and talking down on her. A friend she went to rehab with talked her out of listening to those voices and killing herself. Pt stopped taking her medications a couple weeks ago. Reason Comments drug treatment Reason Comments Rash bilateral arms and h ands, right leg x3days Reason Comments Medication Problem Reason Comments Complete Physical Exam Reason Comments Follow Up Reason Onset Date Comments Psychiatric Problem 04/23/2024 Care Teams (unrecognized sec tion and content) [employer] Relationship Specialty Start Date End Date Juan Oliva MD [address] [place] [address] PCP - General 05/07/16 [employer] Relationship Specialty Start Date End Date Juan Oliva MD [address] [place] [address] PCP - General Family Practice 03/29/16 [employer] Relationship Specialty Start Date End Date Juan Oliva MD [address] [place] [address] PCP - General Family Practice 03/29/16 Team Status: Active Member Role Status Dates Dr. Juan Oliva MD Family Provider Active No Primary Care Physician Primary Care Provider Active Team Status: Inactive Member Role Status Dates No Primary Care Physician Primary Care Provider Active Dr. Nathalie Bright MD Emergency Provider Active [employer] Relationship Specialty Start Date End Date Juan Oliva MD [address] [place] [address] PCP - General Family Medicine 03/29/16 Team Status: Active Member Role Status Dates Dr. Juan Oliva MD Family Provider Active Dr. Ever MCDANIEL MD Primary Care Provider Active Team Status: Inactive Member Role Status Dates No Primary Care Physician Primary Care Provider Active Start: December 09, 2024 End: December 09, 2024 Dr. Miguelangel Kwong MD Attending Provider Active Sta rt: December 09, 2024 End: December 09, 2024 Dr. Miguelangel Kwong MD Emergency Provider Active Sta rt: December 09, 2024 End: December 09, 2024 Team Status: Inactive Member Role Status Dates Dr. Ever MCDANIEL MD Primary Care Provider Active Start: January 26, 2025 End: January 26, 2025 Vikas MCDANIEL, D[employer]UCER-C Attending Provider Active Start: January 26, 2025 End: January 26, 2025 Team Status: Active Member Role Status Dates Dr. Ever MCDANIEL MD Primary Care Provider Active Team Status: Inactive Member Role Status Dates Dr. Ever MCDANIEL MD Primary Care Provider Active Start: February 07, 2025 End: February 08, 2025 Dr. Addy Blake DO Emergency Provider Active Start : February 07, 2025 End: February 08, 2025 Source Comments (unrecognize d section and content) In the event this informatio n is protected by the Federal Confidentiality of Alcohol and Drug Abuse Patient Records regulations: The Federal rules restrict any use of the information to criminally investigate or prosecute any alcohol or drug abuse patient.[facility] the event this information is protected by the Federal Confidentiality of Alcohol and Drug Abuse Patient Records regulations: The Federal rules restrict any use of the information to criminally investigate or prosecute any alcohol or drug abuse patient.[facility]bleIn the event this information is protected by the Federal Confidentiality of Alcohol and Drug Abuse Patient Records regulations: The Federal rules restrict any use of the information to criminally investigate or prosecute any alcohol or drug abuse patient.[facility] Goals (unrecognized section and content) Goals may be documented in a n alternate sectionGoals may be documented in an alternate sectionGoals may be documented in an alternate sectionGoals may be documented in an alternate section FOR RECORDS PERTAINING TO PATIENTS WHO ARE OR HAVE BEEN ENROLLED IN A CHEMICAL DEPENDENCY/SUBSTANCEABUSE PROGRAM, SOME INFORMATION MAY BE OMITTED. This clinical summary was aggregated from multiple sources. Caution should be exercised in using it in the provision of clinical care. This summary normalizes information from multiple sources, and as a consequence, information in this document may materially change the coding, format and clinical context of patient data. In addition, data may be omitted in some cases. CLINICAL DECISIONS SHOULD BE BASED ON THE PRIMARY CLINICAL RECORDS. [facility]. provides no warranty or guarantee of the accuracy or completeness of information in this document.
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
--- NOTE | 2025-09-18 16:29 | CM.ED ---
Social Work Date of referral: 09/18/25 Reason for referral: Trauma Referred by: Social Work Identification Patient provided consent to social work visit. Risk Developer checked in on patient to see how she is doing and to see if there is anything at all she needed. Patient stated she was doing ok and denied any needs at this time. 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 Patient denied any other needs/concerns at this time. Nathalie Merino, CARD STRIPPER, ROUTE PROCESS ADMINISTRATOR
[2025-09-18 16:31] VITALS: BP 106/49; PULSE 89; RESP 16; O2SAT 99
[2025-09-18 16:49] VITALS: BP 132/76; PULSE 64; RESP 18; TEMP 36.6; O2SAT 99
== END 2025-09-18 16:50 | disposition home or self-care (01) ==
PROVIDERS: Emergency Provider Surgery; PCP Family Medicine; Visit Provider Surgery
DX: S40.022A Contusion of left upper arm, initial encounter (principal); S70.02XA Contusion of left hip, initial encounter; F17.200 Nicotine dependence, unspecified, uncomplicated; X58.XXXA Exposure to other specified factors, initial encounter
CPT/HCPCS: 73060; 73080; 73502; 96372; 99282